=== PATIENT | male | born 1990 | race Caucasian/White ===

== ENCOUNTER 2024-04-06 18:17 | Inpatient (IN) | payer OTHER, SELFPAY ==
--- NOTE | ~2024-04-06 | CT_ITS ---
EXAMINATION: CT ABDOMEN AND PELVIS WITH CONTRAST CLINICAL INFORMATION: RLQ pain, h/o pancreatitis r/o appy, pancreatitis COMPARISON: None available. TECHNIQUE: Multidetector volumetric images were obtained from the superior aspect of the liver through the pubic symphysis following administration 85 mL of Omnipaque 350 intravenous contrast. Sagittal and coronal reformatted images were obtained on the technologist's workstation. Oral contrast: No This CT examination was performed using dose optimization techniques as appropriate, variously including the following: *Automated exposure control *Adjustment of mA and/or kV according to patient size (this includes techniques or standardized protocols for targeted exams where dose is matched to indication/reason for exam; i.e. extremities or head) *Use of iterative reconstruction technique DLP: 391 mGy-cm FINDINGS: LUNG BASES: The visualized lung bases are unremarkable. The visualized esophagus is thick-walled with adjacent stranding. LIVER, GALLBLADDER, AND BILIARY TREE: Hepatomegaly measuring up to 24 cm in maximum critical dimension. Nodular contour. No focal hepatic lesion or biliary ductal dilatation is present. The gallbladder is unremarkable with no evidence of radiopaque gallstones, gallbladder wall thickening, or obvious pericholecystic inflammatory changes. PANCREAS: Unremarkable. SPLEEN: Mild splenomegaly measuring up to 12.8 cm in maximum transaxial dimension. ADRENAL GLANDS: Unremarkable. KIDNEYS AND URETERS: There are nonobstructing 0.2 cm calculi in the bilateral renal lower and upper poles, as well as additional scattered punctate nonobstructing calculi bilaterally. No hydroureteronephrosis. The kidneys are normal in size, shape, and attenuation. No perinephric stranding. BLADDER: Unremarkable. GASTROINTESTINAL TRACT: The small and large bowel are nondilated. There is diffuse wall thickening with fatty infiltration throughout the descending, transverse and ascending colon as well as involving the terminal ileum. There is engorgement of the vasa recta, known as the comb sign. Normal appendix, coronal image 48. ABDOMINAL WALL: No significant hernia is appreciated. LYMPH NODES: There are enlarged cleo hepatis lymph nodes, for example series #3 axial image 186, measuring up to 1 cm in short axis. VASCULAR: Unremarkable. PELVIC VISCERA: Normal CT appearance of the prostate and seminal vesicles. OSSEOUS STRUCTURES: Unremarkable. CT/CT abdomen pelvis w IV con IMPRESSION: 1. There is diffuse wall thickening with fatty infiltration throughout the descending, transverse and ascending colon as well as involving the terminal ileum. There is engorgement of the vasa recta. Findings are suggestive of inflammatory bowel disease such as Crohn's disease versus colitis. The visualized esophagus is thick-walled with adjacent stranding, which can be seen in the setting of esophagitis versus related to the above-mentioned findings for inflammatory bowel disease. There are enlarged cleo hepatis lymph nodes, which may be reactive. 2. Normal appendix. 3. Hepatosplenomegaly with nodular contour of the liver, suggestive of cirrhosis. Fleischner guidelines were followed.
[2024-04-06 18:22] VITALS: BP 139/91; BP 160/90; PULSE 83; PULSE 88; RESP 18; TEMP 37; O2SAT 100; O2SAT 96; BMI 26.5
[2024-04-06 18:30] VITALS: BP 139/91; PULSE 83; RESP 18; TEMP 37; O2SAT 100
[2024-04-06 18:59] LABS: MANUAL DIFF FLAG NO
[2024-04-06] MEDS: ondansetron HCL 4 MG/2 ML VIAL IVPUSH (19:03)
[2024-04-06] MEDS: 0.9 % Sodium Chloride 1,000 ML 999 ML IV ×2 (19:03→20:16)
[2024-04-06 19:05] LABS: Basophils Percent Auto 0.3 % (0-2); Eosinophils Percent Auto 0.2 % (0-4); Hemoglobin 13.6 g/dl (14.0-18.0); Imm Gran Abs Auto 0.04 X10*3/uL (0.00-0.03); Imm Gran Pct Auto 0.4 % (0.0-0.4); Lymphocytes Absolute Auto 0.5 X10*3/uL (1.2-4.9); Lymphocytes Percent Auto 4.8 % (20-40); Mean Corpuscular HGB Conc 34.9 g/dl (31.0-36.0); Mean Corpuscular Hemoglobin 28.5 pg (27.0-33.0); Mean Corpuscular Volume 81.6 fL (80.0-98.0); Mean Platelet Volume 9.9 fL (9.4-12.4); Monocytes Absolute Auto 0.8 X10*3/uL (0.1-1.2); Monocytes Percent Auto 8.1 % (2-11); Neutrophils Absolute Auto 8.9 x10*3/uL (2.0-8.3); Neutrophils Percent Auto 86.2 % (45-73); Platelet Count 165 X10*3/uL (160-400); Red Blood Count 4.78 X10*6/uL (4.60-5.80); Red Cell Distribution Width 17.9 % (11.0-16.0); White Blood Count 10.3 X10*3/uL (4.8-10.8)
--- NOTE | 2024-04-06 19:08 | ED.ANXIETY ---
HPI - Anxiety General Chief Complaint: Nausea/Vomiting/Diarrhea Stated Complaint: VOMITING BLOOD Time Seen by Provider: 04/06/24 19:06 Source: patient Limitations: no limitations History of Present Illness ED Provider: Dr. Jimy Jackson HPI narrative: 33-year-old male with a history of alcoholic cirrhosis, recurrent pancreatitis, alcohol use disorder, alcohol withdrawal seizures who presents emergency department for evaluation of abdominal pain, nausea, vomiting, hematemesis, and diarrhea. Patient states that he has been sick for approximately 2 days. He states that he has been vomiting all day and has not been able to hold down any food or fluid. He states that he occasionally vomits blood which she describes as stringy red blood with no blood clots. Patient also states that he has a constant, ?razor blade/sharp pain ?in the right lower quadrant area of his abdomen. States the pain is 7/10 at its worst. Patient also states that he has chronic diarrhea and moves his bowels 10 times a day. He states he occasionally the bowel movements are bloody and mucousy. He drinks a sleeve (10 shots) of rootbeer flavored vodka per day. On presentation to the emergency department the patient was having a severe panic attack. He states that he felt like he was going to have a seizure. The patient was hyperventilating and had carpal pedal spasm and appeared to be severely anxious. Patient improved after receiving Ativan 1 mg IV. Related Data Allergies Allergy/AdvReac Type Severity Reaction Status Date / Time Penicillins Allergy Unknown Verified 04/06/24 18:26 Review of Systems Review of Systems: Yes all other systems are reviewed and are negative [facility] Past Medical History [facility] Narrative: Surgical history: None. Social history: The patient does smoke cigarettes. He drinks 10 shots of vodka per day. He denies drug use. Social History Social History Alcohol intake: current Alcohol intake frequency: 3 or more drinks per day Alcohol type: hard liquor Use of substances other than those prescribed or required for medical reasons: No Advance Directives: No Advance Directives Information Provided: No Do you have a plan to hurt others: No Plan Physical Exam Vital Signs: Vital Signs: Last Vital Signs Temp 98.7 F 04/06/24 20:12 Pulse 105 H 04/06/24 20:12 Resp 22 H 04/06/24 20:12 BP 124/76 04/06/24 20:12 Pulse Ox 98 04/06/24 20:12 O2 Del Method Room Air 04/06/24 20:12 BMI result Body Mass Index 26.5 Vital signs revealed elevated heart rate of 105, elevated respiratory rate of 22 otherwise unremarkable Exam: General: Initially the patient was having severe hyperventilation/panic attack with carpal pedal spasm which improved after receiving 2 mg IV Ativan Head: Normocephalic, atraumatic EENT: PERRL, Lids normal, sclera normal, conjunctiva normal, nose normal , ears normal, throat without erythema or exudates Neck: Supple, no adenopathy Lung: breath sounds symmetric, no wheezing, rales or rhonchi Chest: symmetric movement, nontender Heart: regular rate and rhythm, normal S1, S2 no murmurs or rubs Abdomen: soft, moderate diffuse tenderness with moderate to severe right lower quadrant tenderness, normoactive bowel sounds, no rebound Back: no vertebral tenderness, no CVAT Extremities: no deformities, moves all extremities symmetrically Neuro: Awake, alert, oriented, normal speech, cranial nerves intact, moves all extremities symmetrically Medications Administered Discontinued Medications Generic Name Dose Route Start Last Admin Trade Name Freq PRN Reason Stop Dose Admin Sodium Chloride 1,000 mls @ 999 mls/hr 04/06/24 18:45 04/06/24 19:03 Ns IV 04/06/24 19:45 999 mls/hr .Q1H1M DOE Administration Sodium Chloride 1,000 mls @ 999 mls/hr 04/06/24 20:05 04/06/24 20:16 Ns IV 04/06/24 21:05 999 mls/hr .Q1H1M STA Administration Iohexol 100 ml 04/06/24 20:30 04/06/24 20:30 Iohexol 350 Mg/Ml 100 Ml Infus..Btl IV 04/06/24 20:31 85 ml ONCE ONE Administration Lorazepam 2 mg 04/06/24 19:07 04/06/24 19:12 Lorazepam 2 Mg/Ml Vial IVPUSH 04/06/24 19:08 2 mg ONCE ONE Administration Lorazepam 2 mg 04/06/24 20:41 04/06/24 20:48 Lorazepam 2 Mg/Ml Vial IVPUSH 04/06/24 20:42 2 mg ONCE ONE Administration Morphine Sulfate 4 mg 04/06/24 20:04 04/06/24 20:15 Morphine Sulfate 4 Mg/Ml Cartridge IVPUSH 04/06/24 20:05 4 mg ONCE STA Administration Protocol Ondansetron HCl 4 mg 04/06/24 18:38 04/06/24 19:03 Ondansetron Hcl 4 Mg/2 Ml Vial IVPUSH 04/06/24 18:39 4 mg ONCE ONE Administration Medical Decision Making Medical Decision Making [facility] Narrative: 33-year-old male with a history of alcoholic cirrhosis, recurrent pancreatitis, alcohol use disorder, alcohol withdrawal seizures who presents emergency department for evaluation of abdominal pain, nausea, vomiting, hematemesis, and diarrhea. Patient has been sick for 2 days, unable to eat but has been able to drink 10 shots of vodka per day. Complaining of constant, sharp, right lower quadrant pain. He has chronic diarrhea with 10 episodes of diarrhea per day with occasional streaks of bloody stool and streaks mucus. On initial presentation the patient was having a hyperventilation/panic attack with carpal pedal spasm which improved after receiving Ativan 10 mg IV. Differential diagnosis: ?Includes but is not limited to pancreatitis, alcoholic gastritis, appendicitis, diverticulitis, inflammatory bowel disease, viral syndrome, COVID-19, influenza, RSV, electrolyte abnormalities, anemia Following evaluation was ordered: CBC, CMP, magnesium, lactic acid, troponin, CRP, ESR, urinalysis, urine drug screen, ethanol level, GI panel, C diff, blood cultures x2 Patient was initially treated with the following: Ativan 2 mg IV x2, morphine 4 mg IV x1, normal saline x2 L, magnesium 1 g IV, potassium chloride 10 mEq IV x2 Course: 22:43 My interpretation patient's laboratory evaluation is as follows: WBC was normal 10,300, normocytic anemia with an H&H of 13.6 and 39, platelet count [id number]. Potassium low 2.7, magnesium low 1.2-secondary to alcohol use. AST, ALT and alk-phos elevated 103, 59 and 160. Troponin below detectable limits. Ethanol level detectable at 78. Lipase was normal. CT scan of the patient's abdomen pelvis with IV contrast consistent with pain colitis which the radiologist felt could be consistent with inflammatory bowel disease such as Crohn's versus nonspecific colitis. Patient also had esophagus thickening consistent with esophagitis. Patient also has hepatosplenomegaly and cirrhosis of the liver. Given the patient's CT scan findings I did order blood cultures, GI panel and C diff. patient is pen allergic therefore he was treated with Levaquin 500 mg IV and Flagyl 500 mg IV. Patient was also ordered to get the phenobarbital protocol 12 milligrams/kilogram. I did discuss the patient's presentation over tiger text with the covering hospitalist, Dr. Hinkle and the patient will be admitted for further management. Admission/Observation Consideration of admission/observation: Escalation of care including admission/observation considered Lab Data MDM Lab Attestation statement: I reviewed the patient's lab results. 04/06/24 18:46 04/06/24 18:46 Labs: Lab Results 04/06/24 Range/Units 18:46 WBC 10.3 (4.8-10.8) X10*3/uL RBC 4.78 (4.60-5.80) X10*6/uL Hgb 13.6 L (14.0-18.0) g/dl Hct 39.0 L (42.0-52.0) % MCV 81.6 (80.0-98.0) fL MCH 28.5 (27.0-33.0) pg MCHC 34.9 (31.0-36.0) g/dl RDW 17.9 H (11.0-16.0) % Plt Count 165 (160-400) X10*3/uL MPV 9.9 (9.4-12.4) fL Immature Gran % (Auto) 0.4 (0.0-0.4) % Neut % (Auto) 86.2 H (45-73) % Lymph % (Auto) 4.8 L (20-40) % [place] % (Auto) 8.1 (2-11) % Eos % (Auto) 0.2 (0-4) % Baso % (Auto) 0.3 (0-2) % Lymph # (Auto) 0.5 L (1.2-4.9) X10*3/uL [place] # (Auto) 0.8 (0.1-1.2) X10*3/uL Eos # (Auto) 0.0 (0.0-0.4) X10*3/uL Baso # (Auto) 0.0 (0.0-0.2) X10*3/uL Abs Immat Gran (auto) 0.04 H (0.00-0.03) X10*3/uL Absolute Neuts (auto) 8.9 H (2.0-8.3) x10*3/uL Absolute Nucleated RBC 0.000 (0.0-0.012) X10*3/uL Nucleated RBC % (auto) 0.0 (0.0-0.2) /100WBC Sodium 142 (135-145) mmol/L Potassium 2.7 L* (3.3-5.1) mmol/L Chloride 95 L (96-108) mmol/L Carbon Dioxide 23 (22-29) mmol/L Anion Gap 27 H (12-20) BUN 14 (9-16) mg/dL Creatinine 0.91 (0.5-1.4) mg/dL Estim Creat Clear Calc 96.6 Estimated GFR > 60 Random Glucose 112 (60-115) mg/dL Calcium 9.6 (8.4-10.2) mg/dL Magnesium 1.2 L* (1.6-2.6) mg/dL Total Bilirubin 0.8 (0.0-1.0) mg/dL AST 103 H (5-37) U/L ALT 59 H (0-40) U/L Alkaline Phosphatase 160 H (39-117) U/L Troponin I High Sens < 2.7 (<3.5-35.0) ng/L Total Protein 8.9 H (6.5-8.0) g/dL Albumin 4.9 (3.5-5.0) g/dL Ethyl Alcohol 78 mg/dL Radiology Impression Discussion of test interpretation with radiology: I have reviewed the radiologist's reading. Radiologist Impression: CT abdomen pelvis w IV con IMPRESSION: 1. There is diffuse wall thickening with fatty infiltration throughout the descending, transverse and ascending colon as well as involving the terminal ileum. There is engorgement of the vasa recta. Findings are suggestive of inflammatory bowel disease such as Crohn's disease versus colitis. The visualized esophagus is thick-walled with adjacent stranding, which can be seen in the setting of esophagitis versus related to the above-mentioned findings for inflammatory bowel disease. There are enlarged cleo hepatis lymph nodes, which may be reactive. 2. Normal appendix. 3. Hepatosplenomegaly with nodular contour of the liver, suggestive of cirrhosis. Fleischner guidelines were followed. Dictated By: Lilian Paula External Record Review External record reviewed: Outpatient record ([facility] medical record reviewed for visits on 03/31/2024 and 04/01/2024) Chronic Conditions Patient?s care impacted by: Other (Cirrhosis of liver, alcohol use disorder) Critical Care Time Critical Care Time Critical Care Time: Yes Total Critical Care Time: 80 Attestation: Critical Care: The patient was critically ill with a high probability of imminent or life threatening deterioration. I spent greater than 30 minutes of discontinuous time evaluating the patient,delivering critical care at the bedside, discussing and evaluating pertinent data with consultants. Critical care time does not include time spent performing separately billable procedures or teaching. Total time spent performing critical care was 80 minutes. Discharge Plan Discharge Patient Disposition: Admitted As Inpatient Print Language: Macanese
[2024-04-06] MEDS: LORazepam 2 MG/ML VIAL IVPUSH ×2 (19:12→20:48)
[2024-04-06 19:18] VITALS: BP 138/87; PULSE 110; RESP 33; TEMP 37.1; O2SAT 99
--- NOTE | 2024-04-06 19:20 | PC.NURSE ---
Pt diaphoretic, tachycardic, vomiting, expressing hx seizures and reports I feel like a seizure is coming on . Pt exhibiting alcohol withdrawal symptoms. MD called to bedside. Verbal order Ativan 2mg IV. Pt placed on monitor, 18G IV line placed on R FA. Seizure pads placed on the bed. Monitoring is ongoing.
[2024-04-06 19:30] LABS: Troponin-I High Sensitivity < 2.7 ng/L (<3.5-35.0)
[2024-04-06 19:33] LABS: Alanine Aminotransferase 59 U/L (0-40); Albumin Level 4.9 g/dL (3.5-5.0); Alkaline Phosphatase 160 U/L (39-117); Anion Gap 27 (12-20); Aspartate Amino Transferase 103 U/L (5-37); Bilirubin Total 0.8 mg/dL (0.0-1.0); Blood Urea Nitrogen 14 mg/dL (9-16); Calcium 9.6 mg/dL (8.4-10.2); Carbon Dioxide 23 mmol/L (22-29); Chloride 95 mmol/L (96-108); Creatinine Clr Calc Pharmacy 96.6; Estimated Glomerular Filt Rate > 60; Ethanol 78 mg/dL; Glucose Random 112 mg/dL (60-115); Magnesium 1.2 mg/dL (1.6-2.6); Potassium 2.7 mmol/L (3.3-5.1); Sodium 142 mmol/L (135-145); Total Protein 8.9 g/dL (6.5-8.0)
[2024-04-06 20:12] VITALS: BP 124/76; PULSE 105; RESP 22; TEMP 37.1; O2SAT 98
[2024-04-06] MEDS: Morphine Sulfate 4 MG/ML CARTRIDGE IVPUSH (20:15)
[2024-04-06] MEDS: iohexoL 350 MG/ML 100 ML INFUS..BTL IV (20:30)
[2024-04-06 22:50] LABS: C Reactive Protein 0.22 mg/dL (< or = 0.50); Lipase 22 U/L (8-78)
[2024-04-06 23:06] LABS: Lactic Acid 1.1 mmol/L (0.5-2.0)
--- NOTE | 2024-04-06 23:06 | P.HPHOSP_ITS ---
History of Present Illness Date of Service: 04/06/24 Chief Complaint: Abdominal pain, diarrhea and vomiting This is a 33-year-old male with pertinent history of alcohol use disorder with history of alcohol withdrawal seizures and alcohol induced pancreatitis, mood disorder who presents to the emergency department for evaluation of nausea, vomiting, diarrhea and abdominal pain. Patient states his symptoms started 2 days prior to presentation. He has been having generalized abdominal discomfort. Also has associated bloody vomitus but no blood clots. Patient reports multiple episodes of nonbloody diarrhea that has been ongoing for the last 2 days. Reports this has happened before and it was related to his alcohol use. His last drink was on the day of presentation. The abdominal discomfort is in the lower quadrant, nonradiating and without any relieving factors. No fever, chills, chest discomfort, palpitations, changes in urinary habits. In the emergency department, imaging concerning for IBD versus colitis. Potassium and magnesium found to be low and was repleted. Patient was initiated on empiric IV antibiotics. Patient with panic attack in the ER and thought was going to have a seizures was given 1 mg IV Ativan. Review of Systems 2 Constitutional: Constitutional: Reports fatigue, Reports malaise and Reports weakness Cardiovascular: Cardiovascular: Reports no additional cardiovascular complaints Respiratory: Respiratory: Reports no additional respiratory complaints Gastrointestinal: Gastrointestinal: Reports abdominal pain, Reports diarrhea, Reports loose stools, Reports nausea and Reports hematemesis Genitourinary: Genitourinary: Reports no additional male genitourinary complaints Neurologic: Reports weakness Endocrine: Endocrine: Reports fatigue PMFSH Medical History Mood disorder Alcohol use disorder Pertinent family history: No family history of early CAD Social History Alcohol intake: current Alcohol intake frequency: 3 or more drinks per day Alcohol type: hard liquor Use of substances other than those prescribed or required for medical reasons: No Advance Directives: No Advance Directives Information Provided: No Do you have a plan to hurt others: No Plan Meds Allergies Allergy/AdvReac Type Severity Reaction Status Date / Time Penicillins Allergy Unknown Verified 04/06/24 18:26 Active Medications: Current Medications Magnesium Sulfate/Dextrose (Magnesium Sulfate/D5w) 1 gm in 100 mls @ 100 mls/hr IV ONCE ONE Stop: 04/06/24 23:18 Potassium Chloride (Potassium Chloride/H20) 10 meq in 100 mls @ 100 mls/hr IV Q1H DOE Stop: 04/07/24 00:29 Levofloxacin (Levaquin) 500 mg in 100 mls @ 100 mls/hr IV ONCE ONE Stop: 04/06/24 23:22 Metronidazole (Flagyl) 500 mg in 100 mls @ 100 mls/hr IV ONCE ONE Stop: 04/06/24 23:22 Pharmacy Consult (Consult Rx Etoh Phenob Im/Po) 1 each MISCELLANE ONCE PRN; Protocol PRN Reason: Consult order Phenobarbital (Phenobarbital 15 Mg Tablet) 45 mg PO BID DOE; Protocol Stop: 04/08/24 21:01 Phenobarbital (Phenobarbital 15 Mg Tablet) 15 mg PO BID DOE; Protocol Stop: 04/10/24 21:01 Phenobarbital (Phenobarbital 15 Mg Tablet) 15 mg PO DAILY DOE; Protocol Stop: 04/12/24 09:01 Phenobarbital Sodium (Phenobarbital Sodium 130 Mg/Ml Vial Im Q3hx2) 213.2 mg IM Q3H DOE; Protocol Stop: 04/07/24 05:01 Physical Exam 2 Vital Signs and Narrative: Vital Signs: Last Vital Signs Temp 98.7 F 04/06/24 20:12 Pulse 105 H 04/06/24 20:12 Resp 22 H 04/06/24 20:12 BP 124/76 04/06/24 20:12 Pulse Ox 98 04/06/24 20:12 O2 Del Method Room Air 04/06/24 20:12 BMI result Body Mass Index 26.5 Middle-aged male lying in bed in no distress Neck supple, no JVD Regular rate and rhythm, S1-S2 heard Regular breath sounds bilaterally, no wheezing or crackles appreciated Abdomen soft nondistended, no guarding, no rigidity Patient is awake, alert and oriented to self, place, time and person ; no focal motor deficit Psych: Normal mood No pedal edema Results Labs 04/06/24 18:46 04/06/24 18:46 Labs: Laboratory Results - last 24 hr 04/06/24 04/06/24 18:46 22:50 MCV 81.6 MCH 28.5 MCHC 34.9 RDW 17.9 H Plt Count 165 MPV 9.9 Immature Gran % (Auto) 0.4 Neut % (Auto) 86.2 H Lymph % (Auto) 4.8 L [place] % (Auto) 8.1 Eos % (Auto) 0.2 Baso % (Auto) 0.3 Lymph # (Auto) 0.5 L [place] # (Auto) 0.8 Eos # (Auto) 0.0 Baso # (Auto) 0.0 Abs Immat Gran (auto) 0.04 H Absolute Neuts (auto) 8.9 H Absolute Nucleated RBC 0.000 Nucleated RBC % (auto) 0.0 Anion Gap 27 H Estim Creat Clear Calc 96.6 Estimated GFR > 60 Random Glucose 112 Lactic Acid 1.1 Calcium 9.6 Magnesium 1.2 L* Total Bilirubin 0.8 AST 103 H ALT 59 H Alkaline Phosphatase 160 H Troponin I High Sens < 2.7 C-Reactive Protein 0.22 Total Protein 8.9 H Albumin 4.9 Lipase 22 Ethyl Alcohol 78 Imaging Radiologist's Impressions: Impressions Abdomen/Pelvis CT 04/06/24 20:31 IMPRESSION: 1. There is diffuse wall thickening with fatty infiltration throughout the descending, transverse and ascending colon as well as involving the terminal ileum. There is engorgement of the vasa recta. Findings are suggestive of inflammatory bowel disease such as Crohn's disease versus colitis. The visualized esophagus is thick-walled with adjacent stranding, which can be seen in the setting of esophagitis versus related to the above-mentioned findings for inflammatory bowel disease. There are enlarged cleo hepatis lymph nodes, which may be reactive. 2. Normal appendix. 3. Hepatosplenomegaly with nodular contour of the liver, suggestive of cirrhosis. Fleischner guidelines were followed. Assessment and Plan (1) Hematemesis: Status: Acute (2) Abdominal pain: Status: Acute (3) Diarrhea: Status: Acute (4) Alcohol use disorder: Status: Acute (5) Hypomagnesemia: Status: Acute (6) Acute hypokalemia: Status: Acute Plan This is a 33-year-old male with pertinent history of alcohol use disorder with history of alcohol withdrawal seizures and alcohol induced pancreatitis, mood disorder who presents to the emergency department for evaluation of nausea, vomiting, diarrhea and abdominal pain. #. Abdominal pain with vomiting and diarrhea: Imaging concerning for IBD versus colitis. Initiating empiric IV ceftriaxone and metronidazole. GI panel and C diff pending. Consulted Gastroenterology #. Hematemesis: Initiating IV Protonix. Also initiating IV octreotide in a patient with cirrhosis. On ceftriaxone as above. Appreciate GI assistance. #. Hypokalemia and hypomagnesemia due to GI losses: Repleted. Continue to monitor #. Alcoholic cirrhosis: Not on diuretics. Hold lactulose in the setting of diarrhea #. Mood disorder: Continue home mood stabilizers #. Polysubstance use disorder: UDS positive for opiates, cocaine. Consulted Addiction Team #. Alcohol use disorder: Patient initiated on phenobarb protocol in the ER. Initiating IV thiamine. Patient on folic acid. Appreciate Addiction Team assistance. Med rec pending DVT prophylaxis: Mechanical Full code Admit as inpatient and will require two night minimum hospital stay for IV antibiotics, monitoring of bowel function (as above), which is not possible in a lesser acute setting. Specialist consult pending Quality Stroke Does the patient have a stroke diagnosis?: No VTE Prior VTE?: No VTE Risk Level:: Medical - moderate - high VTE Device Contraindication: Treatment Not Indicated VTE Drug Contraindication: N/A - Med Ordered
[2024-04-06 23:11] LABS: Appearance Urine Clear; Color Urine Yellow; Glucose Urine UA Negative (Negative); Leukocyte Esterase Urine Negative (Negative); Nitrite Urine Negative (Negative); Specific Gravity - Urine >= 1.030 (1.005-1.025); UMIC TRIGGER UACC YES; Urine Blood Negative (Negative); Urine Ketones 15 mg/dL (Negative); Urine Protein 30 (1+) mg/dL (Neg-Trace)
[2024-04-06] MEDS: Potassium Chloride/H20 10 MEQ/100 ML PIGGYBACK 100 MEQ IV (23:12)
[2024-04-06] MEDS: Magnesium Sulfate/D5W 1 GM/100 ML PIGGYBACK IV (23:12)
[2024-04-06 23:13] LABS: Bacteria Urine None Seen (None Seen); Hyaline Casts Urine 0-2 /LPF (0-2); RBC Urine 0-2 /HPF (0-2); Squamous Epithelial Cell Urine 0-2 /HPF (0-2); WBC Urine 0-5 /HPF (0-5)
[2024-04-06 23:23] LABS: Amphetamine Screen Urine Not Detected (Not Detect); Barbiturates, Urine Not Detected (Not Detect); Benzodiazepines Screen Urine Not Detected (Not Detect); Buprenorphine Scr Not Detected (Not Detect); Cannabinoid Screen Urine POSITIVE (Not Detect); Cocaine Screen Urine POSITIVE (Not Detect); Fentanyl, urine Not Detected (Not Detect); Methadone Screen, Urine Not Detected (Not Detect); Opiate Screen Urine POSITIVE (Not Detect); Oxycodone Screen Urine Not Detected (Not Detect); Phencyclidine Screen Urine Not Detected (Not Detect)
[2024-04-06] MEDS: PHENobarbitaL sodium 130 MG/ML IM ONCE 286 MG IM (23:24)
[2024-04-07 00:03] LABS: Erythrocyte Sedimentation Rate 7 MM/HR (0-15)
[2024-04-07] MEDS: metroNIDAZOLE/NS 500 MG/100 ML PIGGYBACK 100 MG IV ×4 (00:07→21:33)
[2024-04-07] MEDS: Pantoprazole Sodium 40 MG/10 ML VIAL IVPUSH ×3 (00:10→16:03)
[2024-04-07] MEDS: cefTRIAXone sodium 1 GM in 0.9 % Sodium Chloride 50 ML IV ×2 (00:16→21:33)
[2024-04-07] MEDS: Thiamine HCL 100 MG in 0.9 % Sodium Chloride 100 ML 202 MG IV ×2 (00:53→08:01)
[2024-04-07] MEDS: Octreotide Acetate 100 MCG/ML AMPUL 50 MCG IVPUSH (00:56)
[2024-04-07] MEDS: 0.9 % Sodium Chloride Flush 3 ML SYRINGE IVFLUSH ×3 (00:58→15:18)
[2024-04-07] MEDS: Melatonin 3 MG TABLET 6 MG PO (01:01)
[2024-04-07] MEDS: Potassium Chloride/H20 10 MEQ/100 ML PIGGYBACK 100 MEQ IV ×4 (01:01→05:33)
[2024-04-07] MEDS: ondansetron HCL 4 MG/2 ML VIAL IVPUSH ×2 (01:01→15:18)
[2024-04-07] MEDS: Octreotide Acetate 500 MCG in 0.9 % Sodium Chloride 500 ML 50.1 MCG IVCONT ×3 (01:29→20:00)
[2024-04-07] MEDS: PHENobarbitaL sodium 130 MG/ML VIAL IM Q3Hx2 213.2 MG IM ×2 (02:16→05:35)
[2024-04-07 03:09] VITALS: PULSE 92; RESP 20
[2024-04-07 03:55] VITALS: BP 168/98; PULSE 81; RESP 16; TEMP 36.8; O2SAT 98
[2024-04-07 04:25] VITALS: BMI 27.8
[2024-04-07 06:25] LABS: MANUAL DIFF FLAG NO
[2024-04-07 06:31] LABS: Basophils Percent Auto 0.5 % (0-2); Imm Gran Abs Auto 0.01 X10*3/uL (0.00-0.03); Imm Gran Pct Auto 0.3 % (0.0-0.4); PLT CLUMP 1; SCAN SMEAR FLAG 1
[2024-04-07 06:33] LABS: Eosinophils Percent Auto 0.3 % (0-4); Hematocrit 32.9 % (42.0-52.0); Hemoglobin 10.9 g/dl (14.0-18.0); Lymphocytes Absolute Auto 0.9 X10*3/uL (1.2-4.9); Lymphocytes Percent Auto 22.6 % (20-40); Mean Corpuscular HGB Conc 33.1 g/dl (31.0-36.0); Mean Corpuscular Hemoglobin 28.1 pg (27.0-33.0); Mean Corpuscular Volume 84.8 fL (80.0-98.0); Monocytes Absolute Auto 0.4 X10*3/uL (0.1-1.2); Monocytes Percent Auto 11.2 % (2-11); Neutrophils Absolute Auto 2.5 x10*3/uL (2.0-8.3); Neutrophils Percent Auto 65.1 % (45-73); Red Blood Count 3.88 X10*6/uL (4.60-5.80); White Blood Count 3.9 X10*3/uL (4.8-10.8)
[2024-04-07 06:57] LABS: Platelet Count 78 X10*3/uL (160-400)
[2024-04-07 07:15] LABS: Anion Gap 12 (12-20); Blood Urea Nitrogen 12 mg/dL (9-16); Carbon Dioxide 26 mmol/L (22-29); Chloride 102 mmol/L (96-108); Creatinine Clr Calc Pharmacy 113.4; Estimated Glomerular Filt Rate > 60; Glucose Random 154 mg/dL (60-115); Magnesium 1.8 mg/dL (1.6-2.6); Potassium 3.2 mmol/L (3.3-5.1); Sodium 137 mmol/L (135-145)
--- NOTE | 2024-04-07 07:48 | PC.NURSE ---
Pt on continuous Octreotide drip, upon assessment 500ml bag of saline hanging unlabeled, pump set to Octreotide. Pump stopped remaining bag wasted, pharmacy notified of unlabeled bag hanging, new bag to be brought to floor
[2024-04-07 07:53] VITALS: BP 117/75; PULSE 73; RESP 18; TEMP 36.6; O2SAT 97
[2024-04-07] MEDS: PHENobarbitaL 15 MG TABLET 45 MG PO ×2 (08:01→20:19)
--- NOTE | 2024-04-07 08:56 | P.PNIM_ITS ---
Subjective Subjective Date of Service: 04/08/24 Interval History: Being followed for nausea vomiting, abdominal pain and diarrhea diagnosed to have IBD/colitis, hematemesis likely due to alcohol-induced gastritis, peptic ulcer disease, varices with backdrop of cirrhosis. Patient complaining of persistent epigastric pain and sore throat No recurrent episodes of hematemesis, no diarrhea. Review of Systems All other system reviewed and are negative Physical Exam 2 Vital Signs: Vital Signs: Last Vital Signs Temp 97.9 F 04/07/24 07:53 Pulse 73 04/07/24 07:53 Resp 18 04/07/24 07:53 BP 117/75 04/07/24 07:53 Pulse Ox 97 04/07/24 07:53 O2 Del Method Room Air 04/07/24 07:53 BMI result Body Mass Index 27.8 Const: Other: General somnolent, easily arousable,in no acute distress. Oral mucosa moist, no throat congestion Neck supple no JVD. CVS regular rate rhythm, Respiratory lungs clear to auscultation, no respiratory distress, no wheeze, no rhonchi. Gastrointestinal mild epigastric tenderness, soft, bowel sounds audible, no guarding , no rigidity. Extremities no edema. Neuro non focal, speech clear. Skin no rash Psych appropriate affect Objective Data Active Medications Acetaminophen (Acetaminophen 325 Mg Tablet) 650 mg PO Q6H PRN PRN Reason: Pain, Mild (Pain Scale 1-3), fever or headache Calcium Carbonate (Calcium Carbonate 750 Mg Tab.Chew) 750 mg PO Q4H PRN PRN Reason: Heartburn Metronidazole (Flagyl) 500 mg in 100 mls @ 100 mls/hr IV Q8H [facility] Last Infusion: 04/07/24 07:40 Dose: Infused Documented By: ROSEMARY Thiamine HCl 100 mg/ Sodium (Chloride) 101 mls @ 202 mls/hr IV DAILY [facility] Last Infusion: 04/07/24 08:41 Dose: Infused Documented By: ROSEMARY Ceftriaxone Sodium 1 gm/ (Sodium Chloride) 50 mls @ 100 mls/hr IV 2200 [facility] Last Infusion: 04/07/24 00:46 Dose: Infused Documented By: ULYSSES Octreotide Acetate 500 mcg/ (Sodium Chloride) 501 mls @ 50.1 mls/hr IVCONT .Q10H [facility] Last Infusion: 04/07/24 07:47 Dose: Infused Documented By: ROSEMARY Magnesium Hydroxide (Milk Of Magnesia 30 Ml Oral.Susp) 30 ml PO DAILY PRN PRN Reason: Constipation Melatonin (Melatonin 3 Mg Tablet) 6 mg PO BEDTIME PRN PRN Reason: Insomnia Last Admin: 04/07/24 01:01 Dose: 6 mg Documented By: ULYSSES Ondansetron HCl (Ondansetron Hcl 4 Mg/2 Ml Vial) 4 mg IVPUSH Q8H PRN PRN Reason: Nausea and Vomiting Last Admin: 04/07/24 01:01 Dose: 4 mg Documented By: ULYSSES Pantoprazole Sodium (Pantoprazole Sodium 40 Mg/10 Ml Vial) 40 mg IVPUSH BID@0630,1630 [facility] Last Admin: 04/07/24 06:16 Dose: 40 mg Documented By: SANTO Pharmacy Consult (Consult Rx Etoh Phenob Im/Po) 1 each MISCELLANE ONCE PRN; Protocol PRN Reason: Consult order Phenobarbital (Phenobarbital 15 Mg Tablet) 45 mg PO BID [facility]; Protocol Stop: 04/08/24 21:01 Last Admin: 04/07/24 08:01 Dose: 45 mg Documented By: ROSEMARY Phenobarbital (Phenobarbital 15 Mg Tablet) 15 mg PO BID [facility]; Protocol Stop: 04/10/24 21:01 Phenobarbital (Phenobarbital 15 Mg Tablet) 15 mg PO DAILY [facility]; Protocol Stop: 04/12/24 09:01 Sodium Chloride (0.9 % Sodium Chloride Flush 3 Ml Syringe) 3 ml IVFLUSH [facility] Last Admin: 04/07/24 08:02 Dose: 3 ml Documented By: ROSEMARY Labs 04/08/24 06:20 04/08/24 06:20 Labs: Laboratory Results - last 24 hr 04/06/24 04/06/24 04/06/24 18:46 22:50 23:05 MCV 81.6 MCH 28.5 MCHC 34.9 RDW 17.9 H Plt Count 165 MPV 9.9 Immature Gran % (Auto) 0.4 Neut % (Auto) 86.2 H Lymph % (Auto) 4.8 L [place] % (Auto) 8.1 Eos % (Auto) 0.2 Baso % (Auto) 0.3 Lymph # (Auto) 0.5 L [place] # (Auto) 0.8 Eos # (Auto) 0.0 Baso # (Auto) 0.0 Abs Immat Gran (auto) 0.04 H Absolute Neuts (auto) 8.9 H Absolute Nucleated RBC 0.000 Nucleated RBC % (auto) 0.0 ESR 7 Anion Gap 27 H Estim Creat Clear Calc 96.6 Estimated GFR > 60 Random Glucose 112 Lactic Acid 1.1 Calcium 9.6 Magnesium 1.2 L* Total Bilirubin 0.8 AST 103 H ALT 59 H Alkaline Phosphatase 160 H Troponin I High Sens < 2.7 C-Reactive Protein 0.22 Total Protein 8.9 H Albumin 4.9 Lipase 22 Urine Color Yellow Urine Appearance Clear Urine pH 8.0 Ur Specific [place] >= 1.030 H Urine Protein 30 (1+) H Urine Glucose (UA) Negative Urine Ketones 15 Urine Blood Negative Urine Nitrite Negative Ur Leukocyte Esterase Negative Urine RBC 0-2 Urine WBC 0-5 Ur Squamous Epith Cells 0-2 Urine Bacteria None Seen Hyaline Casts 0-2 Urine Opiates Screen POSITIVE H Ur Buprenorphine Scrn Not Detected Ur Oxycodone Screen Not Detected Urine Methadone Screen Not Detected Urine Fentanyl Screen Not Detected Ur Barbiturates Screen Not Detected Ur Phencyclidine Scrn Not Detected Ur Amphetamines Screen Not Detected U Benzodiazepines Scrn Not Detected Urine Cocaine Screen POSITIVE H U Marijuana (THC) Screen POSITIVE H Ethyl Alcohol 78 04/07/24 06:22 MCV 84.8 MCH 28.1 MCHC 33.1 RDW 18.0 H Plt Count 78 L D MPV 11.0 Immature Gran % (Auto) 0.3 Neut % (Auto) 65.1 Lymph % (Auto) 22.6 [place] % (Auto) 11.2 H Eos % (Auto) 0.3 Baso % (Auto) 0.5 Lymph # (Auto) 0.9 L [place] # (Auto) 0.4 Eos # (Auto) 0.0 Baso # (Auto) 0.0 Abs Immat Gran (auto) 0.01 Absolute Neuts (auto) 2.5 Absolute Nucleated RBC 0.000 Nucleated RBC % (auto) 0.0 ESR Anion Gap 12 Estim Creat Clear Calc 113.4 Estimated GFR > 60 Random Glucose 154 H Lactic Acid Calcium 8.0 L D Magnesium 1.8 Total Bilirubin AST ALT Alkaline Phosphatase Troponin I High Sens C-Reactive Protein Total Protein Albumin Lipase Urine Color Urine Appearance Urine pH Ur Specific [place] Urine Protein Urine Glucose (UA) Urine Ketones Urine Blood Urine Nitrite Ur Leukocyte Esterase Urine RBC Urine WBC Ur Squamous Epith Cells Urine Bacteria Hyaline Casts Urine Opiates Screen Ur Buprenorphine Scrn Ur Oxycodone Screen Urine Methadone Screen Urine Fentanyl Screen Ur Barbiturates Screen Ur Phencyclidine Scrn Ur Amphetamines Screen U Benzodiazepines Scrn Urine Cocaine Screen U Marijuana (THC) Screen Ethyl Alcohol Assessment and Plan (1) Hematemesis: Status: Acute (2) Diarrhea: Status: Acute (3) Abdominal pain: Status: Acute (4) Hypomagnesemia: Status: Acute (5) Acute hypokalemia: Status: Acute (6) Alcohol withdrawal: Status: Acute (7) Alcohol use disorder: Status: Acute (8) Pancolitis: Status: Acute Plan 33-year-old male with pertinent history of alcohol use disorder with history of alcohol withdrawal seizures and alcohol induced pancreatitis, mood disorder who presents to the emergency department for evaluation of nausea, vomiting, diarrhea and abdominal pain. #. Acute Abdominal pain with vomiting and diarrhea and dysphagia likely dysphagia due to esophagitis, CT abdomen and pelvis concerning for esophagitis, IBD versus colitis. on empiric IV ceftriaxone and metronidazole started on 04/06. GI panel and C diff un collected Follow CBC continue IV Protonix, supportive care Gastroenterology consult pending #. Acute upper GI bleed with Hematemesis likely due to gastritis/peptic ulcer disease/ variceal bleed: H&H dropped but stable, Continue IV Protonix, IV octreotide follow GI consult #. Hypokalemia and hypomagnesemia due to GI losses: potassium 3.2 will replete ,follow bmp ,mag normalized. #. Alcoholic cirrhosis: Elevated LFTs, normal albumin, thrombocytopenia all due to cirrhosis and not due to severe sepsis. check INR, ammonia level, Not on diuretics., no confusion strongly recommend to abstain from alcohol #. Mood disorder: On multiple medications including buspirone 20 mg t.i.d., gabapentin 600 mg q.i.d., Seroquel 100 mg bedtime, Zoloft 100 mg daily, trazodone 50 mg at bedtime and Topamax 25 mg daily Since patient noted to be sedated and being on phenobarb will hold trazodone and buspirone. #. Polysubstance use disorder: UDS positive for opiates, cocaine, Consulted Addiction Team #. Alcohol use disorder: Tachypnea, tachycardia likely due to alcohol withdrawal and not due to sepsis, now improving, continue phenobarb protocol, IV thiamine, folic acid. Follow Addiction Team consult. DVT prophylaxis: Compression boots Full code Patient will require continued inpatient hospitalization for IV antibiotics, phenobarb protocol for alcohol withdrawal, monitoring of CBC and electrolytes, awaiting expert consultation Quality Stroke Does the patient have a stroke diagnosis?: No VTE Prior VTE?: No VTE Risk Level:: Medical - moderate - high VTE Device Contraindication: Treatment Not Indicated VTE Drug Contraindication: N/A - Med Ordered
[2024-04-07] MEDS: KCl 20 mEq in 5 % Dex/Lact Rin 20 MEQ/1,000 ML IV.SOLN 100 MEQ IVCONT ×2 (09:34→21:34)
--- NOTE | 2024-04-07 12:41 | PHA.MEDREC ---
Pharmacy Consult ? Medication Reconciliation Pharmacy has completed the medication reconciliation. Tried going up to patients room with no luck with being able to speak with patient. Patient was sleepy and tried getting attention but patient was non-compliant. I tried contacting Dad Lex and had no answer so I left a voicemail and have not heard back. Went through claims and was able to confirm medications thru there.
--- NOTE | 2024-04-07 14:27 | MHC.CM.PN ---
EMR REVIEWED, PT W/DIARRHEA/ETOH WITHDRAWAL/ELECTROLYTE IMBALANCE, CM MET W/PT WHO REPORTS HE LIVES W/GF, IS INDEP W/ALL CARE, DENIES USE OF DME/SERVICES, GOAL FOR DC IS HOME W/[facility] SHUTTLE IF NEEDED. PT VERIFIES PCP ON FILE IS CORRECT, PT REPORTS HCP AT [facility] AND GIVES VERBAL CONSENT FOR CM TO CONTACT [facility] FOR COPY.
[2024-04-07 15:25] VITALS: BP 122/82; PULSE 75; RESP 18; TEMP 36.3; O2SAT 98
[2024-04-07] MEDS: Morphine Sulfate 4 MG/ML CARTRIDGE 3 MG IVPUSH ×2 (17:23→21:32)
[2024-04-07 17:43] LABS: PLT CLUMP 1
[2024-04-07 17:44] LABS: Mean Corpuscular HGB Conc 33.3 g/dl (31.0-36.0); Mean Corpuscular Hemoglobin 28.4 pg (27.0-33.0); Mean Corpuscular Volume 85.3 fL (80.0-98.0); Mean Platelet Volume 10.7 fL (9.4-12.4); Red Blood Count 3.87 X10*6/uL (4.60-5.80); Red Cell Distribution Width 17.5 % (11.0-16.0)
[2024-04-07 17:45] LABS: Platelet Count 78 X10*3/uL (160-400); White Blood Count 3.2 X10*3/uL (4.8-10.8)
--- NOTE | 2024-04-07 18:20 | P.EN_ITS ---
Event Note Date of Service: 04/07/24 Event Note: GI Consult-Full note dictated-History from patient, EMR, and his RN. Imp: 33 yo male with a history of active polysubstance and EtOH abuse, cirrhosis, and his report of an EGD with Banding and Colonoscopy at [facility] about three years ago, presenting with N/V, reported hematemesis,. diarrhea, and hematochezia. His CT scan is suggestive of colitis and esophagitis. He has been on an IV Sandostatin infusion. He denies any further vomiting, diarrhea, or bleeding. He reports that both parents have had colon cancer. Diff dx: UGI bleed from varices, esophagitis, PUD, gastritis, Cass-Yuan tear Lower GI sx from colitis, infectious vs. IBD Rec: EGD and Colonoscopy tomorrow with me or Dr. Tracy. Full consent has been obtained for this, including risks of bleeding and perforation. Continue IV Sandostain and PPI. F/U labs in AM, including a PT/INR. Check stool specimens if possible. I advised patient of the severity of his liver disease and the need to stop drinking and using drugs. He understood and was comfortable with the plan. Thanks. Time Spent With Patient Time: Total time managing care of this patient today ____ minutes.
--- NOTE | 2024-04-07 19:16 | MHC.SHP ---
Pre-Procedural Eval Section A - 24 Hr Update-Section A only Date of Service: 04/08/24 The patient is an INPATIENT: Yes The patient has been examined within 24 hours of the surgical procedure. The History & Physical has been completed within 30 days and I have reviewed it.: Yes Section B - Complete if H&P > 30 days Chief Complaint: diarrhea Allergies: Allergies Allergy/AdvReac Type Severity Reaction Status Date / Time Penicillins Allergy Unknown Verified 04/06/24 18:26 Plan I have reviewed the history and physical and performed a pertinent physical examination on my patient. No changes have occurred unless specified. Time Spent With Patient Time: Total time managing care of this patient today ____ minutes.
[2024-04-07 19:40] VITALS: BP 140/89; PULSE 70; RESP 18; TEMP 36.4; O2SAT 98
[2024-04-07] MEDS: PEG 3350/Na Sulf,Bicarb,Cl/KCL 4,000 ML SOLN.RECON 4000 ML PO (20:01)
[2024-04-07] MEDS: QUEtiapine Fumarate 100 MG TABLET PO (20:19)
[2024-04-07] MEDS: bisacodyL 5 MG TABLET.DR 10 MG PO (20:19)
[2024-04-07] MEDS: Metoclopramide HCl 10 MG/2 ML VIAL IVPUSH (21:29)
[2024-04-07 22:20] LABS: CDiff Gene PCR NEGATIVE (Negative)
[2024-04-07 23:41] LABS: Influenza A PCR NEGATIVE (Negative); Influenza B PCR NEGATIVE (Negative); Resp Syncy Virus RNA Qual PCR NEGATIVE (Negative); SARS COV2 PCR INHOUSE NEGATIVE (Negative)
[2024-04-08] VITALS (7 sets, daily range): BP systolic 113–149; BP diastolic 72–98; PULSE 55–68; RESP 16–18; TEMP 36.1–36.9; O2SAT 93–100
--- NOTE | 2024-04-08 02:07 | CONS_ITS ---
DATE OF SERVICE: 04/07/2024 REASON FOR CONSULTATION: Cirrhosis, vomiting with hematemesis, diarrhea with hematochezia, and abnormal CT scan of GI tract. HISTORY OF PRESENT ILLNESS: The patient is a 33-year-old male with a longstanding history of polysubstance and alcohol abuse with underlying cirrhosis based on his imaging studies on CT scan. He describes a hospitalization about 3 years ago at [facility] for GI bleeding, for which he underwent both upper endoscopy and colonoscopy. He describes he had banding of varices at that time in regard to the upper endoscopy. He thinks he may have had some polyps taken out from the colon. He has a family history of both parents reportedly having had colon cancer. The patient drinks at least a pint of liquor every day. He also abuses drugs and his toxicology screen when he came to the ER included positive testing for marijuana, cocaine, and opiates, in addition to the alcohol. The patient describes that he was at his baseline health up until about 2 days ago when he began having some vomiting followed by hematemesis. He also had diarrhea with some bright red blood per rectum as well as some black stool. He was also having some diffuse upper abdominal pain. He did not notice any jaundice. He denies any fevers. Prior to the past couple of days, he denies any signs of GI bleeding since the episode back 3 years ago that landed him at [facility]. He denies use of any chronic NSAIDs. In addition to drugs and alcohol, he does smoke cigarettes. The patient still has some mild nausea, but has had no further vomiting since admission to the medical floor. He has had no bowel movements either. He has been started on IV Sandostatin and IV Protonix in the ER. He has been hemodynamically stable. MEDICATIONS: At home included buspirone, folic acid, gabapentin, pantoprazole, Seroquel, sertraline, thiamine, topiramate, and trazodone. Medications here in the hospital include IV Sandostatin, IV Protonix, acetaminophen, Tums, IV ceftriaxone, folic acid, lorazepam, magnesium, melatonin, IV Flagyl, milk of magnesia, morphine, Zofran, IV pantoprazole and phenobarbital, Seroquel, sertraline, thiamine, and Topamax. PAST MEDICAL HISTORY: Cirrhosis as above. Upper GI bleeding 3 years ago with banding by his report at [facility]. Colonoscopy with possible polyps removed 3 years ago at [facility] as well. Seizure disorder. He describes a history of previous pancreatitis. He has a mood disorder. He denies history of IN, stroke, or diabetes. REVIEW OF SYSTEMS: CONSTITUTIONAL: He has been feeling poorly at home due to all of his GI complaints and substance abuse. CARDIAC: He denies any chest pain. PULMONARY: No coughing nor hemoptysis. GI: As above. PHYSICAL EXAMINATION: GENERAL: The patient is a pleasant, alert, cooperative male. SKIN: Warm and dry. HEENT: Anicteric sclerae. Moist mucous membranes. NECK: Supple. CHEST: Clear. CARDIAC: Normal S1, S2. ABDOMEN: Soft, nondistended, nontender without palpable mass. FAMILY HISTORY: He reports both parents had colon cancer. LABORATORY DATA: Hemoglobin 13.6 last evening, 10.9 this morning and 11.0 this afternoon. Initial white blood cell count was 10.3, which dropped to 3.2. Platelets 165,000 and had dropped to 78,000. Sedimentation rate was 7. Normal electrolytes other than a potassium 3.2. BUN 12, creatinine 0.9. BUN on admission was 14. Total bilirubin 0.8, AST 103, ALT 59, alkaline phosphatase 160, albumin 4.9, lipase 22. The CT scan of his abdomen and pelvis described hepatomegaly with a nodular contour consistent with cirrhosis. There was no evidence of any biliary obstruction, gallbladder disease, nor liver mass. The pancreas appeared unremarkable. There was some mild splenomegaly. There is no report of any ascites. The colon has some diffuse wall thickening with fatty infiltration involving the entire colon and terminal ileum. The esophagus is also thick walled with some adjacent inflammation. IMPRESSION: Given the patient's presentation, his upper gastrointestinal bleeding could very well be from recurrent variceal bleeding, although other possibilities would include esophagitis, gastritis, peptic ulcer disease, and a Cass-Yuan tear. I would continue the Sandostatin and IV Protonix. He will undergo upper endoscopy tomorrow with either myself or Dr. Tracy. I would also recommend a colonoscopy tomorrow to assess for any component of colitis such as infectious colitis or inflammatory bowel disease. He may very well not have colitis as many times, the colon in patients with cirrhosis can become edematous just from the hypoalbuminemia. However, it would be important to obviously exclude any type of colitis that needs more specific treatment. Also, given his reported history of both parents having had colon cancer, it would be important to exclude that possibility as well. At this point, I would recommend both upper endoscopy and colonoscopy tomorrow with either me or Dr. Tracy. Full consent has been obtained from him for this, including risks of bleeding and perforation. I would continue his IV Sandostatin and IV Protonix in the meantime. Follow up laboratories have been ordered for the morning. Stool specimens have also been ordered, but have not yet been sent as he has not been able to have a bowel movement. I did have a detailed discussion with the patient regarding the severity of his liver disease and the need to stop drinking and using drugs completely immediately and exterminator termite. He understood this and was comfortable with the plan in regard to the GI procedures. MD ESTEPHANIA Velasco/BERENICE / [phone]
[2024-04-08] MEDS: Morphine Sulfate 4 MG/ML CARTRIDGE 3 MG IVPUSH ×3 (05:28→19:55)
[2024-04-08] MEDS: Octreotide Acetate 500 MCG in 0.9 % Sodium Chloride 500 ML 50.1 MCG IVCONT ×2 (05:28→13:26)
[2024-04-08] MEDS: Pantoprazole Sodium 40 MG/10 ML VIAL IVPUSH (05:28)
[2024-04-08] MEDS: metroNIDAZOLE/NS 500 MG/100 ML PIGGYBACK 100 MG IV ×3 (05:29→21:26)
--- NOTE | 2024-04-08 06:05 | PC.NURSE ---
Patient was able to tolerate half of Gavilyte, having frequent light to clear yellow watery stools.
[2024-04-08 06:32] LABS: Hematocrit 32.4 % (42.0-52.0); Hemoglobin 10.7 g/dl (14.0-18.0); Mean Corpuscular Hemoglobin 28.5 pg (27.0-33.0); Mean Corpuscular Volume 86.2 fL (80.0-98.0); Mean Platelet Volume 11.2 fL (9.4-12.4); PLT CLUMP 1; Red Blood Count 3.76 X10*6/uL (4.60-5.80); Red Cell Distribution Width 17.2 % (11.0-16.0)
[2024-04-08 06:34] LABS: Platelet Count 81 X10*3/uL (160-400); White Blood Count 3.1 X10*3/uL (4.8-10.8)
[2024-04-08 06:42] LABS: Ammonia 63 umol/L (13-55)
[2024-04-08 07:00] LABS: Alanine Aminotransferase 35 U/L (0-40); Albumin Level 3.2 g/dL (3.5-5.0); Alkaline Phosphatase 100 U/L (39-117); Anion Gap 9 (12-20); Aspartate Amino Transferase 66 U/L (5-37); Bilirubin Direct 0.2 mg/dL (0.0-0.5); Bilirubin Total 0.5 mg/dL (0.0-1.0); Blood Urea Nitrogen 8 mg/dL (9-16); Carbon Dioxide 24 mmol/L (22-29); Chloride 108 mmol/L (96-108); Creatinine Clr Calc Pharmacy 123.6; Estimated Glomerular Filt Rate > 60; Glucose Random 111 mg/dL (60-115); INTERNATIONAL NORM RATIO 1.2 (0.9-1.1); Potassium 3.2 mmol/L (3.3-5.1); Prothrombin Time 14.1 SEC (11.1-13.3); Sodium 138 mmol/L (135-145); Total Protein 5.8 g/dL (6.5-8.0)
[2024-04-08] MEDS: Potassium Chloride/H20 10 MEQ/100 ML PIGGYBACK 100 MEQ IV ×2 (07:49→09:15)
[2024-04-08] MEDS: PHENobarbitaL 15 MG TABLET 45 MG PO ×2 (07:50→21:27)
[2024-04-08] MEDS: Sertraline HCL 100 MG TABLET PO (07:50)
[2024-04-08] MEDS: Folic Acid 1 MG TABLET PO (07:50)
[2024-04-08] MEDS: Topiramate 25 MG TABLET PO (10:13)
[2024-04-08] MEDS: Thiamine HCL 100 MG in 0.9 % Sodium Chloride 100 ML 202 MG IV (10:14)
[2024-04-08 10:27] LABS: Adenovirus F 40/41 Not Detected (Not Detect.); Astrovirus Not Detected (Not Detect.); Campylobacter Not Detected (Not Detect.); Cryptosporidium Not Detected (Not Detect.); Cyclospora cayetanensis Not Detected (Not Detect.); E. coli EAEC Not Detected (Not Detect.); E. coli EPEC Not Detected (Not Detect.); E. coli ETEC Not Detected (Not Detect.); E. coli STEC Not Detected (Not Detect.); Entamoeba histolytica Not Detected (Not Detect.); Giardia lamblia Not Detected (Not Detect.); Norovirus GI/GII Not Detected (Not Detect.); Plesiomonas shigelloides Not Detected (Not Detect.); Rotavirus A Not Detected (Not Detect.); Salmonella Not Detected (Not Detect.); Sapovirus Not Detected (Not Detect.); Shigella sp./EIEC Not Detected (Not Detect.); Vibrio Not Detected (Not Detect.); Vibrio Cholerae Not Detected (Not Detect.); Yersinia enterocolitica Not Detected (Not Detect.)
--- NOTE | 2024-04-08 11:38 | P.PNIM_ITS ---
Subjective Subjective Date of Service: 04/09/24 Interval History: Being followed for hematemesis, alcohol withdrawal/colitis Feeling better this morning demise hematemesis, no lower abdominal pain, no diarrhea is NPO for upper endoscopy and colonoscopy, tachycardia/tachypnea resolved blood pressure stable .no fevers. Review of Systems All other system reviewed and are negative. Physical Exam 2 Vital Signs: Vital Signs: Last Vital Signs Temp 98.1 F 04/08/24 08:00 Pulse 63 04/08/24 08:00 Resp 16 04/08/24 08:00 BP 131/94 H 04/08/24 08:00 Pulse Ox 96 04/08/24 08:00 O2 Del Method Room Air 04/08/24 08:00 BMI result Body Mass Index 27.8 Const: Other: General somnolent, easily arousable, in no acute distre ss. Oral mucosa moist, no throat c ongestion Neck sup ple no JVD. CVS r egular rate rhythm , Respiratory lung s clear to auscult ation, no respirat ory distress, no w heeze, no rhonchi. Gastrointestinal mild epigastric te nderness, soft, harry wel sounds audible , no guarding , no rigidity. Extremi ties no edema. Anamaria ro non focal, spee ch clear. Skin no rash Psych appropr iate affect Objective Data Active Medications Acetaminophen (Acetaminophen 325 Mg Tablet) 650 mg PO Q6H PRN PRN Reason: Pain, Mild (Pain Scale 1-3), fever or headache Calcium Carbonate (Calcium Carbonate 750 Mg Tab.Chew) 750 mg PO Q4H PRN PRN Reason: Heartburn Folic Acid (Folic Acid 1 Mg Tablet) 1 mg PO DAILY [facility] Last Admin: 04/08/24 07:50 Dose: 1 mg Documented By: SOCORRO Metronidazole (Flagyl) 500 mg in 100 mls @ 100 mls/hr IV Q8H [facility] Last Infusion: 04/08/24 06:29 Dose: Infused Documented By: REDD Thiamine HCl 100 mg/ Sodium (Chloride) 101 mls @ 202 mls/hr IV DAILY [facility] Last Infusion: 04/08/24 11:27 Dose: Infused Documented By: SOCORRO Ceftriaxone Sodium 1 gm/ (Sodium Chloride) 50 mls @ 100 mls/hr IV 2200 [facility] Last Infusion: 04/07/24 22:05 Dose: Infused Documented By: REDD Octreotide Acetate 500 mcg/ (Sodium Chloride) 501 mls @ 50.1 mls/hr IVCONT .Q10H [facility] Last Admin: 04/08/24 05:28 Dose: 50 mcg/hr, 50.1 mls/hr Documented By: REDD Potassium Cl/Dextrose/Lact Ringer's (Kcl 20 Meq In 5 % Dex/Lact Rin) 20 meq in 1,000 mls @ 100 mls/hr IVCONT .Q10H [facility] Last Infusion: 04/08/24 09:29 Dose: 0 mls/hr Documented By: SOCORRO Magnesium Hydroxide (Milk Of Magnesia 30 Ml Oral.Susp) 30 ml PO DAILY PRN PRN Reason: Constipation Melatonin (Melatonin 3 Mg Tablet) 6 mg PO BEDTIME PRN PRN Reason: Insomnia Last Admin: 04/07/24 01:01 Dose: 6 mg Documented By: ULYSSES Morphine Sulfate (Morphine Sulfate 4 Mg/Ml Cartridge) 3 mg IVPUSH Q4H PRN; Protocol PRN Reason: Pain, Severe (Pain Scale 7-10) Last Admin: 04/08/24 05:28 Dose: 3 mg Documented By: REDD Ondansetron HCl (Ondansetron Hcl 4 Mg/2 Ml Vial) 4 mg IVPUSH Q8H PRN PRN Reason: Nausea and Vomiting Last Admin: 04/07/24 15:18 Dose: 4 mg Documented By: TABBY Pantoprazole Sodium (Pantoprazole Sodium 40 Mg/10 Ml Vial) 40 mg IVPUSH BID@0630,1630 [facility] Last Admin: 04/08/24 05:28 Dose: 40 mg Documented By: REDD Pharmacy Consult (Consult Rx Etoh Phenob Im/Po) 1 each MISCELLANE ONCE PRN; Protocol PRN Reason: Consult order Phenobarbital (Phenobarbital 15 Mg Tablet) 45 mg PO BID [facility]; Protocol Stop: 04/08/24 21:01 Last Admin: 04/08/24 07:50 Dose: 45 mg Documented By: SOCORRO Phenobarbital (Phenobarbital 15 Mg Tablet) 15 mg PO BID [facility]; Protocol Stop: 04/10/24 21:01 Phenobarbital (Phenobarbital 15 Mg Tablet) 15 mg PO DAILY [facility]; Protocol Stop: 04/12/24 09:01 Quetiapine Fumarate (Quetiapine Fumarate 100 Mg Tablet) 100 mg PO BEDTIME [facility] Last Admin: 04/07/24 20:19 Dose: 100 mg Documented By: REDD Sertraline HCl (Sertraline Hcl 100 Mg Tablet) 100 mg PO DAILY [facility] Last Admin: 04/08/24 07:50 Dose: 100 mg Documented By: SOCORRO Sodium Biphosphate/Sodium Phosphate (Sodium Phosphate,[place]-Dibasic 133 Ml Enema) 133 ml IN ONCE PRN PRN Reason: Poor Colonoscopy Prep Results Sodium Chloride (0.9 % Sodium Chloride Flush 3 Ml Syringe) 3 ml IVFLUSH QSHIFT [facility] Last Admin: 04/08/24 07:50 Dose: Not Given Documented By: SOCORRO Non-Admin Reason: IV Running Topiramate (Topiramate 25 Mg Tablet) 25 mg PO DAILY [facility] Last Admin: 04/08/24 10:13 Dose: 25 mg Documented By: SOCORRO Labs 04/09/24 05:21 04/09/24 08:10 Labs: Laboratory Results - last 24 hr 04/07/24 04/07/24 04/07/24 01:40 17:35 20:49 MCV 85.3 MCH 28.4 MCHC 33.3 RDW 17.5 H Plt Count 78 L MPV 10.7 Absolute Nucleated RBC 0.000 Nucleated RBC % (auto) 0.0 PT INR Anion Gap Estim Creat Clear Calc Estimated GFR Random Glucose Calcium Total Bilirubin Direct Bilirubin AST ALT Alkaline Phosphatase Ammonia Total Protein Albumin Hold Yellow Top See Note Stl C. cayetanensis PCR Not Detected Stool Rotavirus A PCR Not Detected Stl Adenov F 40/41 PCR Not Detected Stool Astrovirus (PCR) Not Detected Stool Campylobacter PCR Not Detected Stool Cryptosporidium PCR Not Detected Stl Sh Tox Pr E STEC PCR Not Detected Stool E coli O157 PCR Not applicable Stl Enterotoxigenic E PCR Not Detected Stool EPEC (PCR) Not Detected Stool EAEC (PCR) Not Detected Stl E. histolytica PCR Not Detected Stool Giardia Lamblia PCR Not Detected Stl P. shigelloides PCR Not Detected Stool Salmonella PCR Not Detected Stool Sapovirus (PCR) Not Detected Stl Shigella/EIEC PCR Not Detected St Y.enterocolitica PCR Not Detected Stool Vibrio (PCR) Not Detected Stl Vibrio cholerae PCR Not Detected Stl Norovirus GI/GII PCR Not Detected C. difficile Tox B Gene NEGATIVE Influenza Type A (PCR) Cancelled Influenza Type B (PCR) Cancelled RSV RNA Qual (PCR) Cancelled SARS-CoV-2 RNA (RT-PCR) Cancelled 04/07/24 04/08/24 22:49 06:20 MCV 86.2 MCH 28.5 MCHC 33.0 RDW 17.2 H Plt Count 81 L MPV 11.2 Absolute Nucleated RBC 0.000 Nucleated RBC % (auto) 0.0 PT 14.1 H INR 1.2 H Anion Gap 9 L Estim Creat Clear Calc 123.6 Estimated GFR > 60 Random Glucose 111 Calcium 8.0 L Total Bilirubin 0.5 Direct Bilirubin 0.2 AST 66 H ALT 35 Alkaline Phosphatase 100 Ammonia 63 H Total Protein 5.8 L Albumin 3.2 L Hold Yellow Top Stl C. cayetanensis PCR Stool Rotavirus A PCR Stl Adenov F 40/41 PCR Stool Astrovirus (PCR) Stool Campylobacter PCR Stool Cryptosporidium PCR Stl Sh Tox Pr E STEC PCR Stool E coli O157 PCR Stl Enterotoxigenic E PCR Stool EPEC (PCR) Stool EAEC (PCR) Stl E. histolytica PCR Stool Giardia Lamblia PCR Stl P. shigelloides PCR Stool Salmonella PCR Stool Sapovirus (PCR) Stl Shigella/EIEC PCR St Y.enterocolitica PCR Stool Vibrio (PCR) Stl Vibrio cholerae PCR Stl Norovirus GI/GII PCR C. difficile Tox B Gene Influenza Type A (PCR) NEGATIVE Influenza Type B (PCR) NEGATIVE RSV RNA Qual (PCR) NEGATIVE SARS-CoV-2 RNA (RT-PCR) NEGATIVE Microbiology Microbiology Results: Microbiology 04/07/24 00:05 Blood Culture - Preliminary Blood - Venous No growth after 24 hours. 04/06/24 22:50 Blood Culture - Preliminary Blood - Venous No growth after 24 hours. Assessment and Plan (1) Hematemesis: Status: Acute (2) Diarrhea: Status: Acute (3) Abdominal pain: Status: Acute (4) Hypomagnesemia: Status: Acute (5) Acute hypokalemia: Status: Acute (6) Alcohol withdrawal: Status: Acute (7) Alcohol use disorder: Status: Acute (8) Pancolitis: Status: Acute Plan 33-year-old male with pertinent history of alcohol use disorder with history of alcohol withdrawal seizures and alcohol induced pancreatitis, mood disorder who presents to the emergency department for evaluation of nausea, vomiting, diarrhea and abdominal pain. #. Acute Abdominal pain with hematemesis likely due to gastritis/PUD/variceal bleed , diarrhea and dysphagia Dysphagia and abdominal pain improved, likely dysphagia due to esophagitis, CT abdomen and pelvis concerning for esophagitis, IBD versus colitis. Continue IV ceftriaxone and metronidazole started on 04/06. Continue IV Protonix and IV octreotide GI panel and C diff negative H&H dropped but stable above transfusion threshold Seen by Dr. Yuan and will undergo upper endoscopy and colonoscopy. #. Hypokalemia and hypomagnesemia due to GI losses: potassium 3.2 will replete ,follow bmp ,mag normalized. #. Alcoholic cirrhosis: Elevated LFTs, normal albumin, thrombocytopenia , leukopenia (pancytopenia) all due to cirrhosis and not due to severe sepsis. INR 1.2, ammonia 63, liver enzymes trending down, Not on diuretics Or lactulose, no confusion strongly recommend to abstain from alcohol. #. Mood disorder: On multiple medications including buspirone 20 mg t.i.d., gabapentin 600 mg q.i.d., Seroquel 100 mg bedtime, Zoloft 100 mg daily, trazodone 50 mg at bedtime and Topamax 25 mg daily hold trazodone, Neurontin and buspirone due to somnolence. #. Polysubstance use disorder: UDS positive for opiates, cocaine, Addiction Team consult pending. #. Alcohol use disorder: Tachypnea, tachycardia likely due to alcohol withdrawal and not due to sepsis, now resolved, continue phenobarb protocol, IV thiamine, folic acid. Follow Addiction Team consult. DVT prophylaxis: Compression boots Full code Patient will require continued inpatient hospitalization for IV antibiotics, phenobarb protocol for alcohol withdrawal, monitoring of CBC and electrolytes, and upper and lower endoscopy scheduled for today. Quality Stroke Does the patient have a stroke diagnosis?: No VTE Prior VTE?: No VTE Risk Level:: Medical - moderate - high VTE Device Contraindication: Treatment Not Indicated VTE Drug Contraindication: N/A - Med Ordered
[2024-04-08] MEDS: KCl 20 mEq in 5 % Dex/Lact Rin 20 MEQ/1,000 ML IV.SOLN 100 MEQ IVCONT (13:34)
--- NOTE | 2024-04-08 13:38 | MHC.RECOVRN ---
Met with pt in 370 after consult placed to Addiction Medicine for alcohol use disorder. Pt had presented to the ED c/o n/v, abdominal pain, and alcohol use. Upon evaluation, pt admitted for hematemesis, abdominal pain, diarrhea, AUD, hypomagnesemia, and acute hypokalemia. Pt sitting in bed, awake, alert, easily engages in conversation. Pt reports alcohol use, 10 nips vodka daily x a few months. Pts UDS positive for opiates, pt denies opiate use, reports this is due to pain medications received at [facility]. Pt reports extensive hx of tx for AUD, multiple hospitalizations, ATS/CSS/TSS admissions, as well as [facility]. Reports one Sect [facility]. Pt reports longest period in recovery was 160+ days last year. Pt reports he was able to maintain recovery by being in programs. Pt states I want to do outpatient this time. Pt reports he lives with his girlfriend who is supportive and very concerned regarding pts alcohol use. Pt also reports his father is supportive. Discussed outpatient resources and supports, pt interested in naltrexone through [facility]. Pt reports he is starting a driving class for an OUI at and would like to keep his treatment in the same facility. Pt provided with written resources/support information as well as t/w contact information if needed. Pt denies questions or concerns for t/w.
--- NOTE | 2024-04-08 14:57 | PC.NURSE ---
Patient arrived to preop with two PRN angio's. #18 right FA, #22 left FA. Both sites asymptomatic, flushed well.
--- NOTE | 2024-04-08 16:20 | P.CONAN_ITS ---
[facility] Active Problems Active Problems: All Active Problems Hematemesis (Acute) Diarrhea (Acute) Abdominal pain (Acute) Hypomagnesemia (Acute) Acute hypokalemia (Acute) Alcohol withdrawal (Acute) Pancolitis (Acute) Mood disorder (Acute) Alcohol use disorder (Acute) Past Medical History Medical History Meningitis spinal Alcoholic cirrhosis Seizure Mood disorder Alcohol use disorder Surgical History Surgical History [place] teeth extracted H/O colonoscopy No pertinent past surgical history History of Problems with Anesthesia: No Social History Social History Household Members: Other Household Members Other:: girlfriend Housing: Apartment Do you presently have visiting nurse or other home services: No Alcohol intake: current Alcohol intake frequency: 3 or more drinks per day Alcohol type: hard liquor Patient Tobacco Use Status: Current everyday Tobacco user Tobacco use type: Cigarette Cigarette Packs Per Day: 1 Cigarettes Per Day: 20.0 Years Smoked: 15 Second Hand Smoke Exposure: No Substance Use Type: Marijuana, Opiates and Other service: No Meds Allergies Allergy/AdvReac Type Severity Reaction Status Date / Time Penicillins Allergy Unknown CHILDHOOD Verified 04/08/24 14:45 ALLERGY Active Medications: Current Medications Acetaminophen (Acetaminophen 325 Mg Tablet) 650 mg PO Q6H PRN PRN Reason: Pain, Mild (Pain Scale 1-3), fever or headache Calcium Carbonate (Calcium Carbonate 750 Mg Tab.Chew) 750 mg PO Q4H PRN PRN Reason: Heartburn Folic Acid (Folic Acid 1 Mg Tablet) 1 mg PO DAILY [facility] Last Admin: 04/08/24 07:50 Dose: 1 mg Metronidazole (Flagyl) 500 mg in 100 mls @ 100 mls/hr IV Q8H [facility] Last Infusion: 04/08/24 14:43 Dose: Infused Thiamine HCl 100 mg/ Sodium (Chloride) 101 mls @ 202 mls/hr IV DAILY [facility] Last Infusion: 04/08/24 11:27 Dose: Infused Ceftriaxone Sodium 1 gm/ (Sodium Chloride) 50 mls @ 100 mls/hr IV 2200 [facility] Last Infusion: 04/07/24 22:05 Dose: Infused Octreotide Acetate 500 mcg/ (Sodium Chloride) 501 mls @ 50.1 mls/hr IVCONT .Q10H [facility] Last Admin: 04/08/24 13:26 Dose: 50 mcg/hr, 50.1 mls/hr Potassium Cl/Dextrose/Lact Ringer's (Kcl 20 Meq In 5 % Dex/Lact Rin) 20 meq in 1,000 mls @ 100 mls/hr IVCONT .Q10H [facility] Last Admin: 04/08/24 13:34 Dose: 100 mls/hr Magnesium Hydroxide (Milk Of Magnesia 30 Ml Oral.Susp) 30 ml PO DAILY PRN PRN Reason: Constipation Melatonin (Melatonin 3 Mg Tablet) 6 mg PO BEDTIME PRN PRN Reason: Insomnia Last Admin: 04/07/24 01:01 Dose: 6 mg Morphine Sulfate (Morphine Sulfate 4 Mg/Ml Cartridge) 3 mg IVPUSH Q4H PRN; Protocol PRN Reason: Pain, Severe (Pain Scale 7-10) Last Admin: 04/08/24 13:34 Dose: 3 mg Ondansetron HCl (Ondansetron Hcl 4 Mg/2 Ml Vial) 4 mg IVPUSH Q8H PRN PRN Reason: Nausea and Vomiting Last Admin: 04/07/24 15:18 Dose: 4 mg Pantoprazole Sodium (Pantoprazole Sodium 40 Mg/10 Ml Vial) 40 mg IVPUSH BID@0630,1630 [facility] Last Admin: 04/08/24 05:28 Dose: 40 mg Pharmacy Consult (Consult Rx Etoh Phenob Im/Po) 1 each MISCELLANE ONCE [facility]N; Protocol PRN Reason: Consult order Phenobarbital (Phenobarbital 15 Mg Tablet) 45 mg PO BID [facility]; Protocol Stop: 04/08/24 21:01 Last Admin: 04/08/24 07:50 Dose: 45 mg Phenobarbital (Phenobarbital 15 Mg Tablet) 15 mg PO BID [facility]; Protocol Stop: 04/10/24 21:01 Phenobarbital (Phenobarbital 15 Mg Tablet) 15 mg PO DAILY [facility]; Protocol Stop: 04/12/24 09:01 Quetiapine Fumarate (Quetiapine Fumarate 100 Mg Tablet) 100 mg PO BEDTIME [facility] Last Admin: 04/07/24 20:19 Dose: 100 mg Sertraline HCl (Sertraline Hcl 100 Mg Tablet) 100 mg PO DAILY [facility] Last Admin: 04/08/24 07:50 Dose: 100 mg Sodium Biphosphate/Sodium Phosphate (Sodium Phosphate,[place]-Dibasic 133 Ml Enema) 133 ml [place] ONCE PRN PRN Reason: Poor Colonoscopy Prep Results Sodium Chloride (0.9 % Sodium Chloride Flush 3 Ml Syringe) 3 ml IVFLUSH QSHIFT [facility] Last Admin: 04/08/24 15:49 Dose: Not Given Topiramate (Topiramate 25 Mg Tablet) 25 mg PO DAILY [facility] Last Admin: 04/08/24 10:13 Dose: 25 mg Home Medications ?Medication ?Instructions ?Recorded ?Confirmed ?Last Taken ?Type buspirone 10 mg tablet 20 mg PO TID 04/07/24 04/07/24 Unknown History cetirizine 10 mg tablet 10 mg PO DAILY 04/07/24 04/07/24 Unknown History folic acid 1 mg tablet 1 mg PO DAILY 04/07/24 04/07/24 Unknown History gabapentin 600 mg tablet 600 mg PO QID 04/07/24 04/07/24 Unknown History melatonin 10 mg tablet 10 mg PO DAILY 04/07/24 04/07/24 Unknown History pantoprazole 40 mg tablet,delayed 40 mg PO DAILY 04/07/24 04/07/24 Unknown History release quetiapine 100 mg tablet 100 mg PO BEDTIME 04/07/24 04/07/24 Unknown History sertraline 100 mg tablet 100 mg PO DAILY 04/07/24 04/07/24 Unknown History thiamine HCl (vitamin B1) 100 mg 100 mg PO DAILY 04/07/24 04/07/24 Unknown History tablet topiramate 25 mg sprinkle capsule 25 mg PO DAILY 04/07/24 04/07/24 Unknown History trazodone 50 mg tablet 50 mg PO BEDTIME 04/07/24 04/07/24 Unknown History Exam Height,Weight and Vital Signs: Height 5 ft 4 in Weight 73.4 kg Last Vital Signs Temp 98.5 F 04/08/24 14:46 Pulse 68 04/08/24 14:46 Resp 16 04/08/24 14:46 BP 148/98 H 04/08/24 14:46 Pulse Ox 98 04/08/24 14:46 O2 Del Method Room Air 04/08/24 14:46 Pertinent Lab Results Pertinent Lab Results: Laboratory Tests 04/06/24 04/06/24 04/06/24 18:46 22:50 23:05 WBC 10.3 RBC 4.78 Hgb 13.6 L Hct 39.0 L MCV 81.6 MCH 28.5 MCHC 34.9 RDW 17.9 H Plt Count 165 MPV 9.9 Immature Gran % (Auto) 0.4 Neut % (Auto) 86.2 H Lymph % (Auto) 4.8 L [place] % (Auto) 8.1 Eos % (Auto) 0.2 Baso % (Auto) 0.3 Lymph # (Auto) 0.5 L [place] # (Auto) 0.8 Eos # (Auto) 0.0 Baso # (Auto) 0.0 Abs Immat Gran (auto) 0.04 H Absolute Neuts (auto) 8.9 H Absolute Nucleated RBC 0.000 Nucleated RBC % (auto) 0.0 ESR 7 PT INR Sodium 142 Potassium 2.7 L* Chloride 95 L Carbon Dioxide 23 Anion Gap 27 H BUN 14 Creatinine 0.91 Estim Creat Clear Calc 96.6 Estimated GFR > 60 Random Glucose 112 Lactic Acid 1.1 Calcium 9.6 Magnesium 1.2 L* Total Bilirubin 0.8 Direct Bilirubin AST 103 H ALT 59 H Alkaline Phosphatase 160 H Ammonia Troponin I High Sens < 2.7 C-Reactive Protein 0.22 Total Protein 8.9 H Albumin 4.9 Lipase 22 Hold Yellow Top Urine Color Yellow Urine Appearance Clear Urine pH 8.0 Ur Specific [place] >= 1.030 H Urine Protein 30 (1+) H Urine Glucose (UA) Negative Urine Ketones 15 Urine Blood Negative Urine Nitrite Negative Ur Leukocyte Esterase Negative Urine RBC 0-2 Urine WBC 0-5 Ur Squamous Epith Cells 0-2 Urine Bacteria None Seen Hyaline Casts 0-2 Stl C. cayetanensis PCR Stool Rotavirus A PCR Stl Adenov F 40/41 PCR Stool Astrovirus (PCR) Stool Campylobacter PCR Stool Cryptosporidium PCR Stl Sh Tox Pr E STEC PCR Stool E coli O157 PCR Stl Enterotoxigenic E PCR Stool EPEC (PCR) Stool EAEC (PCR) Stl E. histolytica PCR Stool Giardia Lamblia PCR Stl P. shigelloides PCR Stool Salmonella PCR Stool Sapovirus (PCR) Stl Shigella/EIEC PCR St Y.enterocolitica PCR Stool Vibrio (PCR) Stl Vibrio cholerae PCR Stl Norovirus GI/GII PCR Urine Opiates Screen POSITIVE H Ur Buprenorphine Scrn Not Detected Ur Oxycodone Screen Not Detected Urine Methadone Screen Not Detected Urine Fentanyl Screen Not Detected Ur Barbiturates Screen Not Detected Ur Phencyclidine Scrn Not Detected Ur Amphetamines Screen Not Detected U Benzodiazepines Scrn Not Detected Urine Cocaine Screen POSITIVE H U Marijuana (THC) Screen POSITIVE H Ethyl Alcohol 78 C. difficile Tox B Gene Influenza Type A (PCR) Influenza Type B (PCR) RSV RNA Qual (PCR) SARS-CoV-2 RNA (RT-PCR) 04/07/24 04/07/24 04/07/24 01:40 06:22 17:35 WBC 3.9 L 3.2 L RBC 3.88 L 3.87 L Hgb 10.9 L 11.0 L Hct 32.9 L 33.0 L MCV 84.8 85.3 MCH 28.1 28.4 MCHC 33.1 33.3 RDW 18.0 H 17.5 H Plt Count 78 L D 78 L MPV 11.0 10.7 Immature Gran % (Auto) 0.3 Neut % (Auto) 65.1 Lymph % (Auto) 22.6 [place] % (Auto) 11.2 H Eos % (Auto) 0.3 Baso % (Auto) 0.5 Lymph # (Auto) 0.9 L [place] # (Auto) 0.4 Eos # (Auto) 0.0 Baso # (Auto) 0.0 Abs Immat Gran (auto) 0.01 Absolute Neuts (auto) 2.5 Absolute Nucleated RBC 0.000 0.000 Nucleated RBC % (auto) 0.0 0.0 ESR PT INR Sodium 137 Potassium 3.2 L Chloride 102 Carbon Dioxide 26 Anion Gap 12 BUN 12 Creatinine 0.85 Estim Creat Clear Calc 113.4 Estimated GFR > 60 Random Glucose 154 H Lactic Acid Calcium 8.0 L D Magnesium 1.8 Total Bilirubin Direct Bilirubin AST ALT Alkaline Phosphatase Ammonia Troponin I High Sens C-Reactive Protein Total Protein Albumin Lipase Hold Yellow Top See Note Urine Color Urine Appearance Urine pH Ur Specific [place] Urine Protein Urine Glucose (UA) Urine Ketones Urine Blood Urine Nitrite Ur Leukocyte Esterase Urine RBC Urine WBC Ur Squamous Epith Cells Urine Bacteria Hyaline Casts Stl C. cayetanensis PCR Stool Rotavirus A PCR Stl Adenov F 40 PCR Stool Astrovirus (PCR) Stool Campylobacter PCR Stool Cryptosporidium PCR Stl Sh Tox Pr E STEC PCR Stool E coli O157 PCR Stl Enterotoxigenic E PCR Stool EPEC (PCR) Stool EAEC (PCR) Stl E. histolytica PCR Stool Giardia Lamblia PCR Stl P. shigelloides PCR Stool Salmonella PCR Stool Sapovirus (PCR) Stl Shigella/EIEC PCR St Y.enterocolitica PCR Stool Vibrio (PCR) Stl Vibrio cholerae PCR Stl Norovirus GI/GII PCR Urine Opiates Screen Ur Buprenorphine Scrn Ur Oxycodone Screen Urine Methadone Screen Urine Fentanyl Screen Ur Barbiturates Screen Ur Phencyclidine Scrn Ur Amphetamines Screen U Benzodiazepines Scrn Urine Cocaine Screen U Marijuana (THC) Screen Ethyl Alcohol C. difficile Tox B Gene Influenza Type A (PCR) Cancelled Influenza Type B (PCR) Cancelled RSV RNA Qual (PCR) Cancelled SARS-CoV-2 RNA (RT-PCR) Cancelled 04/07/24 04/07/24 04/08/24 20:49 22:49 06:20 WBC 3.1 L RBC 3.76 L Hgb 10.7 L Hct 32.4 L MCV 86.2 MCH 28.5 MCHC 33.0 RDW 17.2 H Plt Count 81 L MPV 11.2 Immature Gran % (Auto) Neut % (Auto) Lymph % (Auto) [place] % (Auto) Eos % (Auto) Baso % (Auto) Lymph # (Auto) [place] # (Auto) Eos # (Auto) Baso # (Auto) Abs Immat Gran (auto) Absolute Neuts (auto) Absolute Nucleated RBC 0.000 Nucleated RBC % (auto) 0.0 ESR PT 14.1 H INR 1.2 H Sodium 138 Potassium 3.2 L Chloride 108 Carbon Dioxide 24 Anion Gap 9 L BUN 8 L Creatinine 0.78 Estim Creat Clear Calc 123.6 Estimated GFR > 60 Random Glucose 111 Lactic Acid Calcium 8.0 L Magnesium Total Bilirubin 0.5 Direct Bilirubin 0.2 AST 66 H ALT 35 Alkaline Phosphatase 100 Ammonia 63 H Troponin I High Sens C-Reactive Protein Total Protein 5.8 L Albumin 3.2 L Lipase Hold Yellow Top Urine Color Urine Appearance Urine pH Ur Specific [place] Urine Protein Urine Glucose (UA) Urine Ketones Urine Blood Urine Nitrite Ur Leukocyte Esterase Urine RBC Urine WBC Ur Squamous Epith Cells Urine Bacteria Hyaline Casts Stl C. cayetanensis PCR Not Detected Stool Rotavirus A PCR Not Detected Stl Adenov F 40/41 PCR Not Detected Stool Astrovirus (PCR) Not Detected Stool Campylobacter PCR Not Detected Stool Cryptosporidium PCR Not Detected Stl Sh Tox Pr E STEC PCR Not Detected Stool E coli O157 PCR Not applicable Stl Enterotoxigenic E PCR Not Detected Stool EPEC (PCR) Not Detected Stool EAEC (PCR) Not Detected Stl E. histolytica PCR Not Detected Stool Giardia Lamblia PCR Not Detected Stl P. shigelloides PCR Not Detected Stool Salmonella PCR Not Detected Stool Sapovirus (PCR) Not Detected Stl Shigella/EIEC PCR Not Detected St Y.enterocolitica PCR Not Detected Stool Vibrio (PCR) Not Detected Stl Vibrio cholerae PCR Not Detected Stl Norovirus GI/GII PCR Not Detected Urine Opiates Screen Ur Buprenorphine Scrn Ur Oxycodone Screen Urine Methadone Screen Urine Fentanyl Screen Ur Barbiturates Screen Ur Phencyclidine Scrn Ur Amphetamines Screen U Benzodiazepines Scrn Urine Cocaine Screen U Marijuana (THC) Screen Ethyl Alcohol C. difficile Tox B Gene NEGATIVE Influenza Type A (PCR) NEGATIVE Influenza Type B (PCR) NEGATIVE RSV RNA Qual (PCR) NEGATIVE SARS-CoV-2 RNA (RT-PCR) NEGATIVE Airway Mallampati Class: III TM Dist: >3cm Neck ROM: Full Loose/Missing/Broken Teeth: No Heart: RRR Lungs: CTA Assessment and Plan Assessment Anesthesia Assessment: Anesthesia Plan Discussed and Chart Reviewed Final Anesthetic Review History of Problems with Anesthesia: No NPO: Yes ASA Class: III Final Preanesthetic Review: Meds/Allgs Chart Reviewed, Consent Obtained/Reviewed and Anes Risks/Benef Reviewed Patient Risk: Intermediate Procedure Risk: Intermediate Anesthetic Plan Anesthetic Plan: MAC: Disposition: Standard PACU
--- NOTE | 2024-04-08 17:14 | PM.EVENT ---
Event Note Date of Service: 04/08/24 Event Note: EGD dictated EGD shows erosive esophagitis, no varices mild portal hypertensive gastropathy and gastritis no bleeding Colonoscopy shows mild edema throughout colon, could be due to liver disease or resolving colitis. No acute colitis. Bx's taken rec: advance diet bid oral ppi x month then daily octreotide dc'd f/u @ [facility], (established with SIMONA Darby) d/c when stable Time Spent With Patient Time: Total time managing care of this patient today ____ minutes.
--- NOTE | 2024-04-08 17:20 | PM.OP ---
Brief Operative Note Date of Service: 04/08/24 Pre-op diagnosis: UGI Bleed Colitis Post-op diagnosis: same Procedure: EGD Colon Surgeon: Micah Tracy MD Anesthesia: MAC Was an Mine Inspector used for this Procedure?: No Estimated blood loss (mL): 2 Pathology: other Condition: stable Disposition: PACU
[2024-04-08] MEDS: ondansetron HCL 4 MG/2 ML VIAL IVPUSH (19:55)
[2024-04-08] MEDS: Melatonin 3 MG TABLET 6 MG PO (21:26)
[2024-04-08] MEDS: cefTRIAXone sodium 1 GM in 0.9 % Sodium Chloride 50 ML IV (21:26)
[2024-04-08] MEDS: QUEtiapine Fumarate 100 MG TABLET PO (21:27)
--- NOTE | 2024-04-09 00:05 | OP_ITS ---
DATE OF SERVICE: 04/08/2024 SURGEON: Micah Tracy MD INDICATIONS: Upper GI bleeding and abnormal CT scan of the colon with diarrhea. PREOPERATIVE DIAGNOSIS: POSTOPERATIVE DIAGNOSIS: PROCEDURE PERFORMED: 1. Upper endoscopy with biopsy. 2. Colonoscopy to the terminal ileum with biopsy. ESTIMATED BLOOD LOSS: COMPLICATIONS: ANESTHESIA: Monitored anesthesia care. ASSISTANTS: SPECIMENS: DESCRIPTION OF PROCEDURE: A history and physical was performed. The risks and benefits of the procedure were explained to the patient, and informed consent was obtained. The patient was placed in the left lateral decubitus position. The Olympus video gastroscope was introduced into the esophagus, stomach, and duodenum. Examination was performed. The scope was removed. He was repositioned for colonoscopy. A digital rectal exam was performed and was found to be normal. The Olympus pediatric video colonoscope was introduced into the rectum and advanced to the cecum. The cecum was identified by transillumination, palpation, and identification of ileocecal valve. Examination was performed. The scope was removed. He tolerated both procedures well and was returned to the recovery area in stable condition. FINDINGS: Upper endoscopy: 1. Esophagus: The esophagus showed erosive esophagitis over the last 10 cm of the esophagus. There was no active bleeding. No varices were definitely identified. 2. Stomach: The stomach showed very mild changes of portal hypertensive gastropathy without any bleeding. There was antral gastritis. Biopsies were obtained from the antrum. 3. Duodenum: The bulb and 2nd portion were basically normal. Colonoscopy: The terminal ileum was examined and appeared normal. The visualized colonic mucosa was normal without evidence of acute colitis. There was some mild nonspecific edema throughout the colon, which could be related to his underlying liver disease or possibly a remotely resolving colitis. There was no bleeding, no polyps were identified. Biopsies were obtained from the sigmoid. Retroflexed examination showed internal hemorrhoids. IMPRESSION: 1. Erosive esophagitis. 2. Gastritis. 3. Mild portal hypertensive gastropathy. 4. Nonspecific colonic edema, no acute colitis. RECOMMENDATION: 1. Follow up the biopsy results. 2. Advance diet. 3. High-dose PPI b.i.d. for 1 month, then daily. 4. Avoid alcohol. 5. He should follow up at the [facility] where he is established. MD ZBIGNIEW Bass/BERENICE / [phone]
[2024-04-09] MEDS: Morphine Sulfate 4 MG/ML CARTRIDGE 3 MG IVPUSH ×2 (01:21→05:44)
[2024-04-09] MEDS: KCl 20 mEq in 5 % Dex/Lact Rin 20 MEQ/1,000 ML IV.SOLN 100 MEQ IVCONT (02:52)
[2024-04-09 04:00] VITALS: BP 133/75; PULSE 52; RESP 18; TEMP 36.6; O2SAT 96
[2024-04-09] MEDS: metroNIDAZOLE/NS 500 MG/100 ML PIGGYBACK 100 MG IV (05:44)
[2024-04-09] MEDS: Omeprazole 40 MG CAPSULE.DR PO (05:44)
[2024-04-09 06:35] LABS: PLT CLUMP 1; Red Cell Distribution Width 16.7 % (11.0-16.0)
[2024-04-09 06:37] LABS: Hematocrit 33.7 % (42.0-52.0); Hemoglobin 11.2 g/dl (14.0-18.0); Mean Corpuscular HGB Conc 33.2 g/dl (31.0-36.0); Mean Corpuscular Hemoglobin 28.4 pg (27.0-33.0); Mean Corpuscular Volume 85.5 fL (80.0-98.0); Mean Platelet Volume 11.6 fL (9.4-12.4); Red Blood Count 3.94 X10*6/uL (4.60-5.80)
[2024-04-09 06:41] LABS: Platelet Count 90 X10*3/uL (160-400); White Blood Count 3.6 X10*3/uL (4.8-10.8)
[2024-04-09] MEDS: PHENobarbitaL 15 MG TABLET PO (07:52)
[2024-04-09] MEDS: Topiramate 25 MG TABLET PO (07:52)
[2024-04-09] MEDS: Sertraline HCL 100 MG TABLET PO (07:53)
[2024-04-09] MEDS: Thiamine HCL 100 MG TABLET PO (07:53)
[2024-04-09] MEDS: Folic Acid 1 MG TABLET PO (07:53)
[2024-04-09 08:00] VITALS: BP 115/74; PULSE 55; RESP 16; TEMP 36.5; O2SAT 92
[2024-04-09 08:44] LABS: Potassium 3.5 mmol/L (3.3-5.1)
--- NOTE | 2024-04-09 08:50 | HO.POSTANES ---
Post Anesthesia Evaluation Post Anesthesia Evaluation Date of Service: 04/09/24 Vital Signs: Vital Signs Temp Pulse Resp BP Pulse Ox O2 Del Method 04/09/24 04:00 97.9 F 52 18 133/75 96 Room Air 04/08/24 23:26 97.3 F 55 18 113/72 93 Room Air Anesthesia: Monitored Mental Status: Awake Pain Control: Satisfactory Nausea/Vomiting: None Hydration: Adequate Anesthesia-Related Issues: No Anes. Related Issues
--- NOTE | 2024-04-09 10:56 | MHC.CM.PN ---
Patient is discharged to home self care. The [facility] has been booked for 12pm transport home.
--- NOTE | 2024-04-09 11:54 | PM.DS ---
DS: Providers Provider Date of Service: 04/09/24 Date of admission: 04/06/24 23:04 Primary care physician: Noe Graham MD Consults: 04/06/24 23:07 Addiction Medicine Routine Consulting Provider: Addiction Covering Reason for consultation: alcohol use disorder 04/06/24 23:20 Consult to Gastroenterology Routine Consulting Provider: David Yuan Reason for consultation: hematemessis DS: Diagnosis Discharge Diagnosis (1) Hematemesis: Status: Acute (2) Diarrhea: Status: Acute (3) Abdominal pain: Status: Acute (4) Hypomagnesemia: Status: Acute (5) Acute hypokalemia: Status: Acute (6) Alcohol withdrawal: Status: Acute (7) Alcohol use disorder: Status: Acute (8) Pancolitis: Status: Acute DS: Summary Hospital Course Hospital Course: History of presenting illness: Date of Service: 04/06/24 Chief Complaint: Abdominal pain, diarrhea and vomiting This is a 33-year-old male with pertinent history of alcohol use disorder with history of alcohol withdrawal seizures and alcohol induced pancreatitis, mood disorder who presents to the emergency department for evaluation of nausea, vomiting, diarrhea and abdominal pain. Patient states his symptoms started 2 days prior to presentation. He has been having generalized abdominal discomfort. Also has associated bloody vomitus but no blood clots. Patient reports multiple episodes of nonbloody diarrhea that has been ongoing for the last 2 days. Reports this has happened before and it was related to his alcohol use. His last drink was on the day of presentation. The abdominal discomfort is in the lower quadrant, nonradiating and without any relieving factors. No fever, chills, chest discomfort, palpitations, changes in urinary habits. In the emergency department, imaging concerning for IBD versus colitis. Potassium and magnesium found to be low and was repleted. Patient was initiated on empiric IV antibiotics. Patient with panic attack in the ER and thought was going to have a seizures was given 1 mg IV Ativan. Hospital course: 33-year-old male with pertinent history of alcohol use disorder with history of alcohol withdrawal seizures and alcohol induced pancreatitis, mood disorder presented to [place] ED with symptoms of nausea , hematemesis, abdominal pain and diarrhea and admitted to [facility] with a diagnosis of Acute Abdominal pain with hematemesis likely due to gastritis/PUD/variceal bleed ,diarrhea and dysphagia, CT abdomen and pelvis was concerning for esophagitis, IBD versus colitis, patient treated with IV ceftriaxone,iv metronidazole, IV Protonix and IV octreotide, GI panel and C diff toxin were negative, patient H&H drop foot remained above transfusion threshold patient was subsequently seen by Gastroenterology and underwent upper endoscopy that showed erosive esophagitis, portal hypertensive gastropathy, gastritis no bleeding was noted colonoscopy showed mild edema throughout colon, likely resolving colitis versus due to liver disease, patient responded well to above treatment , had no further episodes of hematemesis abdominal pain no diarrhea therefore he is being discharged home on Protonix 1 tablet twice daily for 1 month recommended to continue 1 tablet daily he has been strongly advised to abstain from alcohol and is being discharged on 3 more days of by mouth Levaquin, patient was also noted to have mild hypokalemia and hypo magnesemia that has been repleted and normalized. In regard to alcohol use disorder patient was noted to be tachypneic, tachycardic was treated with phenobarb protocol, thiamine and folic acid, for subsequently seen by Addiction Team and has been given outpatient referral. He was noted to have elevated LFTs, pancytopenia all due to cirrhosis of liver and not due to severe sepsis he has been strongly advised to completely abstain from alcohol and also recommended outpatient follow-up with Gastroenterology. In regard to mood disorder he has been continued on all of his home medication except dose of Neurontin has been reduced to 600 mg t.i.d. and melatonin discontinued due to somnolence. Time Attestation Discharge Coordination Time (in mins): 40 Quality: Safe Use of Opioids Does Pt have an Active Cancer Diagnosis on the Problem List?: No Quality: Stroke Does the patient have a stroke diagnosis?: No Physical Exam Vital Signs: Vital Signs: Last Vital Signs Temp 97.7 F 04/09/24 08:00 Pulse 55 04/09/24 08:00 Resp 16 04/09/24 08:00 BP 115/74 04/09/24 08:00 Pulse Ox 92 04/09/24 08:00 O2 Del Method Room Air 04/09/24 08:00 BMI result Body Mass Index 27.8 Const: Other: General awake alert x3,in no acute distress. Oral mucosa moist, no throat congestion Neck supple no JVD. CVS regular rate rhythm, Respiratory lungs clear to auscultation, no respiratory distress, no wheeze, no rhonchi. Gastrointestinal soft, nontender, bowel sounds audible, no guarding , no rigidity. Extremities no edema. Neuro non focal, speech clear. Skin no rash Psych appropriate affect DS: Data Data Completed and Pending Pending studies at discharge: Pending at discharge 04/08/24 16:44 Surgical [PTH] Routine Labs on day of discharge: Laboratory Results - last 24 hr 04/09/24 04/09/24 05:21 08:10 WBC 3.6 L RBC 3.94 L Hgb 11.2 L Hct 33.7 L MCV 85.5 MCH 28.4 MCHC 33.2 RDW 16.7 H Plt Count 90 L MPV 11.6 Absolute Nucleated RBC 0.000 Nucleated RBC % (auto) 0.0 Potassium 3.5 Preliminary micro results at discharge 04/07/24 00:05 Blood Culture - Preliminary Blood - Venous No growth after 48 hours. 04/06/24 22:50 Blood Culture - Preliminary Blood - Venous No growth after 48 hours. Discharge Plan Discharge Anticipated Discharge Date/Time: 04/09/24 09:56 Patient Disposition: Home, Self-Care Discharge Diagnosis: Acute upper GI bleed Acute colitis Alcohol use disorder/withdrawal Hypokalemia Hypo magnesemia Referrals: Noe Graham MD [Primary Care Provider] - 1 Week Discharge Medications: New levofloxacin 500 mg tablet 500 mg PO DAILY 3 Days Qty: 3 0RF Continued trazodone 50 mg tablet 50 mg PO BEDTIME cetirizine 10 mg tablet 10 mg PO DAILY sertraline 100 mg tablet 100 mg PO DAILY thiamine HCl (vitamin B1) 100 mg tablet 100 mg PO DAILY quetiapine 100 mg tablet 100 mg PO BEDTIME topiramate 25 mg capsule, sprinkle 25 mg PO DAILY buspirone 10 mg tablet 20 mg PO TID folic acid 1 mg tablet 1 mg PO DAILY Changed pantoprazole 40 mg tablet,delayed release (DR/EC) 40 mg PO BID Qty: 60 0RF gabapentin 600 mg tablet 600 mg PO TID Qty: 90 0RF Discontinued melatonin 10 mg tablet 10 mg PO DAILY Discharge Orders: Discharge Order (Routine); Ordered 04/09/24 Ordered By: Huang Gomez Diet: bland diet Activity on Discharge: As tolerated Stand Alone Forms: Patient Portal Discharge page Print Language: Kazakh Care Plan Goals: Gastritis/erosive esophagitis strongly recommend to abstain from alcohol/take Protonix 1 tablet twice daily x 1 month than once monthly Dose of Neurontin reduced to 3 times a day due to excessive sleep. Health Concerns: cirrhosis Plan of Treatment: Outpatient follow-up with primary care physician in 1 week. Assessment: As above Discharge Date/Time: 04/09/24 11:39
== END 2024-04-09 11:39 | disposition home or self-care (01) | DRG 280 ==
LOC: HO.ED 22:53 → HO.EDOVER 23:09 → HO.S3 04-07 01:31
PROVIDERS: Internal Medicine; Internal Medicine Gastroenterology; Physician Assistant Medical; Admitting Provider Student in an Organized Health Care Education/Training Program; Emergency Provider Emergency Medicine Emergency Medical Services; PCP Internal Medicine; Visit Provider Hospitalist
PROC: 0DB78ZX Excision of Stomach, Pylorus, Via Natural or Artificial Opening Endoscopic, Diagnostic (ICD-10-PCS; principal; 2024-04-08 15:20)
DX: K70.30 Alcoholic cirrhosis of liver without ascites (principal); K22.11 Ulcer of esophagus with bleeding; D61.818 Other pancytopenia; K29.21 Alcoholic gastritis with bleeding; K76.6 Portal hypertension; F19.90 Other psychoactive substance use, unspecified, uncomplicated; F39 Unspecified mood [affective] disorder; K31.89 Other diseases of stomach and duodenum; F10.930 Alcohol use, unspecified with withdrawal, uncomplicated; K64.8 Other hemorrhoids; E83.42 Hypomagnesemia; F17.210 Nicotine dependence, cigarettes, uncomplicated; Y90.3 Blood alcohol level of 60-79 mg/100 ml; E87.6 Hypokalemia; Z20.822 Contact with and (suspected) exposure to COVID-19; Z71.6 Tobacco abuse counseling; Z88.0 Allergy status to penicillin; Z79.899 Other long term (current) drug therapy
CPT/HCPCS: 0241U; 36415; 74177; 80048; 80053; 80076; 80307; 81001; 82140; 83605; 83690; 83735; 84132; 84484; 85025; 85027; 85610; 85652; 86140; 87040; 87493; 87507; 88305; 88313; 88342; 99285; J0696; J1836; J2060; J2250; J2270; J2354; J2405; J2470; J2560; J2704; J2765; J3411; J3475; J3480; Q9967

== ENCOUNTER → 2024-04-06 23:04 | Outpatient (BNV) | payer OTHER, SELFPAY | PROVIDERS: Admitting Provider Student in an Organized Health Care Education/Training Program; Emergency Provider Emergency Medicine Emergency Medical Services; PCP Internal Medicine; Visit Provider Student in an Organized Health Care Education/Training Program | DX: K92.0 Hematemesis (principal); R19.7 Diarrhea, unspecified; R10.9 Unspecified abdominal pain; E83.42 Hypomagnesemia; E87.6 Hypokalemia; F10.939 Alcohol use, unspecified with withdrawal, unspecified; F10.90 Alcohol use, unspecified, uncomplicated; K51.00 Ulcerative (chronic) pancolitis without complications | CPT/HCPCS: 99223; 99232; 99233; 99239 ==

== ENCOUNTER 2024-04-19 02:41 | Emergency (ER) | payer OTHER, SELFPAY ==
[2024-04-19 02:43] VITALS: BP 122/79; PULSE 94; RESP 17; TEMP 36.6; O2SAT 98
[2024-04-19 02:56] VITALS: BP 130/90; PULSE 115; O2SAT 99; BMI 26.6
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
[2024-04-19] MEDS: Ibuprofen 600 MG TABLET PO (04:19)
[2024-04-19 04:20] VITALS: BP 122/79; PULSE 94; RESP 17; TEMP 36.6; O2SAT 98
== END 2024-04-19 04:20 | disposition home or self-care (01) ==
PROVIDERS: Emergency Provider Internal Medicine; PCP Internal Medicine
DX: K08.89 Other specified disorders of teeth and supporting structures (principal); S00.83XA Contusion of other part of head, initial encounter; Y04.2XXA Assault by strike against or bumped into by another person, initial encounter; F17.210 Nicotine dependence, cigarettes, uncomplicated; Y93.9 Activity, unspecified; Y92.9 Unspecified place or not applicable; Y99.9 Unspecified external cause status
CPT/HCPCS: 99283

== ENCOUNTER 2024-04-24 05:17 | Emergency (ER) | payer OTHER, SELFPAY ==
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
[2024-04-24 05:24] VITALS: BP 138/90; PULSE 120; BMI 25.6
[2024-04-24 05:31] VITALS: BP 131/87; PULSE 108; RESP 18; TEMP 37.2; O2SAT 97
--- NOTE | 2024-04-24 05:43 | MHC.EDTECH ---
Patient BIBA,vitals taken,patient has a lac to his left bottom foot,this tech cleaned wound with peroxide and saline bleeding controlled at this time,wrapped with a cling,call gaspar in reach
[2024-04-24] MEDS: Lidocaine HCl 1 % MPF 5 ML VIAL INFILTRATI (06:27)
--- NOTE | 2024-04-24 06:28 | ED_ITS ---
HPI - Wound/Laceration General Chief Complaint: Wound/Laceration Stated Complaint: FOOT LACERATION Time Seen by Provider: 04/24/24 06:05 Source: patient Mode of arrival: ambulatory Limitations: no limitations History of Present Illness ED Provider: juan WAGGONER narrative: Patient accidentally stepped on a wine bottle which broke and patient came with a laceration to left sole of the foot no other injuries, unknown tetanus shot Related Data Home Medications ?Medication ?Instructions ?Recorded ?Confirmed buspirone 10 mg tablet 20 mg PO TID 04/07/24 04/07/24 cetirizine 10 mg tablet 10 mg PO DAILY 04/07/24 04/07/24 folic acid 1 mg tablet 1 mg PO DAILY 04/07/24 04/07/24 quetiapine 100 mg tablet 100 mg PO BEDTIME 04/07/24 04/07/24 sertraline 100 mg tablet 100 mg PO DAILY 04/07/24 04/07/24 thiamine HCl (vitamin B1) 100 mg 100 mg PO DAILY 04/07/24 04/07/24 tablet topiramate 25 mg sprinkle capsule 25 mg PO DAILY 04/07/24 04/07/24 trazodone 50 mg tablet 50 mg PO BEDTIME 04/07/24 04/07/24 Previous Rx's ?Medication ?Instructions ?Recorded gabapentin 600 mg tablet 600 mg PO TID #90 tabs 04/09/24 levofloxacin 500 mg tablet 500 mg PO DAILY 3 days #3 tabs 04/09/24 pantoprazole 40 mg tablet,delayed 40 mg PO BID #60 tabs 04/09/24 release ibuprofen 600 mg tablet 600 mg PO Q6H PRN fever or pain 04/19/24 #20 tabs Allergies Allergy/AdvReac Type Severity Reaction Status Date / Time Penicillins Allergy Unknown CHILDHOOD Verified 04/24/24 05:27 ALLERGY Review of Systems 2 Review of Systems: Yes all other systems are reviewed and are negative PMFSH Past Medical History Medical History Meningitis spinal Alcoholic cirrhosis Seizure Mood disorder Alcohol use disorder Surgical History [place] teeth extracted H/O colonoscopy No pertinent past surgical history Social History Social History Household Members: Other Household Members Other:: girlfriend Housing: Apartment Do you presently have visiting nurse or other home services: No Alcohol intake: current Alcohol intake frequency: 3 or more drinks per day Alcohol type: hard liquor Patient Tobacco Use Status: Current everyday Tobacco user Tobacco use type: Cigarette Cigarette Packs Per Day: 1 Cigarettes Per Day: 20.0 Years Smoked: 15 Smoked in Last 30 Days: No Second Hand Smoke Exposure: No Substance Use Type: Marijuana, Opiates and Other Advance Directives: No Advance Directives Information Provided: No Do you have a plan to hurt others: No Plan service: No Physical Exam 2 Vital Signs: Vital Signs: Last Vital Signs Temp 98.9 F 04/24/24 05:31 Pulse 108 H 04/24/24 05:31 Resp 18 04/24/24 05:31 BP 131/87 04/24/24 05:31 Pulse Ox 97 04/24/24 05:31 O2 Del Method Room Air 04/24/24 05:31 BMI result Body Mass Index 25.6 Extrem: Ankle/foot/toe images: 1. 3 cm long laceration deep structure intact, no foreign body palpable Medications Administered Discontinued Medications Generic Name Dose Route Start Last Admin Trade Name Freq PRN Reason Stop Dose Admin Lidocaine HCl 5 ml 04/24/24 06:05 04/24/24 06:27 Lidocaine Hcl 1 % Mpf 5 Ml Vial INFILTRATI 04/24/24 06:06 5 ml ONCE ONE Administration Procedures Laceration Laceration 1: Site: lower extremity (Foot sole) Side (If applicable): left Description: linear Depth: simple, single layer Local Anesthetic: lidocaine 1% Amount of anesthesia used (mL): 5 Pre-repair: deep structures intact Skin layer closed with: nylon Size (cm): 3-0 Number of sutures: 6 Technique: simple, interrupted Discharge Plan Discharge Clinical Impression: Laceration Patient Disposition: Home, Self-Care Instructions: Laceration (ED) Additional Instructions: Local care as advised Suture removal in 10-14 days Prescriptions: No Action trazodone 50 mg tablet 50 mg PO BEDTIME cetirizine 10 mg tablet 10 mg PO DAILY sertraline 100 mg tablet 100 mg PO DAILY thiamine HCl (vitamin B1) 100 mg tablet 100 mg PO DAILY quetiapine 100 mg tablet 100 mg PO BEDTIME topiramate 25 mg capsule, sprinkle 25 mg PO DAILY buspirone 10 mg tablet 20 mg PO TID folic acid 1 mg tablet 1 mg PO DAILY pantoprazole 40 mg tablet,delayed release (DR/EC) 40 mg PO BID Qty: 60 0RF gabapentin 600 mg tablet 600 mg PO TID Qty: 90 0RF levofloxacin 500 mg tablet 500 mg PO DAILY 3 Days Qty: 3 0RF ibuprofen 600 mg tablet 600 mg PO Q6H PRN (Reason: fever or pain) Qty: 20 0RF Print Language: [place] Citizen
[2024-04-24] MEDS: Diphth,Pertus(ACell),Tet Adult 0.5 ML SYRINGE IM (06:38)
[2024-04-24] MEDS: Bacitracin Oint 0.9 GM PACKET 1 APPL TOPICAL (06:38)
[2024-04-24 06:42] VITALS: BP 131/87; PULSE 108; RESP 18; TEMP 37.2; O2SAT 97
== END 2024-04-24 06:43 | disposition home or self-care (01) ==
PROVIDERS: Emergency Provider Internal Medicine
DX: S91.312A Laceration without foreign body, left foot, initial encounter (principal); X58.XXXA Exposure to other specified factors, initial encounter; W25.XXXA Contact with sharp glass, initial encounter; Y93.01 Activity, walking, marching and hiking; Y92.89 Other specified places as the place of occurrence of the external cause; Y99.8 Other external cause status; Z23 Encounter for immunization
CPT/HCPCS: 12042; 73630; 90471; 90715; 99284

== ENCOUNTER 2024-05-03 18:27 | Emergency (ER) | payer OTHER, SELFPAY ==
[2024-05-03 18:38] VITALS: BP 150/92; PULSE 124; O2SAT 98
--- NOTE | 2024-05-03 18:40 | ED.GENADULT ---
HPI - General Adult General Chief complaint: ETOH/Substance Use Stated complaint: etoh drug use Time Seen by Provider: 05/03/24 18:39 Source: patient and EMS Mode of arrival: EMS Limitations: no limitations History of Present Illness ED Provider: Arlette Solano PA-C HPI narrative: Patient is a 33 year old assigned male at with a history of alcohol abuse presenting to the emergency department today with alcohol intoxication and requesting detox. Patient states that he has been drinking alcohol and is concerned he is going into detox. Patient states that he would like to be placed to help with his withdrawal. Patient denies any dizziness, lightheadedness, abdominal pain, nausea, vomiting, fever, chills, blurry vision, double vision, loss of vision, chest pain, difficulty breathing, shortness of breath, back pain, night sweats, pain with urination, increased urinary frequency, increased urinary urgency, blood in his urine or stool, syncope or a near syncopal episode, recent trauma or falls, bowel incontinence, bladder incontinence, or any other complaints at this time. Relieving factors: none Exacerbating factors: none Associated symptoms: denies other symptoms Treatments prior to arrival: none Related Data Home Medications ?Medication ?Instructions ?Recorded ?Confirmed buspirone 10 mg tablet 20 mg PO TID 04/07/24 05/03/24 cetirizine 10 mg tablet 10 mg PO DAILY 04/07/24 05/03/24 folic acid 1 mg tablet 1 mg PO DAILY 04/07/24 05/03/24 quetiapine 100 mg tablet 100 mg PO BEDTIME 04/07/24 05/03/24 sertraline 100 mg tablet 100 mg PO DAILY 04/07/24 05/03/24 thiamine HCl (vitamin B1) 100 mg 100 mg PO DAILY 04/07/24 05/03/24 tablet topiramate 25 mg sprinkle capsule 25 mg PO DAILY 04/07/24 05/03/24 trazodone 50 mg tablet 50 mg PO BEDTIME 04/07/24 05/03/24 gabapentin 600 mg tablet 600 mg PO QID 05/03/24 05/03/24 pantoprazole 40 mg tablet,delayed 40 mg PO BID 05/03/24 05/03/24 release Allergies Allergy/AdvReac Type Severity Reaction Status Date / Time Penicillins Allergy Unknown CHILDHOOD Verified 05/03/24 18:57 ALLERGY Review of Systems Constitutional: Constitutional: Reports no additional constitutional complaints, Denies chills, Denies fever(s) and Denies night sweats Eyes: Eyes: Reports no additional eye complaints, Denies blurry vision, Denies change in vision, Denies diplopia, Denies eye discharge, Denies loss of vision and Denies eye pain ENT: Denies dizziness Cardiovascular: Cardiovascular: Reports no additional cardiovascular complaints, Denies chest pain, Denies lightheadedness, Denies Loss of Consciousness and Denies dyspnea Respiratory: Respiratory: Reports no additional respiratory complaints and Denies dyspnea Gastrointestinal: Gastrointestinal: Reports no additional gastrointestinal complaints, Denies abdominal pain, Denies melena, Denies hematochezia, Denies change in bowel habits and Denies change in stool character Genitourinary: Genitourinary: Reports no additional male genitourinary complaints, Denies hematuria, Denies oliguria, Denies difficulty urinating, Denies dysuria, Denies urinary frequency, Denies urinary hesitancy, Denies urinary incontinence and Denies urinary urgency Musculoskeletal: Musculoskeletal: Reports no additional musculoskeletal complaints, Denies numbness and Denies tingling Neurologic: Denies dizziness, Denies loss of vision, Denies numbness and Denies tingling Psychiatric: Psychiatric: Reports no additional psychiatric complaints Endocrine: Endocrine: Reports no additional endocrine complaints Hematologic/Lymphatic: Hematologic/Lymphatic: Reports no additional hematologic/lymphatic complaints Allergic/Immunologic: Allergic/Immunologic: Reports no additional allergic/immunologic complaints [facility] Past Medical History Attestation statement: The following information was validated with the patient. Source: old records reviewed and nursing notes reviewed Medical History Meningitis spinal Alcoholic cirrhosis Seizure Mood disorder Alcohol use disorder Surgical History Gould teeth extracted H/O colonoscopy No pertinent past surgical history Social History Social History Household Members: Other Household Members Other:: girlfriend Housing: Apartment Do you presently have visiting nurse or other home services: No Alcohol intake: current Alcohol intake frequency: 3 or more drinks per day Alcohol type: hard liquor Patient Tobacco Use Status: Current everyday Tobacco user Tobacco use type: Cigarette Cigarette Packs Per Day: 1 Cigarettes Per Day: 20.0 Years Smoked: 15 Second Hand Smoke Exposure: No Substance Use Type: Marijuana, Opiates and Other Advance Directives: No Advance Directives Information Provided: No service: No Physical Exam ED Vital Signs: Vital Signs - 24 hr 05/03/24 18:55 05/03/24 20:16 05/03/24 23:31 Temperature 98.4 F 97.1 F 97.6 F Pulse Rate 88 93 96 Respiratory Rate 16 16 Blood Pressure 126/80 124/79 132/96 H Pulse Oximetry 98 93 99 Oxygen Delivery Method Room Air Room Air Room Air BMI result Body Mass Index 23.4 Const General: cooperative, no acute distress, alert and awake Nutritional Appearance: well nourished Orientation/consciousness: patient oriented x3 Limitations: no limitations HENMT Head: Yes normal to inspection and Yes atraumatic Ears: hearing grossly normal bilaterally and external ears normal General nose exam: Normal external nose present, no nasal discharge noted and no epistaxis Face and sinus: Yes normal facial exam, No abrasion and No laceration Mouth: Normal oral and palatal mucosa present, no drooling and no muffled voice Eyes General: appearance normal, both eyes and all related structures Periorbital: periorbital findings normal Eyelids: Yes eyelids normal Conjunctivae: conjunctivae normal Pupils: Equal, round and reactive pupils present EOM: EOMs intact bilaterally Neck Neck: Yes normal visual inspection, Yes full ROM and Yes no lymphadenopathy Chest Chest palpation & inspection: normal inspection of the chest Resp Effort & Inspection: normal respiratory effort and able to speak in complete sentences GI Inspection: Yes normal to inspection Neuro General: patient oriented x3 and moves all extremities Cranial nerves: Yes Equal, round and reactive pupils present Cognition (Neuro): normal cognition Extrem General: Yes normal to inspection, Yes full ROM and Yes capillary refill normal Psych Appearance: grossly normal Mental Status: mental status grossly normal Affect: normal affect Attitude: cooperative Thought process: Normal thought process present Thought content: Normal thought content present Insight: Good insight present (Psych) Medications Administered Generic Name Dose Route Start Last Admin Trade Name Freq PRN Reason Stop Dose Admin Buspirone HCl 20 mg 05/04/24 01:00 05/04/24 01:04 Buspirone Hcl 10 Mg Tablet PO 20 mg TID DOE Administration Gabapentin 600 mg 05/04/24 01:00 05/04/24 01:04 Gabapentin 600 Mg Tablet PO 600 mg QID DOE Administration Omeprazole 20 mg 05/04/24 01:00 05/04/24 01:00 Omeprazole 20 Mg Capsule.Dr GERBER Not Given BID@[phone] DOE Quetiapine Fumarate 100 mg 05/04/24 01:00 05/04/24 01:04 Quetiapine Fumarate 100 Mg Tablet PO 100 mg BEDTIME DOE Administration Discontinued Medications Generic Name Dose Route Start Last Admin Trade Name Eva PRN Reason Stop Dose Admin Lorazepam 2 mg 05/03/24 19:52 05/03/24 19:20 Lorazepam 1 Mg Tablet PO 05/03/24 19:53 2 mg ONCE ONE Administration Lorazepam 2 mg 05/04/24 00:57 05/04/24 01:04 Lorazepam 1 Mg Tablet PO 05/04/24 00:58 2 mg ONCE ONE Administration Potassium Chloride 20 meq 05/03/24 20:53 05/03/24 21:11 Potassium Chloride Er 20 Meq Tab.Er.Prt PO 05/03/24 20:54 20 meq ONCE ONE Administration Potassium Chloride 40 meq 05/03/24 20:53 05/03/24 21:11 Potassium Chloride Packet 20 Meq Packet PO 05/03/24 20:54 40 meq ONCE ONE Administration Medical Decision Making Medical Decision Making [facility] Narrative: Patient is a 33 year old assigned male at with a history of alcohol abuse presenting to the emergency department today with alcohol intoxication and requesting detox. Patient's physical exam was unremarkable. Patient's blood work showed hypokalemia of 2.9 and an elevated alcohol level but was otherwise unremarkable. Patient's urine showed no acute process. Patient's EKG was unremarkable. I explained my physical exam findings as well as all test results to the patient. I answered all questions asked by the patient. Patient was given PO potassium. Patient's disposition will be determined after addiction team meets with the patient and he is sober. Differential Diagnosis Differential Diagnoses: The differential diagnosis associated with the presentation includes Alcohol intoxication Hypokalemia Admission/Observation Consideration of admission/observation: Escalation of care including admission/observation considered Patient's disposition will be determined after addiction team meets with the patient and he is sober. Lab Data [facility] Lab Attestation statement: I reviewed the patient's lab results. My interpretation of these results are in the MDM Rationale portion of this note. 05/03/24 20:23 05/03/24 20:23 Labs: Lab Results 05/03/24 05/03/24 Range/Units 20:23 23:46 WBC 4.9 (4.8-10.8) X10*3/uL RBC 4.51 L (4.60-5.80) X10*6/uL Hgb 12.5 L (14.0-18.0) g/dl Hct 37.8 L (42.0-52.0) % MCV 83.8 (80.0-98.0) fL MCH 27.7 (27.0-33.0) pg MCHC 33.1 (31.0-36.0) g/dl RDW 17.4 H (11.0-16.0) % Plt Count 164 D (160-400) X10*3/uL MPV 10.0 (9.4-12.4) fL Immature Gran % (Auto) 0.2 (0.0-0.4) % Neut % (Auto) 58.9 (45-73) % Lymph % (Auto) 28.2 (20-40) % Karnes % (Auto) 10.5 (2-11) % Eos % (Auto) 1.6 (0-4) % Baso % (Auto) 0.6 (0-2) % Lymph # (Auto) 1.4 (1.2-4.9) X10*3/uL Karnes # (Auto) 0.5 (0.1-1.2) X10*3/uL Eos # (Auto) 0.1 (0.0-0.4) X10*3/uL Baso # (Auto) 0.0 (0.0-0.2) X10*3/uL Abs Immat Gran (auto) 0.01 (0.00-0.03) X10*3/uL Absolute Neuts (auto) 2.9 (2.0-8.3) x10*3/uL Absolute Nucleated RBC 0.000 (0.0-0.012) X10*3/uL Nucleated RBC % (auto) 0.0 (0.0-0.2) /100WBC Sodium 149 H (135-145) mmol/L Potassium 2.9 L* (3.3-5.1) mmol/L Chloride 113 H (96-108) mmol/L Carbon Dioxide 21 L (22-29) mmol/L Anion Gap 18 (12-20) BUN 8 L (9-16) mg/dL Creatinine 1.04 (0.5-1.4) mg/dL Estim Creat Clear Calc 91.1 Estimated GFR > 60 Random Glucose 106 (60-115) mg/dL Calcium 8.9 D (8.4-10.2) mg/dL Total Bilirubin 0.4 (0.0-1.0) mg/dL AST 145 H (5-37) U/L ALT 73 H (0-40) U/L Alkaline Phosphatase 158 H (39-117) U/L Ammonia 48 (13-55) umol/L Total Protein 8.1 H (6.5-8.0) g/dL Albumin 4.5 (3.5-5.0) g/dL Urine Color Dark Yellow Urine Appearance Cloudy Urine pH 5.5 (5.0-9.0) Ur Specific [place] 1.025 (1.005-1.025) Urine Protein 30 (1+) H (Neg-Trace) mg/dL Urine Glucose (UA) Negative (Negative) mg/dL Urine Ketones Trace (Negative) mg/dL Urine Blood Large (3+) H (Negative) Urine Nitrite Negative (Negative) Ur Leukocyte Esterase Negative (Negative) Urine RBC 6-10 H (0-2) /HPF Urine WBC 0-5 (0-5) /HPF Ur Squamous Epith Cells 0-2 (0-2) /HPF Calcium Oxalate Crystal Present Urine Bacteria Trace (None Seen) Hyaline Casts 6-10 (0-2) /LPF Salicylates < 5.0 L (15-30) mg/dL Urine Opiates Screen Not Detected (Not Detect) Ur Buprenorphine Scrn Not Detected (Not Detect) ng/mL Ur Oxycodone Screen Not Detected (Not Detect) ng/mL Urine Methadone Screen Not Detected (Not Detect) ng/mL Urine Fentanyl Screen Not Detected (Not Detect) Acetaminophen < 3 (<30) mcg/mL Ur Barbiturates Screen POSITIVE H (Not Detect) Ur Phencyclidine Scrn Not Detected (Not Detect) Ur Amphetamines Screen Not Detected (Not Detect) U Benzodiazepines Scrn POSITIVE H (Not Detect) Urine Cocaine Screen POSITIVE H (Not Detect) U Marijuana (THC) Screen POSITIVE H (Not Detect) Ethyl Alcohol 318 H* mg/dL COVID-19 (ROBIN) Negative (Negative) COVID-19 Clin Com See Note Independent Interpretation I performed an independent interpretation of an: EKG Interpretation: EKG normal sinus rhythm at a ventricular rate of 82 beats per minute, LA interval 142, QT QTC 396/462, no ST elevation or depression. Independent Historian Clinical information obtained from an independent historian. History obtained from or confirmed by: EMS (EMS provided additional history and confirmed the history provided by the patient.) Critical Care Time Critical Care Time Critical Care Time: Yes Total Critical Care Time: 34 Attestation: I spent 34 minutes of Critical Care Time with this patient. This does not include time spent on separately reported billable procedures. Discharge Plan Discharge Clinical Impression: Alcohol use disorder, Acute hypokalemia Patient Disposition: Still a Patient Prescriptions: No Action gabapentin 600 mg tablet 600 mg PO QID pantoprazole 40 mg tablet,delayed release (DR/EC) 40 mg PO BID trazodone 50 mg tablet 50 mg PO BEDTIME cetirizine 10 mg tablet 10 mg PO DAILY sertraline 100 mg tablet 100 mg PO DAILY thiamine HCl (vitamin B1) 100 mg tablet 100 mg PO DAILY quetiapine 100 mg tablet 100 mg PO BEDTIME topiramate 25 mg capsule, sprinkle 25 mg PO DAILY buspirone 10 mg tablet 20 mg PO TID folic acid 1 mg tablet 1 mg PO DAILY Print Language: [place]
[2024-05-03 18:55] VITALS: BP 126/80; PULSE 88; RESP 16; TEMP 36.9; O2SAT 98; BMI 23.4
--- NOTE | 2024-05-03 19:08 | PC.NURSE ---
patient seems under the influence of alcohol swearing periodically slammed phone recently redirected per this behavior.
[2024-05-03] MEDS: LORazepam 1 MG TABLET 2 MG PO (19:20)
[2024-05-03 20:16] VITALS: BP 124/79; PULSE 93; RESP 16; TEMP 36.2; O2SAT 93
[2024-05-03 20:29] LABS: MANUAL DIFF FLAG NO
[2024-05-03 20:35] LABS: Basophils Percent Auto 0.6 % (0-2); Eosinophils Absolute Auto 0.1 X10*3/uL (0.0-0.4); Eosinophils Percent Auto 1.6 % (0-4); Hematocrit 37.8 % (42.0-52.0); Hemoglobin 12.5 g/dl (14.0-18.0); Imm Gran Abs Auto 0.01 X10*3/uL (0.00-0.03); Imm Gran Pct Auto 0.2 % (0.0-0.4); Lymphocytes Absolute Auto 1.4 X10*3/uL (1.2-4.9); Lymphocytes Percent Auto 28.2 % (20-40); Mean Corpuscular HGB Conc 33.1 g/dl (31.0-36.0); Mean Corpuscular Hemoglobin 27.7 pg (27.0-33.0); Mean Corpuscular Volume 83.8 fL (80.0-98.0); Monocytes Absolute Auto 0.5 X10*3/uL (0.1-1.2); Monocytes Percent Auto 10.5 % (2-11); Neutrophils Absolute Auto 2.9 x10*3/uL (2.0-8.3); Neutrophils Percent Auto 58.9 % (45-73); Platelet Count 164 X10*3/uL (160-400); Red Blood Count 4.51 X10*6/uL (4.60-5.80); Red Cell Distribution Width 17.4 % (11.0-16.0); White Blood Count 4.9 X10*3/uL (4.8-10.8)
[2024-05-03 20:41] LABS: Ammonia 48 umol/L (13-55)
[2024-05-03 20:47] LABS: COVID-19 Test Negative (Negative); IDNOW Serial# 08D9AD1C
[2024-05-03 20:51] LABS: Acetaminophen LAB < 3 mcg/mL (<30); Salicylate < 5.0 mg/dL (15-30)
[2024-05-03 20:52] LABS: Alanine Aminotransferase 73 U/L (0-40); Albumin Level 4.5 g/dL (3.5-5.0); Alkaline Phosphatase 158 U/L (39-117); Anion Gap 18 (12-20); Aspartate Amino Transferase 145 U/L (5-37); Bilirubin Total 0.4 mg/dL (0.0-1.0); Blood Urea Nitrogen 8 mg/dL (9-16); Calcium 8.9 mg/dL (8.4-10.2); Carbon Dioxide 21 mmol/L (22-29); Chloride 113 mmol/L (96-108); Creatinine Clr Calc Pharmacy 91.1; Estimated Glomerular Filt Rate > 60; Ethanol 318 mg/dL; Glucose Random 106 mg/dL (60-115); Potassium 2.9 mmol/L (3.3-5.1); Sodium 149 mmol/L (135-145); Total Protein 8.1 g/dL (6.5-8.0)
--- NOTE | 2024-05-03 20:53 | ECG_ITS ---
Test Reason : ABNORMAL LABS Blood Pressure : / mmHG Vent. Rate : 082 BPM Atrial Rate : 082 BPM P-R Int : 142 ms QRS Dur : 098 ms QT Int : 396 ms P-R-T Axes : -06 003 -04 degrees QTc Int : 462 ms Normal sinus rhythm Normal ECG No previous ECGs available Referred By: Arlette Solano Electronically Signed By:Lam Mcguire
[2024-05-03] MEDS: Potassium Chloride Packet 20 MEQ PACKET 40 MEQ PO (21:11)
[2024-05-03] MEDS: Potassium Chloride ER 20 MEQ TAB.ER.PRT PO (21:11)
[2024-05-03 23:31] VITALS: BP 132/96; PULSE 96; TEMP 36.4; O2SAT 99
[2024-05-03 23:56] LABS: Appearance Urine Cloudy; Color Urine Dark Yellow; Glucose Urine UA Negative (Negative); Leukocyte Esterase Urine Negative (Negative); Nitrite Urine Negative (Negative); PH 5.5 (5.0-9.0); Specific Gravity - Urine 1.025 (1.005-1.025); UMIC TRIGGER UA YES; Urine Blood Large (3+) (Negative); Urine Ketones Trace mg/dL (Negative); Urine Protein 30 (1+) mg/dL (Neg-Trace)
[2024-05-04 00:06] LABS: Amphetamine Screen Urine Not Detected (Not Detect); Barbiturates, Urine POSITIVE (Not Detect); Benzodiazepines Screen Urine POSITIVE (Not Detect); Buprenorphine Scr Not Detected (Not Detect); Cannabinoid Screen Urine POSITIVE (Not Detect); Cocaine Screen Urine POSITIVE (Not Detect); Fentanyl, urine Not Detected (Not Detect); Methadone Screen, Urine Not Detected (Not Detect); Opiate Screen Urine Not Detected (Not Detect); Oxycodone Screen Urine Not Detected (Not Detect); Phencyclidine Screen Urine Not Detected (Not Detect)
[2024-05-04 00:28] LABS: Bacteria Urine Trace (None Seen); Calcium Oxalate Crystals Urine Present; Squamous Epithelial Cell Urine 0-2 /HPF (0-2); WBC Urine 0-5 /HPF (0-5)
[2024-05-04] MEDS: LORazepam 1 MG TABLET 2 MG PO (01:04)
[2024-05-04] MEDS: busPIRone HCl 10 MG TABLET 20 MG PO ×2 (01:04→08:06)
[2024-05-04] MEDS: QUEtiapine Fumarate 100 MG TABLET PO (01:04)
[2024-05-04] MEDS: Gabapentin 600 MG TABLET PO ×3 (01:04→13:22)
--- NOTE | 2024-05-04 01:38 | PC.NURSE ---
client after 2329 had been somewhat restless, vs obtained and pulse increaed mildly. t/w assessed patient at bedside and at that time and another patient seemed to exaggerate symptoms mildly, specifically requesting phenobarb at one point (which he'd recd inpt last month) however client was gently reassured that t/w would pursue medication to help.
[2024-05-04 06:34] VITALS: RESP 18
--- NOTE | 2024-05-04 06:55 | PC.NURSE ---
Assumed care of patient at 0645. Patient is observed resting quietly in their bed. No signs of distress. Breathing is even and unlabored.
[2024-05-04] MEDS: Omeprazole 20 MG CAPSULE.DR PO (08:05)
[2024-05-04] MEDS: Topiramate 25 MG TABLET PO (08:05)
[2024-05-04] MEDS: Folic Acid 1 MG TABLET PO (08:05)
[2024-05-04] MEDS: Thiamine HCL 100 MG TABLET PO (08:05)
[2024-05-04] MEDS: Loratadine 10 MG TABLET PO (08:05)
[2024-05-04] MEDS: Sertraline HCL 100 MG TABLET PO (08:05)
--- NOTE | 2024-05-04 08:23 | MHC.EDTECH ---
Patient given breakfast
[2024-05-04 08:24] VITALS: BP 100/64; PULSE 86; RESP 18; TEMP 36.3; O2SAT 98
[2024-05-04] MEDS: LORazepam 1 MG TABLET PO (08:30)
--- NOTE | 2024-05-04 10:56 | MHC.CARE ---
CARE Team meets with pt and provides him with a Patient resource booklet and Recovery literature.?
[2024-05-04 14:32] VITALS: BP 122/86; PULSE 72; RESP 12; TEMP 36.8; O2SAT 100
[2024-05-04 16:09] LABS: INTERNATIONAL NORM RATIO 1.1 (0.9-1.1); Prothrombin Time 12.9 SEC (11.1-13.3)
[2024-05-04 16:11] LABS: Partial Thromboplastin Time 32.2 SEC (26.0-36.8)
[2024-05-04 16:17] LABS: Potassium 4.2 mmol/L (3.3-5.1)
[2024-05-04 16:29] VITALS: BP 122/86; PULSE 72; RESP 12; TEMP 36.8; O2SAT 100
== END 2024-05-04 16:33 | disposition home or self-care (01) ==
PROVIDERS: Emergency Medicine; Physician Assistant Medical; Emergency Provider Emergency Medicine
DX: F10.10 Alcohol abuse, uncomplicated (principal); Y90.8 Blood alcohol level of 240 mg/100 ml or more; E87.6 Hypokalemia; Z11.52 Encounter for screening for COVID-19; F39 Unspecified mood [affective] disorder; F17.210 Nicotine dependence, cigarettes, uncomplicated
CPT/HCPCS: 36415; 80053; 80143; 80179; 80307; 81001; 82140; 84132; 85025; 85610; 85730; 87635; 93005; 99284; 99285

== ENCOUNTER → 2024-05-03 20:53 | Outpatient (BNV) | payer OTHER, SELFPAY | PROVIDERS: Emergency Provider Emergency Medicine; Visit Provider Internal Medicine Cardiovascular Disease | DX: R79.9 Abnormal finding of blood chemistry, unspecified (principal) | CPT/HCPCS: 93010 ==

== ENCOUNTER 2024-05-10 11:15 | Inpatient (IN) | payer OTHER, SELFPAY ==
--- NOTE | ~2024-05-10 | US_ITS ---
EXAMINATION: US ABDOMEN LIMITED CLINICAL INFORMATION: Abdominal pain; question hepatic lesion. COMPARISON: CT abdomen and pelvis dated 05/14/2024. TECHNIQUE: Real-time imaging of the right upper quadrant abdominal viscera. FINDINGS: PANCREAS: There is stable prominence. There is increased echotexture, consistent with fatty infiltration. No focal lesion is seen. There is no biliary ductal dilatation. LIVER: There is hepatomegaly, with a longitudinal span of 20.1 cm. The liver contour is normal. Parenchymal echogenicity is generally increased. No focal hepatic lesion. There is no intrahepatic biliary duct dilatation seen. GALLBLADDER: Normal. The gallbladder is physiologically distended without evidence of stones, sludge, polyps, wall thickening or pericholecystic fluid. COMMON BILE DUCT: Normal in caliber measuring 0.5 cm in diameter. RIGHT KIDNEY: Normal. No hydronephrosis. No renal calculi or focal parenchymal lesions. The kidney measures 10.7 cm in maximum dimension. FREE FLUID: None. US/US abdomen limited IMPRESSION: 1. There is hepatomegaly. 2. There is generalized increase in hepatic echotexture, consistent with fatty infiltration or hepatocellular disease. Please correlate clinically. No focal hepatic mass or intrahepatic biliary dilatation is seen.
--- NOTE | ~2024-05-10 | CT_ITS ---
EXAMINATION: CT ABDOMEN AND PELVIS WITH CONTRAST CLINICAL INFORMATION: Right lower quadrant pain. COMPARISON: 04/06/2024 TECHNIQUE: Multidetector volumetric images were obtained from the superior aspect of the liver through the pubic symphysis following administration 85 mL of Omnipaque 350 intravenous contrast. Sagittal and coronal reformatted images were obtained on the technologist's workstation. Oral contrast: No This CT examination was performed using dose optimization techniques as appropriate, variously including the following: *Automated exposure control *Adjustment of mA and/or kV according to patient size (this includes techniques or standardized protocols for targeted exams where dose is matched to indication/reason for exam; i.e. extremities or head) *Use of iterative reconstruction technique DLP: 565 mGy-cm FINDINGS: LUNG BASES: The visualized lung bases are unremarkable. LIVER, GALLBLADDER, AND BILIARY TREE: Once again liver shows irregular margins. This may be consistent with cirrhosis. Prominent liver size also once again seen. There is some differential attenuation now present within the liver which could represent artifact or spotty fatty change. Given the other findings an underlying right lobe lesion cannot be excluded. Recommend ultrasound or MRI to fully evaluate.. The gallbladder is unremarkable with no evidence of radiopaque gallstones, gallbladder wall thickening, or obvious pericholecystic inflammatory changes. PANCREAS: Once again prominent thickness involving the body of the pancreas of uncertain etiology. This is similar to previous. No defined lesion but this is not a pancreatic protocol. Again consider ultrasound or MRI SPLEEN: Mild bordering moderate splenomegaly is once again present. ADRENAL GLANDS: Unremarkable. KIDNEYS AND URETERS: Probable small nonobstructing calculi once again noted. Numerous bilateral. BLADDER: Bladder is decompressed. GASTROINTESTINAL TRACT: The bowel pattern is felt to be nonobstructing. Partially visualized pancreas within normal limits. ABDOMINAL WALL: No significant hernia is appreciated. LYMPH NODES: Some prominent nodes in the portal region could be reactive. Similar to previous. VASCULAR: Unremarkable. PELVIC VISCERA: Unremarkable. OSSEOUS STRUCTURES: Unremarkable. CT/CT abdomen pelvis w IV con IMPRESSION: Exam is felt to be similar to previous. Hepatosplenomegaly and findings suggesting cirrhosis within the liver. There is some differential attenuation on this exam within the liver which could represent artifact. Because of the cirrhosis an underlying lesion cannot be excluded and I would recommend full evaluation with ultrasound or MRI. It should be noted MRI would be the test of choice for detection of hepatoma. Fullness in the region of the mid to distal body of the pancreas without defined lesion. This is not however a pancreatic protocol and therefore again I would recommend ultrasound or MRI to fully evaluate. Other findings are as described above. Fleischner guidelines were followed.
[2024-05-10 11:19] VITALS: BP 134/94; BP 150/100; PULSE 89; PULSE 92; RESP 18; TEMP 36.7; O2SAT 97; O2SAT 98; BMI 28.0
--- NOTE | 2024-05-10 11:24 | ECG_ITS ---
Test Reason : Chest Pain Blood Pressure : / mmHG Vent. Rate : 087 BPM Atrial Rate : 087 BPM P-R Int : 142 ms QRS Dur : 090 ms QT Int : 380 ms P-R-T Axes : 021 -01 -01 degrees QTc Int : 457 ms Normal sinus rhythm Minimal voltage criteria for LVH, may be normal variant ( R in aVL ) Borderline ECG When compared with ECG of 03-MAY-2024 20:56, No significant change was found Referred By: Lizette Nunez Electronically Signed By:NELIDA GARCIA MD
--- NOTE | 2024-05-10 11:43 | ED.ALCOHOL ---
HPI - Alcohol General Chief Complaint: General Medical Stated Complaint: ETOH, POSSIBLE SEIZURE PER EMS Source: patient, EMS and old records reviewed Mode of arrival: EMS Limitations: other (poor historian) History of Present Illness ED Provider: BRITTA HPI narrative: 33 yo male with PMH of ETOH abuse and withdrawal seizures last drink a few hours ago, mood disorder, ETOH cirrhosis, colitis here with c/o n/v for the past few days then feeling like he is going to have a seizure. EMS was called because friends were worried he was going to have a seizure. He denies trauma or headstrike. He states he feels terrible and wants to stop drinking. Denies GIB symptoms. His last withdrawal seizure was 3 weeks ago. MD complaint: alcohol withdrawal and desires rehab Last drink: Hours (ago) (few) Chronic alcohol use: Yes Previous visits for alcohol intoxication: Yes Recent trauma: No Associated symptoms: nausea, vomiting and tremors Treatments prior to arrival: none Related Data Home Medications ?Medication ?Instructions ?Recorded ?Confirmed buspirone 10 mg tablet 20 mg PO TID 04/07/24 05/03/24 cetirizine 10 mg tablet 10 mg PO DAILY 04/07/24 05/03/24 folic acid 1 mg tablet 1 mg PO DAILY 04/07/24 05/03/24 quetiapine 100 mg tablet 100 mg PO BEDTIME 04/07/24 05/03/24 sertraline 100 mg tablet 100 mg PO DAILY 04/07/24 05/03/24 thiamine HCl (vitamin B1) 100 mg 100 mg PO DAILY 04/07/24 05/03/24 tablet topiramate 25 mg sprinkle capsule 25 mg PO DAILY 04/07/24 05/03/24 trazodone 50 mg tablet 50 mg PO BEDTIME 04/07/24 05/03/24 gabapentin 600 mg tablet 600 mg PO QID 05/03/24 05/03/24 pantoprazole 40 mg tablet,delayed 40 mg PO BID 05/03/24 05/03/24 release Allergies Allergy/AdvReac Type Severity Reaction Status Date / Time Penicillins Allergy Unknown CHILDHOOD Verified 05/10/24 11:21 ALLERGY Review of Systems Review of Systems: Constitutional : No Fever, No Chills ENT/Mouth : No Ear Pain, No Nasal Congestion, No sore throat Eyes: No Eye Pain, No Swelling, No Redness Cardiovascular : No Chest Pain, No SOB Respiratory : No Cough, No Sputum, No Dyspnea Gastrointestinal : pos Nausea, pos Vomiting, No Diarrhea, No Hematochezia, No Melena Genitourinary : No Dysuria, No Urinary Frequency, No Hematuria Musculoskeletal : No Myalgias Skin : No Skin Lesions, No rash Neuro : pos Weakness, No Numbness, No Paresthesias, No Dizziness, No Headache Psych : positive Anxiety, positive Depression, no SI/HI Heme/Lymph: No Lymphadenopathy Endocrine : No Polyuria, No Polydipsia All other systems reviewed and are negative [facility] Past Medical History Attestation statement: The following information was validated with the patient. Source: old records reviewed Medical History Meningitis spinal Alcoholic cirrhosis Seizure Mood disorder Alcohol use disorder Surgical History [place] teeth extracted H/O colonoscopy No pertinent past surgical history Social History Social History Household Members: Other Household Members Other:: girlfriend Housing: Apartment Do you presently have visiting nurse or other home services: No Alcohol intake: current Alcohol intake frequency: 3 or more drinks per day Alcohol type: hard liquor Patient Tobacco Use Status: Current everyday Tobacco user Tobacco use type: Cigarette Cigarette Packs Per Day: 1 Cigarettes Per Day: 20.0 Years Smoked: 15 Smoked in Last 30 Days: Yes Second Hand Smoke Exposure: No Use of substances other than those prescribed or required for medical reasons: Yes Substance Use Type: Marijuana Advance Directives: No Advance Directives Information Provided: Yes service: No Physical Exam ED Vital Signs: Vital Signs - 24 hr 05/10/24 11:19 05/10/24 12:17 Temperature 98.1 F Pulse Rate 89 78 Respiratory Rate 18 22 H Blood Pressure 134/94 H 122/80 Pulse Oximetry 97 95 Oxygen Delivery Method Room Air Room Air BMI result Body Mass Index 28.0 Appearance: Alert. Oriented X3. anxious, mild tremors mild acute distress. Eyes: Pupils equal, round and reactive to light. ENT: Pharynx dry MM. Neck: Normal inspection. Neck supple. CVS: Normal heart rate and rhythm. Pulses normal. Respiratory: No respiratory distress. Breath sounds normal. Abdomen: Soft and nontender. Skin: Skin warm and dry. Normal skin color. Normal skin turgor. Extremities: No lower extremity edema. No calf ttp Neuro: Oriented X 3. No motor deficit. No sensory deficit. fine tremors in both hands noted Medical Decision Making Medical Decision Making [facility] Narrative: 33 yo male with PMH of ETOH abuse and withdrawal seizures last drink a few hours ago, mood disorder, colitis, ETOH cirrhosis here with c/o ETOH abuse, wanting to stop drinking, feeling like he is going to have a seizure - he also has n/v for a couple of days. At this time will start on fluids, magnesium, thiamine and phenobarb protocol. Will likely admit vs recheck and refer to addiction medicine though he just had recent seizure 3 weeks ago from withdrawal Differential Diagnosis Differential Diagnoses: The differential diagnosis associated with the presentation includes ETOH abuse, withdrawal, lyte abnormality Admission/Observation Consideration of admission/observation: Escalation of care including admission/observation considered still vomiting, will admit for further workup Consult Healthcare Provider Management of the patient was discussed with: Hospitalist (will admit) Lab Data [facility] Lab Attestation statement: I reviewed the patient's lab results. 05/10/24 11:43 05/10/24 11:43 Labs: Lab Results 05/10/24 Range/Units 11:43 WBC 4.4 L (4.8-10.8) X10*3/uL RBC 4.56 L (4.60-5.80) X10*6/uL Hgb 12.5 L (14.0-18.0) g/dl Hct 38.1 L (42.0-52.0) % MCV 83.6 (80.0-98.0) fL MCH 27.4 (27.0-33.0) pg MCHC 32.8 (31.0-36.0) g/dl RDW 17.4 H (11.0-16.0) % Plt Count 132 L (160-400) X10*3/uL MPV 10.3 (9.4-12.4) fL Immature Gran % (Auto) 0.2 (0.0-0.4) % Neut % (Auto) 77.6 H (45-73) % Lymph % (Auto) 11.8 L (20-40) % [place] % (Auto) 9.1 (2-11) % Eos % (Auto) 0.2 (0-4) % Baso % (Auto) 1.1 (0-2) % Lymph # (Auto) 0.5 L (1.2-4.9) X10*3/uL [place] # (Auto) 0.4 (0.1-1.2) X10*3/uL Eos # (Auto) 0.0 (0.0-0.4) X10*3/uL Baso # (Auto) 0.1 (0.0-0.2) X10*3/uL Abs Immat Gran (auto) 0.01 (0.00-0.03) X10*3/uL Absolute Neuts (auto) 3.4 (2.0-8.3) x10*3/uL Absolute Nucleated RBC 0.000 (0.0-0.012) X10*3/uL Nucleated RBC % (auto) 0.0 (0.0-0.2) /100WBC PT 13.0 (11.1-13.3) SEC INR 1.1 (0.9-1.1) Sodium 145 (135-145) mmol/L Potassium 3.1 L D (3.3-5.1) mmol/L Chloride 104 (96-108) mmol/L Carbon Dioxide 24 (22-29) mmol/L Anion Gap 20 (12-20) BUN 9 (9-16) mg/dL Creatinine 0.72 (0.5-1.4) mg/dL Estim Creat Clear Calc 129.5 Estimated GFR > 60 Random Glucose 127 H (60-115) mg/dL Calcium 8.8 (8.4-10.2) mg/dL Magnesium 1.5 L (1.6-2.6) mg/dL Total Bilirubin 0.4 (0.0-1.0) mg/dL Direct Bilirubin 0.2 (0.0-0.5) mg/dL AST 138 H (5-37) U/L ALT 61 H (0-40) U/L Alkaline Phosphatase 163 H (39-117) U/L Total Protein 8.0 (6.5-8.0) g/dL Albumin 4.4 (3.5-5.0) g/dL Lipase 44 (8-78) U/L Ethyl Alcohol 264 mg/dL Independent Interpretation I performed an independent interpretation of an: EKG Interpretation: Rate: 87 Rhythm: NSR [place]: left Normal P waves. Normal MAXIMO. Normal QRS complex. ST T wave : no AR, inverted t waves III qTC: 457 prior studies: no acute ischemia The study has been interpreted contemporaneously by me. . Independent Historian Clinical information obtained from an independent historian. History obtained from or confirmed by: EMS External Record Review External record reviewed: Inpatient record Medications Administered Discontinued Medications Generic Name Dose Route Start Last Admin Trade Name Freq PRN Reason Stop Dose Admin Sodium Chloride 1,000 mls @ 999 mls/hr 05/10/24 11:24 05/10/24 12:45 Ns IV 05/10/24 12:24 Infused .Q1H1M ONE Infusion Magnesium Sulfate 2 gm in 50 mls @ 25 mls/hr 05/10/24 11:24 05/10/24 11:46 Magnesium Sulfate/H2o IV 05/10/24 13:23 25 mls/hr ONCE ONE Administration Thiamine HCl 200 mg/ Sodium 102 mls @ 204 mls/hr 05/10/24 11:25 05/10/24 12:20 Chloride IV 05/10/24 11:54 Infused ONCE ONE Infusion Ondansetron HCl 4 mg 05/10/24 11:24 05/10/24 11:46 Ondansetron Hcl 4 Mg/2 Ml Vial IVPUSH 05/10/24 11:25 4 mg ONCE ONE Administration Phenobarbital Sodium 275 mg 05/10/24 12:00 05/10/24 11:47 Phenobarbital Sodium 130 Mg/Ml Im Once IM 05/10/24 12:01 275 mg ONCE ONE Administration Protocol Potassium Chloride 40 meq 05/10/24 12:21 05/10/24 12:53 Potassium Chloride Packet 20 Meq Packet PO 05/10/24 12:22 40 meq ONCE ONE Administration Prochlorperazine Edisylate 10 mg 05/10/24 13:31 05/10/24 13:39 Prochlorperazine Edisylate 10 Mg/2 Ml Vial IVPUSH 05/10/24 13:32 10 mg ONCE ONE Administration Critical Care Time Critical Care Time Critical Care Time: Yes Total Critical Care Time: 60 Attestation: IV magnesium, IV potassium, repeat assessment, IVF, admission, review of records I attest to this time spent taking care of the patient Discharge Plan Discharge Clinical Impression: Alcohol use disorder, Acute hypokalemia, Hypomagnesemia, Alcohol withdrawal, Nausea & vomiting Patient Disposition: Admitted As Inpatient Prescriptions: No Action gabapentin 600 mg tablet 600 mg PO QID pantoprazole 40 mg tablet,delayed release (DR/EC) 40 mg PO BID trazodone 50 mg tablet 50 mg PO BEDTIME cetirizine 10 mg tablet 10 mg PO DAILY sertraline 100 mg tablet 100 mg PO DAILY thiamine HCl (vitamin B1) 100 mg tablet 100 mg PO DAILY quetiapine 100 mg tablet 100 mg PO BEDTIME topiramate 25 mg capsule, sprinkle 25 mg PO DAILY buspirone 10 mg tablet 20 mg PO TID folic acid 1 mg tablet 1 mg PO DAILY Print Language: Frisian
[2024-05-10] MEDS: 0.9 % Sodium Chloride 1,000 ML 999 ML IV (11:44)
[2024-05-10 11:46] LABS: MANUAL DIFF FLAG NO
[2024-05-10] MEDS: Magnesium Sulfate/H2O 2 GM/50 ML PIGGYBACK IV (11:46)
[2024-05-10] MEDS: Thiamine HCL 200 MG in 0.9 % Sodium Chloride 100 ML 204 MG IV (11:46)
[2024-05-10] MEDS: ondansetron HCL 4 MG/2 ML VIAL IVPUSH ×3 (11:46→21:38)
[2024-05-10] MEDS: PHENobarbitaL sodium 130 MG/ML IM ONCE 275 MG IM (11:47)
[2024-05-10 11:48] LABS: Basophils Absolute Auto 0.1 X10*3/uL (0.0-0.2); Basophils Percent Auto 1.1 % (0-2); Eosinophils Percent Auto 0.2 % (0-4); Hematocrit 38.1 % (42.0-52.0); Hemoglobin 12.5 g/dl (14.0-18.0); Imm Gran Abs Auto 0.01 X10*3/uL (0.00-0.03); Imm Gran Pct Auto 0.2 % (0.0-0.4); Lymphocytes Absolute Auto 0.5 X10*3/uL (1.2-4.9); Lymphocytes Percent Auto 11.8 % (20-40); Mean Corpuscular HGB Conc 32.8 g/dl (31.0-36.0); Mean Corpuscular Hemoglobin 27.4 pg (27.0-33.0); Mean Corpuscular Volume 83.6 fL (80.0-98.0); Mean Platelet Volume 10.3 fL (9.4-12.4); Monocytes Absolute Auto 0.4 X10*3/uL (0.1-1.2); Monocytes Percent Auto 9.1 % (2-11); Neutrophils Absolute Auto 3.4 x10*3/uL (2.0-8.3); Neutrophils Percent Auto 77.6 % (45-73); Platelet Count 132 X10*3/uL (160-400); Red Blood Count 4.56 X10*6/uL (4.60-5.80); Red Cell Distribution Width 17.4 % (11.0-16.0); White Blood Count 4.4 X10*3/uL (4.8-10.8)
[2024-05-10 11:56] LABS: INTERNATIONAL NORM RATIO 1.1 (0.9-1.1)
[2024-05-10 12:04] LABS: Alanine Aminotransferase 61 U/L (0-40); Albumin Level 4.4 g/dL (3.5-5.0); Alkaline Phosphatase 163 U/L (39-117); Anion Gap 20 (12-20); Aspartate Amino Transferase 138 U/L (5-37); Bilirubin Direct 0.2 mg/dL (0.0-0.5); Bilirubin Total 0.4 mg/dL (0.0-1.0); Blood Urea Nitrogen 9 mg/dL (9-16); Calcium 8.8 mg/dL (8.4-10.2); Carbon Dioxide 24 mmol/L (22-29); Chloride 104 mmol/L (96-108); Creatinine Clr Calc Pharmacy 129.5; Estimated Glomerular Filt Rate > 60; Ethanol 264 mg/dL; Glucose Random 127 mg/dL (60-115); Lipase 44 U/L (8-78); Magnesium 1.5 mg/dL (1.6-2.6); Potassium 3.1 mmol/L (3.3-5.1); Sodium 145 mmol/L (135-145)
[2024-05-10 12:17] VITALS: BP 122/80; PULSE 78; RESP 22; O2SAT 95
[2024-05-10] MEDS: Potassium Chloride Packet 20 MEQ PACKET 40 MEQ PO (12:53)
[2024-05-10] MEDS: Potassium Chloride/H20 10 MEQ/100 ML PIGGYBACK 100 MEQ IV ×2 (13:39→15:25)
[2024-05-10] MEDS: Prochlorperazine Edisylate 10 MG/2 ML VIAL IVPUSH (13:39)
[2024-05-10 13:52] VITALS: BP 124/91; PULSE 69; RESP 15; TEMP 36.7
[2024-05-10] MEDS: 0.9 % Sodium Chloride 1,000 ML 100 ML IVCONT (13:57)
--- NOTE | 2024-05-10 14:37 | P.HPHOSP_ITS ---
History of Present Illness Date of Service: 05/10/24 Attending physician on admission: Christiano Felton Chief Complaint: Alcohol withdrawal 33-year-old male with pertinent history of alcohol use disorder with history of alcohol withdrawal seizures and alcohol induced pancreatitis, mood disorder who presents to the emergency department for evaluation of n/v for the past few days ,also sensation of he is going to have a seizure. EMS was called because friends were worried he was going to have a seizure.He states he feels terrible and wants to stop drinking.he drink sleeve of vodka everyday. has tremers , has some epigastric discomfort after nausea/vomiting , recently had hematemesis-has egd -esophagitis/gastritis . He denies trauma or headstrike. Denies GIB symptoms. His last withdrawal seizure was 3 weeks ago. Patient received: Phenobarb, IV fluid, electrolytes, thiamine and folic acid, Compazine. Afterwards patient was feeling somewhat better, admission was requested for alcohol withdrawal. Lab imaging was reviewed: Has hypokalemia and hypomagnesemia, EKG seems nsr. Denies any new complaint of chest pain or shortness of breath or fever or chills . no diarrhae Denies any weakness or numbness. Review of Systems 2 Review of Systems: As above. [facility] Medical History Meningitis spinal Alcoholic cirrhosis Seizure Mood disorder Alcohol use disorder Surgical History [place] teeth extracted H/O colonoscopy No pertinent past surgical history Social History Household Members: Other Household Members Other:: girlfriend Housing: Apartment Do you presently have visiting nurse or other home services: No Alcohol intake: current Alcohol intake frequency: 3 or more drinks per day Alcohol type: hard liquor Patient Tobacco Use Status: Current everyday Tobacco user Tobacco use type: Cigarette Cigarette Packs Per Day: 1 Cigarettes Per Day: 20.0 Years Smoked: 15 Smoked in Last 30 Days: Yes Second Hand Smoke Exposure: No Use of substances other than those prescribed or required for medical reasons: Yes Substance Use Type: Marijuana Advance Directives: No Advance Directives Information Provided: Yes service: No Meds Allergies Allergy/AdvReac Type Severity Reaction Status Date / Time Penicillins Allergy Unknown CHILDHOOD Verified 05/10/24 11:21 ALLERGY Active Medications: Current Medications Folic Acid (Folic Acid 1 Mg Tablet) 1 mg PO DAILY [facility] Potassium Chloride (Potassium Chloride/H20) 10 meq in 100 mls @ 100 mls/hr IV Q1H DOE Stop: 05/10/24 15:44 Last Admin: 05/10/24 13:39 Dose: 100 mls/hr Sodium Chloride (Ns) 1,000 mls @ 100 mls/hr IVCONT .Q10H DOE Last Admin: 05/10/24 13:57 Dose: 100 mls/hr Pantoprazole Sodium (Pantoprazole Sodium 40 Mg/10 Ml Vial) 40 mg IVPUSH DAILY [facility] Pharmacy Consult (Consult Rx Etoh Phenob Im/Po) 1 each MISCELLANE ONCE PRN; Protocol PRN Reason: Consult order Phenobarbital (Phenobarbital 15 Mg Tablet) 45 mg PO BID DOE; Protocol Stop: 05/12/24 21:01 Phenobarbital (Phenobarbital 30 Mg Tablet) 30 mg PO BID DOE; Protocol Stop: 05/14/24 21:01 Phenobarbital (Phenobarbital 30 Mg Tablet) 30 mg PO DAILY DOE; Protocol Stop: 05/16/24 09:01 Phenobarbital Sodium (Phenobarbital Sodium 130 Mg/Ml Vial Im Q3hx2) 205 mg IM Q3H DOE; Protocol Stop: 05/10/24 18:01 Sodium Chloride (0.9 % Sodium Chloride Flush 3 Ml Syringe) 3 ml IVFLUSH QSHIFT [facility] Thiamine HCl (Thiamine Hcl 100 Mg Tablet) 100 mg PO DAILY [facility] Home Medications ?Medication ?Instructions ?Recorded ?Confirmed ?Last Taken ?Type buspirone 10 mg tablet 20 mg PO TID 04/07/24 05/03/24 05/03/24 08:00 History cetirizine 10 mg tablet 10 mg PO DAILY 04/07/24 05/03/24 05/03/24 08:00 History folic acid 1 mg tablet 1 mg PO DAILY 04/07/24 05/03/24 05/03/24 08:00 History quetiapine 100 mg tablet 100 mg PO BEDTIME 04/07/24 05/03/24 05/02/24 20:00 History sertraline 100 mg tablet 100 mg PO DAILY 04/07/24 05/03/24 05/02/24 08:00 History thiamine HCl (vitamin B1) 100 mg 100 mg PO DAILY 04/07/24 05/03/24 05/02/24 08:00 History tablet topiramate 25 mg sprinkle capsule 25 mg PO DAILY 04/07/24 05/03/24 05/02/24 08:00 History trazodone 50 mg tablet 50 mg PO BEDTIME 04/07/24 05/03/24 05/02/24 21:00 History gabapentin 600 mg tablet 600 mg PO QID 05/03/24 05/03/24 05/03/24 08:00 History pantoprazole 40 mg tablet,delayed 40 mg PO DAILY@0630 05/03/24 05/03/24 05/03/24 06:30 History release pramipexole 0.25 mg tablet 0.5 mg PO TID 05/10/24 Unknown History Physical Exam 2 Vital Signs and Narrative: Vital Signs: Last Vital Signs Temp 98.0 F 05/10/24 13:52 Pulse 69 05/10/24 13:52 Resp 15 05/10/24 13:52 BP 124/91 H 05/10/24 13:52 Pulse Ox 95 05/10/24 12:17 O2 Del Method Nasal Cannula 05/10/24 13:52 O2 Flow Rate 2 05/10/24 13:52 BMI result Body Mass Index 28.0 Appearance: Alert.? Oriented X3.tremers ,anxious cvs: rrr, [id number] , no murmur res: clear to auscultation ,no rhonchii or wheezing abd: no rebound or guarding ,mild epigastric discomfort, bs present. ext pulses present , no cyanosis . neuro: axo3 , nonfocal. Results Labs 05/10/24 11:43 05/10/24 11:43 Labs: Laboratory Results - last 24 hr 05/10/24 11:43 MCV 83.6 MCH 27.4 MCHC 32.8 RDW 17.4 H Plt Count 132 L MPV 10.3 Immature Gran % (Auto) 0.2 Neut % (Auto) 77.6 H Lymph % (Auto) 11.8 L [place] % (Auto) 9.1 Eos % (Auto) 0.2 Baso % (Auto) 1.1 Lymph # (Auto) 0.5 L [place] # (Auto) 0.4 Eos # (Auto) 0.0 Baso # (Auto) 0.1 Abs Immat Gran (auto) 0.01 Absolute Neuts (auto) 3.4 Absolute Nucleated RBC 0.000 Nucleated RBC % (auto) 0.0 PT 13.0 INR 1.1 Anion Gap 20 Estim Creat Clear Calc 129.5 Estimated GFR > 60 Random Glucose 127 H Calcium 8.8 Magnesium 1.5 L Total Bilirubin 0.4 Direct Bilirubin 0.2 AST 138 H ALT 61 H Alkaline Phosphatase 163 H Total Protein 8.0 Albumin 4.4 Lipase 44 Ethyl Alcohol 264 Assessment and Plan (1) Nausea & vomiting: Qualifiers: Vomiting type: unspecified Qualified Code(s): R11.2 - Nausea with vomiting, unspecified Status: Acute (2) Alcohol withdrawal: Qualifiers: Complication of substance-induced condition: uncomplicated Qualified Code(s): F10.930 - Alcohol use, unspecified with withdrawal, uncomplicated Status: Acute (3) Hypomagnesemia: Status: Acute (4) Acute hypokalemia: Status: Acute Plan 33-year-old male with pertinent history of alcohol use disorder with history of alcohol withdrawal seizures and alcohol induced pancreatitis, mood disorder who presents to the emergency department for evaluation of nausea, vomiting, tremer ,anxious Alcohol withdrawals: CIWA protocol Continue phenobarb, thiamine, folic acid Drug drug screen Addiction consult Nausea vomiting some epigastric discomfort: Possible alcohol-related gastritis IV ppi, antiemetics. Acute Hypokalemia and hypomagnesemia due to GI losses: Repleted, monitor electrolytes closely. History Alcoholic cirrhosis: Elevated LFTs, normal albumin, thrombocytopenia , leukopenia (pancytopenia) : LFT chronically elevated, Stable Mood disorder: On multiple medications Medical reconciliation pending DVT prophylaxis: Compression boots Full code Patient will benefit from 2 midnight stay- inpatient hospitalization for IV antibiotics, phenobarb protocol for alcohol withdrawal, monitoring electrolytes, CIWA, and monitor for nausea vomiting. Above management discussed with the patient in detail length he understand in agreement with the above plan, time spent 70 minute, patient full code. Quality Stroke Does the patient have a stroke diagnosis?: No VTE Prior VTE?: No VTE Risk Level:: Medical - moderate - high VTE Device Contraindication: N/A - Device Ordered VTE Drug Contraindication: N/A - Med Ordered
[2024-05-10] MEDS: PHENobarbitaL sodium 130 MG/ML VIAL IM Q3Hx2 205 MG IM ×2 (15:15→17:29)
[2024-05-10] MEDS: Pantoprazole Sodium 40 MG/10 ML VIAL IVPUSH (15:26)
[2024-05-10 15:30] VITALS: BP 149/98
[2024-05-10 15:39] LABS: Amphetamine Screen Urine Not Detected (Not Detect); Barbiturates, Urine POSITIVE (Not Detect); Benzodiazepines Screen Urine POSITIVE (Not Detect); Buprenorphine Scr Not Detected (Not Detect); Cannabinoid Screen Urine POSITIVE (Not Detect); Cocaine Screen Urine Not Detected (Not Detect); Fentanyl, urine Not Detected (Not Detect); Methadone Screen, Urine Not Detected (Not Detect); Opiate Screen Urine Not Detected (Not Detect); Oxycodone Screen Urine Not Detected (Not Detect); Phencyclidine Screen Urine Not Detected (Not Detect)
[2024-05-10] MEDS: Lactated Ringers 1,000 ML 100 ML IVCONT (16:50)
--- NOTE | 2024-05-10 16:59 | PHA.MEDREC ---
Pharmacy Consult ? Medication Reconciliation Pharmacy has completed the medication reconciliation.
[2024-05-10] MEDS: 0.9 % Sodium Chloride Flush 3 ML SYRINGE IVFLUSH (17:25)
[2024-05-10 17:34] VITALS: BP 144/96; PULSE 106
--- NOTE | 2024-05-10 17:40 | PC.NURSE ---
Mulitple episodes of bile colored vomiting. CIWA score of 12. MD notified. 130mg IM Phenobarbital ordered
[2024-05-10] MEDS: PHENobarbitaL sodium 130 MG/ML VIAL IM (18:14)
[2024-05-10 20:00] VITALS: BP 135/90; PULSE 76; RESP 20; TEMP 36.9; O2SAT 97
--- NOTE | 2024-05-10 20:12 | MHC.EDTECH ---
This tech took over care of patient at 1900,hourly rounds and vitals completed,emptied 300MLS of yellow urine from urinal,call [facility] in reach
[2024-05-10] MEDS: Pramipexole Di-HCL 0.25 MG TABLET 0.5 MG PO (21:39)
[2024-05-10] MEDS: QUEtiapine Fumarate 100 MG TABLET PO (21:39)
[2024-05-10] MEDS: traZODone HCL 50 MG TABLET PO (21:39)
[2024-05-10] MEDS: busPIRone HCl 10 MG TABLET 20 MG PO (21:39)
[2024-05-11] VITALS (8 sets, daily range): BP systolic 123–140; BP diastolic 75–87; PULSE 62–83; RESP 16–18; TEMP 36.2–37.2; O2SAT 97–99
[2024-05-11] MEDS: Lactated Ringers 1,000 ML 100 ML IVCONT (02:39)
[2024-05-11] MEDS: ondansetron HCL 4 MG/2 ML VIAL IVPUSH ×2 (03:41→13:36)
[2024-05-11 07:27] LABS: Anion Gap 13 (12-20); Blood Urea Nitrogen 6 mg/dL (9-16); Calcium 8.8 mg/dL (8.4-10.2); Carbon Dioxide 24 mmol/L (22-29); Chloride 100 mmol/L (96-108); Creatinine Clr Calc Pharmacy 119.6; Estimated Glomerular Filt Rate > 60; Glucose Random 87 mg/dL (60-115); Potassium 3.3 mmol/L (3.3-5.1); Sodium 134 mmol/L (135-145)
[2024-05-11] MEDS: Pantoprazole Sodium 40 MG/10 ML VIAL IVPUSH (09:08)
[2024-05-11] MEDS: PHENobarbitaL 15 MG TABLET 45 MG PO ×2 (09:08→21:30)
[2024-05-11 09:09] LABS: Anion Gap 11 (12-20); Blood Urea Nitrogen 6 mg/dL (9-16); Calcium 8.4 mg/dL (8.4-10.2); Carbon Dioxide 26 mmol/L (22-29); Chloride 101 mmol/L (96-108); Creatinine Clr Calc Pharmacy 122.7; Estimated Glomerular Filt Rate > 60; Glucose Random 89 mg/dL (60-115); Magnesium 1.6 mg/dL (1.6-2.6); Potassium 3.2 mmol/L (3.3-5.1); Sodium 135 mmol/L (135-145)
[2024-05-11] MEDS: Loratadine 10 MG TABLET PO (09:09)
[2024-05-11] MEDS: Pramipexole Di-HCL 0.25 MG TABLET 0.5 MG PO ×3 (09:09→21:30)
[2024-05-11] MEDS: busPIRone HCl 10 MG TABLET 20 MG PO ×3 (09:09→21:30)
[2024-05-11] MEDS: cloNIDine HCL 0.1 MG TABLET PO ×2 (09:09→21:30)
[2024-05-11] MEDS: Thiamine HCL 100 MG TABLET PO (09:09)
[2024-05-11] MEDS: Folic Acid 1 MG TABLET PO (09:09)
[2024-05-11] MEDS: Topiramate 25 MG TABLET PO (09:09)
[2024-05-11] MEDS: 0.9 % Sodium Chloride Flush 3 ML SYRINGE IVFLUSH ×3 (09:09→21:31)
[2024-05-11] MEDS: Sertraline HCL 100 MG TABLET PO (09:09)
--- NOTE | 2024-05-11 12:15 | P.PNIM_ITS ---
Subjective Subjective Date of Service: 05/11/24 Interval History: alcohol withdrawals Review of Systems patient has anxious ,tramulous no fevers or chills abd pain improving , has some nausea Physical Exam 2 Vital Signs: Vital Signs: Last Vital Signs Temp 97.1 F 05/11/24 11:52 Pulse 62 05/11/24 11:52 Resp 18 05/11/24 11:52 BP 127/86 05/11/24 11:52 Pulse Ox 99 05/11/24 11:52 O2 Del Method Room Air 05/11/24 11:52 O2 Flow Rate 2 05/10/24 13:52 BMI result Body Mass Index 28.0 Appearance: Alert.? Oriented X3.tremers ,anxious cvs: rrr, [id number] , no murmur res: clear to auscultation ,no rhonchii or wheezing abd: no rebound or guarding ,mild epigastric discomfort, bs present. ext pulses present , no cyanosis . neuro: axo3 , nonfocal. Objective Data Active Medications Buspirone HCl (Buspirone Hcl 10 Mg Tablet) 20 mg PO TID [facility] Last Admin: 05/11/24 09:09 Dose: 20 mg Documented By: IGOR Clonidine HCl (Clonidine Hcl 0.1 Mg Tablet) 0.1 mg PO BID [facility]; Protocol Last Admin: 05/11/24 09:09 Dose: 0.1 mg Documented By: IGOR Folic Acid (Folic Acid 1 Mg Tablet) 1 mg PO DAILY [facility] Last Admin: 05/11/24 09:09 Dose: 1 mg Documented By: IGOR Loratadine (Loratadine 10 Mg Tablet) 10 mg PO DAILY [facility] Last Admin: 05/11/24 09:09 Dose: 10 mg Documented By: IGOR Ondansetron HCl (Ondansetron Hcl 4 Mg/2 Ml Vial) 4 mg IVPUSH Q6H PRN PRN Reason: Nausea and Vomiting Last Admin: 05/11/24 03:41 Dose: 4 mg Documented By: RUFINO Pantoprazole Sodium (Pantoprazole Sodium 40 Mg/10 Ml Vial) 40 mg IVPUSH DAILY [facility] Last Admin: 05/11/24 09:08 Dose: 40 mg Documented By: IGOR Pharmacy Consult (Consult Rx Etoh Phenob Im/Po) 1 each MISCELLANE ONCE PRN; Protocol PRN Reason: Consult order Phenobarbital (Phenobarbital 15 Mg Tablet) 45 mg PO BID [facility]; Protocol Stop: 05/12/24 21:01 Last Admin: 05/11/24 09:08 Dose: 45 mg Documented By: IGOR Phenobarbital (Phenobarbital 30 Mg Tablet) 30 mg PO BID [facility]; Protocol Stop: 05/14/24 21:01 Phenobarbital (Phenobarbital 30 Mg Tablet) 30 mg PO DAILY [facility]; Protocol Stop: 05/16/24 09:01 Pramipexole Dihydrochloride (Pramipexole Di-Hcl 0.25 Mg Tablet) 0.5 mg PO TID [facility] Last Admin: 05/11/24 09:09 Dose: 0.5 mg Documented By: IGOR Quetiapine Fumarate (Quetiapine Fumarate 100 Mg Tablet) 100 mg PO BEDTIME [facility] Last Admin: 05/10/24 21:39 Dose: 100 mg Documented By: RUFINO Sertraline HCl (Sertraline Hcl 100 Mg Tablet) 100 mg PO DAILY [facility] Last Admin: 05/11/24 09:09 Dose: 100 mg Documented By: IGOR Sodium Chloride (0.9 % Sodium Chloride Flush 3 Ml Syringe) 3 ml IVFLUSH [facility] Last Admin: 05/11/24 09:09 Dose: 3 ml Documented By: IGOR Thiamine HCl (Thiamine Hcl 100 Mg Tablet) 100 mg PO DAILY [facility] Last Admin: 05/11/24 09:09 Dose: 100 mg Documented By: IGOR Topiramate (Topiramate 25 Mg Tablet) 25 mg PO DAILY [facility] Last Admin: 05/11/24 09:09 Dose: 25 mg Documented By: IGOR Trazodone HCl (Trazodone Hcl 50 Mg Tablet) 50 mg PO BEDTIME [facility] Last Admin: 05/10/24 21:39 Dose: 50 mg Documented By: RUFINO Labs 05/10/24 11:43 05/11/24 08:41 Labs: Laboratory Results - last 24 hr 05/10/24 05/11/24 05/11/24 15:20 06:45 08:41 Anion Gap 13 11 L Estim Creat Clear Calc 119.6 122.7 Estimated GFR > 60 > 60 Random Glucose 87 89 Calcium 8.8 8.4 Magnesium 1.6 Urine Opiates Screen Not Detected Ur Buprenorphine Scrn Not Detected Ur Oxycodone Screen Not Detected Urine Methadone Screen Not Detected Urine Fentanyl Screen Not Detected Ur Barbiturates Screen POSITIVE H Ur Phencyclidine Scrn Not Detected Ur Amphetamines Screen Not Detected U Benzodiazepines Scrn POSITIVE H Urine Cocaine Screen Not Detected U Marijuana (THC) Screen POSITIVE H Assessment and Plan (1) Hypomagnesemia: Status: Resolved (2) Acute hypokalemia: Status: Resolved (3) Alcohol withdrawal: Status: Resolved (4) Alcohol use disorder: Status: Acute Assessment and Plan: 33-year-old male with pertinent history of alcohol use disorder with history of alcohol withdrawal seizures and alcohol induced pancreatitis, mood disorder who presents to the emergency department for evaluation of nausea, vomiting, tremer ,anxious Alcohol withdrawals: CIWA protocol-seems 11 range Continue phenobarb, thiamine, folic acid,added extra dose of phenobarbital im. Drug drug screen noted -has marijuana positive Addiction consult Nausea vomiting some epigastric discomfort:? marijuana vs gastritis Possible alcohol-related gastritis IV ppi, antiemetics. Acute Hypokalemia and hypomagnesemia due to GI losses: Repleted, monitor electrolytes closely. History Alcoholic cirrhosis: Elevated LFTs, normal albumin, thrombocytopenia , leukopenia (pancytopenia) : LFT chronically elevated, Stable Mood disorder: On multiple medications Medical reconciliation pending DVT prophylaxis: Compression boots Full code inpatient hospitalization need for phenobarb protocol for alcohol withdrawal, monitoring electrolytes, CIWA, and monitor for nausea vomiting. Above management discussed with the patient in detail length he understand in agreement with the above plan, time spent 70 minute, patient full code. Quality Stroke Does the patient have a stroke diagnosis?: No VTE Prior VTE?: No VTE Risk Level:: Medical - moderate - high VTE Device Contraindication: N/A - Device Ordered VTE Drug Contraindication: N/A - Med Ordered
[2024-05-11] MEDS: PHENobarbitaL sodium 130 MG/ML VIAL 65 MG IM (13:35)
--- NOTE | 2024-05-11 14:20 | MHC.CM.PN ---
Pt lives with a friend, he is independent, no home health services or DME. He will need assistance with transportation home at DC. Pt. said that his father is his HCP, we do not have this on file, CM to discuss this with pt. when he is more awake. PCP confirmed: Lacie Graham. DCP: home, self care. CM to follow for DC needs.
[2024-05-11] MEDS: traZODone HCL 25 MG HALFTAB PO (16:25)
[2024-05-11] MEDS: QUEtiapine Fumarate 100 MG TABLET PO (21:30)
[2024-05-11] MEDS: traZODone HCL 50 MG TABLET PO (21:30)
[2024-05-12] VITALS (8 sets, daily range): BP systolic 102–137; BP diastolic 72–95; PULSE 67–92; RESP 16–20; TEMP 36.1–36.8; O2SAT 96–100
[2024-05-12] MEDS: traMADoL HCL 50 MG TABLET 25 MG PO ×4 (00:44→19:22)
--- NOTE | 2024-05-12 07:22 | PC.NURSE ---
Patient alert and oriented overnight , ciwa done at appropriate intervals. Patient was scoring 11-12 Provider [facility] notifie and made aware patient has RLQ pain and provider order tramadol for pain management results are pending. Patient uses call gaspar appropriately . Report given to day RN.
[2024-05-12] MEDS: 0.9 % Sodium Chloride Flush 3 ML SYRINGE IVFLUSH ×2 (07:41→15:06)
[2024-05-12] MEDS: Potassium Chloride ER 20 MEQ TAB.ER.PRT PO (08:13)
[2024-05-12] MEDS: Magnesium Oxide 400 MG TABLET PO ×2 (08:13→17:31)
[2024-05-12] MEDS: Topiramate 25 MG TABLET PO (08:14)
[2024-05-12] MEDS: Pantoprazole Sodium 40 MG/10 ML VIAL IVPUSH (08:14)
[2024-05-12] MEDS: cloNIDine HCL 0.1 MG TABLET PO ×2 (08:14→21:14)
[2024-05-12] MEDS: Sertraline HCL 100 MG TABLET PO (08:14)
[2024-05-12] MEDS: PHENobarbitaL 15 MG TABLET 45 MG PO ×2 (08:14→21:13)
[2024-05-12] MEDS: Pramipexole Di-HCL 0.25 MG TABLET 0.5 MG PO ×3 (08:14→21:13)
[2024-05-12] MEDS: Folic Acid 1 MG TABLET PO (08:14)
[2024-05-12] MEDS: busPIRone HCl 10 MG TABLET 20 MG PO ×3 (08:14→21:17)
[2024-05-12] MEDS: Loratadine 10 MG TABLET PO (08:14)
[2024-05-12] MEDS: Thiamine HCL 100 MG TABLET PO (08:14)
[2024-05-12 10:45] LABS: Potassium 2.9 mmol/L (3.3-5.1)
--- NOTE | 2024-05-12 11:00 | MHC.CM.PN ---
EMR REVIEWED, PER HOSPITALIST PT CONT'S TO WITHDRAWAL FROM ETOH, NOT READY FOR DC AT THIS TIME, CM WILL CONT TO FFOLLOW DC NEEDS.
[2024-05-12] MEDS: Potassium Chloride ER 20 MEQ TAB.ER.PRT 40 MEQ PO (11:12)
[2024-05-12] MEDS: Magnesium Oxide 400 MG TABLET 800 MG PO (11:12)
[2024-05-12] MEDS: hydrOXYzine HCL 10 MG TABLET PO (12:46)
--- NOTE | 2024-05-12 13:51 | P.PNIM_ITS ---
Subjective Subjective Date of Service: 05/12/24 Interval History: hypokalemia alcohol withdrawals Review of Systems feels anxious ,tramulous no fever chills eating ok, wants to sleep Physical Exam 2 Vital Signs: Vital Signs: Last Vital Signs Temp 98.2 F 05/12/24 11:25 Pulse 71 05/12/24 11:25 Resp 20 05/12/24 11:25 BP 107/79 05/12/24 11:25 Pulse Ox 96 05/12/24 11:25 O2 Del Method Room Air 05/12/24 11:25 O2 Flow Rate 2 05/10/24 13:52 BMI result Body Mass Index 28.0 Appearance: Alert.? Oriented X3.tremers ,anxious cvs: rrr, [id number] , no murmur res: clear to auscultation ,no rhonchii or wheezing abd: no rebound or guarding ,mild epigastric discomfort improving, bs present. ext pulses present , no cyanosis . neuro: axo3 , nonfocal. Objective Data Active Medications Acetaminophen (Acetaminophen 325 Mg Tablet) 650 mg PO Q8H PRN PRN Reason: Pain, Moderate(Pain Scale 4-6) Buspirone HCl (Buspirone Hcl 10 Mg Tablet) 20 mg PO TID [facility] Last Admin: 05/12/24 08:14 Dose: 20 mg Documented By: PADMINI Clonidine HCl (Clonidine Hcl 0.1 Mg Tablet) 0.1 mg PO BID [facility]; Protocol Last Admin: 05/12/24 08:14 Dose: 0.1 mg Documented By: PADMINI Folic Acid (Folic Acid 1 Mg Tablet) 1 mg PO DAILY [facility] Last Admin: 05/12/24 08:14 Dose: 1 mg Documented By: PADMINI Hydroxyzine HCl (Hydroxyzine Hcl 10 Mg Tablet) 10 mg PO Q6H PRN PRN Reason: anxiety/restlessness Last Admin: 05/12/24 12:46 Dose: 10 mg Documented By: PADMINI Loratadine (Loratadine 10 Mg Tablet) 10 mg PO DAILY [facility] Last Admin: 05/12/24 08:14 Dose: 10 mg Documented By: PADMINI [facility] ([facility] 400 Mg [facility] Last Admin: 05/12/24 08:13 Dose: 400 mg Documented By: PADMINI Ondansetron HCl (Ondansetron Hcl 4 Mg/2 Ml Vial) 4 mg IVPUSH Q6H PRN PRN Reason: Nausea and Vomiting Last Admin: 05/11/24 13:36 Dose: 4 mg Documented By: IGOR Pantoprazole Sodium (Pantoprazole Sodium 40 Mg/10 Ml Vial) 40 mg IVPUSH DAILY [facility] Last Admin: 05/12/24 08:14 Dose: 40 mg Documented By: PADMINI Pharmacy Consult (Consult Rx Etoh Phenob Im/Po) 1 each MISCELLANE ONCE PRN; Protocol PRN Reason: Consult order Phenobarbital (Phenobarbital 15 Mg Tablet) 45 mg PO BID [facility]; Protocol Stop: 05/12/24 21:01 Last Admin: 05/12/24 08:14 Dose: 45 mg Documented By: PADMINI Phenobarbital (Phenobarbital 30 Mg Tablet) 30 mg PO BID [facility]; Protocol Stop: 05/14/24 21:01 Phenobarbital (Phenobarbital 30 Mg Tablet) 30 mg PO DAILY [facility]; Protocol Stop: 05/16/24 09:01 Pramipexole Dihydrochloride (Pramipexole Di-Hcl 0.25 Mg Tablet) 0.5 mg PO TID [facility] Last Admin: 05/12/24 08:14 Dose: 0.5 mg Documented By: PADMINI Quetiapine Fumarate (Quetiapine Fumarate 100 Mg Tablet) 100 mg PO BEDTIME [facility] Last Admin: 05/11/24 21:30 Dose: 100 mg Documented By: RADHA Sertraline HCl (Sertraline Hcl 100 Mg Tablet) 100 mg PO DAILY [facility] Last Admin: 05/12/24 08:14 Dose: 100 mg Documented By: PADMINI Sodium Chloride (0.9 % Sodium Chloride Flush 3 Ml Syringe) 3 ml IVFLUSH QSHIFT [facility] Last Admin: 05/12/24 07:41 Dose: 3 ml Documented By: PADMINI Thiamine HCl (Thiamine Hcl 100 Mg Tablet) 100 mg PO DAILY [facility] Last Admin: 05/12/24 08:14 Dose: 100 mg Documented By: PADMINI Topiramate (Topiramate 25 Mg Tablet) 25 mg PO DAILY [facility] Last Admin: 05/12/24 08:14 Dose: 25 mg Documented By: PADMINI Tramadol HCl (Tramadol Hcl 50 Mg Tablet) 25 mg PO Q6H PRN PRN Reason: Pain, Severe (Pain Scale 7-10) Last Admin: 05/12/24 12:11 Dose: 25 mg Documented By: PADMINI Trazodone HCl (Trazodone Hcl 50 Mg Tablet) 50 mg PO BEDTIME [facility] Last Admin: 05/11/24 21:30 Dose: 50 mg Documented By: RADHA Labs 05/10/24 11:43 05/12/24 09:46 Assessment and Plan (1) Hypomagnesemia: Status: Resolved (2) Acute hypokalemia: Status: Resolved (3) Alcohol withdrawal: Status: Resolved (4) Alcohol use disorder: Status: Acute Assessment and Plan: 33-year-old male with pertinent history of alcohol use disorder with history of alcohol withdrawal seizures and alcohol induced pancreatitis, mood disorder who presents to the emergency department for evaluation of nausea, vomiting, tremer ,anxious Alcohol withdrawals: CIWA protocol-seems 5 Continue phenobarb, thiamine, folic acid. Drug drug screen noted -has marijuana positive Addiction consult Nausea vomiting some epigastric discomfort:? marijuana vs gastritis Possible alcohol-related gastritis IV ppi, antiemetics. Acute Hypokalemia and boderline magnesemium due to GI losses/alcohol use : added potassium po potassium ,also added magnesium monitor electrolytes closely. History Alcoholic cirrhosis: Elevated LFTs, normal albumin, thrombocytopenia , leukopenia (pancytopenia) : LFT chronically elevated, Stable Mood disorder: On multiple medications Medical reconciliation pending DVT prophylaxis: Compression boots Full code inpatient hospitalization need for phenobarb protocol for alcohol withdrawal, monitoring electrolytes, CIWA, and monitor for nausea vomiting. Quality Stroke Does the patient have a stroke diagnosis?: No VTE Prior VTE?: No VTE Risk Level:: Medical - moderate - high VTE Device Contraindication: N/A - Device Ordered VTE Drug Contraindication: N/A - Med Ordered
--- NOTE | 2024-05-12 16:10 | MHC.RECOVRN ---
AUDIT-C Brief Intervention Pt had positive screen for unhealthy alcohol use on admission, subsequently met with t/w to discuss alcohol use and recovery supports/options. Pt voices concern regarding alcohol use and is aware that drinking at unhealthy levels is known to increase risk of alcohol related health problems. Pt reports 10 nips of 100 proof root beer liquor daily x 1 month. Pt expresses how alcohol use has impacted health, including negative impact on physical wellbeing. Discussed risk reduction strategies including drinking below the recommended limit. Provided pt with written resources including information on inpatient and outpatient treatment, MONIK, harm reduction, and recovery coaching. Pt reports he has tried naltrexone, antabuse, and campral in the past. Is open to naltrexone again. Pt reports longest period in recovery was 120 days last year. Pt reports he was at [facility] and continued on to [facility] and [facility]. Pt plans to follow up with [facility] to get back into inpatient treatment. If pt does not secure inpatient treatment at [facility], pt plans to call [facility] to initiate care and restart naltrexone. Pt provided with t/w contact information if questions or concerns arise. Denies other questions or concerns at this time.
--- NOTE | 2024-05-12 17:38 | PC.NURSE ---
pt reported being anxious , restless, stated that he cant stay in his room b/c he is restless. Alert and oriented x 4 , no n/v , steady gait , CIWA score done now =12 , Dr Felton/Jomar notified . will order additional Pheno
[2024-05-12] MEDS: PHENobarbitaL sodium 130 MG/ML VIAL IM (17:51)
[2024-05-12] MEDS: Zolpidem Tartrate 5 MG TABLET PO (21:13)
[2024-05-12] MEDS: QUEtiapine Fumarate 100 MG TABLET PO (23:57)
[2024-05-12] MEDS: traZODone HCL 50 MG TABLET PO (23:57)
[2024-05-13] VITALS (12 sets, daily range): BP systolic 92–135; BP diastolic 62–97; PULSE 68–92; RESP 12–18; TEMP 36.1–36.6; O2SAT 94–100
--- NOTE | 2024-05-13 | ECG_ITS ---
Test Reason : QTc Monitoring Blood Pressure : / mmHG Vent. Rate : 092 BPM Atrial Rate : 092 BPM P-R Int : 130 ms QRS Dur : 086 ms QT Int : 360 ms P-R-T Axes : 005 -08 -02 degrees QTc Int : 445 ms Normal sinus rhythm Minimal voltage criteria for LVH, may be normal variant ( R in aVL ) Borderline ECG When compared with ECG of 10-MAY-2024 11:28, No significant change was found Referred By: Vidya Mohr Electronically Signed By:TRAV KEBEDE
[2024-05-13] MEDS: 0.9 % Sodium Chloride Flush 3 ML SYRINGE IVFLUSH ×4 (00:01→22:55)
[2024-05-13] MEDS: hydrOXYzine HCL 10 MG TABLET PO ×2 (03:05→12:18)
[2024-05-13] MEDS: traMADoL HCL 50 MG TABLET 25 MG PO (03:08)
[2024-05-13] MEDS: PHENobarbitaL sodium 130 MG/ML VIAL IM (05:09)
[2024-05-13] MEDS: ondansetron HCL 4 MG/2 ML VIAL IVPUSH (05:18)
[2024-05-13] MEDS: Nicotine 21 MG PATCH.TD24 TRANSDERMA (05:20)
[2024-05-13] MEDS: busPIRone HCl 10 MG TABLET 20 MG PO (08:08)
[2024-05-13] MEDS: Pramipexole Di-HCL 0.25 MG TABLET 0.5 MG PO (08:08)
[2024-05-13] MEDS: cloNIDine HCL 0.1 MG TABLET PO (08:08)
[2024-05-13] MEDS: Pantoprazole Sodium 40 MG/10 ML VIAL IVPUSH (08:08)
[2024-05-13] MEDS: Loratadine 10 MG TABLET PO (08:09)
[2024-05-13] MEDS: Thiamine HCL 100 MG TABLET PO (08:09)
[2024-05-13] MEDS: Folic Acid 1 MG TABLET PO (08:09)
[2024-05-13] MEDS: PHENobarbitaL 30 MG TABLET PO (08:10)
[2024-05-13] MEDS: Magnesium Oxide 400 MG TABLET PO (08:10)
[2024-05-13] MEDS: Sertraline HCL 100 MG TABLET PO (08:10)
[2024-05-13] MEDS: Topiramate 25 MG TABLET PO (08:10)
[2024-05-13] MEDS: LORazepam 2 MG/ML VIAL 1 MG IVPUSH ×2 (08:52→12:18)
[2024-05-13 11:02] LABS: Basophils Percent Auto 0.4 % (0-2); Eosinophils Percent Auto 0.7 % (0-4); Hemoglobin 11.3 g/dl (14.0-18.0); Lymphocytes Absolute Auto 0.6 X10*3/uL (1.2-4.9); Lymphocytes Percent Auto 21.3 % (20-40); MANUAL DIFF FLAG SCAN; Mean Corpuscular HGB Conc 32.3 g/dl (31.0-36.0); Mean Corpuscular Hemoglobin 27.2 pg (27.0-33.0); Mean Corpuscular Volume 84.3 fL (80.0-98.0); Monocytes Absolute Auto 0.3 X10*3/uL (0.1-1.2); Monocytes Percent Auto 10.9 % (2-11); Neutrophils Absolute Auto 1.8 x10*3/uL (2.0-8.3); Neutrophils Percent Auto 66.7 % (45-73); PLT CLUMP 1; Red Blood Count 4.15 X10*6/uL (4.60-5.80); Red Cell Distribution Width 16.1 % (11.0-16.0); SCAN SMEAR FLAG 1
--- NOTE | 2024-05-13 11:14 | MHC.CM.PN ---
Per rounds, pt is not ready for DC, he is still requiring treatment for alcohol withdrawal. His DCP is self care, he has met with addition services and has resources that he will follow up on to treat alcoholism. CM to follow for DC needs.
[2024-05-13 11:35] LABS: Platelet Count 67 X10*3/uL (160-400); SLIDE REVIEW VERIFIED; White Blood Count 2.7 X10*3/uL (4.8-10.8)
[2024-05-13 11:36] LABS: Alanine Aminotransferase 53 U/L (0-40); Alkaline Phosphatase 154 U/L (39-117); Anion Gap 10 (12-20); Aspartate Amino Transferase 92 U/L (5-37); Bilirubin Total 0.4 mg/dL (0.0-1.0); Blood Urea Nitrogen 6 mg/dL (9-16); Calcium 8.7 mg/dL (8.4-10.2); Carbon Dioxide 25 mmol/L (22-29); Chloride 103 mmol/L (96-108); Creatinine Clr Calc Pharmacy 107.2; Estimated Glomerular Filt Rate > 60; Glucose Random 94 mg/dL (60-115); Potassium 3.7 mmol/L (3.3-5.1); Sodium 134 mmol/L (135-145); Total Protein 7.3 g/dL (6.5-8.0)
[2024-05-13] MEDS: Haloperidol Lactate 5 MG/ML VIAL 2.5 MG IM (14:11)
[2024-05-13] MEDS: PHENobarbitaL sodium 130 MG/ML VIAL 275 MG IM (14:11)
--- NOTE | 2024-05-13 14:37 | PM.CCPN ---
Subjective Subjective Date of Service: 05/13/24 Interval History: interval worsening agitation, c/f alcohol withdrawal Critical Care Time (minutes): 60 Physical Exam Vital Signs: Vital Signs: Last Vital Signs Temp 97.8 F 05/13/24 11:02 Pulse 92 05/13/24 11:02 Resp 16 05/13/24 11:02 BP 132/90 H 05/13/24 11:02 Pulse Ox 95 05/13/24 11:02 O2 Del Method Room Air 05/13/24 11:02 O2 Flow Rate 2 05/10/24 13:52 BMI result Body Mass Index 28.0 Const: Other: fatigued, though easily arousable w/ verbal stimulus General: comfortable, no acute distress, well developed and Physically active Orientation/consciousness: patient oriented x3 HEENT: Head: Yes normal to inspection, Yes normocephalic and Yes atraumatic Eyes: General: appearance normal, both eyes and all related structures Neck: Neck: Yes normal visual inspection, Yes full ROM, Yes no meningeal signs, Yes trachea midline and Yes supple Chest: Chest palpation & inspection: normal inspection of the chest Resp: Other: no appreciable rales, rhonchi, wheezing Effort & Inspection: normal respiratory effort Cardio: Rate: regular rate Rhythm: regular rhythm GI: Inspection: Yes normal to inspection, No Abdominal wall edema and No distended Palpation (GI): Soft to palpation, not firm, nontender, no guarding and not rigid Skin: General skin exam: no rashes or lesions noted Neuro: General: patient oriented x3, tone normal, moves all extremities and no meningeal signs Extrem: General: Yes normal to inspection, Yes full ROM, Yes capillary refill normal and Yes no clubbing, cyanosis or edema Psych: Other: notable visual hallucinations Objective Data Labs 05/13/24 10:50 05/13/24 10:50 Labs: Laboratory Results - last 24 hr 05/13/24 10:50 WBC 2.7 L RBC 4.15 L Hgb 11.3 L Hct 35.0 L MCV 84.3 MCH 27.2 MCHC 32.3 RDW 16.1 H Plt Count 67 L D MPV Not Reportable Immature Gran % (Auto) 0.0 Neut % (Auto) 66.7 Lymph % (Auto) 21.3 [place] % (Auto) 10.9 Eos % (Auto) 0.7 Baso % (Auto) 0.4 Lymph # (Auto) 0.6 L [place] # (Auto) 0.3 Eos # (Auto) 0.0 Baso # (Auto) 0.0 Abs Immat Gran (auto) 0.00 Absolute Neuts (auto) 1.8 L Absolute Nucleated RBC 0.000 Nucleated RBC % (auto) 0.0 Smear Tech's Comments VERIFIED Sodium 134 L Potassium 3.7 D Chloride 103 Carbon Dioxide 25 Anion Gap 10 L BUN 6 L Creatinine 0.87 Estim Creat Clear Calc 107.2 Estimated GFR > 60 Random Glucose 94 Calcium 8.7 Total Bilirubin 0.4 AST 92 H ALT 53 H Alkaline Phosphatase 154 H Total Protein 7.3 Albumin 4.0 Progress Note: A&P Assessment and plan (1) Alcohol withdrawal: Status: Acute Plan Patient is a 33 Y M w/ alcohol misuse disorder c/b prior pancreatitis, withdrawal seizures, p/w signs/symptoms consistent w/ alcohol withdrawal, N: alcohol misuse c/b withdrawal, c/f withdrawal seizure CV: no acute issues R: no acute issues GI: NPO; advance diet as tolerated : no acute issues H: no acute issues ID: no acute issues E: no acute issues; to monitor hypo-/hyper-glycemia P: alcohol misuse c/b withdrawal; addiction medicine consult Quality Stroke Does the patient have a stroke diagnosis?: No VTE Prior VTE?: No VTE Risk Level:: Medical - moderate - high VTE Device Contraindication: N/A - Device Ordered VTE Drug Contraindication: N/A - Med Ordered
[2024-05-13] MEDS: LORazepam 2 MG/ML VIAL IM (14:47)
--- NOTE | 2024-05-13 15:06 | P.PNIM_ITS ---
Subjective Subjective Date of Service: 05/13/24 Interval History: . Required additional doses of phenobarb overnight. This a.m. wanting to leave AMA however by examined active withdrawal. Review of Systems Unable to obtain Physical Exam 2 Vital Signs: Vital Signs: Last Vital Signs Temp 97.8 F 05/13/24 11:02 Pulse 89 05/13/24 14:51 Resp 18 05/13/24 14:51 BP 132/89 05/13/24 14:51 Pulse Ox 95 05/13/24 14:51 O2 Del Method Room Air 05/13/24 14:51 O2 Flow Rate 2 05/10/24 13:52 BMI result Body Mass Index 28.0 Const: Other: Awake confused Resp: Other: Clear to auscultation bilaterally no rales rhonchi or wheezes Cardio: Other: No S4; positive S1-S2; no S3 murmurs rubs or gallops GI: Other: Soft nontender nondistended normoactive bowel sounds Neuro: Other: Cranial nerves 2-12 grossly intact as tested. Motor is 5/5 all extremities. Sensation is intact. Gait steady. Cognition. .. Confused (30) Extrem: Other: No edema bilaterally Objective Data Active Medications Acetaminophen (Acetaminophen 325 Mg Tablet) 650 mg PO Q8H PRN PRN Reason: Pain, Moderate(Pain Scale 4-6) Buspirone HCl (Buspirone Hcl 10 Mg Tablet) 20 mg PO TID [facility] Last Admin: 05/13/24 08:08 Dose: 20 mg Documented By: NICOLÁS Folic Acid (Folic Acid 1 Mg Tablet) 1 mg PO DAILY [facility] Last Admin: 05/13/24 08:09 Dose: 1 mg Documented By: NICOLÁS Hydroxyzine HCl (Hydroxyzine Hcl 10 Mg Tablet) 10 mg PO Q6H PRN PRN Reason: anxiety/restlessness Last Admin: 05/13/24 12:18 Dose: 10 mg Documented By: NICOLÁS Dexmedetomidine HCl (Precedex) 400 mcg in 100 mls @ 0 mls/hr IVCONT .Q0M [facility]; Protocol Loratadine (Loratadine 10 Mg Tablet) 10 mg PO DAILY [facility] Last Admin: 05/13/24 08:09 Dose: 10 mg Documented By: NICOLÁS Lorazepam (Lorazepam 2 Mg/Ml Vial) 2 mg IVPUSH ONCE PRN PRN Reason: Seizure Magnesium Oxide (Magnesium Oxide 400 Mg Tablet) 400 mg PO BIDPC [facility] Last Admin: 05/13/24 08:10 Dose: 400 mg Documented By: NICOLÁS Ondansetron HCl (Ondansetron Hcl 4 Mg/2 Ml Vial) 4 mg IVPUSH Q6H PRN PRN Reason: Nausea and Vomiting Last Admin: 05/13/24 05:18 Dose: 4 mg Documented By: JOSE Pharmacy Consult (Consult Rx Etoh Phenob Im/Po) 1 each MISCELLANE ONCE PRN; Protocol PRN Reason: Consult order Phenobarbital (Phenobarbital 30 Mg Tablet) 30 mg PO BID [facility]; Protocol Stop: 05/14/24 21:01 Last Admin: 05/13/24 08:10 Dose: 30 mg Documented By: NICOLÁS Phenobarbital (Phenobarbital 30 Mg Tablet) 30 mg PO DAILY [facility]; Protocol Stop: 05/16/24 09:01 Pramipexole Dihydrochloride (Pramipexole Di-Hcl 0.25 Mg Tablet) 0.5 mg PO TID [facility] Last Admin: 05/13/24 08:08 Dose: 0.5 mg Documented By: NICOLÁS Quetiapine Fumarate (Quetiapine Fumarate 100 Mg Tablet) 100 mg PO BEDTIME [facility] Last Admin: 05/12/24 23:57 Dose: 100 mg Documented By: JOSE Comments: Administered late provider Noelle Hinkle approved late administration Sertraline HCl (Sertraline Hcl 100 Mg Tablet) 100 mg PO DAILY [facility] Last Admin: 05/13/24 08:10 Dose: 100 mg Documented By: NICOLÁS Sodium Chloride (0.9 % Sodium Chloride Flush 3 Ml Syringe) 3 ml [facility] Last Admin: 05/13/24 08:10 Dose: 3 ml Documented By: NICOLÁS Thiamine HCl (Thiamine Hcl 100 Mg Tablet) 100 mg PO DAILY [facility] Last Admin: 05/13/24 08:09 Dose: 100 mg Documented By: NICOLÁS Topiramate (Topiramate 25 Mg Tablet) 25 mg PO DAILY [facility] Last Admin: 05/13/24 08:10 Dose: 25 mg Documented By: NICOLÁS Trazodone HCl (Trazodone Hcl 50 Mg Tablet) 50 mg PO BEDTIME [facility] Last Admin: 05/12/24 23:57 Dose: 50 mg Documented By: JOSE Comments: Administered late provider Noelle Hinkle approved late administration Labs 05/13/24 10:50 05/13/24 10:50 Labs: Laboratory Results - last 24 hr 05/13/24 10:50 MCV 84.3 MCH 27.2 MCHC 32.3 RDW 16.1 H Plt Count 67 L D MPV Not Reportable Immature Gran % (Auto) 0.0 Neut % (Auto) 66.7 Lymph % (Auto) 21.3 [place] % (Auto) 10.9 Eos % (Auto) 0.7 Baso % (Auto) 0.4 Lymph # (Auto) 0.6 L [place] # (Auto) 0.3 Eos # (Auto) 0.0 Baso # (Auto) 0.0 Abs Immat Gran (auto) 0.00 Absolute Neuts (auto) 1.8 L Absolute Nucleated RBC 0.000 Nucleated RBC % (auto) 0.0 Smear Tech's Comments VERIFIED Anion Gap 10 L Estim Creat Clear Calc 107.2 Estimated GFR > 60 Random Glucose 94 Calcium 8.7 Total Bilirubin 0.4 AST 92 H ALT 53 H Alkaline Phosphatase 154 H Total Protein 7.3 Albumin 4.0 Assessment and Plan (1) Alcohol use disorder: Status: Acute Assessment and Plan: 33-year-old male with pertinent history of alcohol use disorder with history of alcohol withdrawal seizures and alcohol induced pancreatitis, mood disorder who presents to the emergency department for evaluation of nausea, vomiting, tremer ,anxious ... Ultimately requiring increased IM doses of phenobarb along with IV Ativan. Despite these therapies patient had seizure. 1.Alcohol withdrawal -increasing IM phenobarb required along with IV Ativan. -Haldol given for agitation and hallucination -seizure activity noted; consulted ICU higher level of care 2.Acute Hypokalemia -repleted -as per ICU Compression boots Full code inpatient hospitalization need for phenobarb protocol for alcohol withdrawal, monitoring electrolytes, CIWA, and monitor for nausea vomiting. Quality Stroke Does the patient have a stroke diagnosis?: No VTE Prior VTE?: No VTE Risk Level:: Medical - moderate - high VTE Device Contraindication: N/A - Device Ordered VTE Drug Contraindication: N/A - Med Ordered
--- NOTE | 2024-05-13 15:17 | PC.NURSE ---
Pt withdrawing from ETOH through the day progressively having more symptoms - hallucinating, agitated, pulled out IV, pushing staff out of the way trying to leave. Able to re-direct pt at times but doesnt last long. MD to room multiple times to assess pt with RN. Sitter at bedside. Pt on pheno protocol but did also require ativan IV 1mg q6, then adjusted to q4hr per MD orders due to increased agitation and restlessness. In afternoon pt increased agitation, stating needs to leave. RN to room, assessed pt and notified MD. New STAT haldol 2.5mg IM and pheno IM, sat down and talked to pt about situation and educated on reasoning for these medications. Pt agreeable, admin into deltoids at 14:11. Pt starting to calm down, teary eyed talking about situation. While laying in bed for EKG pt had seizureless than one min witnessed by aide and RN. Order for ativan 2mg IM admin at 1447. Pt then seized two more times less than one min each. Intensive MD to room to assess pt, txr order in. IV access obtained and report given. Pt postictal upon txr
[2024-05-13] MEDS: levETIRAcetam in NaCl (iso-os) 500 MG/100 ML PIGGYBACK 400 MG IV (16:22)
[2024-05-13] MEDS: dexmedeTOMIDidine HCL/NS 400 MCG/100 ML INFUS..BTL 8.95 MCG IVCONT (22:54)
[2024-05-14] VITALS (17 sets, daily range): BP systolic 87–112; BP diastolic 55–77; PULSE 58–75; RESP 15–20; TEMP 36.1–36.8; O2SAT 97–100; BMI 28.2
[2024-05-14 05:25] LABS: Eosinophils Absolute Auto 0.1 X10*3/uL (0.0-0.4); Eosinophils Percent Auto 1.6 % (0-4); Hemoglobin 11.5 g/dl (14.0-18.0); Mean Corpuscular Hemoglobin 27.6 pg (27.0-33.0); Monocytes Absolute Auto 0.3 X10*3/uL (0.1-1.2); Monocytes Percent Auto 8.8 % (2-11); PLT CLUMP 1; Red Cell Distribution Width 16.5 % (11.0-16.0); SCAN SMEAR FLAG 1
[2024-05-14 05:27] LABS: Basophils Percent Auto 0.3 % (0-2); Hematocrit 34.6 % (42.0-52.0); Imm Gran Abs Auto 0.01 X10*3/uL (0.00-0.03); Imm Gran Pct Auto 0.3 % (0.0-0.4); Lymphocytes Percent Auto 30.8 % (20-40); MANUAL DIFF FLAG SCAN; Mean Corpuscular HGB Conc 33.2 g/dl (31.0-36.0); Mean Platelet Volume 10.4 fL (9.4-12.4); Neutrophils Absolute Auto 1.9 x10*3/uL (2.0-8.3); Neutrophils Percent Auto 58.2 % (45-73); Red Blood Count 4.17 X10*6/uL (4.60-5.80)
[2024-05-14 05:32] LABS: Alanine Aminotransferase 47 U/L (0-40); Albumin Level 3.9 g/dL (3.5-5.0); Alkaline Phosphatase 135 U/L (39-117); Anion Gap 14 (12-20); Aspartate Amino Transferase 73 U/L (5-37); Bilirubin Total 0.5 mg/dL (0.0-1.0); Blood Urea Nitrogen 9 mg/dL (9-16); Calcium 9.2 mg/dL (8.4-10.2); Carbon Dioxide 22 mmol/L (22-29); Chloride 104 mmol/L (96-108); Estimated Glomerular Filt Rate > 60; Glucose Random 106 mg/dL (60-115); Phosphorus 3.4 mg/dL (2.7-4.5); Potassium 3.7 mmol/L (3.3-5.1); Sodium 136 mmol/L (135-145)
[2024-05-14 05:50] LABS: White Blood Count 3.2 X10*3/uL (4.8-10.8)
[2024-05-14 05:51] LABS: Platelet Count 79 X10*3/uL (160-400); SLIDE REVIEW VERIFIED
--- NOTE | 2024-05-14 09:51 | P.PNCC_ITS ---
Subjective Subjective Date of Service: 05/14/24 Interval History: 33-year-old gentleman with underlying history of alcohol dependence with prior alcohol withdrawal seizures and alcohol-induced pancreatitis admitted on 05/10/2024 with alcohol intoxication further complicated by alcohol withdrawal with alcohol withdrawal seizure and started on phenobarbital protocol, on 05/13/2024 requiring transfer to intensive care unit for Precedex drip. Titrated off Precedex drip overnight. Critical Care Time (minutes): 30 Physical Exam 2 Vital Signs: Vital Signs: Last Vital Signs Temp 97.0 F 05/14/24 08:00 Pulse 63 05/14/24 09:00 Resp 15 05/14/24 09:00 BP 92/57 L 05/14/24 09:00 Pulse Ox 100 05/14/24 09:00 O2 Del Method Nasal Cannula 05/14/24 09:00 O2 Flow Rate 1 05/14/24 09:00 BMI result Body Mass Index 28.2 Const: General: no acute distress, alert and awake Eyes: Sclerae: sclerae normal EOM: EOMs intact bilaterally Neck: Neck: Yes no lymphadenopathy, Yes trachea midline and Yes supple Resp: Effort & Inspection: normal respiratory effort and no respiratory distress Auscultation: clear to auscultation bilaterally Cardio: Rate: regular rate Rhythm: regular rhythm Heart sounds: no gallops, no murmurs and no rubs GI: Palpation (GI): Soft to palpation and Other GI palpation findings present ( Nontender) Auscultation: normal bowel sounds Extrem: General: Yes no pedal edema, No clubbing and No cyanosis Objective Data Labs 05/14/24 05:06 05/14/24 05:06 Labs: Laboratory Results - last 24 hr 05/13/24 05/14/24 10:50 05:06 WBC 2.7 L 3.2 L RBC 4.15 L 4.17 L Hgb 11.3 L 11.5 L Hct 35.0 L 34.6 L MCV 84.3 83.0 MCH 27.2 27.6 MCHC 32.3 33.2 RDW 16.1 H 16.5 H Plt Count 67 L D 79 L MPV Not Reportable 10.4 Immature Gran % (Auto) 0.0 0.3 Neut % (Auto) 66.7 58.2 Lymph % (Auto) 21.3 30.8 [place] % (Auto) 10.9 8.8 Eos % (Auto) 0.7 1.6 Baso % (Auto) 0.4 0.3 Lymph # (Auto) 0.6 L 1.0 L [place] # (Auto) 0.3 0.3 Eos # (Auto) 0.0 0.1 Baso # (Auto) 0.0 0.0 Abs Immat Gran (auto) 0.00 0.01 Absolute Neuts (auto) 1.8 L 1.9 L Absolute Nucleated RBC 0.000 0.000 Nucleated RBC % (auto) 0.0 0.0 Smear Tech's Comments VERIFIED VERIFIED Sodium 134 L 136 Potassium 3.7 D 3.7 Chloride 103 104 Carbon Dioxide 25 22 Anion Gap 10 L 14 BUN 6 L 9 Creatinine 0.87 0.79 Estim Creat Clear Calc 107.2 118.0 Estimated GFR > 60 > 60 Random Glucose 94 106 Calcium 8.7 9.2 Phosphorus 3.4 Magnesium 2.0 Total Bilirubin 0.4 0.5 AST 92 H 73 H ALT 53 H 47 H Alkaline Phosphatase 154 H 135 H Total Protein 7.3 7.0 Albumin 4.0 3.9 Progress Note: A&P Assessment and plan (1) Alcohol withdrawal: Status: Acute Plan Assessment: 33-year-old gentleman with underlying alcohol dependence admitted with alcohol intoxication further complicated by delirium tremens with seizures briefly requiring Precedex drip. Plan: Neuro: Delirium tremens with seizures, improving. Titrated off Precedex drip. Continue on phenobarbital protocol and topiramate. Cardiac: No acute issues. Pulmonary: No acute issues. Renal: No acute issues. Endo: No acute issues. GI: No acute issues. ID: No acute issues Heme/Onc: Thrombocytopenia, likely alcohol related. Continue to monitor. Psych: No acute issues. Miscellaneous: No acute issues. Prophylaxis: Pneumatic compression Diet: NPO Critical care time spent: 30 minutes Quality Stroke Does the patient have a stroke diagnosis?: No VTE Prior VTE?: No VTE Risk Level:: Medical - moderate - high VTE Device Contraindication: N/A - Device Ordered VTE Drug Contraindication: N/A - Med Ordered
[2024-05-14] MEDS: 0.9 % Sodium Chloride Flush 3 ML SYRINGE IVFLUSH ×3 (10:25→19:40)
[2024-05-14] MEDS: PHENobarbitaL 30 MG TABLET PO ×2 (10:26→21:32)
[2024-05-14] MEDS: Magnesium Oxide 400 MG TABLET PO ×2 (10:27→16:37)
[2024-05-14] MEDS: busPIRone HCl 10 MG TABLET 20 MG PO ×3 (10:27→21:32)
[2024-05-14] MEDS: Folic Acid 1 MG TABLET PO (10:27)
[2024-05-14] MEDS: Pramipexole Di-HCL 0.25 MG TABLET 0.5 MG PO ×3 (10:27→21:31)
[2024-05-14] MEDS: Thiamine HCL 100 MG TABLET PO (10:27)
[2024-05-14] MEDS: Topiramate 25 MG TABLET PO (10:27)
[2024-05-14] MEDS: hydrOXYzine HCL 10 MG TABLET PO (12:56)
[2024-05-14] MEDS: LORazepam 1 MG TABLET PO ×2 (14:57→19:34)
--- NOTE | 2024-05-14 16:09 | MHC.CM.PN ---
PT HAS BEEN TITRATED OFF PRECEDEX DRIP IN ICU AND RETURNED TO MEDICAL FLOOR FOR FURTHER TX OF ETOH WITHDRAWAL. CM WILL CONTINUE TO FOLLOW FOR ANY CHANGE TO DC PLAN/NEEDS.
[2024-05-14] MEDS: Morphine Sulfate 2 MG/ML CARTRIDGE IVPUSH (18:16)
[2024-05-14] MEDS: iohexoL 350 MG/ML 100 ML INFUS..BTL 85 ML IV (19:21)
[2024-05-14] MEDS: ondansetron HCL 4 MG/2 ML VIAL IVPUSH (19:39)
[2024-05-14] MEDS: QUEtiapine Fumarate 100 MG TABLET PO (21:32)
[2024-05-15] VITALS (7 sets, daily range): BP systolic 104–125; BP diastolic 56–84; PULSE 65–88; RESP 18–20; TEMP 36–36.8; O2SAT 96–100; BMI 27.7
[2024-05-15] MEDS: LORazepam 1 MG TABLET PO ×4 (00:23→20:48)
[2024-05-15] MEDS: Morphine Sulfate 2 MG/ML CARTRIDGE IVPUSH ×5 (00:25→20:49)
[2024-05-15] MEDS: hydrOXYzine HCL 10 MG TABLET PO ×2 (03:00→23:51)
[2024-05-15 06:14] LABS: MANUAL DIFF FLAG NO
[2024-05-15 06:20] LABS: Venous Blood Gas Refer to POC result
[2024-05-15 06:25] LABS: VBG Base Excess 0.9 mmol/L; VBG HCO3 24 mmol/L (22-26); VBG pCO2 36 mmHg; VBG pH 7.43 (7.32-7.43); VBG pO2 142 mmHg
[2024-05-15 06:41] LABS: Alanine Aminotransferase 44 U/L (0-40); Albumin Level 3.8 g/dL (3.5-5.0); Alkaline Phosphatase 134 U/L (39-117); Anion Gap 11 (12-20); Aspartate Amino Transferase 59 U/L (5-37); Bilirubin Total 0.6 mg/dL (0.0-1.0); Blood Urea Nitrogen 8 mg/dL (9-16); Calcium 8.4 mg/dL (8.4-10.2); Carbon Dioxide 23 mmol/L (22-29); Chloride 104 mmol/L (96-108); Estimated Glomerular Filt Rate > 60; Glucose Random 93 mg/dL (60-115); Magnesium 1.9 mg/dL (1.6-2.6); Phosphorus 2.9 mg/dL (2.7-4.5); Potassium 3.5 mmol/L (3.3-5.1); Sodium 134 mmol/L (135-145); Total Protein 7.1 g/dL (6.5-8.0)
[2024-05-15 06:51] LABS: Basophils Percent Auto 0.3 % (0-2); Eosinophils Percent Auto 1.1 % (0-4); Hematocrit 33.7 % (42.0-52.0); Lymphocytes Percent Auto 25.5 % (20-40); Mean Corpuscular HGB Conc 32.6 g/dl (31.0-36.0); Mean Corpuscular Volume 82.6 fL (80.0-98.0); Mean Platelet Volume 10.9 fL (9.4-12.4); Monocytes Absolute Auto 0.4 X10*3/uL (0.1-1.2); Monocytes Percent Auto 9.9 % (2-11); Neutrophils Absolute Auto 2.4 x10*3/uL (2.0-8.3); Neutrophils Percent Auto 63.2 % (45-73); Red Blood Count 4.08 X10*6/uL (4.60-5.80); Red Cell Distribution Width 16.4 % (11.0-16.0); White Blood Count 3.7 X10*3/uL (4.8-10.8)
[2024-05-15 06:52] LABS: Platelet Count 61 X10*3/uL (160-400)
[2024-05-15] MEDS: ondansetron HCL 4 MG/2 ML VIAL IVPUSH (10:25)
[2024-05-15] MEDS: Magnesium Oxide 400 MG TABLET PO ×2 (10:26→17:34)
[2024-05-15] MEDS: Pramipexole Di-HCL 0.25 MG TABLET 0.5 MG PO ×3 (10:26→20:48)
[2024-05-15] MEDS: Thiamine HCL 100 MG TABLET PO (10:26)
[2024-05-15] MEDS: PHENobarbitaL 30 MG TABLET PO (10:26)
[2024-05-15] MEDS: Topiramate 25 MG TABLET PO (10:26)
[2024-05-15] MEDS: Folic Acid 1 MG TABLET PO (10:27)
[2024-05-15] MEDS: busPIRone HCl 10 MG TABLET 20 MG PO ×3 (10:27→20:48)
[2024-05-15] MEDS: 0.9 % Sodium Chloride Flush 3 ML SYRINGE IVFLUSH ×3 (10:27→23:52)
[2024-05-15] MEDS: PHENobarbitaL sodium 130 MG/ML VIAL 205 MG IM (13:56)
--- NOTE | 2024-05-15 14:11 | HO.PM.IMPN ---
Subjective Subjective Date of Service: 05/15/24 Interval History: CIWA continued to elevate overnight remains elevated. Additional dose of IM phenobarb required. No noted seizure activity. Continues with right upper quadrant pain Review of Systems Unable to obtain Physical Exam Vital Signs: Vital Signs: Last Vital Signs Temp 98.0 F 05/15/24 12:00 Pulse 65 05/15/24 12:00 Resp 19 05/15/24 12:00 BP 117/69 05/15/24 12:00 Pulse Ox 98 05/15/24 12:00 O2 Del Method Room Air 05/15/24 12:00 O2 Flow Rate 1 05/14/24 14:00 BMI result Body Mass Index 27.7 Const: Other: Awake confused Resp: Other: Clear to auscultation bilaterally no rales rhonchi or wheezes Cardio: Other: No S4; positive S1-S2; no S3 murmurs rubs or gallops GI: Other: Soft nontender nondistended normoactive bowel sounds Neuro: Other: Cranial nerves 2-12 grossly intact as tested. Motor is 5/5 all extremities. Sensation is intact. Gait steady. Cognition. .. Confused (30) Extrem: Other: No edema bilaterally Objective Data Active Medications Acetaminophen (Acetaminophen 325 Mg Tablet) 650 mg PO Q8H PRN PRN Reason: Pain, Moderate(Pain Scale 4-6) Buspirone HCl (Buspirone Hcl 10 Mg Tablet) 20 mg PO TID [facility] Last Admin: 05/15/24 10:27 Dose: 20 mg Documented By: TI Folic Acid (Folic Acid 1 Mg Tablet) 1 mg PO DAILY [facility] Last Admin: 05/15/24 10:27 Dose: 1 mg Documented By: TI Hydroxyzine HCl (Hydroxyzine Hcl 10 Mg Tablet) 10 mg PO Q6H PRN PRN Reason: anxiety/restlessness Last Admin: 05/15/24 03:00 Dose: 10 mg Documented By: CHRISTINE Lorazepam (Lorazepam 2 Mg/Ml Vial) 2 mg IVPUSH ONCE PRN PRN Reason: Seizure Lorazepam (Lorazepam 1 Mg Tablet) 1 mg PO Q4H PRN PRN Reason: anxiety/restlessness Last Admin: 05/15/24 10:26 Dose: 1 mg Documented By: TI Magnesium Oxide (Magnesium Oxide 400 Mg Tablet) 400 mg PO BIDPC [facility] Last Admin: 05/15/24 10:26 Dose: 400 mg Documented By: TI Morphine Sulfate (Morphine Sulfate 2 Mg/Ml Cartridge) 2 mg IVPUSH Q4H PRN; Protocol PRN Reason: moderate pain Last Admin: 05/15/24 10:25 Dose: 2 mg Documented By: TI Ondansetron HCl (Ondansetron Hcl 4 Mg/2 Ml Vial) 4 mg IVPUSH Q6H PRN PRN Reason: Nausea and Vomiting Last Admin: 05/15/24 10:25 Dose: 4 mg Documented By: TI Pharmacy Consult (Consult Rx Etoh Phenob Im/Po) 1 each MISCELLANE ONCE PRN; Protocol PRN Reason: Consult order Phenobarbital (Phenobarbital 30 Mg Tablet) 30 mg PO DAILY [facility]; Protocol Stop: 05/16/24 09:01 Last Admin: 05/15/24 10:26 Dose: 30 mg Documented By: TI Pramipexole Dihydrochloride (Pramipexole Di-Hcl 0.25 Mg Tablet) 0.5 mg PO TID [facility] Last Admin: 05/15/24 10:26 Dose: 0.5 mg Documented By: TI Quetiapine Fumarate (Quetiapine Fumarate 100 Mg Tablet) 100 mg PO BEDTIME [facility] Last Admin: 05/14/24 21:32 Dose: 100 mg Documented By: CHRISTINE Sodium Chloride (0.9 % Sodium Chloride Flush 3 Ml Syringe) 3 ml IVFLUSH QSHIFT [facility] Last Admin: 05/15/24 10:27 Dose: 3 ml Documented By: TI Thiamine HCl (Thiamine Hcl 100 Mg Tablet) 100 mg PO DAILY [facility] Last Admin: 05/15/24 10:26 Dose: 100 mg Documented By: TI Topiramate (Topiramate 25 Mg Tablet) 25 mg PO DAILY [facility] Last Admin: 05/15/24 10:26 Dose: 25 mg Documented By: TI Labs 05/15/24 05:23 05/15/24 05:23 Labs: Laboratory Results - last 24 hr 05/15/24 05/15/24 05:23 06:16 MCV 82.6 MCH 27.0 MCHC 32.6 RDW 16.4 H Plt Count 61 L MPV 10.9 Immature Gran % (Auto) 0.0 Neut % (Auto) 63.2 Lymph % (Auto) 25.5 [place] % (Auto) 9.9 Eos % (Auto) 1.1 Baso % (Auto) 0.3 Lymph # (Auto) 1.0 L [place] # (Auto) 0.4 Eos # (Auto) 0.0 Baso # (Auto) 0.0 Abs Immat Gran (auto) 0.00 Absolute Neuts (auto) 2.4 Absolute Nucleated RBC 0.000 Nucleated RBC % (auto) 0.0 VBG pH 7.43 VBG pCO2 36 VBG pO2 142 VBG HCO3 24 VBG O2 Saturation 99.0 VBG Base Excess 0.9 Anion Gap 11 L Estim Creat Clear Calc 129.0 Estimated GFR > 60 Random Glucose 93 Calcium 8.4 D Phosphorus 2.9 Magnesium 1.9 Total Bilirubin 0.6 AST 59 H ALT 44 H Alkaline Phosphatase 134 H Total Protein 7.1 Albumin 3.8 Assessment and Plan (1) Alcohol use disorder: Status: Acute Assessment and Plan: 33-year-old male with pertinent history of alcohol use disorder with history of alcohol withdrawal seizures and alcohol induced pancreatitis, mood disorder who presents to the emergency department for evaluation of nausea, vomiting, tremer ,anxious ... Ultimately requiring increased IM doses of phenobarb along with IV Ativan. Despite these therapies patient had seizure. 1.Alcohol withdrawal -transferred out of unit 05/14 status post Precedex drip -this a.m. CIWA 9 this a.m. and this afternoon -additional dose of Im phenobarb given will utilize Ativan p.r.n. -if continues to escalate despite above may need Precedex drip again 2.Acute Hypokalemia -repleted -follow renal/divalent Compression boots Full code inpatient hospitalization need for phenobarb protocol for alcohol withdrawal, monitoring electrolytes, CIWA, and monitor for nausea vomiting. (2) Alcohol withdrawal: Status: Acute Quality Stroke Does the patient have a stroke diagnosis?: No VTE Prior VTE?: No VTE Risk Level:: Medical - moderate - high VTE Device Contraindication: N/A - Device Ordered VTE Drug Contraindication: N/A - Med Ordered
[2024-05-15] MEDS: LORazepam 2 MG/ML VIAL IVPUSH (15:16)
[2024-05-15] MEDS: Pantoprazole Sodium 40 MG/10 ML VIAL IVPUSH (17:34)
--- NOTE | 2024-05-15 17:55 | PC.NURSE ---
Per previous RN report, pt scoring 1-2 on CIWA. Upon this insurance processor, pt scoring 9 on CIWA, with pt c/o nausea, headache w photophobia, tactile disturbances, anxiety/restlessness, and visible tremors. Pt also c/o 7/10 abdominal pain. Pt administered prn pain, nausea, and anxiety medication per NOV. Dr Livingston notified of increase in CIWA score and symptoms. Upon 2nd CIWA assessment, pt still scoring 9. Dr Livingston notified again with new order for IM phenobarb. Pt reporting no change in symptoms 40 minutes after administration; Dr Livingston aware, ordered one time dose IV ativan. Pt reporting slight improvement in symptoms with CIWA score now at 7. Seizure/fall precautions maintain in place. Camera in room. Call gaspar in reach. No concerns at this time.
[2024-05-15] MEDS: QUEtiapine Fumarate 100 MG TABLET PO (20:49)
[2024-05-16] VITALS (7 sets, daily range): BP systolic 96–126; BP diastolic 56–82; PULSE 65–85; RESP 18–21; TEMP 36.3–37.1; O2SAT 97–99; BMI 28.2
[2024-05-16] MEDS: LORazepam 1 MG TABLET PO ×5 (00:52→21:51)
[2024-05-16] MEDS: Morphine Sulfate 2 MG/ML CARTRIDGE IVPUSH ×6 (00:52→22:29)
[2024-05-16] MEDS: Pantoprazole Sodium 40 MG/10 ML VIAL IVPUSH ×2 (05:34→16:35)
[2024-05-16 06:32] LABS: MANUAL DIFF FLAG NO
[2024-05-16 06:43] LABS: Basophils Percent Auto 0.6 % (0-2); Imm Gran Abs Auto 0.01 X10*3/uL (0.00-0.03); Imm Gran Pct Auto 0.3 % (0.0-0.4); Lymphocytes Absolute Auto 0.9 X10*3/uL (1.2-4.9); Lymphocytes Percent Auto 28.9 % (20-40); Mean Corpuscular HGB Conc 33.3 g/dl (31.0-36.0); Mean Corpuscular Hemoglobin 27.5 pg (27.0-33.0); Mean Corpuscular Volume 82.5 fL (80.0-98.0); Mean Platelet Volume 10.7 fL (9.4-12.4); Monocytes Absolute Auto 0.4 X10*3/uL (0.1-1.2); Monocytes Percent Auto 12.9 % (2-11); Neutrophils Absolute Auto 1.8 x10*3/uL (2.0-8.3); Neutrophils Percent Auto 56.3 % (45-73); Platelet Count 57 X10*3/uL (160-400); White Blood Count 3.1 X10*3/uL (4.8-10.8)
[2024-05-16 06:53] LABS: Alanine Aminotransferase 40 U/L (0-40); Alkaline Phosphatase 129 U/L (39-117); Anion Gap 14 (12-20); Aspartate Amino Transferase 51 U/L (5-37); Bilirubin Total 0.4 mg/dL (0.0-1.0); Blood Urea Nitrogen 6 mg/dL (9-16); Carbon Dioxide 20 mmol/L (22-29); Chloride 104 mmol/L (96-108); Creatinine Clr Calc Pharmacy 118.4; Estimated Glomerular Filt Rate > 60; Glucose Fasting 100 mg/dL (60-99); Glucose Random 100 mg/dL (60-115); Phosphorus 3.3 mg/dL (2.7-4.5); Potassium 3.5 mmol/L (3.3-5.1); Sodium 134 mmol/L (135-145); Total Protein 7.2 g/dL (6.5-8.0)
[2024-05-16] MEDS: ondansetron HCL 4 MG/2 ML VIAL IVPUSH (09:06)
[2024-05-16] MEDS: Thiamine HCL 100 MG TABLET PO (09:06)
[2024-05-16] MEDS: Folic Acid 1 MG TABLET PO (09:06)
[2024-05-16] MEDS: PHENobarbitaL 30 MG TABLET PO (09:07)
[2024-05-16] MEDS: Topiramate 25 MG TABLET PO (09:07)
[2024-05-16] MEDS: Pramipexole Di-HCL 0.25 MG TABLET 0.5 MG PO ×3 (09:07→21:51)
[2024-05-16] MEDS: busPIRone HCl 10 MG TABLET 20 MG PO ×3 (09:07→21:51)
[2024-05-16] MEDS: Magnesium Oxide 400 MG TABLET PO ×2 (09:07→16:36)
[2024-05-16] MEDS: 0.9 % Sodium Chloride Flush 3 ML SYRINGE IVFLUSH ×3 (09:08→21:51)
--- NOTE | 2024-05-16 10:34 | MHC.CM.PN ---
Per ROUNDS discussion, Patient is actively withdrawing and not yet medically cleared for dc; home is the goal and CM will continue to follow.
--- NOTE | 2024-05-16 15:03 | HO.PM.IMPN ---
Subjective Subjective Date of Service: 05/16/24 Interval History: Being followed by alcohol withdrawal. Complaining of poor appetite, tremors, anxiety, denies sweating, no hallucinations, no acute events overnight, complaining of abdominal discomfort, no seizure like activity noted. CIWA 7-8 Review of Systems All other system reviewed and are negative. Physical Exam Vital Signs: Vital Signs: Last Vital Signs Temp 98.7 F 05/16/24 11:46 Pulse 65 05/16/24 11:46 Resp 19 05/16/24 11:46 BP 96/56 L 05/16/24 11:46 Pulse Ox 99 05/16/24 11:46 O2 Del Method Room Air 05/16/24 11:46 O2 Flow Rate 1 05/14/24 14:00 BMI result Body Mass Index 28.2 Const: Other: General awake alert x3, in no acute distress. Anicteric sclera Neck no JVD. CVS regular rate rhythm, Respiratory lungs clear to auscultation, no respiratory distress, no wheeze, no rhonchi. Gastrointestinal abdomen soft, mild epigastric and right upper quadrant tenderness, bowel sounds audible, no guarding , no rigidity. Extremities no edema. Neuro non focal , speech clear, mild hand tremors. Skin no rash Psych anxious Objective Data Active Medications Acetaminophen (Acetaminophen 325 Mg Tablet) 650 mg PO Q8H PRN PRN Reason: Pain, Moderate(Pain Scale 4-6) Buspirone HCl (Buspirone Hcl 10 Mg Tablet) 20 mg PO TID [facility] Last Admin: 05/16/24 09:07 Dose: 20 mg Documented By: TI Folic Acid (Folic Acid 1 Mg Tablet) 1 mg PO DAILY [facility] Last Admin: 05/16/24 09:06 Dose: 1 mg Documented By: TI Hydroxyzine HCl (Hydroxyzine Hcl 10 Mg Tablet) 10 mg PO Q6H PRN PRN Reason: anxiety/restlessness Last Admin: 05/15/24 23:51 Dose: 10 mg Documented By: RUFINO Lorazepam (Lorazepam 2 Mg/Ml Vial) 2 mg IVPUSH ONCE PRN PRN Reason: Seizure Lorazepam (Lorazepam 1 Mg Tablet) 1 mg PO Q4H PRN PRN Reason: anxiety/restlessness Last Admin: 05/16/24 13:15 Dose: 1 mg Documented By: TI Magnesium Oxide (Magnesium Oxide 400 Mg Tablet) 400 mg PO BIDPC [facility] Last Admin: 05/16/24 09:07 Dose: 400 mg Documented By: TI Morphine Sulfate (Morphine Sulfate 2 Mg/Ml Cartridge) 2 mg IVPUSH Q4H PRN; Protocol PRN Reason: moderate pain Last Admin: 05/16/24 13:15 Dose: 2 mg Documented By: TI Ondansetron HCl (Ondansetron Hcl 4 Mg/2 Ml Vial) 4 mg IVPUSH Q6H PRN PRN Reason: Nausea and Vomiting Last Admin: 05/16/24 09:06 Dose: 4 mg Documented By: TI Pantoprazole Sodium (Pantoprazole Sodium 40 Mg/10 Ml Vial) 40 mg IVPUSH BID@0630,1630 [facility] Last Admin: 05/16/24 05:34 Dose: 40 mg Documented By: RUFINO Pharmacy Consult (Consult Rx Etoh Phenob Im/Po) 1 each MISCELLANE ONCE PRN; Protocol PRN Reason: Consult order Pramipexole Dihydrochloride (Pramipexole Di-Hcl 0.25 Mg Tablet) 0.5 mg PO TID [facility] Last Admin: 05/16/24 09:07 Dose: 0.5 mg Documented By: TI Quetiapine Fumarate (Quetiapine Fumarate 100 Mg Tablet) 100 mg PO BEDTIME [facility] Last Admin: 05/15/24 20:49 Dose: 100 mg Documented By: RUFINO Sodium Chloride (0.9 % Sodium Chloride Flush 3 Ml Syringe) 3 ml IVFLUSH QSHIFT [facility] Last Admin: 05/16/24 09:08 Dose: 3 ml Documented By: TI Thiamine HCl (Thiamine Hcl 100 Mg Tablet) 100 mg PO DAILY [facility] Last Admin: 05/16/24 09:06 Dose: 100 mg Documented By: TI Topiramate (Topiramate 25 Mg Tablet) 25 mg PO DAILY [facility] Last Admin: 05/16/24 09:07 Dose: 25 mg Documented By: TI Labs 05/16/24 06:11 05/16/24 06:11 Labs: Laboratory Results - last 24 hr 05/16/24 06:11 MCV 82.5 MCH 27.5 MCHC 33.3 RDW 16.0 Plt Count 57 L MPV 10.7 Immature Gran % (Auto) 0.3 Neut % (Auto) 56.3 Lymph % (Auto) 28.9 [place] % (Auto) 12.9 H Eos % (Auto) 1.0 Baso % (Auto) 0.6 Lymph # (Auto) 0.9 L [place] # (Auto) 0.4 Eos # (Auto) 0.0 Baso # (Auto) 0.0 Abs Immat Gran (auto) 0.01 Absolute Neuts (auto) 1.8 L Absolute Nucleated RBC 0.000 Nucleated RBC % (auto) 0.0 Anion Gap 14 Estim Creat Clear Calc 118.4 Estimated GFR > 60 Random Glucose 100 Fasting Glucose 100 H Calcium 9.0 D Phosphorus 3.3 Magnesium 2.0 Total Bilirubin 0.4 AST 51 H ALT 40 Alkaline Phosphatase 129 H Total Protein 7.2 Albumin 4.0 Assessment and Plan (1) Alcohol use disorder: Status: Acute Assessment and Plan: 33-year-old male with pertinent history of alcohol use disorder with history of alcohol withdrawal seizures and alcohol induced pancreatitis, mood disorder who presents to the emergency department for evaluation of nausea, vomiting, tremer ,anxious ... Ultimately requiring increased IM doses of phenobarb along with IV Ativan. Despite these therapies patient had seizure. 1.Alcohol withdrawal -transferred out of unit 05/14 status post Precedex drip - CIWA 04/07 this a.m. -continue phenobarb and Ativan -addiction medicine consult 2.Acute Hypokalemia -repleted, repeat potassium 3.5 3. Mood disorder continue Topamax, Seroquel and BuSpar 4. Alcoholic Cirrhosis with chronic pancytopenia, and elevated LFTs, normal lipase. 5. Alcohol-induced erosive esophagitis, gastritis continue PPI, IV fluids due to decreased by mouth intake Compression boots Full code inpatient hospitalization need for phenobarb protocol for alcohol withdrawal, monitoring electrolytes, CIWA, and monitor for nausea vomiting. (2) Alcohol withdrawal: Status: Acute Quality Stroke Does the patient have a stroke diagnosis?: No VTE Prior VTE?: No VTE Risk Level:: Medical - moderate - high VTE Device Contraindication: N/A - Device Ordered VTE Drug Contraindication: N/A - Med Ordered
[2024-05-16] MEDS: Lactated Ringers 1,000 ML 100 ML IVCONT (16:43)
[2024-05-16] MEDS: LORazepam 2 MG/ML VIAL 1 MG IVPUSH (18:20)
[2024-05-16] MEDS: Sucralfate 1 GM TABLET PO (21:51)
[2024-05-16] MEDS: Gabapentin 600 MG TABLET PO (21:51)
[2024-05-16] MEDS: QUEtiapine Fumarate 100 MG TABLET PO (21:51)
[2024-05-16] MEDS: hydrOXYzine HCL 10 MG TABLET PO (21:51)
[2024-05-16] MEDS: LORazepam 2 MG/ML VIAL IVPUSH (23:52)
[2024-05-17] VITALS: BP 121/80; PULSE 75; RESP 20; TEMP 36.1; O2SAT 98
[2024-05-17 02:58] VITALS: RESP 18
[2024-05-17] MEDS: Morphine Sulfate 2 MG/ML CARTRIDGE IVPUSH ×2 (02:58→08:12)
[2024-05-17] MEDS: LORazepam 1 MG TABLET PO ×2 (02:58→08:05)
[2024-05-17 03:30] VITALS: RESP 18
[2024-05-17 03:34] VITALS: BP 107/62; PULSE 72; RESP 20; TEMP 36.1; O2SAT 97
[2024-05-17 05:31] VITALS: BMI 28.1
[2024-05-17] MEDS: Pantoprazole Sodium 40 MG/10 ML VIAL IVPUSH (06:12)
[2024-05-17] MEDS: Sucralfate 1 GM TABLET PO (06:12)
[2024-05-17] MEDS: hydrOXYzine HCL 10 MG TABLET PO (06:12)
[2024-05-17 06:13] LABS: MANUAL DIFF FLAG NO
[2024-05-17 06:20] LABS: Basophils Percent Auto 0.6 % (0-2); Eosinophils Absolute Auto 0.1 X10*3/uL (0.0-0.4); Eosinophils Percent Auto 1.5 % (0-4); Hematocrit 32.9 % (42.0-52.0); Hemoglobin 10.7 g/dl (14.0-18.0); Imm Gran Abs Auto 0.01 X10*3/uL (0.00-0.03); Imm Gran Pct Auto 0.3 % (0.0-0.4); Lymphocytes Percent Auto 30.7 % (20-40); Mean Corpuscular HGB Conc 32.5 g/dl (31.0-36.0); Mean Corpuscular Hemoglobin 27.1 pg (27.0-33.0); Mean Corpuscular Volume 83.3 fL (80.0-98.0); Monocytes Absolute Auto 0.4 X10*3/uL (0.1-1.2); Monocytes Percent Auto 13.6 % (2-11); Neutrophils Absolute Auto 1.7 x10*3/uL (2.0-8.3); Neutrophils Percent Auto 53.3 % (45-73); Platelet Count 58 X10*3/uL (160-400); Red Blood Count 3.95 X10*6/uL (4.60-5.80); Red Cell Distribution Width 15.9 % (11.0-16.0); White Blood Count 3.2 X10*3/uL (4.8-10.8)
[2024-05-17 06:39] LABS: Alanine Aminotransferase 36 U/L (0-40); Albumin Level 3.9 g/dL (3.5-5.0); Alkaline Phosphatase 133 U/L (39-117); Anion Gap 13 (12-20); Aspartate Amino Transferase 37 U/L (5-37); Bilirubin Total 0.3 mg/dL (0.0-1.0); Blood Urea Nitrogen 6 mg/dL (9-16); Calcium 9.1 mg/dL (8.4-10.2); Carbon Dioxide 21 mmol/L (22-29); Chloride 105 mmol/L (96-108); Estimated Glomerular Filt Rate > 60; Glucose Random 102 mg/dL (60-115); Magnesium 2.1 mg/dL (1.6-2.6); Phosphorus 3.1 mg/dL (2.7-4.5); Potassium 3.4 mmol/L (3.3-5.1); Sodium 136 mmol/L (135-145); Total Protein 6.9 g/dL (6.5-8.0)
[2024-05-17 07:52] VITALS: BP 134/79; PULSE 77; RESP 19; TEMP 36.7; O2SAT 98
[2024-05-17] MEDS: Magnesium Oxide 400 MG TABLET PO (07:59)
[2024-05-17] MEDS: Pramipexole Di-HCL 0.25 MG TABLET 0.5 MG PO (08:00)
[2024-05-17] MEDS: busPIRone HCl 10 MG TABLET 20 MG PO (08:04)
[2024-05-17] MEDS: Gabapentin 600 MG TABLET PO (08:04)
[2024-05-17] MEDS: Topiramate 25 MG TABLET PO (08:05)
[2024-05-17] MEDS: Folic Acid 1 MG TABLET PO (08:06)
--- NOTE | 2024-05-17 10:13 | MHC.CM.PN ---
Per MD Patient is discharged self care today. The patient will arrange for transportation home via [employer]. [facility].
[2024-05-17] MEDS: Thiamine HCL 100 MG TABLET PO (10:14)
[2024-05-17] MEDS: 0.9 % Sodium Chloride Flush 3 ML SYRINGE IVFLUSH (10:16)
--- NOTE | 2024-05-17 10:30 | P.DS_ITS ---
DS: Providers Provider Date of Service: 05/17/24 Date of admission: 05/10/24 14:33 Date of discharge: 05/17/24 Primary care physician: Noe Graham MD Consults: 05/10/24 14:37 Addiction Medicine Routine Consulting Provider: Addiction Covering Reason for consultation: Alcohol use Has provider been notified: No DS: Diagnosis Discharge Diagnosis (1) Alcohol use disorder: Status: Acute (2) Alcohol withdrawal: Status: Acute DS: Summary Hospital Course Hospital Course: History of present illness: Date of Service: 05/10/24 Attending physician on admission: Christiano Felton Chief Complaint: Alcohol withdrawal 33-year-old male with pertinent history of alcohol use disorder with history of alcohol withdrawal seizures and alcohol induced pancreatitis, mood disorder who presents to the emergency department for evaluation of n/v for the past few days ,also sensation of he is going to have a seizure. EMS was called because friends were worried he was going to have a seizure.He states he feels terrible and wants to stop drinking.he drink sleeve of vodka everyday. has tremers , has some epigastric discomfort after nausea/vomiting , recently had hematemesis-has egd -esophagitis/gastritis . He denies trauma or headstrike. Denies GIB symptoms. His last withdrawal seizure was 3 weeks ago. Patient received: Phenobarb, IV fluid, electrolytes, thiamine and folic acid, Compazine. Afterwards patient was feeling somewhat better, admission was requested for alcohol withdrawal. Lab imaging was reviewed: Has hypokalemia and hypomagnesemia, EKG seems nsr. Denies any new complaint of chest pain or shortness of breath or fever or chills . no diarrhae Denies any weakness or numbness. Hospital course: 33-year-old male with pertinent history of alcohol use disorder with history of alcohol withdrawal seizures and alcohol induced pancreatitis, mood disorder presented to ED for evaluation of nausea, vomiting, tremer , anxiety And admitted to medical floor with a diagnosis of alcohol withdrawal and placed on phenobarb protocol patient continued to have persistent nausea vomiting anxiety and tremors and subsequently had a seizure therefore transferred to ICU for higher level of care on 05/14 , treated with Precedex drip, and was sent back to floor where he was continued on phenobarb and Ativan, seen by [facility] they provided outpatient resources, All symptoms of withdrawal resolved, patient is ambulating with steady gait therefore he is being discharged home with strong recommendation to abstain from alcohol, he was noted to have mild hypokalemia that is repleted repeat potassium normalized, he is recommended to continue all home medications for mood disorder. In regard to alcoholic cirrhosis he is noted to have chronic pancytopenia that is stable, he has been advised to completely abstain from alcohol, in regard to alcohol induced erosive esophagitis and gastritis patient was treated with IV PPI and due to persistent symptoms Carafate was added, patient is tolerating diet, abdominal pain has improved, he is being discharged home on Prilosec and Carafate. Patient had laceration to left sole of foot and had 6 stitches placed at [facility] on 04/24, stitches removed, recommend to closely area clean and dry. Time Attestation Discharge Coordination Time (in mins): 36 Quality: Safe Use of Opioids Does Pt have an Active Cancer Diagnosis on the Problem List?: No Quality: Stroke Does the patient have a stroke diagnosis?: No Physical Exam Vital Signs: Vital Signs: Last Vital Signs Temp 98.0 F 05/17/24 07:52 Pulse 77 05/17/24 07:52 Resp 19 05/17/24 07:52 BP 134/79 05/17/24 07:52 Pulse Ox 98 05/17/24 07:52 O2 Del Method Room Air 05/17/24 07:52 O2 Flow Rate 1 05/14/24 14:00 BMI result Body Mass Index 28.1 Const: Other: General awake alert x3, in no acute distress. Anicteric sclera Neck no JVD. CVS regular rate rhythm, Respiratory lungs clear to auscultation, no respiratory distress, no wheeze, no rhonchi. Gastrointestinal abdomen soft, mild epigastric and right upper quadrant tenderness, bowel sounds audible, no guarding , no rigidity. Extremities no edema. Left foot plantar surface 6 stitches removed, no redness swelling or tenderness noted, dry thick skin Neuro non focal , speech clear, mild hand tremors. Skin no rash Psych anxious DS: Data Data Completed and Pending Completed studies during hospitalization [Text1]: Procedures Detoxification Services for Substance Abuse Treatment (04/06/24) Excision of Sigmoid Colon, Via Natural or Artificial Opening Endoscopic, Diagnostic (04/06/24) Excision of Stomach, Pylorus, Via Natural or Artificial Opening Endoscopic, Diagnostic (04/06/24) Labs on day of discharge: Laboratory Results - last 24 hr 05/17/24 05:42 WBC 3.2 L RBC 3.95 L Hgb 10.7 L Hct 32.9 L MCV 83.3 MCH 27.1 MCHC 32.5 RDW 15.9 Plt Count 58 L MPV TNP Immature Gran % (Auto) 0.3 Neut % (Auto) 53.3 Lymph % (Auto) 30.7 [place] % (Auto) 13.6 H Eos % (Auto) 1.5 Baso % (Auto) 0.6 Lymph # (Auto) 1.0 L [place] # (Auto) 0.4 Eos # (Auto) 0.1 Baso # (Auto) 0.0 Abs Immat Gran (auto) 0.01 Absolute Neuts (auto) 1.7 L Absolute Nucleated RBC 0.000 Nucleated RBC % (auto) 0.0 Sodium 136 Potassium 3.4 Chloride 105 Carbon Dioxide 21 L Anion Gap 13 BUN 6 L Creatinine 0.76 Estim Creat Clear Calc 123.0 Estimated GFR > 60 Random Glucose 102 Calcium 9.1 Phosphorus 3.1 Magnesium 2.1 Total Bilirubin 0.3 AST 37 ALT 36 Alkaline Phosphatase 133 H Total Protein 6.9 Albumin 3.9 Discharge Plan Discharge Anticipated Discharge Date/Time: 05/17/24 10:24 Patient Disposition: Home, Self-Care Discharge Diagnosis: Alcohol withdrawal Referrals: Noe Graham MD [Primary Care Provider] - 1 Week Discharge Medications: New sucralfate 1 gram Tablet 1 g PO QIDACHS Qty: 120 0RF hydroxyzine HCl 10 mg Tablet 10 mg PO Q6H PRN (Reason: Anxiety/Restlessness) Qty: 30 0RF Continued gabapentin 600 mg tablet 600 mg PO QID pantoprazole 40 mg tablet,delayed release (DR/EC) 40 mg PO BID pramipexole 0.25 mg tablet 0.5 mg PO TID trazodone 50 mg tablet 50 mg PO BEDTIME Qty: 30 0RF quetiapine 100 mg tablet 100 mg PO BEDTIME Qty: 30 0RF cetirizine 10 mg tablet 10 mg PO DAILY sertraline 100 mg tablet 100 mg PO DAILY thiamine HCl (vitamin B1) 100 mg tablet 100 mg PO DAILY topiramate 25 mg capsule, sprinkle 25 mg PO DAILY buspirone 10 mg tablet 20 mg PO TID folic acid 1 mg tablet 1 mg PO DAILY Discharge Orders: Discharge Order (Routine); Ordered 05/17/24 Ordered By: Huang Gomez Diet: Advance to usual diet Activity on Discharge: As tolerated Stand Alone Forms: Patient Portal Discharge page Print Language: Sami Care Plan Goals: Recommend to completely abstain from alcohol [place] to get into [place] treatment, follow instructions as per recovery team instructions. Health Concerns: Alcohol use disorder Plan of Treatment: Outpatient follow-up with primary care physician call for appointment Assessment: As above Discharge Date/Time: 05/17/24 10:51
== END 2024-05-17 10:51 | disposition home or self-care (01) | DRG 775 ==
LOC: HO.ED 13:41 → HO.EDOVER 14:37 → HO.IMC 19:41 → HO.ICU 05-13 15:11 → HO.IMC 05-14 15:05
PROVIDERS: Hospitalist; Internal Medicine Critical Care Medicine; Internal Medicine Pulmonary Disease; Registered Nurse Community Health; Admitting Provider Internal Medicine; Emergency Provider Emergency Medicine; PCP Internal Medicine; Visit Provider Hospitalist
DX: F10.239 Alcohol dependence with withdrawal, unspecified (principal); D69.59 Other secondary thrombocytopenia; K70.30 Alcoholic cirrhosis of liver without ascites; K22.10 Ulcer of esophagus without bleeding; K29.20 Alcoholic gastritis without bleeding; E83.42 Hypomagnesemia; F17.210 Nicotine dependence, cigarettes, uncomplicated; E87.6 Hypokalemia; Y90.8 Blood alcohol level of 240 mg/100 ml or more; Z71.6 Tobacco abuse counseling; Z79.899 Other long term (current) drug therapy
CPT/HCPCS: 36415; 74177; 76705; 80048; 80053; 80076; 80307; 82803; 83690; 83735; 84100; 84132; 85025; 85610; 93005; 99285; J0737; J1630; J1953; J2060; J2270; J2405; J2470; J2560; J3411; J3475; J3480; J7120; Q9967

== ENCOUNTER → 2024-05-10 11:24 | Outpatient (BNV) | payer OTHER, SELFPAY | PROVIDERS: Admitting Provider Internal Medicine; Emergency Provider Emergency Medicine; PCP Internal Medicine; Visit Provider Internal Medicine Cardiovascular Disease | DX: R07.9 Chest pain, unspecified (principal) | CPT/HCPCS: 93010 ==

== ENCOUNTER 2024-05-10 14:33 | Outpatient (BNV) | payer OTHER, SELFPAY | END 2024-05-13 14:45 | PROVIDERS: Admitting Provider Internal Medicine; Emergency Provider Emergency Medicine; PCP Internal Medicine; Visit Provider Internal Medicine | DX: Z51.81 Encounter for therapeutic drug level monitoring (principal) | CPT/HCPCS: 93010 ==

== ENCOUNTER → 2024-05-10 14:33 | Outpatient (BNV) | payer OTHER, SELFPAY | PROVIDERS: Admitting Provider Internal Medicine; Emergency Provider Emergency Medicine; PCP Internal Medicine; Visit Provider Internal Medicine | DX: F10.930 Alcohol use, unspecified with withdrawal, uncomplicated (principal) | CPT/HCPCS: 99222; 99231; 99232; 99233; 99239 ==

== ENCOUNTER → 2024-05-10 14:33 | Outpatient (BNV) | payer OTHER, SELFPAY | PROVIDERS: Admitting Provider Internal Medicine; Emergency Provider Emergency Medicine; PCP Internal Medicine; Visit Provider Internal Medicine Critical Care Medicine | DX: F10.930 Alcohol use, unspecified with withdrawal, uncomplicated (principal) | CPT/HCPCS: 99291 ==

== ENCOUNTER → 2024-05-10 14:33 | Outpatient (BNV) | payer OTHER, SELFPAY | PROVIDERS: Admitting Provider Internal Medicine; Emergency Provider Emergency Medicine; PCP Internal Medicine; Visit Provider Internal Medicine Pulmonary Disease | DX: F10.231 Alcohol dependence with withdrawal delirium (principal) | CPT/HCPCS: 99291 ==

== ENCOUNTER 2024-06-02 20:55 | Inpatient (IN) | payer OTHER, SELFPAY ==
--- NOTE | 2024-06-02 | ECG_ITS ---
Test Reason : SEIZURE Blood Pressure : / mmHG Vent. Rate : 079 BPM Atrial Rate : 079 BPM P-R Int : 122 ms QRS Dur : 076 ms QT Int : 386 ms P-R-T Axes : -05 005 000 degrees QTc Int : 442 ms Normal sinus rhythm Normal ECG When compared with ECG of 13-MAY-2024 14:45, No significant change was found Referred By: Generic ED Physician Electronically Signed By:CHELLE YEE
--- NOTE | ~2024-06-02 | CT_ITS ---
EXAMINATION: CT HEAD WITHOUT CONTRAST CLINICAL INFORMATION: Fall. COMPARISON: None available. TECHNIQUE: Contiguous axial imaging was performed from the skull base to vertex without intravenous administration of contrast. This CT examination was performed using dose optimization techniques as appropriate, variously including the following: *Automated exposure control. *Adjustment of mA and/or kV according to patient size (this includes techniques or standardized protocols for targeted exams where dose is matched to indication/reason for exam; i.e. extremities or head). *Use of iterative reconstruction technique. DLP: 640 mGy-cm FINDINGS: There is no evidence of acute intracranial hemorrhage or edematous territorial infarction. Amin-white matter differentiation is preserved. There is no abnormal attenuation within the brain parenchyma. The ventricles are normal in morphology and size. No evidence for obstructive hydrocephalus. No abnormal mass effect or midline shift. No extra-axial fluid collections. No acute soft tissue or osseous abnormalities. Mild mucosal thickening of the paranasal sinuses. The mastoid air cells and middle ear cavities are clear. CT/CT head/brain wo IV con IMPRESSION: No evidence of acute intracranial hemorrhage or edematous territorial infarction. Electronically signed by: You Solares DO 06/02/2024 10:48 PM EDT
[2024-06-02 21:04] VITALS: BP 149/85; PULSE 86; O2SAT 99
[2024-06-02 21:08] VITALS: BP 143/88; PULSE 79; RESP 19; TEMP 37.1; O2SAT 97; BMI 29.0
--- NOTE | 2024-06-02 21:20 | ED_ITS ---
HPI - Seizure General Chief Complaint: Seizure Stated Complaint: Seizures earlier today, possibly due to withdrawal Time Seen by Provider: 06/02/24 21:18 Source: patient Mode of arrival: EMS Limitations: no limitations History of Present Illness ED Provider: juan WAGGONER Narrative: Patient is 33 years old alcoholic with history of alcohol withdrawal seizures and pancreatitis hypokalemia and hypomagnesemia was admitted last on 05/10/24 for alcohol withdrawal taking Topamax 25 mg daily comes here as today at 10:00 patient had small seizure and again just prior to arrival patient said last night he had good amount of drink as usual and today also before the seizure he had the drink but during the day he had only half the mom today feeling jittery vomited 3 times also complaining of epigastric pain patient's hit his head when fell last time no significant injuries Related Data Home Medications ?Medication ?Instructions ?Recorded ?Confirmed buspirone 10 mg tablet 20 mg PO TID 04/07/24 05/10/24 cetirizine 10 mg tablet 10 mg PO DAILY 04/07/24 05/10/24 folic acid 1 mg tablet 1 mg PO DAILY 04/07/24 05/10/24 sertraline 100 mg tablet 100 mg PO DAILY 04/07/24 05/10/24 thiamine HCl (vitamin B1) 100 mg 100 mg PO DAILY 04/07/24 05/10/24 tablet topiramate 25 mg sprinkle capsule 25 mg PO DAILY 04/07/24 05/10/24 gabapentin 600 mg tablet 600 mg PO QID 05/03/24 05/10/24 pantoprazole 40 mg tablet,delayed 40 mg PO BID 05/03/24 05/10/24 release pramipexole 0.25 mg tablet 0.5 mg PO TID 05/10/24 05/10/24 Previous Rx's ?Medication ?Instructions ?Recorded hydroxyzine HCl 10 mg tablet 10 mg PO Q6H PRN 05/17/24 Anxiety/Restlessness #30 tabs quetiapine 100 mg tablet 100 mg PO BEDTIME #30 tabs 05/17/24 sucralfate 1 gram tablet 1 g PO QIDACHS #120 tabs 05/17/24 trazodone 50 mg tablet 50 mg PO BEDTIME #30 tabs 05/17/24 Allergies Allergy/AdvReac Type Severity Reaction Status Date / Time Penicillins Allergy Unknown CHILDHOOD Verified 06/02/24 21:11 ALLERGY Review of Systems 2 Review of Systems: Yes all other systems are reviewed and are negative [facility] Past Medical History Medical History Meningitis spinal Alcoholic cirrhosis Seizure Mood disorder Alcohol use disorder Surgical History [place] teeth extracted H/O colonoscopy No pertinent past surgical history Social History Social History Household Members: Other Household Members Other:: freind Housing: House Do you presently have visiting nurse or other home services: No Alcohol intake: current Alcohol intake frequency: 3 or more drinks per day Alcohol type: hard liquor Comment: sitter in room Patient Tobacco Use Status: Current everyday Tobacco user Tobacco use type: Cigarette Cigarette Packs Per Day: 1 Cigarettes Per Day: 20.0 Years Smoked: 15 Smoked in Last 30 Days: Yes e-Cigarette/Vaping Use: Never Used Second Hand Smoke Exposure: No Use of substances other than those prescribed or required for medical reasons: Yes Substance Use Type: Marijuana Substance Use Frequency: Chronic Longstanding Advance Directives: No Advance Directives Information Provided: Yes Do you have a plan to hurt others: No Plan service: No Physical Exam 2 Vital Signs: Vital Signs: Last Vital Signs Temp 98.4 F 06/03/24 06:21 Pulse 69 06/03/24 06:21 Resp 20 06/03/24 06:21 BP 139/97 H 06/03/24 06:21 Pulse Ox 96 06/03/24 06:21 O2 Del Method Room Air 06/03/24 06:21 BMI result Body Mass Index 29.0 Appearance: Alert. Oriented X3. No acute distress. Eyes: PERRLA, no pallor or icterus ENT: Pharynx normal. Oral Mucosa moist no tongue bite Neck: Normal inspection. Neck supple. CVS: Normal heart rate and rhythm. Pulses normal. Respiratory: No respiratory distress. Equal air entry bilateral, no wheezing/rales/rhonchi Abdomen: Soft and epigastric tenderness++ Bowel sounds are present, no mass palpable, no CVA tenderness Skin: Skin warm and dry. Normal skin color. Normal skin turgor. Extremities: No lower extremity edema. No calf tenderness Neuro: Oriented X 3. No motor deficit. No sensory deficit.No cerebellar signs , cranial nerves II-XII intact tremors+ Medications Administered Generic Name Dose Route Start Last Admin Trade Name Eva PRN Reason Stop Dose Admin Lorazepam 2 mg 06/02/24 21:57 06/03/24 03:15 Lorazepam 2 Mg/Ml Vial IVPUSH 2 mg RQ4H WHILE AWAKE PRN Administration Alcohol Withdrawal Discontinued Medications Generic Name Dose Route Start Last Admin Trade Name Eva PRN Reason Stop Dose Admin Al Hydroxide/Mg Hydroxide 30 ml 06/03/24 00:04 06/03/24 00:39 Magnesium Hydrox/Alum Hydrox 30 Ml Oral.Susp PO 06/03/24 00:05 30 ml ONCE ONE Administration Famotidine 20 mg 06/03/24 00:04 06/03/24 00:39 Famotidine/Pf 20 Mg/2 Ml Vial IVPUSH 06/03/24 00:05 20 mg ONCE ONE Administration Folic Acid 1 mg 06/03/24 00:04 06/03/24 00:39 Folic Acid 1 Mg Tablet PO 06/03/24 00:05 1 mg ONCE ONE Administration Sodium Chloride 1,000 mls @ 999 mls/hr 06/02/24 21:21 06/02/24 22:56 Ns IV 06/02/24 22:21 Infused .Q1H1M ONE Infusion Lorazepam 2 mg 06/02/24 21:21 06/02/24 21:33 Lorazepam 2 Mg/Ml Vial IVPUSH 06/02/24 21:22 2 mg ONCE ONE Administration Magnesium Oxide 400 mg 06/03/24 00:04 06/03/24 00:39 Magnesium Oxide 400 Mg Tablet PO 06/03/24 00:05 400 mg ONCE ONE Administration Thiamine HCl 100 mg 06/03/24 00:04 06/03/24 00:39 Thiamine Hcl 100 Mg Tablet PO 06/03/24 00:05 100 mg ONCE ONE Administration Medical Decision Making Medical Decision Making [facility] Narrative: Patient with alcohol withdrawal seizure with alcohol dependence will manage with Ativan at this time consult care team for detox placement as patient wishes to go for detox no further seizures in the ER CIWA scale 5 Differential Diagnosis Differential Diagnoses: The differential diagnosis associated with the presentation includes Lab Data [facility] Lab Attestation statement: I reviewed the patient's lab results. 06/02/24 21:20 06/02/24 21:20 Labs: Lab Results 06/02/24 06/02/24 06/03/24 Range/Units 21:20 21:43 03:17 WBC 4.2 L (4.8-10.8) X10*3/uL RBC 4.15 L (4.60-5.80) X10*6/uL Hgb 11.2 L (14.0-18.0) g/dl Hct 33.9 L (42.0-52.0) % MCV 81.7 (80.0-98.0) fL MCH 27.0 (27.0-33.0) pg MCHC 33.0 (31.0-36.0) g/dl RDW 17.1 H (11.0-16.0) % Plt Count 119 L D (160-400) X10*3/uL MPV 10.0 (9.4-12.4) fL Immature Gran % (Auto) 0.2 (0.0-0.4) % Neut % (Auto) 67.7 (45-73) % Lymph % (Auto) 18.2 L (20-40) % [place] % (Auto) 12.7 H (2-11) % Eos % (Auto) 0.7 (0-4) % Baso % (Auto) 0.5 (0-2) % Lymph # (Auto) 0.8 L (1.2-4.9) X10*3/uL [place] # (Auto) 0.5 (0.1-1.2) X10*3/uL Eos # (Auto) 0.0 (0.0-0.4) X10*3/uL Baso # (Auto) 0.0 (0.0-0.2) X10*3/uL Abs Immat Gran (auto) 0.01 (0.00-0.03) X10*3/uL Absolute Neuts (auto) 2.8 (2.0-8.3) x10*3/uL Absolute Nucleated RBC 0.000 (0.0-0.012) X10*3/uL Nucleated RBC % (auto) 0.0 (0.0-0.2) /100WBC Sodium 140 (135-145) mmol/L Potassium 3.4 (3.3-5.1) mmol/L Chloride 106 (96-108) mmol/L Carbon Dioxide 22 (22-29) mmol/L Anion Gap 15 (12-20) BUN 8 L (9-16) mg/dL Creatinine 0.96 (0.5-1.4) mg/dL Estim Creat Clear Calc 98.8 Estimated GFR > 60 Random Glucose 92 (60-115) mg/dL Calcium 9.4 (8.4-10.2) mg/dL Magnesium 1.6 (1.6-2.6) mg/dL Total Bilirubin 0.4 (0.0-1.0) mg/dL AST 45 H (5-37) U/L ALT 28 (0-40) U/L Alkaline Phosphatase 123 H (39-117) U/L Troponin I High Sens < 2.7 (<3.5-35.0) ng/L Total Protein 7.7 (6.5-8.0) g/dL Albumin 4.3 (3.5-5.0) g/dL Lipase 99 H (8-78) U/L Urine Color Yellow Urine Appearance Clear Urine pH 7.0 (5.0-9.0) Ur Specific [place] 1.020 (1.005-1.025) Urine Protein Trace (Neg-Trace) mg/dL Urine Glucose (UA) Negative (Negative) mg/dL Urine Ketones Negative (Negative) mg/dL Urine Blood Negative (Negative) Urine Nitrite Negative (Negative) Ur Leukocyte Esterase Trace H (Negative) Urine RBC 0-2 (0-2) /HPF Urine WBC 0-5 (0-5) /HPF Ur Squamous Epith Cells 0-2 (0-2) /HPF Urine Bacteria None Seen (None Seen) Hyaline Casts 0-2 (0-2) /LPF Urine Opiates Screen Not Detected (Not Detect) Ur Buprenorphine Scrn Not Detected (Not Detect) ng/mL Ur Oxycodone Screen Not Detected (Not Detect) ng/mL Urine Methadone Screen Not Detected (Not Detect) ng/mL Urine Fentanyl Screen Not Detected (Not Detect) Ur Barbiturates Screen POSITIVE H (Not Detect) Ur Phencyclidine Scrn Not Detected (Not Detect) Ur Amphetamines Screen Not Detected (Not Detect) U Benzodiazepines Scrn POSITIVE H (Not Detect) Urine Cocaine Screen POSITIVE H (Not Detect) U Marijuana (THC) Screen POSITIVE H (Not Detect) Ethyl Alcohol 16 mg/dL COVID-19 (ROBIN) Negative (Negative) COVID-19 Clin Com See Note Independent Interpretation I performed an independent interpretation of an: EKG Interpretation: Normal sinus rhythm heart rate 79 beats per minute normal interval normal axis no acute ST T wave changes no acute ischemia Discharge Plan Discharge Clinical Impression: Alcohol use disorder, Alcohol withdrawal seizure Patient Disposition: Still a Patient Prescriptions: No Action gabapentin 600 mg tablet 600 mg PO QID pantoprazole 40 mg tablet,delayed release (DR/EC) 40 mg PO BID pramipexole 0.25 mg tablet 0.5 mg PO TID sucralfate 1 gram Tablet 1 g PO QIDACHS Qty: 120 0RF hydroxyzine HCl 10 mg Tablet 10 mg PO Q6H PRN (Reason: Anxiety/Restlessness) Qty: 30 0RF trazodone 50 mg tablet 50 mg PO BEDTIME Qty: 30 0RF quetiapine 100 mg tablet 100 mg PO BEDTIME Qty: 30 0RF cetirizine 10 mg tablet 10 mg PO DAILY sertraline 100 mg tablet 100 mg PO DAILY thiamine HCl (vitamin B1) 100 mg tablet 100 mg PO DAILY topiramate 25 mg capsule, sprinkle 25 mg PO DAILY buspirone 10 mg tablet 20 mg PO TID folic acid 1 mg tablet 1 mg PO DAILY Print Language: Australian
[2024-06-02 21:24] LABS: MANUAL DIFF FLAG NO
--- NOTE | 2024-06-02 21:27 | MHC.EDTECH ---
PT changed over into a hospital gown and pt placed on a library monitor. Seizure pads put on siderails for safety. EKG completed and handed to a provider. Bloodwork sent to the lab fpr processing
[2024-06-02 21:31] LABS: Basophils Percent Auto 0.5 % (0-2); Eosinophils Percent Auto 0.7 % (0-4); Hematocrit 33.9 % (42.0-52.0); Hemoglobin 11.2 g/dl (14.0-18.0); Imm Gran Abs Auto 0.01 X10*3/uL (0.00-0.03); Imm Gran Pct Auto 0.2 % (0.0-0.4); Lymphocytes Absolute Auto 0.8 X10*3/uL (1.2-4.9); Lymphocytes Percent Auto 18.2 % (20-40); Mean Corpuscular Volume 81.7 fL (80.0-98.0); Monocytes Absolute Auto 0.5 X10*3/uL (0.1-1.2); Monocytes Percent Auto 12.7 % (2-11); Neutrophils Absolute Auto 2.8 x10*3/uL (2.0-8.3); Neutrophils Percent Auto 67.7 % (45-73); Platelet Count 119 X10*3/uL (160-400); Red Blood Count 4.15 X10*6/uL (4.60-5.80); Red Cell Distribution Width 17.1 % (11.0-16.0); White Blood Count 4.2 X10*3/uL (4.8-10.8)
[2024-06-02] MEDS: LORazepam 2 MG/ML VIAL IVPUSH (21:33)
[2024-06-02] MEDS: 0.9 % Sodium Chloride 1,000 ML 999 ML IV (21:33)
[2024-06-02 21:41] LABS: Alanine Aminotransferase 28 U/L (0-40); Albumin Level 4.3 g/dL (3.5-5.0); Alkaline Phosphatase 123 U/L (39-117); Anion Gap 15 (12-20); Aspartate Amino Transferase 45 U/L (5-37); Bilirubin Total 0.4 mg/dL (0.0-1.0); Blood Urea Nitrogen 8 mg/dL (9-16); Calcium 9.4 mg/dL (8.4-10.2); Carbon Dioxide 22 mmol/L (22-29); Chloride 106 mmol/L (96-108); Creatinine Clr Calc Pharmacy 98.8; Estimated Glomerular Filt Rate > 60; Ethanol 16 mg/dL; Glucose Random 92 mg/dL (60-115); Lipase 99 U/L (8-78); Magnesium 1.6 mg/dL (1.6-2.6); Potassium 3.4 mmol/L (3.3-5.1); Sodium 140 mmol/L (135-145); Total Protein 7.7 g/dL (6.5-8.0)
[2024-06-02 21:49] LABS: Troponin-I High Sensitivity < 2.7 ng/L (<3.5-35.0)
[2024-06-02 22:21] LABS: COVID-19 Test Negative (Negative); IDNOW Serial# 6674DD1D
[2024-06-03] VITALS (12 sets, daily range): BP systolic 120–142; BP diastolic 80–99; PULSE 69–96; RESP 16–20; TEMP 36.8–36.9; O2SAT 96–99; BMI 29.6
[2024-06-03] MEDS: Folic Acid 1 MG TABLET PO (00:39)
[2024-06-03] MEDS: Thiamine HCL 100 MG TABLET PO (00:39)
[2024-06-03] MEDS: Magnesium Hydrox/Alum Hydrox 30 ML ORAL.SUSP PO (00:39)
[2024-06-03] MEDS: Famotidine/PF 20 MG/2 ML VIAL IVPUSH (00:39)
[2024-06-03] MEDS: Magnesium Oxide 400 MG TABLET PO (00:39)
--- NOTE | 2024-06-03 03:13 | PC.NURSE ---
Pt woke with mild tremors, no other acute sx, Ativan given per orders.
[2024-06-03] MEDS: LORazepam 2 MG/ML VIAL IVPUSH ×2 (03:15→07:19)
[2024-06-03 03:27] LABS: Appearance Urine Clear; Color Urine Yellow; Glucose Urine UA Negative (Negative); Leukocyte Esterase Urine Trace (Negative); Nitrite Urine Negative (Negative); UMIC TRIGGER UACC YES; Urine Blood Negative (Negative); Urine Ketones Negative (Negative); Urine Protein Trace mg/dL (Neg-Trace)
[2024-06-03 03:32] LABS: Bacteria Urine None Seen (None Seen); Hyaline Casts Urine 0-2 /LPF (0-2); RBC Urine 0-2 /HPF (0-2); Squamous Epithelial Cell Urine 0-2 /HPF (0-2); WBC Urine 0-5 /HPF (0-5)
[2024-06-03 03:41] LABS: Amphetamine Screen Urine Not Detected (Not Detect); Barbiturates, Urine POSITIVE (Not Detect); Benzodiazepines Screen Urine POSITIVE (Not Detect); Buprenorphine Scr Not Detected (Not Detect); Cannabinoid Screen Urine POSITIVE (Not Detect); Cocaine Screen Urine POSITIVE (Not Detect); Fentanyl, urine Not Detected (Not Detect); Methadone Screen, Urine Not Detected (Not Detect); Opiate Screen Urine Not Detected (Not Detect); Oxycodone Screen Urine Not Detected (Not Detect); Phencyclidine Screen Urine Not Detected (Not Detect)
--- NOTE | 2024-06-03 07:08 | PC.NURSE ---
Resumed care of pt at 0700. Pt a/ox4, no increased wob/sob, lung sounds cta bilaterally, s1 and s2 heard, nsr on the optometric technologist HR- 80s, abdomen soft, non-tender on palpation, pt endorsing nausea/headache. Regular diet ordered, fresh water given. Pt asking for next dose of ativan at 0715, vital signs updated. Pt aware of plan of care, call gaspar within reach, all needs met at ths time,
[2024-06-03] MEDS: 0.9 % Sodium Chloride 1,000 ML 100 ML IVCONT ×2 (07:44→18:04)
[2024-06-03] MEDS: Magnesium Sulfate/H2O 2 GM/50 ML PIGGYBACK IV (07:44)
[2024-06-03] MEDS: PHENobarbitaL sodium 130 MG/ML IM ONCE 274 MG IM (08:04)
--- NOTE | 2024-06-03 09:19 | PM.IMHP ---
History of Present Illness Date of Service: 06/03/24 Chief Complaint: Alcohol withdrawal seizure 33 year old alcoholic with history of alcohol withdrawal seizures. Had small seizure and again just prior to arrival patient said last night he had good amount of alcohol as usual and today also before the seizure he had a drink. He is feeling jittery vomited 3 times also complaining of epigastric pain. He reports that he hit his head when he fell last night but head CT was negative for acute trauma or injury. Vital signs are stable, labs within acceptable limits. Elevated CIWA score noted, started on phenobarbital. plan to admit for alcohol withdrawal seizures. Review of Systems Review of Systems: Denies any recent fever chills or decrease in appetite respiratory denies any shortness of breath or cough cardiovascular denied chest pain gastrointestinal denies any dysphagia abdominal pain nausea vomiting or diarrhea genitourinary denies any dysuria frequency or hematuria musculoskeletal denies any joint pain or swelling neuropsych denies any weakness or seizures all other systems reviewed are negative [facility] Medical History Meningitis spinal Alcoholic cirrhosis Seizure Mood disorder Alcohol use disorder Surgical History [place] teeth extracted H/O colonoscopy No pertinent past surgical history Social History Household Members: Other Household Members Other:: freind Housing: House Do you presently have visiting nurse or other home services: No Alcohol intake: current Alcohol intake frequency: 3 or more drinks per day Alcohol type: hard liquor Comment: sitter in room Patient Tobacco Use Status: Current everyday Tobacco user Tobacco use type: Cigarette Cigarette Packs Per Day: 1 Cigarettes Per Day: 20.0 Years Smoked: 15 Smoked in Last 30 Days: Yes e-Cigarette/Vaping Use: Never Used Second Hand Smoke Exposure: No Use of substances other than those prescribed or required for medical reasons: Yes Substance Use Type: Marijuana Substance Use Frequency: Chronic Longstanding Advance Directives: No Advance Directives Information Provided: Yes Do you have a plan to hurt others: No Plan Nutrition Risks: No Nutritional Risk service: No Meds Allergies Allergy/AdvReac Type Severity Reaction Status Date / Time Penicillins Allergy Unknown CHILDHOOD Verified 06/02/24 21:11 ALLERGY Active Medications: Current Medications Magnesium Sulfate (Magnesium Sulfate/H2o) 2 gm in 50 mls @ 25 mls/hr IV ONCE ONE Stop: 06/03/24 09:31 Last Admin: 06/03/24 07:44 Dose: 25 mls/hr Sodium Chloride (Ns) 1,000 mls @ 100 mls/hr IVCONT .Q10H DOE Last Admin: 06/03/24 07:44 Dose: 100 mls/hr Pharmacy Consult (Consult Rx Etoh Phenob Im/Po) 1 each MISCELLANE ONCE PRN; Protocol PRN Reason: Consult order Phenobarbital (Phenobarbital 15 Mg Tablet) 45 mg PO BID DOE; Protocol Stop: 06/05/24 09:01 Phenobarbital (Phenobarbital 30 Mg Tablet) 30 mg PO BID DOE; Protocol Stop: 06/07/24 09:01 Phenobarbital (Phenobarbital 30 Mg Tablet) 30 mg PO DAILY DOE; Protocol Stop: 06/09/24 09:01 Phenobarbital Sodium (Phenobarbital Sodium 130 Mg/Ml Vial Im Q3hx2) 205 mg IM Q3H DOE; Protocol Stop: 06/03/24 14:01 Home Medications ?Medication ?Instructions ?Recorded ?Confirmed ?Last Taken ?Type buspirone 10 mg tablet 20 mg PO TID 04/07/24 06/03/24 06/02/24 History cetirizine 10 mg tablet 10 mg PO DAILY 04/07/24 06/03/24 06/02/24 History folic acid 1 mg tablet 1 mg PO DAILY 04/07/24 06/03/24 06/02/24 History sertraline 100 mg tablet 100 mg PO DAILY 04/07/24 06/03/24 06/02/24 History thiamine HCl (vitamin B1) 100 mg 100 mg PO DAILY 04/07/24 06/03/24 06/02/24 History tablet topiramate 25 mg sprinkle capsule 25 mg PO DAILY 04/07/24 06/03/24 06/02/24 History gabapentin 600 mg tablet 600 mg PO QID 05/03/24 06/03/24 06/02/24 History pantoprazole 40 mg tablet,delayed 40 mg PO BID 05/03/24 06/03/24 06/02/24 History release pramipexole 0.25 mg tablet 0.5 mg PO TID 05/10/24 06/03/24 06/02/24 History Physical Exam Vital Signs and Narrative: Vital Signs: Last Vital Signs Temp 98.4 F 06/03/24 07:59 Pulse 69 06/03/24 07:59 Resp 18 06/03/24 08:22 BP 142/83 H 06/03/24 07:59 Pulse Ox 98 06/03/24 07:59 O2 Del Method Room Air 06/03/24 07:59 BMI result Body Mass Index 29.0 Appearing in no acute distress head is normocephalic atraumatic eyes pupils are PERRLA sclera is anicteric mouth throat mucous membranes are intact and moist neck is supple no lymphadenopathy, no JVD noted lung sounds are clear to auscultation heart regular rate rhythm, clear S1, S2 positive bowel sounds, abdomen is soft, nontender neuro patient is alert x3, no focal deficits Results Labs 06/02/24 21:20 06/02/24 21:20 Labs: Laboratory Results - last 24 hr 06/02/24 06/02/24 06/03/24 21:20 21:43 03:17 MCV 81.7 MCH 27.0 MCHC 33.0 RDW 17.1 H Plt Count 119 L D MPV 10.0 Immature Gran % (Auto) 0.2 Neut % (Auto) 67.7 Lymph % (Auto) 18.2 L [place] % (Auto) 12.7 H Eos % (Auto) 0.7 Baso % (Auto) 0.5 Lymph # (Auto) 0.8 L [place] # (Auto) 0.5 Eos # (Auto) 0.0 Baso # (Auto) 0.0 Abs Immat Gran (auto) 0.01 Absolute Neuts (auto) 2.8 Absolute Nucleated RBC 0.000 Nucleated RBC % (auto) 0.0 Anion Gap 15 Estim Creat Clear Calc 98.8 Estimated GFR > 60 Random Glucose 92 Calcium 9.4 Magnesium 1.6 Total Bilirubin 0.4 AST 45 H ALT 28 Alkaline Phosphatase 123 H Troponin I High Sens < 2.7 Total Protein 7.7 Albumin 4.3 Lipase 99 H Urine Color Yellow Urine Appearance Clear Urine pH 7.0 Ur Specific [place] 1.020 Urine Protein Trace Urine Glucose (UA) Negative Urine Ketones Negative Urine Blood Negative Urine Nitrite Negative Ur Leukocyte Esterase Trace H Urine RBC 0-2 Urine WBC 0-5 Ur Squamous Epith Cells 0-2 Urine Bacteria None Seen Hyaline Casts 0-2 Urine Opiates Screen Not Detected Ur Buprenorphine Scrn Not Detected Ur Oxycodone Screen Not Detected Urine Methadone Screen Not Detected Urine Fentanyl Screen Not Detected Ur Barbiturates Screen POSITIVE H Ur Phencyclidine Scrn Not Detected Ur Amphetamines Screen Not Detected U Benzodiazepines Scrn POSITIVE H Urine Cocaine Screen POSITIVE H U Marijuana (THC) Screen POSITIVE H Ethyl Alcohol 16 COVID-19 (ROBIN) Negative COVID-19 Clin Com See Note Imaging Radiologist's Impressions: Impressions Head CT 06/02/24 21:25 IMPRESSION: No evidence of acute intracranial hemorrhage or edematous territorial infarction. Electronically signed by: You Solares DO 06/02/2024 10:48 PM EDT RP Assessment and Plan (1) Alcohol withdrawal seizure: Qualifiers: Complication of substance-induced condition: with unspecified complication Qualified Code(s): F10.939 - Alcohol use, unspecified with withdrawal, unspecified; R56.9 - Unspecified convulsions Status: Acute Plan 33 year old man admitted for alcohol withdrawal seizures Alcohol withdrawal seizures Started on phenobarbital protocol Monitor for any seizure activity Continue multivitamin, thiamine, folic acid Monitor on telemetry no need for seizure medication at this time addiction team consultation Nausea and vomiting antiemetics and IV fluids GERD Continue PPI Mental health Continue buspirone, Seroquel, hydroxyzine, sertraline, trazodone, Topamax DVT prophylaxis with pneumatic compression boots Attending Dr. Chacon Full code Quality Stroke Does the patient have a stroke diagnosis?: No VTE Prior VTE?: No VTE Risk Level:: Medical - moderate - high VTE Device Contraindication: N/A - Device Ordered VTE Drug Contraindication: Treatment Not Indicated
--- NOTE | 2024-06-03 10:03 | PC.NURSE ---
Tech assisted pt oob to commode with steady gait. Pt back in bed resting quietly, call gaspar within reach.
--- NOTE | 2024-06-03 11:19 | PHA.MEDREC ---
Pharmacy Consult ? Medication Reconciliation Pharmacy has completed the medication reconciliation. Spoke to patient at bedside, he was able to tell me what medications he takes with some prompting. He was confident on doses and schedule and stated he last had his medications yesterday morning.
[2024-06-03] MEDS: PHENobarbitaL sodium 130 MG/ML VIAL IM Q3Hx2 205 MG IM ×2 (11:25→14:35)
[2024-06-03] MEDS: Sucralfate 1 GM TABLET PO ×3 (11:42→21:02)
[2024-06-03] MEDS: Gabapentin 600 MG TABLET PO ×3 (13:08→21:02)
[2024-06-03] MEDS: busPIRone HCl 10 MG TABLET 20 MG PO ×2 (14:34→21:01)
[2024-06-03] MEDS: Pramipexole Di-HCL 0.25 MG TABLET 0.5 MG PO ×2 (14:35→21:01)
[2024-06-03] MEDS: Omeprazole 20 MG CAPSULE.DR PO (16:45)
--- NOTE | 2024-06-03 17:32 | PC.NURSE ---
Pt meds taken to pharmacy.
[2024-06-03] MEDS: ondansetron HCL 4 MG/2 ML VIAL IVPUSH (18:04)
[2024-06-03] MEDS: traMADoL HCL 50 MG TABLET 25 MG PO (20:05)
[2024-06-03] MEDS: PHENobarbitaL 15 MG TABLET 45 MG PO (21:01)
[2024-06-03] MEDS: traZODone HCL 50 MG TABLET PO (21:01)
[2024-06-03] MEDS: QUEtiapine Fumarate 100 MG TABLET PO (21:01)
[2024-06-03] MEDS: Acetaminophen 325 MG TABLET 650 MG PO (21:42)
[2024-06-04] VITALS: BP 132/81; PULSE 84; RESP 20; TEMP 36.7; O2SAT 97
[2024-06-04] MEDS: traMADoL HCL 50 MG TABLET 25 MG PO ×3 (03:32→17:45)
[2024-06-04 03:33] VITALS: BP 134/88; PULSE 72; RESP 20; TEMP 36.4; O2SAT 99
[2024-06-04] MEDS: 0.9 % Sodium Chloride 1,000 ML 100 ML IVCONT ×2 (03:37→17:47)
[2024-06-04] MEDS: Omeprazole 20 MG CAPSULE.DR PO ×2 (05:32→17:50)
[2024-06-04 06:27] LABS: Basophils Percent Auto 0.8 % (0-2); Eosinophils Absolute Auto 0.1 X10*3/uL (0.0-0.4); Eosinophils Percent Auto 2.8 % (0-4); Hematocrit 31.4 % (42.0-52.0); Hemoglobin 10.3 g/dl (14.0-18.0); Imm Gran Abs Auto 0.01 X10*3/uL (0.00-0.03); Imm Gran Pct Auto 0.4 % (0.0-0.4); Lymphocytes Percent Auto 41.9 % (20-40); MANUAL DIFF FLAG SCAN; Mean Corpuscular HGB Conc 32.8 g/dl (31.0-36.0); Mean Corpuscular Hemoglobin 27.1 pg (27.0-33.0); Mean Corpuscular Volume 82.6 fL (80.0-98.0); Mean Platelet Volume 11.6 fL (9.4-12.4); Monocytes Absolute Auto 0.3 X10*3/uL (0.1-1.2); Monocytes Percent Auto 12.5 % (2-11); Neutrophils Percent Auto 41.6 % (45-73); Red Cell Distribution Width 16.7 % (11.0-16.0); SCAN SMEAR FLAG 1; White Blood Count 2.5 X10*3/uL (4.8-10.8)
[2024-06-04 06:28] LABS: Platelet Count 80 X10*3/uL (160-400)
[2024-06-04 07:34] LABS: Alanine Aminotransferase 21 U/L (0-40); Albumin Level 3.4 g/dL (3.5-5.0); Alkaline Phosphatase 110 U/L (39-117); Anion Gap 12 (12-20); Aspartate Amino Transferase 40 U/L (5-37); Bilirubin Total 0.3 mg/dL (0.0-1.0); Blood Urea Nitrogen 7 mg/dL (9-16); Calcium 8.5 mg/dL (8.4-10.2); Carbon Dioxide 21 mmol/L (22-29); Chloride 105 mmol/L (96-108); Creatinine Clr Calc Pharmacy 116.8; Estimated Glomerular Filt Rate > 60; Glucose Random 91 mg/dL (60-115); Potassium 2.9 mmol/L (3.3-5.1); Sodium 135 mmol/L (135-145); Total Protein 6.2 g/dL (6.5-8.0)
[2024-06-04 07:38] VITALS: BP 127/84; PULSE 64; RESP 18; TEMP 36.9; O2SAT 98
[2024-06-04 07:50] LABS: SLIDE REVIEW VERIFIED
--- NOTE | 2024-06-04 08:20 | MHC.CM.PN ---
Patient is here with ETOH Withdrawal; home self care vs Recovery Team intervention is the tentative plan. CM has initiated and will follow for dc planning. HCP is Patient's Father and PCP is Dr. Noe Graham. Patient may need assist with transport.Patient lives with a Friend and is functionally independent.
[2024-06-04 09:02] LABS: Magnesium 1.8 mg/dL (1.6-2.6)
--- NOTE | 2024-06-04 10:45 | HO.PM.IMPN ---
Subjective Subjective Date of Service: 06/04/24 Interval History: Being followed for alcohol withdrawal Complaining of right-sided abdominal discomfort, no nausea, no vomiting, tolerating diet, no acute events overnight, no tremors, no hallucination, no tachycardia. Review of Systems All other system reviewed and are negative Physical Exam Vital Signs: Vital Signs: Last Vital Signs Temp 98.4 F 06/04/24 07:38 Pulse 64 06/04/24 07:38 Resp 18 06/04/24 07:38 BP 127/84 06/04/24 07:38 Pulse Ox 98 06/04/24 07:38 O2 Del Method Room Air 06/04/24 07:38 BMI result Body Mass Index 29.6 Const: Other: General awake alert x3, in no acute distress. Anicteric sclera Neck no JVD. CVS regular rate rhythm, Respiratory lungs clear to auscultation, no respiratory distress, no wheeze, no rhonchi. Gastrointestinal abdomen soft, bowel sounds audible, no guarding , no rigidity. Extremities no edema. Neuro non focal Skin no rash Psych anxious Objective Data Active Medications Acetaminophen (Acetaminophen 325 Mg Tablet) 650 mg PO Q6H PRN PRN Reason: Pain, Mild (Pain Scale 1-3), fever or headache Last Admin: 06/03/24 21:42 Dose: 650 mg Documented By: ORIANA Buspirone HCl (Buspirone Hcl 10 Mg Tablet) 20 mg PO TID [facility] [place] Last Admin: 06/03/24 21:01 Dose: 20 mg Documented By: ORIANA Calcium Carbonate (Calcium Carbonate 750 Mg Tab.Chew) 750 mg PO Q4H PRN PRN Reason: Heartburn Folic Acid (Folic Acid 1 Mg Tablet) 1 mg PO DAILY [facility] Gabapentin (Gabapentin 600 Mg Tablet) 600 mg PO QID [facility] [place] Last Admin: 06/03/24 21:02 Dose: 600 mg Documented By: ORIANA Sodium Chloride (Ns) 1,000 mls @ 100 mls/hr IVCONT .Q10H [facility] [place] Last Admin: 06/04/24 03:37 Dose: 100 mls/hr Documented By: ORIANA Loratadine (Loratadine 10 Mg Tablet) 10 mg PO DAILY [facility] [place] Magnesium Hydroxide (Milk Of Magnesia 30 Ml Oral.Susp) 30 ml PO DAILY PRN PRN Reason: Constipation Melatonin (Melatonin 3 Mg Tablet) 6 mg PO BEDTIME PRN PRN Reason: Insomnia Omeprazole (Omeprazole 20 Mg Capsule.Dr) 20 mg PO BID@0630,1630 [facility] [place] Last Admin: 06/04/24 05:32 Dose: 20 mg Documented By: ORIANA Ondansetron HCl (Ondansetron Hcl 4 Mg/2 Ml Vial) 4 mg IVPUSH Q6H PRN PRN Reason: Nausea and Vomiting Last Admin: 06/03/24 18:04 Dose: 4 mg Documented By: SHAUN Pharmacy Consult (Consult Rx Etoh Phenob Im/Po) 1 each MISCELLANE ONCE PRN; Protocol PRN Reason: Consult order Phenobarbital (Phenobarbital 15 Mg Tablet) 45 mg PO BID [facility] [place]; Protocol Stop: 06/05/24 09:01 Last Admin: 06/03/24 21:01 Dose: 45 mg Documented By: ORIANA Phenobarbital (Phenobarbital 30 Mg Tablet) 30 mg PO BID [facility] [place]; Protocol Stop: 06/07/24 09:01 Phenobarbital (Phenobarbital 30 Mg Tablet) 30 mg PO DAILY [facility] [place]; Protocol Stop: 06/09/24 09:01 Potassium Chloride (Potassium Chloride Er 20 Meq Tab.Er.Prt) 40 meq PO BID [facility] [place] Stop: 06/04/24 21:01 Pramipexole Dihydrochloride (Pramipexole Di-Hcl 0.25 Mg Tablet) 0.5 mg PO TID [facility] [place] Last Admin: 06/03/24 21:01 Dose: 0.5 mg Documented By: ORIANA Quetiapine Fumarate (Quetiapine Fumarate 100 Mg Tablet) 100 mg PO BEDTIME [facility] [place] Last Admin: 06/03/24 21:01 Dose: 100 mg Documented By: ORIANA Sertraline HCl (Sertraline Hcl 100 Mg Tablet) 100 mg PO DAILY [facility] [place] Sodium Chloride (0.9 % Sodium Chloride Flush 3 Ml Syringe) 3 ml IVFLUSH QSHIFT [facility] [place] Last Admin: 06/04/24 00:43 Dose: Not Given Documented By: ORIANA Non-Admin Reason: IV Running Sucralfate (Sucralfate 1 Gm Tablet) 1 gm PO QIDACHS [facility] [place] Last Admin: 06/03/24 21:02 Dose: 1 gm Documented By: ORIANA Thiamine HCl (Thiamine Hcl 100 Mg Tablet) 100 mg PO DAILY [facility] [place] Topiramate (Topiramate 25 Mg Tablet) 25 mg PO DAILY [facility] [place] Tramadol HCl (Tramadol Hcl 50 Mg Tablet) 25 mg PO Q6H PRN PRN Reason: Pain, Moderate(Pain Scale 4-6) Last Admin: 06/04/24 03:32 Dose: 25 mg Documented By: ORIANA Trazodone HCl (Trazodone Hcl 50 Mg Tablet) 50 mg PO BEDTIME [facility] Last Admin: 06/03/24 21:01 Dose: 50 mg Documented By: ORIANA Labs 06/04/24 05:44 06/04/24 05:44 Labs: Laboratory Results - last 24 hr 06/04/24 05:44 MCV 82.6 MCH 27.1 MCHC 32.8 RDW 16.7 H Plt Count 80 L D MPV 11.6 Immature Gran % (Auto) 0.4 Neut % (Auto) 41.6 L Lymph % (Auto) 41.9 H Evans % (Auto) 12.5 H Eos % (Auto) 2.8 Baso % (Auto) 0.8 Lymph # (Auto) 1.0 L Evans # (Auto) 0.3 Eos # (Auto) 0.1 Baso # (Auto) 0.0 Abs Immat Gran (auto) 0.01 Absolute Neuts (auto) 1.0 L Absolute Nucleated RBC 0.000 Nucleated RBC % (auto) 0.0 Smear Tech's Comments VERIFIED Smear Path Review SEE NOTE Anion Gap 12 Estim Creat Clear Calc 116.8 Estimated GFR > 60 Random Glucose 91 Calcium 8.5 D Magnesium 1.8 Total Bilirubin 0.3 AST 40 H ALT 21 Alkaline Phosphatase 110 Total Protein 6.2 L Albumin 3.4 L Assessment and Plan (1) Alcohol withdrawal seizure: Status: Acute (2) Alcohol use disorder: Status: Acute (3) Mood disorder: Status: Acute Plan 33 year old man admitted for alcohol withdrawal seizures Alcohol withdrawal seizures No recurrent seizures on phenobarbital protocol Continue multivitamin, thiamine, folic acid Strongly recommend to abstain from alcohol Monitor on telemetry Seen by recovery team outpatient resource booklet and recovery literature provided Nausea and vomiting Resolved continue antiemetics Acute hypokalemia likely due to GI loss will replete and follow labs Chronic pancytopenia due to ETOH use, stable, follow CBC, no bleeding. GERD Continue PPI and Carafate Mental health Continue buspirone, Seroquel, hydroxyzine, sertraline, trazodone, and Topamax DVT prophylaxis with pneumatic compression boots Full code Quality Stroke Does the patient have a stroke diagnosis?: No VTE Prior VTE?: No VTE Risk Level:: Medical - moderate - high VTE Device Contraindication: N/A - Device Ordered VTE Drug Contraindication: Treatment Not Indicated
[2024-06-04] MEDS: Loratadine 10 MG TABLET PO (10:54)
[2024-06-04] MEDS: Sucralfate 1 GM TABLET PO ×4 (10:54→23:06)
[2024-06-04] MEDS: Thiamine HCL 100 MG TABLET PO (10:54)
[2024-06-04] MEDS: busPIRone HCl 10 MG TABLET 20 MG PO ×3 (10:54→20:50)
[2024-06-04] MEDS: Gabapentin 600 MG TABLET PO ×4 (10:55→20:49)
[2024-06-04] MEDS: PHENobarbitaL 15 MG TABLET 45 MG PO ×2 (10:55→20:49)
[2024-06-04] MEDS: Pramipexole Di-HCL 0.25 MG TABLET 0.5 MG PO ×3 (10:55→20:49)
[2024-06-04] MEDS: Potassium Chloride ER 20 MEQ TAB.ER.PRT 40 MEQ PO ×2 (10:56→20:49)
[2024-06-04] MEDS: 0.9 % Sodium Chloride Flush 3 ML SYRINGE IVFLUSH ×2 (10:57→14:37)
[2024-06-04] MEDS: Topiramate 25 MG TABLET PO (10:57)
[2024-06-04 11:02] VITALS: BP 156/105; PULSE 83; RESP 18; TEMP 36.8; O2SAT 100
[2024-06-04] MEDS: Sertraline HCL 100 MG TABLET PO (11:06)
[2024-06-04] MEDS: Folic Acid 1 MG TABLET PO (11:08)
[2024-06-04] MEDS: ondansetron HCL 4 MG/2 ML VIAL IVPUSH ×2 (11:08→17:47)
[2024-06-04] MEDS: LORazepam 1 MG TABLET 2 MG PO ×2 (15:36→21:55)
[2024-06-04 20:00] VITALS: BP 149/96; PULSE 82; RESP 17; TEMP 36.7; O2SAT 98
[2024-06-04] MEDS: traZODone HCL 50 MG TABLET PO (20:49)
[2024-06-04] MEDS: QUEtiapine Fumarate 100 MG TABLET PO (20:49)
[2024-06-05] VITALS (8 sets, daily range): BP systolic 119–153; BP diastolic 68–100; PULSE 72–88; RESP 18–20; TEMP 36.1–37.1; O2SAT 96–99
[2024-06-05] MEDS: Melatonin 3 MG TABLET 6 MG PO ×2 (02:14→22:13)
[2024-06-05] MEDS: traMADoL HCL 50 MG TABLET 25 MG PO ×4 (02:20→22:13)
[2024-06-05] MEDS: Omeprazole 20 MG CAPSULE.DR PO ×2 (06:00→15:47)
[2024-06-05] MEDS: 0.9 % Sodium Chloride 1,000 ML 100 ML IVCONT (06:03)
[2024-06-05] MEDS: Thiamine HCL 100 MG TABLET PO (09:09)
[2024-06-05] MEDS: Gabapentin 600 MG TABLET PO ×4 (09:09→20:19)
[2024-06-05] MEDS: busPIRone HCl 10 MG TABLET 20 MG PO ×3 (09:09→20:20)
[2024-06-05] MEDS: Sucralfate 1 GM TABLET PO ×4 (09:09→20:20)
[2024-06-05] MEDS: Sertraline HCL 100 MG TABLET PO (09:09)
[2024-06-05] MEDS: PHENobarbitaL 15 MG TABLET 45 MG PO (09:09)
[2024-06-05] MEDS: Pramipexole Di-HCL 0.25 MG TABLET 0.5 MG PO ×3 (09:09→20:20)
[2024-06-05] MEDS: Folic Acid 1 MG TABLET PO (09:09)
[2024-06-05] MEDS: Topiramate 25 MG TABLET PO (09:09)
[2024-06-05] MEDS: Loratadine 10 MG TABLET PO (09:09)
[2024-06-05] MEDS: 0.9 % Sodium Chloride Flush 3 ML SYRINGE IVFLUSH ×3 (09:10→20:22)
[2024-06-05] MEDS: ondansetron HCL 4 MG/2 ML VIAL IVPUSH ×2 (09:16→15:47)
[2024-06-05] MEDS: LORazepam 1 MG TABLET PO ×2 (11:51→20:19)
--- NOTE | 2024-06-05 12:14 | HO.PM.IMPN ---
Subjective Subjective Date of Service: 06/05/24 Interval History: Complaining of anxiety, requesting for anxiolytics, feels tremulous, denies nausea vomiting, no hallucinations, denies palpitations no shortness a breath, no headache, no sweating no other acute events overnight, slept good last night after use of Ativan. Review of Systems All other system reviewed and are negative. Physical Exam Vital Signs: Vital Signs: Last Vital Signs Temp 97.5 F 06/05/24 11:18 Pulse 79 06/05/24 11:18 Resp 20 06/05/24 11:18 BP 144/91 H 06/05/24 11:18 Pulse Ox 99 06/05/24 11:18 O2 Del Method Room Air 06/05/24 11:18 BMI result Body Mass Index 29.6 Const: Other: General awake alert x3, in no acute distress. Anicteric sclera Neck no JVD. CVS regular rate rhythm, Respiratory lungs clear to auscultation, no respiratory distress, no wheeze, no rhonchi. Gastrointestinal abdomen soft, bowel sounds audible, no guarding , no rigidity. Extremities no edema. Neuro non focal , hand tremors Skin no rash Psych anxious Objective Data Active Medications Acetaminophen (Acetaminophen 325 Mg Tablet) 650 mg PO Q6H PRN PRN Reason: Pain, Mild (Pain Scale 1-3), fever or headache Last Admin: 06/03/24 21:42 Dose: 650 mg Documented By: ORIANA Buspirone HCl (Buspirone Hcl 10 Mg Tablet) 20 mg PO TID [facility] Last Admin: 06/05/24 09:09 Dose: 20 mg Documented By: LEE Calcium Carbonate (Calcium Carbonate 750 Mg Tab.Chew) 750 mg PO Q4H PRN PRN Reason: Heartburn Folic Acid (Folic Acid 1 Mg Tablet) 1 mg PO DAILY [facility] Last Admin: 06/05/24 09:09 Dose: 1 mg Documented By: LEE Gabapentin (Gabapentin 600 Mg Tablet) 600 mg PO QID [facility] Last Admin: 06/05/24 11:48 Dose: 600 mg Documented By: LEE Loratadine (Loratadine 10 Mg Tablet) 10 mg PO DAILY [facility] Last Admin: 06/05/24 09:09 Dose: 10 mg Documented By: LEE Lorazepam (Lorazepam 1 Mg Tablet) 1 mg PO Q8H PRN PRN Reason: anxiety/restlessness Last Admin: 06/05/24 11:51 Dose: 1 mg Documented By: LEE Magnesium Hydroxide (Milk Of Magnesia 30 Ml Oral.Susp) 30 ml PO DAILY PRN PRN Reason: Constipation Melatonin (Melatonin 3 Mg Tablet) 6 mg PO BEDTIME PRN PRN Reason: Insomnia Last Admin: 06/05/24 02:14 Dose: 6 mg Documented By: ORIANA Omeprazole (Omeprazole 20 Mg Capsule.Dr) 20 mg PO BID@0630,1630 [facility] Last Admin: 06/05/24 06:00 Dose: 20 mg Documented By: ORIANA Ondansetron HCl (Ondansetron Hcl 4 Mg/2 Ml Vial) 4 mg IVPUSH Q6H PRN PRN Reason: Nausea and Vomiting Last Admin: 06/05/24 09:16 Dose: 4 mg Documented By: LEE Pharmacy Consult (Consult Rx Etoh Phenob Im/Po) 1 each MISCELLANE ONCE PRN; Protocol PRN Reason: Consult order Phenobarbital (Phenobarbital 30 Mg Tablet) 30 mg PO BID [facility]; Protocol Stop: 06/07/24 09:01 Phenobarbital (Phenobarbital 30 Mg Tablet) 30 mg PO DAILY [facility]; Protocol Stop: 06/09/24 09:01 Pramipexole Dihydrochloride (Pramipexole Di-Hcl 0.25 Mg Tablet) 0.5 mg PO TID [facility] Last Admin: 06/05/24 09:09 Dose: 0.5 mg Documented By: LEE Quetiapine Fumarate (Quetiapine Fumarate 100 Mg Tablet) 100 mg PO BEDTIME [facility] Last Admin: 06/04/24 20:49 Dose: 100 mg Documented By: ORIANA Sertraline HCl (Sertraline Hcl 100 Mg Tablet) 100 mg PO DAILY [facility] Last Admin: 06/05/24 09:09 Dose: 100 mg Documented By: LEE Sodium Chloride (0.9 % Sodium Chloride Flush 3 Ml Syringe) 3 ml IVFLUSH QSHIFT [facility] Last Admin: 06/05/24 09:10 Dose: 3 ml Documented By: LEE Sucralfate (Sucralfate 1 Gm Tablet) 1 gm PO QIDACHS [facility] Last Admin: 06/05/24 11:48 Dose: 1 gm Documented By: LEE Thiamine HCl (Thiamine Hcl 100 Mg Tablet) 100 mg PO DAILY [facility] Last Admin: 06/05/24 09:09 Dose: 100 mg Documented By: LEE Topiramate (Topiramate 25 Mg Tablet) 25 mg PO DAILY [facility] Last Admin: 06/05/24 09:09 Dose: 25 mg Documented By: LEE Tramadol HCl (Tramadol Hcl 50 Mg Tablet) 25 mg PO Q6H PRN PRN Reason: Pain, Moderate(Pain Scale 4-6) Last Admin: 06/05/24 09:09 Dose: 25 mg Documented By: LEE Trazodone HCl (Trazodone Hcl 50 Mg Tablet) 50 mg PO BEDTIME [facility] Last Admin: 06/04/24 20:49 Dose: 50 mg Documented By: ORIANA Labs 06/04/24 05:44 06/04/24 05:44 Assessment and Plan (1) Alcohol withdrawal seizure: Status: Acute (2) Alcohol use disorder: Status: Acute (3) Mood disorder: Status: Acute Plan 33 year old man admitted for alcohol withdrawal seizures Alcohol withdrawal seizures No recurrent seizures on phenobarbital protocol , treated with Ativan for CIWA 20 yesterday Continue multivitamin, thiamine, folic acid Strongly recommend to abstain from alcohol Add Ativan as needed for persistent anxiety Monitor on telemetry Seen by recovery team outpatient resource booklet and recovery literature provided Nausea and vomiting Resolved continue antiemetics Acute hypokalemia likely due to GI loss repleted follow labs. Chronic pancytopenia due to ETOH use, stable, follow CBC prn, no bleeding. GERD Continue PPI and Carafate Mental health Continue buspirone, Seroquel, hydroxyzine, sertraline, trazodone, and Topamax DVT prophylaxis with pneumatic compression boots Full code Patient will require continued inpatient hospitalization for alcohol withdrawal on phenobarb protocol Quality Stroke Does the patient have a stroke diagnosis?: No VTE Prior VTE?: No VTE Risk Level:: Medical - moderate - high VTE Device Contraindication: N/A - Device Ordered VTE Drug Contraindication: Treatment Not Indicated
--- NOTE | 2024-06-05 13:36 | P.PNADD_ITS ---
Subjective Subjective Date of Service: 06/05/24 Reason For Visit: Alcohol withdrawal seizures Interim History: Patient medically admitted with alcohol withdrawal History of alcohol withdrawal seizures Patient has been on phenobarbital protocol since admission, however has required 2 doses of lorazepam due to ongoing withdrawal sx Seen in room 446 Awake, alert, engaged in interview. Visibly tremulous--CIWA score of 8 Reporting feelings of restlessness and anxiety States he was able to sleep for the first time last evening following dose of lorazepam Verbalizing that he does not wish to leave before treatment is completed, however he is having difficulty with his sx Review of Systems Constitutional: Reports as per HPI Mental Status Exam Mental Status Exam Patient Appearance: Appropriate Level of Consciousness: Awake, Appropriate and Alert Patient Behavior: Appropriate and Restless Mood Description: Anxious Affect Description: Anxious Diagnostics Vital Signs (24Hr): Vital Signs - 24 hr 06/04/24 20:00 06/05/24 00:00 06/05/24 03:47 Temperature 98.1 F 96.9 F 97.6 F Pulse Rate 82 80 73 Respiratory Rate 17 20 20 Blood Pressure 149/96 H 119/68 123/80 Pulse Oximetry 98 97 96 Oxygen Delivery Method Room Air Room Air Room Air 06/05/24 07:35 06/05/24 11:18 Temperature 97.8 F 97.5 F Pulse Rate 72 79 Respiratory Rate 20 20 Blood Pressure 123/84 144/91 H Pulse Oximetry 96 99 Oxygen Delivery Method Room Air Room Air BMI result Body Mass Index 29.6 Labs 06/04/24 05:44 06/04/24 05:44 Labs: Laboratory Results - last 48 hr 06/04/24 05:44 WBC 2.5 L RBC 3.80 L Hgb 10.3 L Hct 31.4 L MCV 82.6 MCH 27.1 MCHC 32.8 RDW 16.7 H Plt Count 80 L D MPV 11.6 Immature Gran % (Auto) 0.4 Neut % (Auto) 41.6 L Lymph % (Auto) 41.9 H [place] % (Auto) 12.5 H Eos % (Auto) 2.8 Baso % (Auto) 0.8 Lymph # (Auto) 1.0 L [place]wey # (Auto) 0.3 Eos # (Auto) 0.1 Baso # (Auto) 0.0 Abs Immat Gran (auto) 0.01 Absolute Neuts (auto) 1.0 L Absolute Nucleated RBC 0.000 Nucleated RBC % (auto) 0.0 Smear Tech's Comments VERIFIED Smear Path Review SEE NOTE Sodium 135 Potassium 2.9 L* Chloride 105 Carbon Dioxide 21 L Anion Gap 12 BUN 7 L Creatinine 0.82 Estim Creat Clear Calc 116.8 Estimated GFR > 60 Random Glucose 91 Calcium 8.5 D Magnesium 1.8 Total Bilirubin 0.3 AST 40 H ALT 21 Alkaline Phosphatase 110 Total Protein 6.2 L Albumin 3.4 L Imaging Radiology Impressions: ITS Impressions Head CT 06/02/24 21:25 IMPRESSION: No evidence of acute intracranial hemorrhage or edematous territorial infarction. Electronically signed by: You Solares DO 06/02/2024 10:48 PM EDT RP Medications Medications Current Medications Acetaminophen (Acetaminophen 325 Mg Tablet) 650 mg PO Q6H PRN PRN Reason: Pain, Mild (Pain Scale 1-3), fever or headache Last Admin: 06/03/24 21:42 Dose: 650 mg Buspirone HCl (Buspirone Hcl 10 Mg Tablet) 20 mg PO TID [facility] Last Admin: 06/05/24 09:09 Dose: 20 mg Calcium Carbonate (Calcium Carbonate 750 Mg Tab.Chew) 750 mg PO Q4H PRN PRN Reason: Heartburn Folic Acid (Folic Acid 1 Mg Tablet) 1 mg PO DAILY [facility] Last Admin: 06/05/24 09:09 Dose: 1 mg Gabapentin (Gabapentin 600 Mg Tablet) 600 mg PO QID [facility] Last Admin: 06/05/24 11:48 Dose: 600 mg Loratadine (Loratadine 10 Mg Tablet) 10 mg PO DAILY [facility] Last Admin: 06/05/24 09:09 Dose: 10 mg Lorazepam (Lorazepam 1 Mg Tablet) 1 mg PO Q8H PRN PRN Reason: anxiety/restlessness Last Admin: 06/05/24 11:51 Dose: 1 mg Magnesium Hydroxide (Milk Of Magnesia 30 Ml Oral.Susp) 30 ml PO DAILY PRN PRN Reason: Constipation Melatonin (Melatonin 3 Mg Tablet) 6 mg PO BEDTIME PRN PRN Reason: Insomnia Last Admin: 06/05/24 02:14 Dose: 6 mg Omeprazole (Omeprazole 20 Mg Capsule.Dr) 20 mg PO BID@0630,1630 [facility] Last Admin: 06/05/24 06:00 Dose: 20 mg Ondansetron HCl (Ondansetron Hcl 4 Mg/2 Ml Vial) 4 mg IVPUSH Q6H PRN PRN Reason: Nausea and Vomiting Last Admin: 06/05/24 09:16 Dose: 4 mg Pharmacy Consult (Consult Rx Etoh Phenob Im/Po) 1 each MISCELLANE ONCE PRN; Protocol PRN Reason: Consult order Phenobarbital (Phenobarbital 30 Mg Tablet) 30 mg PO BID [facility]; Protocol Stop: 06/07/24 09:01 Phenobarbital (Phenobarbital 30 Mg Tablet) 30 mg PO DAILY [facility]; Protocol Stop: 06/09/24 09:01 Pramipexole Dihydrochloride (Pramipexole Di-Hcl 0.25 Mg Tablet) 0.5 mg PO TID [facility] Last Admin: 06/05/24 09:09 Dose: 0.5 mg Quetiapine Fumarate (Quetiapine Fumarate 100 Mg Tablet) 100 mg PO BEDTIME [facility] Last Admin: 06/04/24 20:49 Dose: 100 mg Sertraline HCl (Sertraline Hcl 100 Mg Tablet) 100 mg PO DAILY [facility] Last Admin: 06/05/24 09:09 Dose: 100 mg Sodium Chloride (0.9 % Sodium Chloride Flush 3 Ml Syringe) 3 ml IVFLUSH QSHIFT [facility] Last Admin: 06/05/24 09:10 Dose: 3 ml Sucralfate (Sucralfate 1 Gm Tablet) 1 gm PO QIDACHS [facility] Last Admin: 06/05/24 11:48 Dose: 1 gm Thiamine HCl (Thiamine Hcl 100 Mg Tablet) 100 mg PO DAILY [facility] Last Admin: 06/05/24 09:09 Dose: 100 mg Topiramate (Topiramate 25 Mg Tablet) 25 mg PO DAILY [facility] Last Admin: 06/05/24 09:09 Dose: 25 mg Tramadol HCl (Tramadol Hcl 50 Mg Tablet) 25 mg PO Q6H PRN PRN Reason: Pain, Moderate(Pain Scale 4-6) Last Admin: 06/05/24 09:09 Dose: 25 mg Trazodone HCl (Trazodone Hcl 50 Mg Tablet) 50 mg PO BEDTIME [facility] Last Admin: 06/04/24 20:49 Dose: 50 mg Allergies Allergies Allergy/AdvReac Type Severity Reaction Status Date / Time Penicillins Allergy Unknown CHILDHOOD Verified 06/02/24 21:11 ALLERGY Assessment & Plan Assessment & Plan (1) Alcohol use disorder: Status: Acute Code(s): F10.90 - Alcohol use, unspecified, uncomplicated Assessment and Plan: * acute withdrawal--continue phenobarb protocol * discussed with attending--additional lorazepam appropriate based on continuation of sx * will follow up in AM AUDIT evaluation to be completed Total time managing care of this patient today __25__ minutes.
[2024-06-05] MEDS: traZODone HCL 50 MG TABLET PO (20:19)
[2024-06-05] MEDS: PHENobarbitaL 30 MG TABLET PO (20:20)
[2024-06-05] MEDS: QUEtiapine Fumarate 100 MG TABLET PO (20:20)
[2024-06-06 03:34] VITALS: BP 114/70; PULSE 69; RESP 20; TEMP 36.2; O2SAT 97
[2024-06-06] MEDS: LORazepam 1 MG TABLET PO (05:42)
[2024-06-06] MEDS: traMADoL HCL 50 MG TABLET 25 MG PO ×2 (05:42→11:35)
[2024-06-06] MEDS: Omeprazole 20 MG CAPSULE.DR PO (05:42)
[2024-06-06 06:54] LABS: Anion Gap 12 (12-20); Blood Urea Nitrogen 6 mg/dL (9-16); Carbon Dioxide 20 mmol/L (22-29); Chloride 105 mmol/L (96-108); Creatinine Clr Calc Pharmacy 110.1; Estimated Glomerular Filt Rate > 60; Glucose Random 143 mg/dL (60-115); Potassium 3.1 mmol/L (3.3-5.1); Sodium 134 mmol/L (135-145)
[2024-06-06 07:42] VITALS: BP 106/59; PULSE 74; RESP 20; TEMP 36.8; O2SAT 97
[2024-06-06] MEDS: PHENobarbitaL 30 MG TABLET PO (08:58)
[2024-06-06] MEDS: Sertraline HCL 100 MG TABLET PO (08:58)
[2024-06-06] MEDS: Pramipexole Di-HCL 0.25 MG TABLET 0.5 MG PO (08:58)
[2024-06-06] MEDS: Sucralfate 1 GM TABLET PO ×2 (08:58→11:35)
[2024-06-06] MEDS: busPIRone HCl 10 MG TABLET 20 MG PO (08:58)
[2024-06-06] MEDS: Topiramate 25 MG TABLET PO (08:58)
[2024-06-06] MEDS: 0.9 % Sodium Chloride Flush 3 ML SYRINGE IVFLUSH (08:59)
[2024-06-06] MEDS: Gabapentin 600 MG TABLET PO (08:59)
[2024-06-06] MEDS: Folic Acid 1 MG TABLET PO (08:59)
[2024-06-06] MEDS: Thiamine HCL 100 MG TABLET PO (08:59)
[2024-06-06] MEDS: Loratadine 10 MG TABLET PO (08:59)
[2024-06-06] MEDS: ondansetron HCL 4 MG/2 ML VIAL IVPUSH (09:05)
--- NOTE | 2024-06-06 10:56 | P.DS_ITS ---
DS: Providers Provider Date of Service: 06/06/24 Date of admission: 06/03/24 09:18 Date of discharge: 06/06/24 Primary care physician: Noe Graham MD Consults: 06/03/24 00:06 Consult to Care Team Stat Comment: Reason for consultation: detox DS: Diagnosis Discharge Diagnosis (1) Alcohol use disorder: Status: Acute DS: Summary Hospital Course Hospital Course: Date of Service: 06/03/24 Chief Complaint: Alcohol withdrawal seizure 33 year old alcoholic with history of alcohol withdrawal seizures. Had small seizure and again just prior to arrival patient said last night he had good amount of alcohol as usual and today also before the seizure he had a drink. He is feeling jittery vomited 3 times also complaining of epigastric pain. He reports that he hit his head when he fell last night but head CT was negative for acute trauma or injury. Vital signs are stable, labs within acceptable limits. Elevated CIWA score noted, started on phenobarbital. plan to admit for alcohol withdrawal seizures. Hospital course: 33 year old man admitted for alcohol withdrawal seizures , treated with phenobarbital protocol , Ativan as needed for anxiety, thiamine ,folic acid and multivitamin, patient seen by recovery team they provided outpatient resource booklet and recovery literature, patient noted to have no recurrent seizures, his nausea and vomiting resolved, he was noted to have hypokalemia likely due to GI loss that was repleted, patient noted to have chronic pancytopenia due to alcohol use, he was noted to have no active bleeding, he has been strongly advised to abstain from alcohol, in regard to GERD he has been continued on PPI and Carafate. In regard to mood disorder is recommended to continue all home medications including buspirone, Seroquel, hydroxyzine, sertraline, trazodone, and Topamax Time Attestation Discharge Coordination Time (in mins): 36 Quality: Safe Use of Opioids Does Pt have an Active Cancer Diagnosis on the Problem List?: No Quality: Stroke Does the patient have a stroke diagnosis?: No Physical Exam Vital Signs: Vital Signs: Last Vital Signs Temp 98.3 F 06/06/24 07:42 Pulse 74 06/06/24 07:42 Resp 20 06/06/24 07:42 BP 106/59 L 06/06/24 07:42 Pulse Ox 97 06/06/24 07:42 O2 Del Method Room Air 06/06/24 07:42 BMI result Body Mass Index 29.6 Const: Other: General awake alert x3, in no acute distress. Anicteric sclera Neck no JVD. CVS regular rate rhythm, Respiratory lungs clear to auscultation, no respiratory distress, no wheeze, no rhonchi. Gastrointestinal abdomen soft, bowel sounds audible, no guarding , no rigidity. Extremities no edema. Neuro non focal ,no hand tremors, steady gait. Skin no rash Psych appropriate affect DS: Data Data Completed and Pending Completed studies during hospitalization [Text1]: Procedures Detoxification Services for Substance Abuse Treatment (05/10/24) Excision of Sigmoid Colon, Via Natural or Artificial Opening Endoscopic, Diagnostic (04/06/24) Excision of Stomach, Pylorus, Via Natural or Artificial Opening Endoscopic, Diagnostic (04/06/24) Labs on day of discharge: Laboratory Results - last 24 hr 06/06/24 06:10 Hold Purple Top SEE NOTE Sodium 134 L Potassium 3.1 L Chloride 105 Carbon Dioxide 20 L Anion Gap 12 BUN 6 L Creatinine 0.87 Estim Creat Clear Calc 110.1 Estimated GFR > 60 Random Glucose 143 H Calcium 9.0 Discharge Plan Discharge Anticipated Discharge Date/Time: 06/06/24 10:48 Patient Disposition: Home, Self-Care Discharge Diagnosis: Alcohol withdrawal seizure Referrals: Noe Graham MD [Primary Care Provider] - 1 Week Discharge Medications: Continued gabapentin 600 mg tablet 600 mg PO QID pantoprazole 40 mg tablet,delayed release (DR/EC) 40 mg PO BID pramipexole 0.25 mg tablet 0.5 mg PO TID sucralfate 1 gram Tablet 1 g PO QIDACHS Qty: 120 0RF hydroxyzine HCl 10 mg Tablet 10 mg PO Q6H PRN (Reason: Anxiety/Restlessness) Qty: 30 0RF trazodone 50 mg tablet 50 mg PO BEDTIME Qty: 30 0RF quetiapine 100 mg tablet 100 mg PO BEDTIME Qty: 30 0RF cetirizine 10 mg tablet 10 mg PO DAILY sertraline 100 mg tablet 100 mg PO DAILY thiamine HCl (vitamin B1) 100 mg tablet 100 mg PO DAILY topiramate 25 mg capsule, sprinkle 25 mg PO DAILY buspirone 10 mg tablet 20 mg PO TID folic acid 1 mg tablet 1 mg PO DAILY Discharge Orders: Discharge Order (Routine); Ordered 06/06/24 Ordered By: Huang Gomez Diet: Advance to usual diet Activity on Discharge: As tolerated Stand Alone Forms: Patient Portal Discharge page Print Language: [place]er Care Plan Goals: Follow-up on outpatient resources provided by care team Use hydroxyzine as needed for anxiety Strongly recommend to abstain from alcohol Health Concerns: Continue all home medications as before Plan of Treatment: Outpatient follow-up with primary care physician call for appointment. Assessment: As above Discharge Date/Time: 06/06/24 12:20
--- NOTE | 2024-06-06 11:27 | MHC.CM.PN ---
Pt is medically cleared for discharge home self-care today, pt will transport home via lyft.
--- NOTE | 2024-06-06 13:32 | MHC.RECOVRN ---
AUDIT-C Brief Intervention Pt had positive screen for unhealthy alcohol use on admission, subsequently met with t/w to discuss alcohol use and recovery supports/options. Pt voices concern regarding alcohol use and is aware that drinking at unhealthy levels is known to increase risk of alcohol related health problems. Pt reports 4-8 nips of 100 proof root beer liquor daily since last admission. Pt expresses how alcohol use has impacted health, including negative impact on physical wellbeing. Discussed risk reduction strategies including drinking below the recommended limit. Provided pt with written resources including information on inpatient and outpatient treatment, MONIK, harm reduction, and recovery coaching. Pt reports he has tried naltrexone, antabuse, and campral in the past. Is open to naltrexone again. Pt reports longest period in recovery was 120 days last year. Pt reports he was at [facility] and continued on to [facility] and [facility]. Upon discharge, pt plans to call the [facility] to schedule appt to restart naltrexone. Pt does not wish for an appt to be made prior to dc. Pt provided with t/w contact information if questions or concerns arise. Denies other questions or concerns at this time.
== END 2024-06-06 12:20 | disposition home or self-care (01) | DRG 775 ==
LOC: HO.ED 06-03 07:33 → HO.EDOVER 06-03 09:28 → HO.IMC 06-03 19:18
PROVIDERS: Admitting Provider Nurse Practitioner Acute Care; Emergency Provider Internal Medicine; PCP Internal Medicine; Visit Provider Hospitalist
DX: F10.239 Alcohol dependence with withdrawal, unspecified (principal); D61.818 Other pancytopenia; R56.9 Unspecified convulsions; E87.6 Hypokalemia; K21.9 Gastro-esophageal reflux disease without esophagitis; Y90.0 Blood alcohol level of less than 20 mg/100 ml; Z20.822 Contact with and (suspected) exposure to COVID-19; Z79.899 Other long term (current) drug therapy
CPT/HCPCS: 36415; 70450; 80048; 80053; 80307; 81001; 83690; 83735; 84484; 85025; 87635; 93005; 99285; J2060; J2405; J2560; J3475

== ENCOUNTER → 2024-06-03 09:18 | Outpatient (BNV) | payer OTHER, SELFPAY | PROVIDERS: Admitting Provider Nurse Practitioner Acute Care; Emergency Provider Internal Medicine; PCP Internal Medicine; Visit Provider Hospitalist | DX: R56.9 Unspecified convulsions (principal); F10.939 Alcohol use, unspecified with withdrawal, unspecified; F10.90 Alcohol use, unspecified, uncomplicated; F39 Unspecified mood [affective] disorder | CPT/HCPCS: 99223; 99232; 99239 ==

== ENCOUNTER → 2024-06-03 09:18 | Outpatient (BNV) | payer OTHER, SELFPAY | PROVIDERS: Admitting Provider Nurse Practitioner Acute Care; Emergency Provider Internal Medicine; PCP Internal Medicine; Visit Provider Nurse Practitioner Psychiatric/Mental Health | DX: F10.90 Alcohol use, unspecified, uncomplicated (principal) | CPT/HCPCS: 99232 ==

== ENCOUNTER 2024-06-17 19:26 | Inpatient (IN) | payer OTHER, SELFPAY ==
[2024-06-17 19:28] VITALS: BP 142/80; PULSE 102; O2SAT 98
[2024-06-17 19:37] VITALS: BP 138/95; PULSE 120; RESP 16; TEMP 37.1; O2SAT 94; BMI 27.1
[2024-06-17 19:46] VITALS: BP 138/95; PULSE 118; RESP 20; TEMP 36.9; O2SAT 97
--- NOTE | 2024-06-17 19:50 | ECG_ITS ---
Test Reason : CP Blood Pressure : / mmHG Vent. Rate : 096 BPM Atrial Rate : 096 BPM P-R Int : 126 ms QRS Dur : 080 ms QT Int : 350 ms P-R-T Axes : -13 073 -21 degrees QTc Int : 442 ms Normal sinus rhythm T wave abnormality, consider inferior ischemia Abnormal ECG When compared with ECG of 17-JUN-2024 19:45, T wave inversion more evident in Inferior leads T wave amplitude has increased in Lateral leads Referred By: Debo Gallagher Electronically Signed By:CHELLE YEE
[2024-06-17 20:05] LABS: MANUAL DIFF FLAG NO
[2024-06-17 20:08] LABS: Basophils Absolute Auto 0.1 X10*3/uL (0.0-0.2); Basophils Percent Auto 0.8 % (0-2); Eosinophils Absolute Auto 0.1 X10*3/uL (0.0-0.4); Eosinophils Percent Auto 0.9 % (0-4); Hematocrit 39.1 % (42.0-52.0); Hemoglobin 12.9 g/dl (14.0-18.0); Imm Gran Abs Auto 0.02 X10*3/uL (0.00-0.03); Imm Gran Pct Auto 0.3 % (0.0-0.4); Lymphocytes Absolute Auto 2.2 X10*3/uL (1.2-4.9); Lymphocytes Percent Auto 35.2 % (20-40); Mean Corpuscular Hemoglobin 27.2 pg (27.0-33.0); Mean Corpuscular Volume 82.5 fL (80.0-98.0); Mean Platelet Volume 9.5 fL (9.4-12.4); Monocytes Absolute Auto 0.6 X10*3/uL (0.1-1.2); Monocytes Percent Auto 9.7 % (2-11); Neutrophils Absolute Auto 3.4 x10*3/uL (2.0-8.3); Neutrophils Percent Auto 53.1 % (45-73); Platelet Count 238 X10*3/uL (160-400); Red Blood Count 4.74 X10*6/uL (4.60-5.80); Red Cell Distribution Width 18.1 % (11.0-16.0); White Blood Count 6.4 X10*3/uL (4.8-10.8)
[2024-06-17 20:18] LABS: Ethanol 437 mg/dL
[2024-06-17 20:20] LABS: Alanine Aminotransferase 63 U/L (0-40); Albumin Level 4.6 g/dL (3.5-5.0); Alkaline Phosphatase 143 U/L (39-117); Anion Gap 17 (12-20); Aspartate Amino Transferase 127 U/L (5-37); Bilirubin Direct 0.1 mg/dL (0.0-0.5); Bilirubin Total 0.3 mg/dL (0.0-1.0); Blood Urea Nitrogen 9 mg/dL (9-16); Calcium 9.3 mg/dL (8.4-10.2); Carbon Dioxide 23 mmol/L (22-29); Chloride 109 mmol/L (96-108); Creatinine Clr Calc Pharmacy 86.7; Estimated Glomerular Filt Rate > 60; Glucose Random 117 mg/dL (60-115); Lipase 97 U/L (8-78); Potassium 3.3 mmol/L (3.3-5.1); Sodium 146 mmol/L (135-145); Total Protein 8.5 g/dL (6.5-8.0)
--- NOTE | 2024-06-17 20:56 | ED_ITS ---
HPI - Alcohol General Chief Complaint: ETOH/Substance Use Stated Complaint: sz x2 days, ETOH Time Seen by Provider: 06/17/24 20:48 Source: patient and EMS Mode of arrival: EMS Limitations: other History of Present Illness ED Provider: Dr. Debo Gallagher HPI narrative: patient comes to the emergency room complaining of seizure like sensation. Patient states that he has an aura that has been present for couple of days intermittently. Patient has history of seizures. Takes Topamax and states he has constant and reliable with his medications. Patient states that the last time he had a seizure was 2-3 weeks ago. Patient also admits that he uses alcohol heavily. However, he has not stopped drinking and is not withdrawing. Drank alcohol prior to coming. Patient usually drinks to sleeves per day for several years. Related Data Home Medications ?Medication ?Instructions ?Recorded ?Confirmed buspirone 10 mg tablet 20 mg PO TID 04/07/24 06/03/24 cetirizine 10 mg tablet 10 mg PO DAILY 04/07/24 06/03/24 folic acid 1 mg tablet 1 mg PO DAILY 04/07/24 06/03/24 sertraline 100 mg tablet 100 mg PO DAILY 04/07/24 06/03/24 thiamine HCl (vitamin B1) 100 mg 100 mg PO DAILY 04/07/24 06/03/24 tablet topiramate 25 mg sprinkle capsule 25 mg PO DAILY 04/07/24 06/03/24 gabapentin 600 mg tablet 600 mg PO QID 05/03/24 06/03/24 pantoprazole 40 mg tablet,delayed 40 mg PO BID 05/03/24 06/03/24 release pramipexole 0.25 mg tablet 0.5 mg PO TID 05/10/24 06/03/24 Previous Rx's ?Medication ?Instructions ?Recorded hydroxyzine HCl 10 mg tablet 10 mg PO Q6H PRN 05/17/24 Anxiety/Restlessness #30 tabs quetiapine 100 mg tablet 100 mg PO BEDTIME #30 tabs 05/17/24 sucralfate 1 gram tablet 1 g PO QIDACHS #120 tabs 05/17/24 trazodone 50 mg tablet 50 mg PO BEDTIME #30 tabs 05/17/24 Allergies Allergy/AdvReac Type Severity Reaction Status Date / Time Penicillins Allergy Unknown CHILDHOOD Verified 06/17/24 19:40 ALLERGY Review of Systems 2 Review of Systems: Constitutional : No Weight loss, No Fever, No Chills, No Night Sweats, No Fatigue, No Malaise ENT/Mouth : No Hearing loss, No Ear Pain, No Nasal Congestion, No Sinus Pain, No Hoarseness, No sore throat, No Rhinorrhea, No Swallowing Difficulty Eyes: No Eye Pain, No Swelling, No Redness, No Foreign Body, No Discharge, No Vision Changes Cardiovascular : No Chest Pain, No SOB, No Dyspnea on Exertion, No Orthopnea, No Edema, No Palpitations Respiratory : No Cough, No Sputum, No Wheezing, No Smoke Exposure, No Dyspnea Gastrointestinal : No Nausea, No Vomiting, No Diarrhea, No Constipation, No abdominal Pain, No Hematochezia, No Melena Genitourinary : no irregular bleeding, No Dysuria, No Urinary Frequency, No Hematuria, No Urinary Incontinence, No Urgency, No Flank Pain, No Urinary Flow Changes, No Hesitancy Musculoskeletal : No joint pain, No Myalgias, No Joint Swelling Skin : No Skin Lesions, No rash Neuro : aura Sensation, thinks that he may be getting a seizure. No Weakness, No Numbness, No Paresthesias, No Loss of Consciousness, No Dizziness, No Headache Psych : No Anxiety/Panic, No Depression, No SI/HI/AH/VH, Admits to alcohol dependence and abuse Heme/Lymph: No Bruising, No Bleeding,No Lymphadenopathy Endocrine : No Polyuria, No Polydipsia, No Temperature Intolerance PMFSH Past Medical History Medical History Meningitis spinal Alcoholic cirrhosis Seizure Mood disorder Alcohol use disorder Surgical History [place] teeth extracted H/O colonoscopy No pertinent past surgical history Social History Social History Household Members: Friend(s) and Other Household Members Other:: freind Housing: House Housing Other:: Roommate Do you presently have visiting nurse or other home services: No Alcohol intake: current Alcohol intake frequency: 3 or more drinks per day Alcohol type: hard liquor Comment: OOB independently, refuses all fall risk protocols Patient Tobacco Use Status: Never used Tobacco Tobacco use type: Cigarette Cigarette Packs Per Day: 1 Cigarettes Per Day: 20.0 Years Smoked: 15 Smoked in Last 30 Days: Yes e-Cigarette/Vaping Use: Never Used Second Hand Smoke Exposure: Yes Substance Use Type: Crack/Cocaine Advance Directives: No Advance Directives Information Provided: No Do you have a plan to hurt others: No Plan service: No Physical Exam ED Vital Signs: Vital Signs - 24 hr 06/17/24 19:37 06/17/24 19:46 06/17/24 22:00 Temperature 98.7 F 98.5 F 97.8 F Pulse Rate 120 H 118 H 106 H Respiratory Rate 16 20 24 H Blood Pressure 138/95 H 138/95 H 108/63 Pulse Oximetry 94 97 94 Oxygen Delivery Method Room Air Room Air Room Air BMI result Body Mass Index 27.1 Const Other: Appearance: Alert. Oriented X3. No acute distress. intoxicated, slurring words Eyes: Pupils equal, round and reactive to light. ENT: Pharynx normal. Neck: Normal inspection. Neck supple. No lymph nodes noted. No crepitus CVS: Normal heart rate and rhythm. Pulses normal. Normal S1 and S2 Respiratory: No respiratory distress. Breath sounds normal. No Wheezing. No rales Abdomen: Soft and nontender. No rigidity. No distention. Skin: Skin warm and dry. Normal skin color. Normal skin turgor. Extremities: No lower extremity edema. No Lacerations. No Rash Neuro: Oriented X 3. No motor deficit. No sensory deficit. Moving all extremities,CN 2 through 12 grossly intact, intoxicated, slurring words Psych: calm, cooperative, normal affect Course Course Course Narrative: all of patient's labs pending Medical Decision Making Medical Decision Making MDM Narrative: my interpretation of labs, at baseline hematology, no significant abnormality in chemistry, elevated LFTs in ETOH pattern, lipase 97, no abdominal pain to suspect appendicitis, urine toxicology positive for barbiturates, benzodiazepines, cocaine and marijuana, ETOH 437 - patient never had seizure-like activities in the ED. Patient was medicated with benzodiazepines, 2 mg of Ativan and Keppra IV - patient is still intoxicated. Plan: Metabolize to freedom and then seen by the care team/ disaster recovery analyst for alcohol detox - physician observation started at 01:00 - of note, when patient arrived, patient did not express any SI or HI. At this time, patient is not on a Section 12 Differential Diagnosis Differential Diagnoses: The differential diagnosis associated with the presentation includes ( alcohol intoxication, breakthrough seizures, polysubstance abuse) Admission/Observation Consideration of admission/observation: Escalation of care including admission/observation considered ( patient under physician observation waiting to be seen by the care team, patient may need detox for alcohol) Lab Data MDM Lab Attestation statement: I reviewed the patient's lab results. 06/17/24 20:00 06/17/24 20:00 Labs: Lab Results 06/17/24 Range/Units 20:00 WBC 6.4 (4.8-10.8) X10*3/uL RBC 4.74 D (4.60-5.80) X10*6/uL Hgb 12.9 L D (14.0-18.0) g/dl Hct 39.1 L D (42.0-52.0) % MCV 82.5 (80.0-98.0) fL MCH 27.2 (27.0-33.0) pg MCHC 33.0 (31.0-36.0) g/dl RDW 18.1 H (11.0-16.0) % Plt Count 238 D (160-400) X10*3/uL MPV 9.5 (9.4-12.4) fL Immature Gran % (Auto) 0.3 (0.0-0.4) % Neut % (Auto) 53.1 (45-73) % Lymph % (Auto) 35.2 (20-40) % [place] % (Auto) 9.7 (2-11) % Eos % (Auto) 0.9 (0-4) % Baso % (Auto) 0.8 (0-2) % Lymph # (Auto) 2.2 (1.2-4.9) X10*3/uL [place] # (Auto) 0.6 (0.1-1.2) X10*3/uL Eos # (Auto) 0.1 (0.0-0.4) X10*3/uL Baso # (Auto) 0.1 (0.0-0.2) X10*3/uL Abs Immat Gran (auto) 0.02 (0.00-0.03) X10*3/uL Absolute Neuts (auto) 3.4 (2.0-8.3) x10*3/uL Absolute Nucleated RBC 0.000 (0.0-0.012) X10*3/uL Nucleated RBC % (auto) 0.0 (0.0-0.2) /100WBC Sodium 146 H (135-145) mmol/L Potassium 3.3 (3.3-5.1) mmol/L Chloride 109 H (96-108) mmol/L Carbon Dioxide 23 (22-29) mmol/L Anion Gap 17 (12-20) BUN 9 (9-16) mg/dL Creatinine 1.06 (0.5-1.4) mg/dL Estim Creat Clear Calc 86.7 Estimated GFR > 60 Random Glucose 117 H (60-115) mg/dL Calcium 9.3 (8.4-10.2) mg/dL Total Bilirubin 0.3 (0.0-1.0) mg/dL Direct Bilirubin 0.1 (0.0-0.5) mg/dL AST 127 H (5-37) U/L ALT 63 H (0-40) U/L Alkaline Phosphatase 143 H (39-117) U/L Total Creatine Kinase 81 (38-174) U/L Total Protein 8.5 H (6.5-8.0) g/dL Albumin 4.6 (3.5-5.0) g/dL Lipase 97 H (8-78) U/L Ethyl Alcohol 437 H* mg/dL Medications Administered Discontinued Medications Generic Name Dose Route Start Last Admin Trade Name Freq PRN Reason Stop Dose Admin Levetiracetam 1,000 mg in 100 mls @ 400 mls/hr 06/17/24 20:54 06/17/24 22:28 Keppra IV 06/17/24 21:08 Infused ONCE ONE Infusion Lorazepam 2 mg 06/17/24 20:54 06/17/24 21:16 Lorazepam 2 Mg/Ml Vial IVPUSH 06/17/24 20:55 2 mg ONCE ONE Administration Critical Care Time Critical Care Time Critical Care Time: Yes Total Critical Care Time: 60 Attestation: I have personally provided critical care time. Time includes review of lab data, radiology results, discussion with consultants, and monitoring for potential decompensation. Intervention performed as documented. Discharge Plan Discharge Clinical Impression: Alcohol abuse, Alcohol intoxication, Aura Patient Disposition: Still a Patient Prescriptions: No Action gabapentin 600 mg tablet 600 mg PO QID pantoprazole 40 mg tablet,delayed release (DR/EC) 40 mg PO BID pramipexole 0.25 mg tablet 0.5 mg PO TID sucralfate 1 gram Tablet 1 g PO QIDACHS Qty: 120 0RF hydroxyzine HCl 10 mg Tablet 10 mg PO Q6H PRN (Reason: Anxiety/Restlessness) Qty: 30 0RF trazodone 50 mg tablet 50 mg PO BEDTIME Qty: 30 0RF quetiapine 100 mg tablet 100 mg PO BEDTIME Qty: 30 0RF cetirizine 10 mg tablet 10 mg PO DAILY sertraline 100 mg tablet 100 mg PO DAILY thiamine HCl (vitamin B1) 100 mg tablet 100 mg PO DAILY topiramate 25 mg capsule, sprinkle 25 mg PO DAILY buspirone 10 mg tablet 20 mg PO TID folic acid 1 mg tablet 1 mg PO DAILY Print Language: Kinyarwanda
[2024-06-17] MEDS: levETIRAcetam in NaCl (iso-os) 1,000 MG/100 ML PIGGYBACK 400 MG IV (21:16)
[2024-06-17] MEDS: LORazepam 2 MG/ML VIAL IVPUSH (21:16)
[2024-06-17 22:00] VITALS: BP 108/63; PULSE 106; RESP 24; TEMP 36.6; O2SAT 94
--- NOTE | 2024-06-17 22:16 | PC.NURSE ---
Post ativan and kepppra patient is resting soundly with no complaints at this time. Patient placed on monitor.
[2024-06-18] VITALS (9 sets, daily range): BP systolic 101–178; BP diastolic 62–106; PULSE 65–97; RESP 16–23; TEMP 36.2–36.8; O2SAT 95–98
--- NOTE | 2024-06-18 | ECG_ITS ---
Test Reason : TACHYCARDIA Blood Pressure : / mmHG Vent. Rate : 116 BPM Atrial Rate : 116 BPM P-R Int : 136 ms QRS Dur : 086 ms QT Int : 314 ms P-R-T Axes : 048 038 005 degrees QTc Int : 436 ms Sinus tachycardia Otherwise normal ECG When compared with ECG of 02-JUN-2024 21:08, Heart rate has increased Referred By: Debo Gallagher Electronically Signed By:CHELLE YEE
[2024-06-18 03:52] LABS: Appearance Urine Clear; Color Urine Yellow; Glucose Urine UA Negative (Negative); Leukocyte Esterase Urine Negative (Negative); Nitrite Urine Negative (Negative); PH 5.5 (5.0-9.0); UMIC TRIGGER UACC YES; Urine Blood Negative (Negative); Urine Ketones Negative (Negative); Urine Protein 30 (1+) mg/dL (Neg-Trace)
[2024-06-18 04:04] LABS: Amphetamine Screen Urine Not Detected (Not Detect); Barbiturates, Urine POSITIVE (Not Detect); Benzodiazepines Screen Urine Not Detected (Not Detect); Buprenorphine Scr Not Detected (Not Detect); Cannabinoid Screen Urine POSITIVE (Not Detect); Cocaine Screen Urine Not Detected (Not Detect); Fentanyl, urine Not Detected (Not Detect); Methadone Screen, Urine Not Detected (Not Detect); Opiate Screen Urine Not Detected (Not Detect); Oxycodone Screen Urine Not Detected (Not Detect); Phencyclidine Screen Urine Not Detected (Not Detect)
[2024-06-18 04:08] LABS: Bacteria Urine None Seen (None Seen); RBC Urine 0-2 /HPF (0-2); Squamous Epithelial Cell Urine 0-2 /HPF (0-2); WBC Urine 0-5 /HPF (0-5)
[2024-06-18] MEDS: ondansetron HCL 4 MG/2 ML VIAL IVPUSH ×3 (04:14→19:07)
[2024-06-18] MEDS: PHENobarbitaL sodium 65 MG/ML VIAL IVPUSH (04:26)
--- NOTE | 2024-06-18 05:29 | PC.NURSE ---
Patient belongings located in C2
[2024-06-18 05:51] LABS: Troponin-I High Sensitivity < 2.7 ng/L (<3.5-35.0)
[2024-06-18] MEDS: Metoclopramide HCl 10 MG/2 ML VIAL IVPUSH (07:41)
[2024-06-18] MEDS: 0.9 % Sodium Chloride 1,000 ML 999 ML IV (07:41)
[2024-06-18] MEDS: LORazepam 1 MG TABLET 2 MG PO (08:12)
--- NOTE | 2024-06-18 08:52 | PHA.MEDREC ---
Pharmacy Consult ? Medication Reconciliation Pharmacy has completed the medication reconciliation. Patient was recently discharged on 06/06/2024. Spoke to patient and he confirmed that nothing has changed since last discharge so med rec was done using discharge packet. Patient said last dose was yesterday 06/17/2024 and he takes pantoprazole 40 mg bid.
--- NOTE | 2024-06-18 09:47 | MHC.CM.ED ---
PATIENT REPORTS THAT HE IS INDEPENDENT WITH ALL ADLS. NO DME OR VNA SERVICES HE REPORTS THAT HIS HCP IS HIS FATHER, BARB, AND WOULD LIKE TO COMPLETE DOCUMENTATION WHILE HERE. PATIENT ALSO REPORTS THAT HE WOULD LIKE TO GO TO AN INPATIENT DETOX FACILITY IN [place], [place]. CHRISTY FOLLOWING
--- NOTE | 2024-06-18 09:56 | MHC.CM.ED ---
ALEX 06/18 IN CHART.
--- NOTE | 2024-06-18 10:05 | MHC.CM.ED ---
HCP COMPLETED AND UPLOADED TO [employer] [facility] COPY IN CHART. PATIENT HAS ORIGINAL.
[2024-06-18] MEDS: Potassium Chloride ER 20 MEQ TAB.ER.PRT 40 MEQ PO (11:08)
[2024-06-18] MEDS: Nicotine 21 MG PATCH.TD24 TRANSDERMA (11:08)
[2024-06-18] MEDS: Lactated Ringers 1,000 ML 100 ML IVCONT ×2 (11:14→21:23)
--- NOTE | 2024-06-18 11:27 | MHC.CM.PN ---
PATIENT NOW ADMITTED INPATIENT STATUS. ALEX NO LONGER APPLICABLE. PATIENT AWARE.
[2024-06-18 12:07] LABS: Magnesium 1.5 mg/dL (1.6-2.6)
--- NOTE | 2024-06-18 14:49 | PM.IMHP ---
History of Present Illness Date of Service: 06/18/24 Chief Complaint: Seizure-like sensation 33-year-old gentleman with past medical history of alcohol use disorder/alcohol withdrawal seizures recently discharged from [facility] on 06/06 after receiving treatment for alcohol withdrawal seizures, as per patient after discharge she continued to drink alcohol, same amount as before 4 to 8 nips of 100 proof root beer liquid daily, since yesterday he has noticed to be shaky, developed nausea, multiple episodes of vomiting, lower abdominal pain, felt like having a seizure, noticed jitteriness of jaw, roommate noticed his speech was not clear, father on the phone felt the same, therefore came to the emergency room, in ED workup showed lipase 97, sodium 146, potassium 3.3, magnesium 1.5 , AST 127, ALT 63, alk-phos 143 tropes less than 2.7 , platelets 238, hematocrit 39,urine toxicology positive for barbiturates, and marijuana, ETOH level 437, he was treated with IV Keppra 1000 mg and lorazepam 2 mg IV, no seizure-like activity was noted in the emergency room,while waiting in the emergency room patient noted to be withdrawing from alcohol with nausea , vomiting ,tremors, phenobarb protocol was initiated patient given Ativan and Zofran and IV fluids patient is now being admitted to [facility] with a diagnosis of alcohol withdrawal with high likelihood of alcohol withdrawal seizures. Review of Systems Review of Systems: [employer] no headache, no dizziness CVS no chest pain no urgency, no frequency Musculoskeletal no joint pain or swelling Skin no rash Respiratory no shortness a breath or cough All other system reviewed and are negative [facility] Medical History Meningitis spinal Alcoholic cirrhosis Seizure Mood disorder Alcohol use disorder Surgical History [place] teeth extracted H/O colonoscopy No pertinent past surgical history Social History Household Members: Friend(s) and Other Household Members Other:: freind Housing: House Housing Other:: Roommate Do you presently have visiting nurse or other home services: No Alcohol intake: current Alcohol intake frequency: 3 or more drinks per day Alcohol type: hard liquor Comment: OOB independently, refuses all fall risk protocols Patient Tobacco Use Status: Never used Tobacco Tobacco use type: Cigarette Cigarette Packs Per Day: 1 Cigarettes Per Day: 20.0 Years Smoked: 15 Smoked in Last 30 Days: Yes e-Cigarette/Vaping Use: Never Used Second Hand Smoke Exposure: Yes Substance Use Type: Crack/Cocaine Advance Directives: No Advance Directives Information Provided: No Do you have a plan to hurt others: No Plan service: No Meds Allergies Allergy/AdvReac Type Severity Reaction Status Date / Time Penicillins Allergy Unknown CHILDHOOD Verified 06/17/24 19:40 ALLERGY Active Medications: Current Medications Acetaminophen (Acetaminophen 325 Mg Tablet) 650 mg PO Q6H PRN PRN Reason: Pain, Mild (Pain Scale 1-3), fever or headache Benzonatate (Benzonatate 100 Mg Capsule) 100 mg PO TID PRN PRN Reason: Cough Calcium Carbonate (Calcium Carbonate 750 Mg Tab.Chew) 750 mg PO Q4H PRN PRN Reason: Heartburn Lactated Ringer's (Lr) 1,000 mls @ 100 mls/hr IVCONT .Q10H [facility] Stop: 06/19/24 06:29 Last Admin: 06/18/24 11:14 Dose: 100 mls/hr Magnesium Hydroxide (Milk Of Magnesia 30 Ml Oral.Susp) 30 ml PO DAILY PRN PRN Reason: Constipation Melatonin (Melatonin 3 Mg Tablet) 6 mg PO BEDTIME PRN PRN Reason: Insomnia Nicotine (Nicotine 21 Mg Patch.Td24) 21 mg TRANSDERMA DAILY [facility] Last Admin: 06/18/24 11:08 Dose: 21 mg Ondansetron HCl (Ondansetron Hcl 4 Mg/2 Ml Vial) 4 mg IVPUSH Q8H PRN PRN Reason: Nausea and Vomiting Last Admin: 06/18/24 13:10 Dose: 4 mg Polyethylene Glycol (Polyethylene Glycol 3350 17 Gm Powd.Pack) 17 gm PO DAILY PRN PRN Reason: Constipation Sodium Chloride (0.9 % Sodium Chloride Flush 3 Ml Syringe) 3 ml IVFLUSH QSHIFT [facility] Home Medications ?Medication ?Instructions ?Recorded ?Confirmed ?Last Taken ?Type buspirone 10 mg tablet 20 mg PO TID 04/07/24 06/18/24 06/17/24 History cetirizine 10 mg tablet 10 mg PO DAILY 04/07/24 06/18/24 06/17/24 History folic acid 1 mg tablet 1 mg PO DAILY 04/07/24 06/18/24 06/17/24 History sertraline 100 mg tablet 100 mg PO DAILY 04/07/24 06/18/24 06/17/24 History thiamine HCl (vitamin B1) 100 mg 100 mg PO DAILY 04/07/24 06/18/24 06/17/24 History tablet topiramate 25 mg sprinkle capsule 25 mg PO DAILY 04/07/24 06/18/24 06/17/24 History gabapentin 600 mg tablet 600 mg PO QID 05/03/24 06/18/24 06/17/24 History pantoprazole 40 mg tablet,delayed 40 mg PO BID@0630,1630 05/03/24 06/18/24 06/17/24 History release pramipexole 0.25 mg tablet 0.5 mg PO TID 05/10/24 06/18/24 06/17/24 History Physical Exam Vital Signs and Narrative: Vital Signs: Last Vital Signs Temp 98.0 F 06/18/24 06:00 Pulse 85 06/18/24 13:15 Resp 16 06/18/24 13:15 BP 138/92 H 06/18/24 13:15 Pulse Ox 98 06/18/24 13:15 O2 Del Method Room Air 06/18/24 13:15 BMI result Body Mass Index 27.1 Const: Other: General awake alert x3, in no acute distress. Anicteric sclera Neck no JVD. CVS regular rate rhythm, Respiratory lungs clear to auscultation, no respiratory distress, no wheeze, no rhonchi. Gastrointestinal abdomen soft, bowel sounds audible, no guarding , no rigidity. Extremities no edema. Neuro non focal , hand tremors Skin no rash Psych anxious Results Labs 06/17/24 20:00 06/17/24 20:00 Labs: Laboratory Results - last 24 hr 06/17/24 06/18/24 06/18/24 20:00 03:44 05:20 MCV 82.5 MCH 27.2 MCHC 33.0 RDW 18.1 H Plt Count 238 D MPV 9.5 Immature Gran % (Auto) 0.3 Neut % (Auto) 53.1 Lymph % (Auto) 35.2 [place] % (Auto) 9.7 Eos % (Auto) 0.9 Baso % (Auto) 0.8 Lymph # (Auto) 2.2 [place] # (Auto) 0.6 Eos # (Auto) 0.1 Baso # (Auto) 0.1 Abs Immat Gran (auto) 0.02 Absolute Neuts (auto) 3.4 Absolute Nucleated RBC 0.000 Nucleated RBC % (auto) 0.0 Anion Gap 17 Estim Creat Clear Calc 86.7 Estimated GFR > 60 Random Glucose 117 H Calcium 9.3 Magnesium 1.5 L Total Bilirubin 0.3 Direct Bilirubin 0.1 AST 127 H ALT 63 H Alkaline Phosphatase 143 H Total Creatine Kinase 81 Troponin I High Sens < 2.7 Total Protein 8.5 H Albumin 4.6 Lipase 97 H Urine Color Yellow Urine Appearance Clear Urine pH 5.5 Ur Specific [place] 1.020 Urine Protein 30 (1+) H Urine Glucose (UA) Negative Urine Ketones Negative Urine Blood Negative Urine Nitrite Negative Ur Leukocyte Esterase Negative Urine RBC 0-2 Urine WBC 0-5 Ur Squamous Epith Cells 0-2 Urine Bacteria None Seen Hyaline Casts 3-5 Urine Opiates Screen Not Detected Ur Buprenorphine Scrn Not Detected Ur Oxycodone Screen Not Detected Urine Methadone Screen Not Detected Urine Fentanyl Screen Not Detected Ur Barbiturates Screen POSITIVE H Ur Phencyclidine Scrn Not Detected Ur Amphetamines Screen Not Detected U Benzodiazepines Scrn Not Detected Urine Cocaine Screen Not Detected U Marijuana (THC) Screen POSITIVE H Ethyl Alcohol 437 H* Assessment and Plan (1) Aura: Status: Acute (2) Alcohol intoxication: Status: Acute (3) Alcohol abuse: Status: Acute (4) Mood disorder: Status: Acute Plan 33 year old man admitted for alcohol withdrawal and high likely out of alcohol withdrawal seizures Alcohol withdrawal with high likelihood of alcohol withdrawal seizures No seizures noted since arrival to ED,s/p iv keppra and ativan phenobarbital protocol , monitor CIWA, thiamine, folic acid Strongly recommend to abstain from alcohol Monitor on telemetry/seizure precautions Addiction team consult Nausea and vomiting Likely due to alcohol withdrawal , add antiemetics, IV fluids. Hypo magnesemia will replete and follow labs Tobacco use disorder Place on nicotine patch 21 mg daily, counseling done. Alcoholic cirrhosis no acute decompensation noted Chronically elevated LFTs, strongly recommend to abstain from alcohol, follow LFTs Chronic pancytopenia due to ETOH use, stable, follow CBC GERD Continue PPI and Carafate Mental health Continue buspirone, Seroquel, hydroxyzine, sertraline, trazodone, and Topamax DVT prophylaxis with pneumatic compression boots Full code Patient will require 2 night inpatient hospitalization for alcohol withdrawal on phenobarb protocol and close monitoring for withdrawal seizures. Quality Stroke Does the patient have a stroke diagnosis?: No VTE Prior VTE?: No VTE Risk Level:: Medical - moderate - high VTE Device Contraindication: N/A - Device Ordered VTE Drug Contraindication: Treatment Not Indicated
[2024-06-18] MEDS: Magnesium Sulfate/H2O 2 GM/50 ML PIGGYBACK IV (15:31)
[2024-06-18] MEDS: PHENobarbitaL sodium 130 MG/ML IM ONCE 230 MG IM (15:31)
[2024-06-18] MEDS: Sucralfate 1 GM TABLET PO ×2 (17:42→22:18)
[2024-06-18] MEDS: Gabapentin 600 MG TABLET PO ×2 (17:42→22:18)
[2024-06-18] MEDS: PHENobarbitaL sodium 130 MG/ML VIAL IM Q3Hx2 170 MG IM ×2 (19:02→22:18)
[2024-06-18] MEDS: Prochlorperazine Edisylate 10 MG/2 ML VIAL IVPUSH (21:31)
[2024-06-18] MEDS: busPIRone HCl 10 MG TABLET 20 MG PO (22:18)
[2024-06-18] MEDS: QUEtiapine Fumarate 100 MG TABLET PO (22:18)
[2024-06-18] MEDS: traZODone HCL 50 MG TABLET PO (22:18)
[2024-06-18] MEDS: Pramipexole Di-HCL 0.25 MG TABLET 0.5 MG PO (22:18)
[2024-06-18] MEDS: Melatonin 3 MG TABLET 6 MG PO (22:21)
[2024-06-19] VITALS: BP 109/65; PULSE 71; RESP 18; TEMP 36.2; O2SAT 98
[2024-06-19 04:01] VITALS: BP 117/69; PULSE 59; RESP 16; TEMP 36.3; O2SAT 99
[2024-06-19 07:11] LABS: Anion Gap 12 (12-20); Blood Urea Nitrogen 8 mg/dL (9-16); Calcium 8.9 mg/dL (8.4-10.2); Carbon Dioxide 24 mmol/L (22-29); Chloride 103 mmol/L (96-108); Creatinine Clr Calc Pharmacy 114.9; Estimated Glomerular Filt Rate > 60; Glucose Random 85 mg/dL (60-115); Magnesium 1.7 mg/dL (1.6-2.6); Potassium 3.3 mmol/L (3.3-5.1); Sodium 136 mmol/L (135-145)
[2024-06-19 08:00] VITALS: BP 133/86; PULSE 82; RESP 18; TEMP 36.8; O2SAT 97
--- NOTE | 2024-06-19 08:49 | MHC.CM.PN ---
Home self care vs Recovery Team intervention r/t ETOH is the tentative plan; CM has initiated and will follow for dc planning. Patient lives with a Friend, his Father is his HCP, and he is PCP is Dr. Noe Graham.
[2024-06-19] MEDS: busPIRone HCl 10 MG TABLET 20 MG PO ×3 (09:07→20:28)
[2024-06-19] MEDS: Sucralfate 1 GM TABLET PO ×4 (09:07→20:28)
[2024-06-19] MEDS: Pramipexole Di-HCL 0.25 MG TABLET 0.5 MG PO ×3 (09:07→20:27)
[2024-06-19] MEDS: Gabapentin 600 MG TABLET PO ×4 (09:07→20:28)
[2024-06-19] MEDS: PHENobarbitaL 15 MG TABLET 45 MG PO ×2 (09:07→20:28)
[2024-06-19] MEDS: Folic Acid 1 MG TABLET PO (09:08)
[2024-06-19] MEDS: Thiamine HCL 100 MG TABLET PO (09:08)
[2024-06-19] MEDS: Sertraline HCL 100 MG TABLET PO (09:08)
[2024-06-19] MEDS: Topiramate 25 MG TABLET PO (09:08)
[2024-06-19] MEDS: 0.9 % Sodium Chloride Flush 3 ML SYRINGE IVFLUSH ×3 (09:13→20:28)
[2024-06-19] MEDS: Nicotine 21 MG PATCH.TD24 TRANSDERMA (09:14)
--- NOTE | 2024-06-19 11:29 | MHC.RECOVRN ---
AUDIT-C Brief Intervention Pt had positive screen for unhealthy alcohol use on admission, subsequently met with t/w to discuss alcohol use and recovery supports/options. Pt voices concern regarding alcohol use and is aware that drinking at unhealthy levels is known to increase risk of alcohol related health problems. Pt reports 1-2 pints of vodka daily for 10 + years. Pt expresses how alcohol use has impacted health, including negative impact on his health. Discussed risk reduction strategies including drinking below the recommended limit. Provided pt with written resources including information on inpatient and outpatient treatment, MONIK, harm reduction, and recovery coaching. Pt denies needing outpatient care after discharge when offered]. Pt provided with t/w contact information if questions or concerns arise. Denies other questions or concerns at this time.
--- NOTE | 2024-06-19 13:06 | P.PNIM_ITS ---
Subjective Subjective Date of Service: 06/19/24 Interval History: Complaining of persistent nausea, decreased by mouth intake, is interested in inpatient treatment for alcohol use disorder, denies headache, no dizziness, complaining of lower abdominal discomfort, Denies aura or seizure-like activity, No acute events overnight. Review of Systems All other system reviewed and are negative. Physical Exam 2 Vital Signs: Vital Signs: Last Vital Signs Temp 98.2 F 06/19/24 08:00 Pulse 82 06/19/24 08:00 Resp 18 06/19/24 08:00 BP 133/86 06/19/24 08:00 Pulse Ox 97 06/19/24 08:00 O2 Del Method Room Air 06/19/24 08:00 BMI result Body Mass Index 27.1 Const: Other: General awake alert x3, in no acute distress. Anicteric sclera Neck no JVD. CVS regular rate rhythm, Respiratory lungs clear to auscultation, no respiratory distress, no wheeze, no rhonchi. Gastrointestinal abdomen soft, bowel sounds audible, mild lower abdominal discomfort palpation, no guarding , no rigidity. Extremities no edema. Neuro non focal , no hand tremors Skin no rash Psych appropriate affect Objective Data Active Medications Acetaminophen (Acetaminophen 325 Mg Tablet) 650 mg PO Q6H PRN PRN Reason: Pain, Mild (Pain Scale 1-3), fever or headache Benzonatate (Benzonatate 100 Mg Capsule) 100 mg PO TID PRN PRN Reason: Cough Buspirone HCl (Buspirone Hcl 10 Mg Tablet) 20 mg PO TID [facility] Last Admin: 06/19/24 09:07 Dose: 20 mg Documented By: HUGH Calcium Carbonate (Calcium Carbonate 750 Mg Tab.Chew) 750 mg PO Q4H PRN PRN Reason: Heartburn Folic Acid (Folic Acid 1 Mg Tablet) 1 mg PO DAILY [facility] Last Admin: 06/19/24 09:08 Dose: 1 mg Documented By: HUGH Gabapentin (Gabapentin 600 Mg Tablet) 600 mg PO QID [facility] Last Admin: 06/19/24 09:07 Dose: 600 mg Documented By: HUGH Hydroxyzine HCl (Hydroxyzine Hcl 10 Mg Tablet) 10 mg PO Q6H PRN PRN Reason: Anxiety/Restlessness Magnesium Hydroxide (Milk Of Magnesia 30 Ml Oral.Susp) 30 ml PO DAILY PRN PRN Reason: Constipation Melatonin (Melatonin 3 Mg Tablet) 6 mg PO BEDTIME PRN PRN Reason: Insomnia Last Admin: 06/18/24 22:21 Dose: 6 mg Documented By: BAYRON Nicotine (Nicotine 21 Mg Patch.Td24) 21 mg TRANSDERMA DAILY [facility] Last Admin: 06/19/24 09:14 Dose: 21 mg Documented By: HUGH Ondansetron HCl (Ondansetron Hcl 4 Mg/2 Ml Vial) 4 mg IVPUSH Q8H PRN PRN Reason: Nausea and Vomiting Last Admin: 06/18/24 19:07 Dose: 4 mg Documented By: LYDIA Pharmacy Consult (Consult Rx Etoh Phenob Im/Po) 1 each MISCELLANE ONCE PRN; Protocol PRN Reason: Consult order Phenobarbital (Phenobarbital 15 Mg Tablet) 45 mg PO BID [facility]; Protocol Stop: 06/20/24 21:01 Last Admin: 06/19/24 09:07 Dose: 45 mg Documented By: HUGH Phenobarbital (Phenobarbital 30 Mg Tablet) 30 mg PO BID [facility]; Protocol Stop: 06/22/24 21:01 Phenobarbital (Phenobarbital 30 Mg Tablet) 30 mg PO DAILY [facility]; Protocol Stop: 06/24/24 09:01 Polyethylene Glycol (Polyethylene Glycol 3350 17 Gm Powd.Pack) 17 gm PO DAILY PRN PRN Reason: Constipation Pramipexole Dihydrochloride (Pramipexole Di-Hcl 0.25 Mg Tablet) 0.5 mg PO TID [facility] Last Admin: 06/19/24 09:07 Dose: 0.5 mg Documented By: HUGH Quetiapine Fumarate (Quetiapine Fumarate 100 Mg Tablet) 100 mg PO BEDTIME [facility] Last Admin: 06/18/24 22:18 Dose: 100 mg Documented By: BAYRON Sertraline HCl (Sertraline Hcl 100 Mg Tablet) 100 mg PO DAILY [facility] Last Admin: 06/19/24 09:08 Dose: 100 mg Documented By: HUGH Sodium Chloride (0.9 % Sodium Chloride Flush 3 Ml Syringe) [facility] Last Admin: 06/19/24 09:13 Dose: 3 ml Documented By: HUGH Sucralfate (Sucralfate 1 Gm Tablet) 1 gm PO QIDACHS [facility] Last Admin: 06/19/24 09:07 Dose: 1 gm Documented By: HUGH Thiamine HCl (Thiamine Hcl 100 Mg Tablet) 100 mg PO DAILY [facility] Last Admin: 06/19/24 09:08 Dose: 100 mg Documented By: HUGH Topiramate (Topiramate 25 Mg Tablet) 25 mg PO DAILY [facility] Last Admin: 06/19/24 09:08 Dose: 25 mg Documented By: HUGH Trazodone HCl (Trazodone Hcl 50 Mg Tablet) 50 mg PO BEDTIME [facility] Last Admin: 06/18/24 22:18 Dose: 50 mg Documented By: LAFLAMC Labs 06/17/24 20:00 06/19/24 06:27 Labs: Laboratory Results - last 24 hr 06/19/24 06:27 Anion Gap 12 Estim Creat Clear Calc 114.9 Estimated GFR > 60 Random Glucose 85 Calcium 8.9 Magnesium 1.7 Assessment and Plan (1) Alcohol intoxication: Status: Acute (2) Alcohol abuse: Status: Acute (3) Mood disorder: Status: Acute (4) Aura: Status: Acute Plan 33 year old man admitted for alcohol withdrawal and high likely out of alcohol withdrawal seizures Alcohol withdrawal with high likelihood of alcohol withdrawal seizures No seizures noted since admission /history of alcohol withdrawal seizures Continue phenobarbital protocol , monitor CIWA, thiamine, folic acid Strongly recommend to abstain from alcohol Continue seizure precautions Seen by care team Nausea and vomiting Likely due to alcohol withdrawal , continue antiemetics, IV fluids. Acute Hypo magnesemia repleted and normalized Tobacco use disorder nicotine patch 21 mg daily, counseling done. Alcoholic cirrhosis no acute decompensation noted Chronically elevated LFTs, strongly recommend to abstain from alcohol, follow LFTs Chronic pancytopenia due to ETOH use, stable, follow CBC GERD Continue PPI and Carafate Mental health Continue buspirone, Seroquel, hydroxyzine, sertraline, trazodone, and Topamax DVT prophylaxis with pneumatic compression boots Full code Patient will require continued inpatient hospitalization for alcohol withdrawal on phenobarb protocol and close monitoring for withdrawal seizures. Quality Stroke Does the patient have a stroke diagnosis?: No VTE Prior VTE?: No VTE Risk Level:: Medical - moderate - high VTE Device Contraindication: N/A - Device Ordered VTE Drug Contraindication: Treatment Not Indicated
[2024-06-19 15:12] VITALS: BP 126/75; PULSE 76; RESP 18; TEMP 36.6; O2SAT 96
[2024-06-19] MEDS: KCl 20 mEq in 5 % Dex/Lact Rin 20 MEQ/1,000 ML IV.SOLN 100 MEQ IVCONT (16:09)
[2024-06-19] MEDS: hydrOXYzine HCL 10 MG TABLET PO (18:04)
[2024-06-19] MEDS: ondansetron HCL 4 MG/2 ML VIAL IVPUSH (20:27)
[2024-06-19] MEDS: Melatonin 3 MG TABLET 6 MG PO (20:27)
[2024-06-19] MEDS: traZODone HCL 50 MG TABLET PO (20:28)
[2024-06-19] MEDS: QUEtiapine Fumarate 100 MG TABLET PO (20:28)
[2024-06-19] MEDS: Acetaminophen 325 MG TABLET 650 MG PO (20:34)
[2024-06-19 23:22] VITALS: BP 113/64; PULSE 72; RESP 18; TEMP 36.7; O2SAT 99
[2024-06-20] MEDS: LORazepam 2 MG/ML VIAL 1 MG IVPUSH (02:39)
[2024-06-20] MEDS: KCl 20 mEq in 5 % Dex/Lact Rin 20 MEQ/1,000 ML IV.SOLN 100 MEQ IVCONT ×2 (02:46→12:48)
[2024-06-20 08:00] VITALS: BP 137/79; PULSE 73; RESP 20; TEMP 36.9; O2SAT 98
[2024-06-20] MEDS: Nicotine 21 MG PATCH.TD24 TRANSDERMA (10:17)
[2024-06-20] MEDS: Sucralfate 1 GM TABLET PO ×4 (10:18→21:49)
[2024-06-20] MEDS: Gabapentin 600 MG TABLET PO ×4 (10:18→21:44)
[2024-06-20] MEDS: Folic Acid 1 MG TABLET PO (10:18)
[2024-06-20] MEDS: PHENobarbitaL 15 MG TABLET 45 MG PO (10:18)
[2024-06-20] MEDS: Topiramate 25 MG TABLET PO ×2 (10:18→21:44)
[2024-06-20] MEDS: Thiamine HCL 100 MG TABLET PO (10:19)
[2024-06-20] MEDS: Pramipexole Di-HCL 0.25 MG TABLET 0.5 MG PO ×3 (10:19→21:44)
[2024-06-20] MEDS: Sertraline HCL 100 MG TABLET PO (10:19)
[2024-06-20] MEDS: 0.9 % Sodium Chloride Flush 3 ML SYRINGE IVFLUSH ×3 (10:19→20:23)
[2024-06-20] MEDS: busPIRone HCl 10 MG TABLET 20 MG PO ×3 (10:19→21:44)
[2024-06-20] MEDS: hydrOXYzine HCL 10 MG TABLET PO ×2 (10:25→17:00)
[2024-06-20] MEDS: ondansetron HCL 4 MG/2 ML VIAL IVPUSH ×2 (10:25→17:19)
--- NOTE | 2024-06-20 14:53 | P.PNIM_ITS ---
Subjective Subjective Date of Service: 06/20/24 Interval History: Being followed for alcohol withdrawal, complaining of persistent nausea, loss of appetite, insomnia and anxiety. Has a court date next week for violation of probation. Review of Systems All other system reviewed and are negative. Physical Exam 2 Vital Signs: Vital Signs: Last Vital Signs Temp 98.4 F 06/20/24 08:00 Pulse 73 06/20/24 08:00 Resp 20 06/20/24 08:00 BP 137/79 06/20/24 08:00 Pulse Ox 98 06/20/24 08:00 O2 Del Method Room Air 06/20/24 08:00 BMI result Body Mass Index 27.1 Const: Other: General awake alert x3, in no acute distress. Anicteric sclera Neck no JVD. CVS regular rate rhythm, Respiratory lungs clear to auscultation, no respiratory distress, no wheeze, no rhonchi. Gastrointestinal abdomen soft, bowel sounds audible, mild lower abdominal discomfort palpation, no guarding , no rigidity. Extremities no edema. Neuro non focal , no hand tremors Skin no rash Psych appropriate affect Objective Data Active Medications Acetaminophen (Acetaminophen 325 Mg Tablet) 650 mg PO Q6H PRN PRN Reason: Pain, Mild (Pain Scale 1-3), fever or headache Last Admin: 06/19/24 20:34 Dose: 650 mg Documented By: JUNITOLAMDen Benzonatate (Benzonatate 100 Mg Capsule) 100 mg PO TID PRN PRN Reason: Cough Buspirone HCl (Buspirone Hcl 10 Mg Tablet) 20 mg PO TID [facility] Last Admin: 06/20/24 10:19 Dose: 20 mg Documented By: HUGH Calcium Carbonate (Calcium Carbonate 750 Mg Tab.Chew) 750 mg PO Q4H PRN PRN Reason: Heartburn Folic Acid (Folic Acid 1 Mg Tablet) 1 mg PO DAILY [facility] Last Admin: 06/20/24 10:18 Dose: 1 mg Documented By: HUGH Gabapentin (Gabapentin 600 Mg Tablet) 600 mg PO QID [facility] Last Admin: 06/20/24 12:48 Dose: 600 mg Documented By: HUGH Hydroxyzine HCl (Hydroxyzine Hcl 10 Mg Tablet) 10 mg PO Q6H PRN PRN Reason: Anxiety/Restlessness Last Admin: 06/20/24 10:25 Dose: 10 mg Documented By: HUGH Potassium Cl/Dextrose/Lact Ringer's (Kcl 20 Meq In 5 % Dex/Lact Rin) 20 meq in 1,000 mls @ 100 mls/hr IVCONT .Q10H [facility] Last Admin: 06/20/24 12:48 Dose: 100 mls/hr Documented By: HUGH Magnesium Hydroxide (Milk Of Magnesia 30 Ml Oral.Susp) 30 ml PO DAILY PRN PRN Reason: Constipation Melatonin (Melatonin 3 Mg Tablet) 6 mg PO BEDTIME PRN PRN Reason: Insomnia Last Admin: 06/19/24 20:27 Dose: 6 mg Documented By: BAYRON Nicotine (Nicotine 21 Mg Patch.Td24) 21 mg TRANSDERMA DAILY [facility] Last Admin: 06/20/24 10:17 Dose: 21 mg Documented By: HUGH Ondansetron HCl (Ondansetron Hcl 4 Mg/2 Ml Vial) 4 mg IVPUSH Q8H PRN PRN Reason: Nausea and Vomiting Last Admin: 06/20/24 10:25 Dose: 4 mg Documented By: HUGH Pharmacy Consult (Consult Rx Etoh Phenob Im/Po) 1 each MISCELLANE ONCE PRN; Protocol PRN Reason: Consult order Phenobarbital (Phenobarbital 15 Mg Tablet) 45 mg PO BID [facility]; Protocol Stop: 06/20/24 21:01 Last Admin: 06/20/24 10:18 Dose: 45 mg Documented By: HUGH Phenobarbital (Phenobarbital 30 Mg Tablet) 30 mg PO BID [facility]; Protocol Stop: 06/22/24 21:01 Phenobarbital (Phenobarbital 30 Mg Tablet) 30 mg PO DAILY [facility]; Protocol Stop: 06/24/24 09:01 Polyethylene Glycol (Polyethylene Glycol 3350 17 Gm Powd.Pack) 17 gm PO DAILY PRN PRN Reason: Constipation Pramipexole Dihydrochloride (Pramipexole Di-Hcl 0.25 Mg Tablet) 0.5 mg PO TID [facility] Last Admin: 06/20/24 10:19 Dose: 0.5 mg Documented By: HUGH Quetiapine Fumarate (Quetiapine Fumarate 100 Mg Tablet) 100 mg PO BEDTIME [facility] Last Admin: 06/19/24 20:28 Dose: 100 mg Documented By: BAYRON Sertraline HCl (Sertraline Hcl 100 Mg Tablet) 100 mg PO DAILY [facility] Last Admin: 06/20/24 10:19 Dose: 100 mg Documented By: HUGH Sodium Chloride (0.9 % Sodium Chloride Flush 3 Ml Syringe) 3 ml IVFLUSH QSHIFT [facility] Last Admin: 06/20/24 10:19 Dose: 3 ml Documented By: HUGH Sucralfate (Sucralfate 1 Gm Tablet) 1 gm PO QIDACHS [facility] Last Admin: 06/20/24 12:51 Dose: 1 gm Documented By: HUGH Thiamine HCl (Thiamine Hcl 100 Mg Tablet) 100 mg PO DAILY [facility] Last Admin: 06/20/24 10:19 Dose: 100 mg Documented By: HUGH Topiramate (Topiramate 25 Mg Tablet) 25 mg PO DAILY [facility] Last Admin: 06/20/24 10:18 Dose: 25 mg Documented By: HUGH Trazodone HCl (Trazodone Hcl 50 Mg Tablet) 50 mg PO BEDTIME [facility] Last Admin: 06/19/24 20:28 Dose: 50 mg Documented By: LAFLAMC Labs 06/17/24 20:00 06/19/24 06:27 Assessment and Plan (1) Alcohol intoxication: Status: Acute (2) Mood disorder: Status: Acute (3) Alcohol use disorder: Status: Acute Plan 33 year old man admitted for alcohol withdrawal and high likely out of alcohol withdrawal seizures Alcohol withdrawal with high likelihood of alcohol withdrawal seizures No seizures noted since admission /history of alcohol withdrawal seizures Continue phenobarbital protocol , monitor CIWA, thiamine, folic acid Strongly recommend to abstain from alcohol Continue seizure precautions Seen by care team patient declined outpatient resources. Nausea and vomiting Persistent nausea no vomiting , continue antiemetics, dc IV fluids. Acute Hypo magnesemia repleted and normalized Tobacco use disorder nicotine patch 21 mg daily, counseling done. Alcoholic cirrhosis no acute decompensation noted Chronically elevated LFTs, strongly recommend to abstain from alcohol, follow LFTs Chronic pancytopenia due to ETOH use, stable, follow CBC GERD Continue PPI and Carafate Mental health Continue buspirone, Seroquel, hydroxyzine, sertraline, trazodone, and Topamax Consult psychiatry for worsening anxiety insomnia decreased appetite review. DVT prophylaxis with pneumatic compression boots Full code Patient will require continued inpatient hospitalization for alcohol withdrawal on phenobarb protocol and close monitoring for withdrawal seizures. Quality Stroke Does the patient have a stroke diagnosis?: No VTE Prior VTE?: No VTE Risk Level:: Medical - moderate - high VTE Device Contraindication: N/A - Device Ordered VTE Drug Contraindication: Treatment Not Indicated
--- NOTE | 2024-06-20 15:00 | P.CNPS_ITS ---
History of Present Illness Date of Service: 06/20/2024 Chief Complaint: alcohol withdrawal Reason for Consult: worsening anxiety/insomnia Requesting physician: Huang Gomez Discussed with referring provider: Yes Sources of Information: patient interviewed and chart reviewed HPI Narrative: Patient is a 33-year-old male with history of alcohol use disorder/alcohol withdrawal seizures recently discharged from [facility] on 06/06 after receiving treatment for alcohol withdrawal seizures, as per patient after discharge he continued to drink alcohol, noticed to be shaky, developed nausea, multiple episodes of vomiting, lower abdominal pain, felt like having a seizure, noticed jitteriness of jaw. His roommate noticed his speech was not clear, father on the phone felt the same; therefore came to the emergency room. Psychiatric consult placed for: worsening anxiety/insomnia During psychiatric assessment, patient presents alert and oriented x3. Calm, cooperative and tearful at times. Patient reports feeling anxious due to upcoming court date. Patient stated, I'm really worried about court. I hope the court will section 35 me and help me get clean rather than put me in snf. My anxiety and depression is why I drink . Patient reports drinking 1-2 sleeves a day for the past 15 years. He reports 130 days of sobriety after being in programs however relapsing after he returned home. Patient reports smoking marijuana daily; denies any other substance use. Patient reports he does not currently have outpatient psychiatric providers but would be interested in referrals. He denies history of inpatient psychiatric hospitalizations. Denies history of SIB/SA. Patient denies SI/HI/VH/AH. Patient reports history of being on Vivitrol and naltrexone; he expressed interest in exploring treatment options for his alcohol use. Patient reports decreased appetite due to nausea. He also reports broken sleep at night. Past Psychiatric History: Denies inpatient psychiatric admissions. Reports detox 5-6 times. [address] 35 wants. Denies current outpatient psychiatric providers. Medical Evaluation Reviewed: Yes Review of Systems Constitutional: Reports as per HPI Eyes: Reports as per HPI Reports as per HPI Cardiovascular: Reports as per HPI Respiratory: Reports as per HPI Gastrointestinal: Reports as per HPI Genitourinary: Reports as per HPI Musculoskeletal: Reports as per HPI Skin/Breast: Reports as per HPI Reports as per HPI Psychiatric: Reports as per HPI Endocrine: Reports as per HPI Hematologic/Lymphatic: Reports as per HPI Allergic/Immunologic: Reports as per HPI [facility] Medical History Meningitis spinal Alcoholic cirrhosis Seizure Mood disorder Alcohol use disorder Surgical History [place] teeth extracted H/O colonoscopy No pertinent past surgical history Family History: unknown Social History: Lives with room mate, single, no children, unemployed. Substance History: Pt reports drinking 2 sleeves a day for the past 15 years. Smokes marijuana daily. Diagnostics Vital Signs (24Hr): Vital Signs - 24 hr 06/19/24 15:12 06/19/24 23:22 06/20/24 08:00 Temperature 97.9 F 98.1 F 98.4 F Pulse Rate 76 72 73 Respiratory Rate 18 18 20 Blood Pressure 126/75 113/64 137/79 Pulse Oximetry 96 99 98 Oxygen Delivery Method Room Air Room Air Room Air BMI result Body Mass Index 27.1 Labs 06/17/24 20:00 06/19/24 06:27 Labs: Laboratory Results - last 48 hr 06/19/24 06:27 Sodium 136 Potassium 3.3 Chloride 103 Carbon Dioxide 24 Anion Gap 12 BUN 8 L Creatinine 0.80 Estim Creat Clear Calc 114.9 Estimated GFR > 60 Random Glucose 85 Calcium 8.9 Magnesium 1.7 Mental Status Exam Mental Status Exam Narrative: Pt is alert and oriented; behavior is cooperative and calm; dressed in hospital attire; mood is described as anxious ; eye contact appropriate; Speech is normal rate, volume and not pressured; thought process is organized and goal directed; Thought content is on tx; denies SI/HI Medications Medications Current Medications Acetaminophen (Acetaminophen 325 Mg Tablet) 650 mg PO Q6H PRN PRN Reason: Pain, Mild (Pain Scale 1-3), fever or headache Last Admin: 06/19/24 20:34 Dose: 650 mg Benzonatate (Benzonatate 100 Mg Capsule) 100 mg PO TID PRN PRN Reason: Cough Buspirone HCl (Buspirone Hcl 10 Mg Tablet) 20 mg PO TID [facility] Last Admin: 06/20/24 10:19 Dose: 20 mg Calcium Carbonate (Calcium Carbonate 750 Mg Tab.Chew) 750 mg PO Q4H PRN PRN Reason: Heartburn Folic Acid (Folic Acid 1 Mg Tablet) 1 mg PO DAILY [facility] Last Admin: 06/20/24 10:18 Dose: 1 mg Gabapentin (Gabapentin 600 Mg Tablet) 600 mg PO QID [facility] Last Admin: 06/20/24 12:48 Dose: 600 mg Hydroxyzine HCl (Hydroxyzine Hcl 10 Mg Tablet) 10 mg PO Q6H PRN PRN Reason: Anxiety/Restlessness Last Admin: 06/20/24 10:25 Dose: 10 mg Potassium Cl/Dextrose/Lact Ringer's (Kcl 20 Meq In 5 % Dex/Lact Rin) 20 meq in 1,000 mls @ 100 mls/hr IVCONT .Q10H [facility] Last Admin: 06/20/24 12:48 Dose: 100 mls/hr Magnesium Hydroxide (Milk Of Magnesia 30 Ml Oral.Susp) 30 ml PO DAILY PRN PRN Reason: Constipation Melatonin (Melatonin 3 Mg Tablet) 6 mg PO BEDTIME PRN PRN Reason: Insomnia Last Admin: 06/19/24 20:27 Dose: 6 mg Nicotine (Nicotine 21 Mg Patch.Td24) 21 mg TRANSDERMA DAILY [facility] Last Admin: 06/20/24 10:17 Dose: 21 mg Ondansetron HCl (Ondansetron Hcl 4 Mg/2 Ml Vial) 4 mg IVPUSH Q8H PRN PRN Reason: Nausea and Vomiting Last Admin: 06/20/24 10:25 Dose: 4 mg Pharmacy Consult (Consult Rx Etoh Phenob Im/Po) 1 each MISCELLANE ONCE PRN; Protocol PRN Reason: Consult order Phenobarbital (Phenobarbital 15 Mg Tablet) 45 mg PO BID [facility]; Protocol Stop: 06/20/24 21:01 Last Admin: 06/20/24 10:18 Dose: 45 mg Phenobarbital (Phenobarbital 30 Mg Tablet) 30 mg PO BID [facility]; Protocol Stop: 06/22/24 21:01 Phenobarbital (Phenobarbital 30 Mg Tablet) 30 mg PO DAILY [facility]; Protocol Stop: 06/24/24 09:01 Polyethylene Glycol (Polyethylene Glycol 3350 17 Gm Powd.Pack) 17 gm PO DAILY PRN PRN Reason: Constipation Pramipexole Dihydrochloride (Pramipexole Di-Hcl 0.25 Mg Tablet) 0.5 mg PO TID [facility] Last Admin: 06/20/24 10:19 Dose: 0.5 mg Quetiapine Fumarate (Quetiapine Fumarate 100 Mg Tablet) 100 mg PO BEDTIME [facility] Last Admin: 06/19/24 20:28 Dose: 100 mg Sertraline HCl (Sertraline Hcl 100 Mg Tablet) 100 mg PO DAILY [facility] Last Admin: 06/20/24 10:19 Dose: 100 mg Sodium Chloride (0.9 % Sodium Chloride Flush 3 Ml Syringe) 3 ml IVFLUSH QSHIFT [facility] Last Admin: 06/20/24 10:19 Dose: 3 ml Sucralfate (Sucralfate 1 Gm Tablet) 1 gm PO QIDACHS [facility] Last Admin: 06/20/24 12:51 Dose: 1 gm Thiamine HCl (Thiamine Hcl 100 Mg Tablet) 100 mg PO DAILY [facility] Last Admin: 06/20/24 10:19 Dose: 100 mg Topiramate (Topiramate 25 Mg Tablet) 25 mg PO DAILY [facility] Last Admin: 06/20/24 10:18 Dose: 25 mg Trazodone HCl (Trazodone Hcl 50 Mg Tablet) 50 mg PO BEDTIME [facility] Last Admin: 06/19/24 20:28 Dose: 50 mg Allergies Allergies Allergy/AdvReac Type Severity Reaction Status Date / Time Penicillins Allergy Unknown CHILDHOOD Verified 06/17/24 19:40 ALLERGY Assessment & Plan Assessment & Plan (1) JEISON (generalized anxiety disorder): Status: Acute Code(s): F41.1 - Generalized anxiety disorder Plan During psychiatric assessment, patient presents alert and oriented x3. Calm, cooperative and tearful at times. Patient reports feeling anxious due to upcoming court date. Patient stated, I'm really worried about court. I hope the court will section 35 me and help me get clean rather than put me in snf. My anxiety and depression is why I drink . Patient reports drinking 1-2 sleeves a day for the past 15 years. He reports 130 days of sobriety after being in programs however relapsing after he returned home. Patient reports smoking marijuana daily; denies any other substance use. Patient reports he does not currently have outpatient psychiatric providers but would be interested in referrals. He denies history of inpatient psychiatric hospitalizations. Denies history of SIB/SA. Patient denies SI/HI/VH/AH. Patient reports history of being on Vivitrol and naltrexone; he expressed interest in exploring treatment options for his alcohol use. Patient reports decreased appetite due to nausea. He also reports broken sleep at night. Recommendations: -Go slow on Phenobarbital taper. -Can give Ativan BID for 2-3 days; use caution while using with phenobarbital. -Increase Topamax to 25mg PO BID -Add Seroquel 25mg PO BID PRN -Monitor QTC -Referral to outpatient psychiatric providers -Re-consult addiction medicine to explore treatment options. Total time managing care of this patient today _30___ minutes. Patient educated on: diagnosis, medication risk/benefits, substance abuse and therapeutic strategies
[2024-06-20 15:32] VITALS: BP 145/96; PULSE 90; RESP 20; TEMP 36.1; O2SAT 100
[2024-06-20] MEDS: LORazepam 0.5 MG TABLET PO (17:01)
[2024-06-20] MEDS: PHENobarbitaL sodium 130 MG/ML VIAL IM (20:19)
[2024-06-20] MEDS: Prochlorperazine Edisylate 10 MG/2 ML VIAL 5 MG IV (20:23)
[2024-06-20] MEDS: HYDROmorphone HCl 1 MG/ML SYRINGE IVPUSH (20:38)
[2024-06-20] MEDS: traZODone HCL 50 MG TABLET PO (21:44)
[2024-06-20] MEDS: QUEtiapine Fumarate 100 MG TABLET PO (21:44)
[2024-06-20] MEDS: Melatonin 3 MG TABLET 6 MG PO (21:44)
[2024-06-20 23:17] VITALS: BP 117/74; PULSE 101; RESP 18; TEMP 36.6; O2SAT 98
--- NOTE | 2024-06-21 03:04 | PC.NURSE ---
At beginning of this RN's shift, pt rang call gaspar. When this RN entered pt's room he appeared to be having tremors in BLUE. Pt stated he felt like he was having a seizure . Pt speaking clearly, able to answer questions, no respiratory distress noted at this time. This RN left pt's room to get medication upon return pt was vomiting. Gabe PATEL for IV and/or IM meds (see MAR for new orders and administration). He was also c/o 9/10 pain in his neck, right side of body, radiating down his right leg. Pt scoring 22 on CIWA at that time, MD coughlin. Administered IM pheno and IV anti emetic w/good effect. Approx 2 hrs later, pt was able to take remaining of his PO medication and a sandwich. He is AOx3, able to make needs known. Call gaspar within reach, camera in room.
[2024-06-21] MEDS: LORazepam 0.5 MG TABLET PO ×2 (05:31→17:13)
[2024-06-21 07:07] VITALS: BP 120/74; PULSE 71; RESP 18; TEMP 37.4; O2SAT 96
[2024-06-21 07:13] LABS: Alanine Aminotransferase 40 U/L (0-40); Alkaline Phosphatase 144 U/L (39-117); Aspartate Amino Transferase 56 U/L (5-37); Bilirubin Direct 0.2 mg/dL (0.0-0.5); Bilirubin Total 0.4 mg/dL (0.0-1.0); Magnesium 1.5 mg/dL (1.6-2.6); Potassium 3.5 mmol/L (3.3-5.1); Total Protein 7.3 g/dL (6.5-8.0)
[2024-06-21] MEDS: Folic Acid 1 MG TABLET PO (10:07)
[2024-06-21] MEDS: Magnesium Sulfate/H2O 2 GM/50 ML PIGGYBACK IV (10:07)
[2024-06-21] MEDS: Nicotine 21 MG PATCH.TD24 TRANSDERMA (10:07)
[2024-06-21] MEDS: busPIRone HCl 10 MG TABLET 20 MG PO ×3 (10:07→20:05)
[2024-06-21] MEDS: Thiamine HCL 100 MG TABLET PO (10:07)
[2024-06-21] MEDS: Sertraline HCL 100 MG TABLET PO (10:07)
[2024-06-21] MEDS: Gabapentin 600 MG TABLET PO ×4 (10:07→20:05)
[2024-06-21] MEDS: Pramipexole Di-HCL 0.25 MG TABLET 0.5 MG PO ×3 (10:07→20:05)
[2024-06-21] MEDS: Sucralfate 1 GM TABLET PO ×4 (10:07→20:05)
[2024-06-21] MEDS: Topiramate 25 MG TABLET PO ×2 (10:07→20:04)
[2024-06-21] MEDS: Magnesium Oxide 400 MG TABLET PO ×2 (10:08→17:13)
[2024-06-21] MEDS: 0.9 % Sodium Chloride Flush 3 ML SYRINGE IVFLUSH ×3 (10:08→20:08)
[2024-06-21] MEDS: PHENobarbitaL 30 MG TABLET PO ×2 (10:08→20:05)
--- NOTE | 2024-06-21 14:06 | P.PNIM_ITS ---
Subjective Subjective Date of Service: 06/21/24 Interval History: Feeling better this morning, nausea is improved complaining of multiple loose stools, slept good, denies fever chills no other acute issues. Review of Systems All other system reviewed and are negative. Physical Exam 2 Vital Signs: Vital Signs: Last Vital Signs Temp 99.3 F 06/21/24 07:07 Pulse 71 06/21/24 07:07 Resp 18 06/21/24 07:07 BP 120/74 06/21/24 07:07 Pulse Ox 96 06/21/24 07:07 O2 Del Method Room Air 06/21/24 07:07 BMI result Body Mass Index 27.1 Const: Other: General awake alert x3, in no acute distress. Anicteric sclera Neck no JVD. CVS regular rate rhythm, Respiratory lungs clear to auscultation, no respiratory distress, no wheeze, no rhonchi. Gastrointestinal abdomen soft, bowel sounds audible, mild lower abdominal discomfort on palpation, no guarding , no rigidity. Extremities no edema. Neuro non focal , no hand tremors Skin no rash Psych appropriate affect Objective Data Active Medications Acetaminophen (Acetaminophen 325 Mg Tablet) 650 mg PO Q6H PRN PRN Reason: Pain, Mild (Pain Scale 1-3), fever or headache Last Admin: 06/19/24 20:34 Dose: 650 mg Documented By: JUNITOLAMDen Benzonatate (Benzonatate 100 Mg Capsule) 100 mg PO TID PRN PRN Reason: Cough Buspirone HCl (Buspirone Hcl 10 Mg Tablet) 20 mg PO TID [facility] Last Admin: 06/21/24 10:07 Dose: 20 mg Documented By: ENEDINA Calcium Carbonate (Calcium Carbonate 750 Mg Tab.Chew) 750 mg PO Q4H PRN PRN Reason: Heartburn Folic Acid (Folic Acid 1 Mg Tablet) 1 mg PO DAILY [facility] Last Admin: 06/21/24 10:07 Dose: 1 mg Documented By: ENEDINA Gabapentin (Gabapentin 600 Mg Tablet) 600 mg PO QID [facility] Last Admin: 06/21/24 13:00 Dose: 600 mg Documented By: ENEDINA Hydroxyzine HCl (Hydroxyzine Hcl 10 Mg Tablet) 10 mg PO Q6H PRN PRN Reason: Anxiety/Restlessness Last Admin: 06/20/24 17:00 Dose: 10 mg Documented By: HUGH Lorazepam (Lorazepam 0.5 Mg Tablet) 0.5 mg PO Q12H PRN PRN Reason: anxiety/restlessness Last Admin: 06/21/24 05:31 Dose: 0.5 mg Documented By: CHELI Magnesium Hydroxide (Milk Of Magnesia 30 Ml Oral.Susp) 30 ml PO DAILY PRN PRN Reason: Constipation Magnesium Oxide (Magnesium Oxide 400 Mg Tablet) 400 mg PO BIDPC [facility] Last Admin: 06/21/24 10:08 Dose: 400 mg Documented By: ENEDINA Melatonin (Melatonin 3 Mg Tablet) 6 mg PO BEDTIME PRN PRN Reason: Insomnia Last Admin: 06/20/24 21:44 Dose: 6 mg Documented By: CHELI Nicotine (Nicotine 21 Mg Patch.Td24) 21 mg TRANSDERMA DAILY [facility] Last Admin: 06/21/24 10:07 Dose: 21 mg Documented By: ENEDINA Ondansetron HCl (Ondansetron Hcl 4 Mg/2 Ml Vial) 4 mg IVPUSH Q8H PRN PRN Reason: Nausea and Vomiting Last Admin: 06/20/24 17:19 Dose: 4 mg Documented By: HUGH Pharmacy Consult (Consult Rx Etoh Phenob Im/Po) 1 each MISCELLANE ONCE PRN; Protocol PRN Reason: Consult order Phenobarbital (Phenobarbital 30 Mg Tablet) 30 mg PO BID [facility]; Protocol Stop: 06/22/24 21:01 Last Admin: 06/21/24 10:08 Dose: 30 mg Documented By: ENEDINA Phenobarbital (Phenobarbital 30 Mg Tablet) 30 mg PO DAILY [facility]; Protocol Stop: 06/24/24 09:01 Polyethylene Glycol (Polyethylene Glycol 3350 17 Gm Powd.Pack) 17 gm PO DAILY PRN PRN Reason: Constipation Pramipexole Dihydrochloride (Pramipexole Di-Hcl 0.25 Mg Tablet) 0.5 mg PO TID [facility] Last Admin: 06/21/24 10:07 Dose: 0.5 mg Documented By: ENEDINA Prochlorperazine Edisylate (Prochlorperazine Edisylate 10 Mg/2 Ml Vial) 5 mg IV Q4H PRN PRN Reason: Nausea and Vomiting Last Admin: 06/20/24 20:23 Dose: 5 mg Documented By: CHELI Quetiapine Fumarate (Quetiapine Fumarate 100 Mg Tablet) 100 mg PO BEDTIME [facility] Last Admin: 06/20/24 21:44 Dose: 100 mg Documented By: CHELI Quetiapine Fumarate (Quetiapine Fumarate 25 Mg Tablet) 25 mg PO BID PRN PRN Reason: Anxiety Sertraline HCl (Sertraline Hcl 100 Mg Tablet) 100 mg PO DAILY [facility] Last Admin: 06/21/24 10:07 Dose: 100 mg Documented By: ENEDINA Sodium Chloride (0.9 % Sodium Chloride Flush 3 Ml Syringe) 3 ml IVFLUSH QSHIFT [facility] Last Admin: 06/21/24 10:08 Dose: 3 ml Documented By: ENEDINA Sucralfate (Sucralfate 1 Gm Tablet) 1 gm PO QIDACHS [facility] Last Admin: 06/21/24 13:00 Dose: 1 gm Documented By: ENEDINA Thiamine HCl (Thiamine Hcl 100 Mg Tablet) 100 mg PO DAILY [facility] Last Admin: 06/21/24 10:07 Dose: 100 mg Documented By: ENEDINA Topiramate (Topiramate 25 Mg Tablet) 25 mg PO BID [facility] Last Admin: 06/21/24 10:07 Dose: 25 mg Documented By: ENEDINA Trazodone HCl (Trazodone Hcl 50 Mg Tablet) 50 mg PO BEDTIME [facility] Last Admin: 06/20/24 21:44 Dose: 50 mg Documented By: CHELI Labs 06/17/24 20:00 06/21/24 06:03 Labs: Laboratory Results - last 24 hr 06/21/24 06:03 Hold Purple Top SEE NOTE Magnesium 1.5 L Total Bilirubin 0.4 Direct Bilirubin 0.2 AST 56 H ALT 40 Alkaline Phosphatase 144 H Total Protein 7.3 Albumin 4.0 Assessment and Plan (1) Alcohol intoxication: Status: Acute (2) Mood disorder: Status: Acute (3) Alcohol use disorder: Status: Acute Plan 33 year old man admitted for alcohol withdrawal and high likely out of alcohol withdrawal seizures Alcohol withdrawal with high likelihood of alcohol withdrawal seizures No seizures noted since admission /history of alcohol withdrawal seizures Continue phenobarbital protocol , monitor CIWA, thiamine, folic acid Strongly recommend to abstain from alcohol Continue seizure precautions Seen by care team patient declined outpatient resources. Reconsulted care team eval as per psych recommendation to consider treatment options Nausea , vomiting and diarrhea Question viral gastroenteritis versus alcohol withdrawal Improving continue symptomatic treatment Acute Hypo magnesemia recurrent hypo magnesemia will replete and follow labs Tobacco use disorder nicotine patch 21 mg daily, counseling done. Alcoholic cirrhosis no acute decompensation noted Chronically elevated LFTs, strongly recommend to abstain from alcohol, liver enzyme improved Chronic pancytopenia due to ETOH use, stable, follow CBC GERD Continue PPI and Carafate Mental health Continue buspirone, Seroquel, hydroxyzine, sertraline, trazodone, and Topamax Seen by psychiatry dose of Topamax adjusted, as needed Seroquel added, recommend outpatient psychiatric consultation DVT prophylaxis with pneumatic compression boots Full code Patient will require continued inpatient hospitalization for alcohol withdrawal on phenobarb protocol and close monitoring for withdrawal seizures. Quality Stroke Does the patient have a stroke diagnosis?: No VTE Prior VTE?: No VTE Risk Level:: Medical - moderate - high VTE Device Contraindication: N/A - Device Ordered VTE Drug Contraindication: Treatment Not Indicated
[2024-06-21] MEDS: hydrOXYzine HCL 10 MG TABLET PO ×2 (14:55→20:05)
[2024-06-21 15:46] VITALS: BP 140/93; PULSE 91; RESP 20; TEMP 36.7; O2SAT 99
[2024-06-21] MEDS: Prochlorperazine Edisylate 10 MG/2 ML VIAL 5 MG IV (17:12)
[2024-06-21 19:35] VITALS: BP 124/76; PULSE 86; RESP 20; TEMP 36.4; O2SAT 97
[2024-06-21] MEDS: Melatonin 3 MG TABLET 6 MG PO (20:04)
[2024-06-21] MEDS: traZODone HCL 50 MG TABLET PO (20:05)
[2024-06-21] MEDS: QUEtiapine Fumarate 100 MG TABLET PO (20:05)
[2024-06-22] MEDS: Prochlorperazine Edisylate 10 MG/2 ML VIAL 5 MG IV ×2 (00:44→06:10)
[2024-06-22] MEDS: hydrOXYzine HCL 10 MG TABLET PO ×2 (02:37→08:40)
[2024-06-22 03:48] VITALS: BP 116/81; PULSE 90; RESP 15; TEMP 37.1; O2SAT 96
--- NOTE | 2024-06-22 04:12 | PC.NURSE ---
Contacted MD around midnight to let him know that patient was upset that he could not have pain medication prescribed, outside of his existing orders. Gave patient compazine, atarax, and all of his scheduled medications, and also had a discussion with him about how medications work and his disease process. MD did not add any other mediacations. Pt was offered tylenol for his headache and he declined, stating that only pain medications would work for him. Pt in no acute distress, monitored frequently, vitals stable.
[2024-06-22] MEDS: LORazepam 0.5 MG TABLET PO (06:10)
[2024-06-22 06:25] LABS: Magnesium 1.9 mg/dL (1.6-2.6)
[2024-06-22 07:17] VITALS: BP 109/75; PULSE 77; RESP 18; TEMP 36.9; O2SAT 97
[2024-06-22] MEDS: Folic Acid 1 MG TABLET PO (08:40)
[2024-06-22] MEDS: Sertraline HCL 100 MG TABLET PO (08:40)
[2024-06-22] MEDS: Magnesium Oxide 400 MG TABLET PO (08:40)
[2024-06-22] MEDS: Topiramate 25 MG TABLET PO (08:41)
[2024-06-22] MEDS: Thiamine HCL 100 MG TABLET PO (08:41)
[2024-06-22] MEDS: Sucralfate 1 GM TABLET PO (08:41)
[2024-06-22] MEDS: Pramipexole Di-HCL 0.25 MG TABLET 0.5 MG PO (08:41)
[2024-06-22] MEDS: Gabapentin 600 MG TABLET PO (08:41)
[2024-06-22] MEDS: 0.9 % Sodium Chloride Flush 3 ML SYRINGE IVFLUSH (08:41)
[2024-06-22] MEDS: busPIRone HCl 10 MG TABLET 20 MG PO (08:41)
[2024-06-22] MEDS: PHENobarbitaL 30 MG TABLET PO (08:41)
--- NOTE | 2024-06-22 09:47 | PM.DS ---
DS: Providers Provider Date of Service: 06/22/24 Date of admission: 06/18/24 10:15 Date of discharge: 06/22/24 Primary care physician: Noe Graham MD Consults: 06/18/24 00:25 Consult to Care Team Routine Comment: Reason for consultation: wants detox 06/18/24 15:17 Addiction Medicine Routine Consulting Provider: Addiction Covering Reason for consultation: etoh Has provider been notified: No 06/20/24 11:56 Consult to Psychiatry Routine Consulting Provider: Psych Covering Reason for consultation: worsening anxiety/insomnia Has provider been notified: No 06/20/24 16:25 Addiction Medicine Routine Consulting Provider: Addiction Covering Reason for consultation: reconsult as per psyche for etoh rx options Has provider been notified: No DS: Diagnosis Discharge Diagnosis (1) Alcohol intoxication: Status: Acute (2) Mood disorder: Status: Acute (3) Alcohol use disorder: Status: Acute DS: Summary Hospital Course Hospital Course: Date of Service: 06/18/24 Chief Complaint: Seizure-like sensation 33-year-old gentleman with past medical history of alcohol use disorder/alcohol withdrawal seizures recently discharged from [facility] on 06/06 after receiving treatment for alcohol withdrawal seizures, as per patient after discharge she continued to drink alcohol, same amount as before 4 to 8 nips of 100 proof root beer liquid daily, since yesterday he has noticed to be shaky, developed nausea, multiple episodes of vomiting, lower abdominal pain, felt like having a seizure, noticed jitteriness of jaw, roommate noticed his speech was not clear, father on the phone felt the same, therefore came to the emergency room, in ED workup showed lipase 97, sodium 146, potassium 3.3, magnesium 1.5 , AST 127, ALT 63, alk-phos 143 tropes less than 2.7 , platelets 238, hematocrit 39,urine toxicology positive for barbiturates, and marijuana, ETOH level 437, he was treated with IV Keppra 1000 mg and lorazepam 2 mg IV, no seizure-like activity was noted in the emergency room,while waiting in the emergency room patient noted to be withdrawing from alcohol with nausea , vomiting ,tremors, phenobarb protocol was initiated patient given Ativan and Zofran and IV fluids patient is now being admitted to [facility] with a diagnosis of alcohol withdrawal with high likelihood of alcohol withdrawal seizures. 33 year old man admitted for alcohol withdrawal and high likely out of alcohol withdrawal seizures treated with phenobarb protocol, as needed Ativan, thiamine and folic acid no seizure-like activity noted during hospitalization patient evaluated by Addiction Team, patient declined outpatient resources due to persistent anxiety patient evaluated by Psychiatry they recommended to continue home medications including sertraline, trazodone, hydroxyzine and Seroquel and increase dose of Topamax to 25 mg b.i.d., patient has been tolerating diet except refusing breakfast that he does not take at home, abdominal pain resolved , no further nausea vomiting has chronic multiple stools , strongly recommend to abstain from alcohol and recommend to pursue outpatient counseling and psychiatric consultation. Acute Hypo magnesemia repleted and normalized. Tobacco use disorder counseling done being discharged on nicotine patch 21 mg daily. Alcoholic cirrhosis no acute decompensation noted strongly recommend to abstain from alcohol. Chronic pancytopenia due to ETOH use, stable. GERD recommend to continue PPI and Carafate Generalized anxiety disorder recommend to continue all home medication except dose of Topamax increased to 25 mg twice daily recommend outpatient psychiatric evaluation to be referred by primary care physician. Time Attestation Discharge Coordination Time (in mins): 36 Quality: Safe Use of Opioids Does Pt have an Active Cancer Diagnosis on the Problem List?: No Quality: Stroke Does the patient have a stroke diagnosis?: No Physical Exam Vital Signs: Vital Signs: Last Vital Signs Temp 98.5 F 06/22/24 07:17 Pulse 77 06/22/24 07:17 Resp 18 06/22/24 07:17 BP 109/75 06/22/24 07:17 Pulse Ox 97 06/22/24 07:17 O2 Del Method Room Air 06/22/24 07:17 BMI result Body Mass Index 27.1 Const: Other: General awake alert x3, in no acute distress. Anicteric sclera Neck no JVD. CVS regular rate rhythm, Respiratory lungs clear to auscultation, no respiratory distress, no wheeze, no rhonchi. Gastrointestinal abdomen soft, bowel sounds audible, non tender, no guarding , no rigidity. Extremities no edema. Neuro non focal , no hand tremors Skin no rash Psych appropriate affect DS: Data Data Completed and Pending Completed studies during hospitalization [Text1]: Procedures Detoxification Services for Substance Abuse Treatment (06/03/24) Excision of Sigmoid Colon, Via Natural or Artificial Opening Endoscopic, Diagnostic (04/06/24) Excision of Stomach, Pylorus, Via Natural or Artificial Opening Endoscopic, Diagnostic (04/06/24) Labs on day of discharge: Laboratory Results - last 24 hr 06/22/24 05:32 Hold Purple Top SEE NOTE Magnesium 1.9 Discharge Plan Discharge Anticipated Discharge Date/Time: 06/22/24 09:41 Patient Disposition: Home, Self-Care Discharge Diagnosis: Alcohol withdrawal Hypo magnesemia Tobacco use disorder Referrals: Noe Graham MD [Primary Care Provider] - 1 Week Discharge Medications: New nicotine 21 mg/24 hr Patch 24 Hour 21 mg transdermal DAILY Qty: 28 0RF Continued gabapentin 600 mg tablet 600 mg PO QID pantoprazole 40 mg tablet,delayed release (DR/EC) 40 mg PO BID@0630,1630 pramipexole 0.25 mg tablet 0.5 mg PO TID sucralfate 1 gram Tablet 1 g PO QIDACHS Qty: 120 0RF hydroxyzine HCl 10 mg Tablet 10 mg PO Q6H PRN (Reason: Anxiety/Restlessness) Qty: 30 0RF trazodone 50 mg tablet 50 mg PO BEDTIME Qty: 30 0RF quetiapine 100 mg tablet 100 mg PO BEDTIME Qty: 30 0RF cetirizine 10 mg tablet 10 mg PO DAILY sertraline 100 mg tablet 100 mg PO DAILY thiamine HCl (vitamin B1) 100 mg tablet 100 mg PO DAILY buspirone 10 mg tablet 20 mg PO TID folic acid 1 mg tablet 1 mg PO DAILY Changed topiramate 25 mg capsule, sprinkle 25 mg PO BID Qty: 60 0RF Discharge Orders: Discharge Order (Routine); Ordered 06/22/24 Ordered By: Huang Gomez Diet: Advance to usual diet Activity on Discharge: As tolerated Stand Alone Forms: Patient Portal Discharge page Print Language: Burkinan Care Plan Goals: Alcohol use disorder strongly recommend to abstain from alcohol and call outpatient resources Resume all home medications as before Increase dose of Topamax to 25 mg twice daily Health Concerns: Tobacco use disorder continue nicotine patch Plan of Treatment: Outpatient follow-up with primary care physician will need referral to outpatient psychiatry and counseling for generalized anxiety disorder Assessment: As above
--- NOTE | 2024-06-22 11:17 | MHC.CM.PN ---
PT CLEARED TO NE HOME TODAY [facility] [place] [facility] HIS REQUEST
== END 2024-06-22 11:21 | disposition home or self-care (01) | DRG 775 ==
LOC: HO.ED 06-18 04:04 → HO.EDOVER 06-18 10:22 → HO.IMC 06-18 16:37
PROVIDERS: Emergency Medicine; Physician Assistant Medical; Admitting Provider Hospitalist; Emergency Provider Emergency Medicine; PCP Internal Medicine; Visit Provider Hospitalist
DX: F10.139 Alcohol abuse with withdrawal, unspecified (principal); F10.129 Alcohol abuse with intoxication, unspecified; D61.818 Other pancytopenia; K70.30 Alcoholic cirrhosis of liver without ascites; F17.210 Nicotine dependence, cigarettes, uncomplicated; K21.9 Gastro-esophageal reflux disease without esophagitis; F41.1 Generalized anxiety disorder; E83.42 Hypomagnesemia; Y90.8 Blood alcohol level of 240 mg/100 ml or more; Z71.6 Tobacco abuse counseling; Z79.899 Other long term (current) drug therapy
CPT/HCPCS: 36415; 80048; 80053; 80076; 80307; 81001; 81003; 82248; 82550; 83690; 83735; 84132; 84484; 85025; 93005; 99285; J0737; J1170; J1953; J2060; J2405; J2560; J2765; J3475; J3480; J7120

== ENCOUNTER → 2024-06-18 10:15 | Outpatient (BNV) | payer OTHER, SELFPAY | PROVIDERS: Admitting Provider Hospitalist; Emergency Provider Emergency Medicine; PCP Internal Medicine; Visit Provider Hospitalist | DX: F10.139 Alcohol abuse with withdrawal, unspecified (principal); F39 Unspecified mood [affective] disorder | CPT/HCPCS: 99223; 99232; 99239 ==

== ENCOUNTER → 2024-06-18 10:15 | Outpatient (BNV) | payer OTHER, SELFPAY | PROVIDERS: Admitting Provider Hospitalist; Emergency Provider Emergency Medicine; PCP Internal Medicine; Visit Provider Registered Nurse | DX: F41.1 Generalized anxiety disorder (principal); F10.90 Alcohol use, unspecified, uncomplicated | CPT/HCPCS: 99232 ==

== ENCOUNTER 2024-07-13 22:19 | Inpatient (IN) | payer OTHER, SELFPAY ==
--- NOTE | ~2024-07-13 | CT_ITS ---
EXAMINATION: CT ABDOMEN AND PELVIS WITH CONTRAST CLINICAL INFORMATION: Epigastric pain. COMPARISON: May 14, 2024. TECHNIQUE: Multidetector volumetric images were obtained from the superior aspect of the liver through the pubic symphysis following administration 85 mL of Omnipaque 350 intravenous contrast. Sagittal and coronal reformatted images were obtained on the technologist's workstation. Oral contrast: No This CT examination was performed using dose optimization techniques as appropriate, variously including the following: *Automated exposure control *Adjustment of mA and/or kV according to patient size (this includes techniques or standardized protocols for targeted exams where dose is matched to indication/reason for exam; i.e. extremities or head) *Use of iterative reconstruction technique DLP: 408 mGy-cm FINDINGS: LUNG BASES: The visualized lung bases are unremarkable. LIVER, GALLBLADDER, AND BILIARY TREE: The liver is of diminished attenuation and irregular in contour. There is no focal liver lesion or intrahepatic biliary duct dilatation. The gallbladder is unremarkable with no evidence of radiopaque gallstones, gallbladder wall thickening, or obvious pericholecystic inflammatory changes. PANCREAS: There is mild peripancreatic infiltration/fluid. SPLEEN: Unremarkable. ADRENAL GLANDS: Unremarkable. KIDNEYS AND URETERS: The kidneys are normal in size, shape, and attenuation. Bilateral renal calculi are again seen. There is no hydronephrosis. BLADDER: Unremarkable. GASTROINTESTINAL TRACT: The small and large bowel are unremarkable. The appendix is unremarkable. ABDOMINAL WALL: No significant hernia is appreciated. LYMPH NODES: Normal. VASCULAR: There is recanalization of the umbilical vein. PELVIC VISCERA: Unremarkable. OSSEOUS STRUCTURES: Unremarkable. CT/CT abdomen pelvis w IV con IMPRESSION: 1. Mild peripancreatic infiltration/fluid suggestive of acute pancreatitis. 2. Cirrhosis and evidence of portal hypertension. 3. Bilateral nonobstructing renal calculi. Fleischner guidelines were followed. Electronically signed by: Carlos Schroeder MD 07/14/2024 02:56 AM EDT
--- NOTE | ~2024-07-13 | CT_ITS ---
EXAMINATION: CT ABDOMEN AND PELVIS WITHOUT CONTRAST CLINICAL INFORMATION: Follow up pancreatitis COMPARISON: CT abdomen pelvis 07/14/2024 TECHNIQUE: Multidetector volumetric imaging was performed from the superior aspect of the liver through the pubic symphysis. Sagittal and coronal reformatted images were obtained on the technologist's workstation. This CT examination was performed using dose optimization techniques as appropriate, variously including the following: *Automated exposure control *Adjustment of mA and/or kV according to patient size (this includes techniques or standardized protocols for targeted exams where dose is matched to indication/reason for exam; i.e. extremities or head) *Use of iterative reconstruction technique DLP: 716 mGy-cm FINDINGS: LUNG BASES: There is new bibasilar atelectasis seen and trace pleural effusions. LIVER, GALLBLADDER, AND BILIARY TREE: The liver is enlarged measuring 25.2 cm in cephalocaudad dimension with decreased attenuation suggesting steatosis. No focal hepatic lesion or biliary ductal dilatation is present. The gallbladder contains high density which could be related to vicarious excretion from the CT scan 3 days ago. Ultrasound is recommended if cholelithiasis is suspected PANCREAS: Inflammatory changes still seen around the pancreas however slightly improved when compared to the prior study. For example, there is less fluid in the anterior pararenal space when compared to the prior study. There is a increase however in the small amount of free intraperitoneal fluid that is present. SPLEEN: The spleen is enlarged at about 15 cm. ADRENAL GLANDS: Unremarkable. KIDNEYS AND URETERS: The kidneys are normal in size, shape, and attenuation. There is bilateral nonobstructing nephrolithiasis with multiple punctate stones throughout both kidneys. No hydronephrosis or hydroureter seen. No perinephric stranding. No renal masses. BLADDER: Unremarkable. GASTROINTESTINAL TRACT: The small and large bowel are unremarkable. The appendix is unremarkable. ABDOMINAL WALL: No significant hernia is appreciated. LYMPH NODES: Normal. VASCULAR: Unremarkable. PELVIC VISCERA: The prostate and seminal vesicles are unremarkable. OSSEOUS STRUCTURES: Unremarkable. CT/CT abdomen pelvis wo IV con IMPRESSION: 1. Inflammatory changes around the pancreas are slightly improved when compared to the prior study. There is a increase in the small amount of free intraperitoneal fluid. 2. Incidental note made of enlarged fatty liver, splenomegaly, bilateral nonobstructing nephrolithiasis and new bibasilar atelectasis with new trace pleural effusions. Fleischner guidelines were followed. Electronically signed by: Zach Corrales MD 07/17/2024 11:34 AM EDT RP
--- NOTE | ~2024-07-13 | XR_ITS ---
EXAMINATION: XR CHEST CLINICAL INFORMATION: Chest pain. COMPARISON: None available. TECHNIQUE: Frontal view of the chest was obtained. FINDINGS: Lung volumes are low. The cardiomediastinal silhouette is normal. There is no focal lung consolidation or pleural effusion. The bony structures and the soft tissues are unremarkable. XR/XR chest 1V IMPRESSION: No active cardiopulmonary disease. Electronically signed by: Carlos Schroeder MD 07/13/2024 11:38 PM EDT
--- NOTE | 2024-07-13 22:20 | ECG_ITS ---
Test Reason : CHEST PAIN Blood Pressure : / mmHG Vent. Rate : 087 BPM Atrial Rate : 087 BPM P-R Int : 132 ms QRS Dur : 086 ms QT Int : 382 ms P-R-T Axes : 023 004 025 degrees QTc Int : 459 ms Normal sinus rhythm Normal ECG When compared with ECG of 18-JUN-2024 04:14, No significant changes seen Referred By: Erasmo Lombardi Electronically Signed By:TRAV KEBEDE
[2024-07-13 22:21] VITALS: BP 127/68; PULSE 72; O2SAT 98
[2024-07-13 22:22] VITALS: BP 130/90; PULSE 84; RESP 14; TEMP 36.6; O2SAT 99; BMI 25.2
--- NOTE | 2024-07-13 22:26 | ECG_ITS ---
Test Reason : REPEAT CHEST PAIN Blood Pressure : / mmHG Vent. Rate : 083 BPM Atrial Rate : 083 BPM P-R Int : 132 ms QRS Dur : 094 ms QT Int : 420 ms P-R-T Axes : 014 005 018 degrees QTc Int : 493 ms Normal sinus rhythm Prolonged QT Abnormal ECG When compared to the previous EKG of jul 13, QT prolonged. Referred By: Erasmo Lombardi Electronically Signed By:TRAV KEBEDE
[2024-07-13 22:51] LABS: Eosinophils Percent Auto 0.2 % (0-4); Hemoglobin 12.6 g/dl (14.0-18.0); SCAN SMEAR FLAG 1
[2024-07-13 22:53] LABS: Basophils Percent Auto 0.6 % (0-2); Hematocrit 37.5 % (42.0-52.0); Imm Gran Abs Auto 0.02 X10*3/uL (0.00-0.03); Imm Gran Pct Auto 0.4 % (0.0-0.4); Lymphocytes Absolute Auto 0.7 X10*3/uL (1.2-4.9); Lymphocytes Percent Auto 12.8 % (20-40); MANUAL DIFF FLAG SCAN; Mean Corpuscular HGB Conc 33.6 g/dl (31.0-36.0); Mean Corpuscular Hemoglobin 27.4 pg (27.0-33.0); Mean Corpuscular Volume 81.5 fL (80.0-98.0); Monocytes Absolute Auto 0.5 X10*3/uL (0.1-1.2); Monocytes Percent Auto 10.3 % (2-11); Neutrophils Absolute Auto 3.9 x10*3/uL (2.0-8.3); Neutrophils Percent Auto 75.7 % (45-73); PLT ABN DIST 1; Red Cell Distribution Width 19.9 % (11.0-16.0); White Blood Count 5.2 X10*3/uL (4.8-10.8)
[2024-07-13 23:00] LABS: Alanine Aminotransferase 212 U/L (0-40); Albumin Level 4.3 g/dL (3.5-5.0); Alkaline Phosphatase 182 U/L (39-117); Anion Gap 22 (12-20); Aspartate Amino Transferase 362 U/L (5-37); Bilirubin Total 1.8 mg/dL (0.0-1.0); Blood Urea Nitrogen 10 mg/dL (9-16); Calcium 8.8 mg/dL (8.4-10.2); Carbon Dioxide 22 mmol/L (22-29); Chloride 100 mmol/L (96-108); Estimated Glomerular Filt Rate > 60; Ethanol 321 mg/dL; Glucose Random 130 mg/dL (60-115); Potassium 3.3 mmol/L (3.3-5.1); Sodium 141 mmol/L (135-145); Total Protein 7.7 g/dL (6.5-8.0)
[2024-07-13 23:06] LABS: Troponin-I High Sensitivity < 2.7 ng/L (<3.5-35.0)
[2024-07-13 23:10] LABS: Mean Platelet Volume 10.5 fL (9.4-12.4); Platelet Count 61 X10*3/uL (160-400); SLIDE REVIEW VERIFIED
[2024-07-13] MEDS: ondansetron HCL 4 MG/2 ML VIAL IVPUSH (23:26)
[2024-07-14] VITALS (13 sets, daily range): BP systolic 124–174; BP diastolic 80–110; PULSE 67–93; RESP 12–21; TEMP 36.3–36.9; O2SAT 96–100; BMI 26.9
--- NOTE | 2024-07-14 00:11 | ED_ITS ---
HPI - Chest Pain General Chief Complaint: Chest Pain Stated Complaint: CHEST PAIN Time Seen by Provider: 07/14/24 00:10 History of Present Illness ED Provider: Harjit WAGGONER narrative: 33-year-old male with past medical history of alcohol use disorder, alcohol withdrawal/withdrawal seizures, pancreatitis, electrolyte abnormalities presenting for vomiting and chest pain. Patient states that his chest pain began Sunday evening after used cocaine. He has since been experiencing sharp substernal chest pain. He denies diaphoresis and shortness of breath. Patient also endorses drinking a large amount of alcohol this past evening and he began vomiting nonbloody nonbilious emesis a few hours prior to presenting to the emergency department. Patient was given aspirin and nitro from EMS Related Data Home Medications ?Medication ?Instructions ?Recorded ?Confirmed buspirone 10 mg tablet 20 mg PO TID 04/07/24 06/18/24 cetirizine 10 mg tablet 10 mg PO DAILY 04/07/24 06/18/24 folic acid 1 mg tablet 1 mg PO DAILY 04/07/24 06/18/24 sertraline 100 mg tablet 100 mg PO DAILY 04/07/24 06/18/24 thiamine HCl (vitamin B1) 100 mg 100 mg PO DAILY 04/07/24 06/18/24 tablet gabapentin 600 mg tablet 600 mg PO QID 05/03/24 06/18/24 pantoprazole 40 mg tablet,delayed 40 mg PO BID@0630,1630 05/03/24 06/18/24 release pramipexole 0.25 mg tablet 0.5 mg PO TID 05/10/24 06/18/24 Previous Rx's ?Medication ?Instructions ?Recorded hydroxyzine HCl 10 mg tablet 10 mg PO Q6H PRN 05/17/24 Anxiety/Restlessness #30 tabs quetiapine 100 mg tablet 100 mg PO BEDTIME #30 tabs 05/17/24 sucralfate 1 gram tablet 1 g PO QIDACHS #120 tabs 05/17/24 trazodone 50 mg tablet 50 mg PO BEDTIME #30 tabs 05/17/24 nicotine 21 mg/24 hr daily 21 mg transdermal DAILY #28 ea 06/22/24 transdermal patch topiramate 25 mg sprinkle capsule 25 mg PO BID #60 caps 06/22/24 Allergies Allergy/AdvReac Type Severity Reaction Status Date / Time Penicillins Allergy Unknown CHILDHOOD Verified 07/13/24 22:23 ALLERGY Review of Systems 2 Review of Systems: Patient endorses chest pain, abdominal pain nausea and vomiting Patient denies shortness of breath, diaphoresis, urinary symptoms, diarrhea, fevers, chills Yes all other systems are reviewed and are negative [facility] Past Medical History Medical History Meningitis spinal Alcoholic cirrhosis Seizure Mood disorder Alcohol use disorder Surgical History [place] teeth extracted H/O colonoscopy No pertinent past surgical history Social History Social History Household Members: Friend(s) Household Members Other:: freind Housing: Apartment Housing Other:: Roommate Do you presently have visiting nurse or other home services: Yes Alcohol intake: current Alcohol intake frequency: 3 or more drinks per day Alcohol type: hard liquor Comment: OOB independently, refuses all fall risk protocols Patient Tobacco Use Status: Current everyday Tobacco user Tobacco use type: Cigarette Cigarette Packs Per Day: 1 Cigarettes Per Day: 20.0 Years Smoked: 15 Smoked in Last 30 Days: Yes e-Cigarette/Vaping Use: Never Used Second Hand Smoke Exposure: Yes Substance Use Type: Crack/Cocaine and Marijuana Advance Directives: Yes Advance Directives on File: Yes Advance Directives Date on File: 06/23/24 Do you have a plan to hurt others: No Plan service: No Physical Exam 2 Vital Signs: Vital Signs: Last Vital Signs Temp 98.4 F 07/14/24 00:50 Pulse 85 07/14/24 00:50 Resp 21 H 07/14/24 00:50 BP 124/84 07/14/24 00:50 Pulse Ox 99 07/14/24 00:50 O2 Del Method Room Air 07/14/24 00:50 BMI result Body Mass Index 25.2 Patient is in distress dry heaving Lungs clear to auscultation bilaterally; normal S1-S2 regular rate and rhythm Epigastric tenderness to palpation; abdomen otherwise soft and nondistended Medications Administered Discontinued Medications Generic Name Dose Route Start Last Admin Trade Name Freq PRN Reason Stop Dose Admin Iohexol 85 ml 07/14/24 01:51 07/14/24 01:51 Iohexol 350 Mg/Ml 100 Ml Infus..Btl IV 07/14/24 01:52 85 ml ONCE ONE Administration Lorazepam 0.25 mg 07/14/24 00:32 07/14/24 00:40 Lorazepam 2 Mg/Ml Vial IVPUSH 07/14/24 00:33 0.25 mg ONCE ONE Administration Ondansetron HCl 4 mg 07/13/24 23:21 07/13/24 23:26 Ondansetron Hcl 4 Mg/2 Ml Vial IVPUSH 07/13/24 23:22 4 mg ONCE ONE Administration Ondansetron HCl 4 mg 07/14/24 00:29 07/14/24 00:34 Ondansetron Hcl 4 Mg/2 Ml Vial IVPUSH 07/14/24 00:30 4 mg ONCE ONE Administration Medical Decision Making Medical Decision Making [facility] Narrative: This is a 33-year-old male presenting for chest pain and vomiting. I am concerned for cocaine associated chest pain, pancreatitis, biliary disease, intoxication - less likely ACS, PE given low risk per heart score and patient Percs out - patient was given aspirin and nitroglycerin by EMS; iron him for Zofran and a small touch up benzos in case chest pain is secondary to cocaine use - labs notable for stable H&H, low platelets, mild anion gap, elevated LFTs, alkalotic pH - no signs of widened mediastinum or pneumo on my interpretation of chest x-ray; radiology impression is negative - CT abdomen pelvis ordered to assess for obstructing gall stone - pt signed out to night provider Differential Diagnosis Differential Diagnoses: The differential diagnosis associated with the presentation includes Cocaine associated chest pain, pancreatitis, biliary disease, intoxication Lab Data 07/13/24 22:35 07/13/24 22:35 Labs: Lab Results 07/13/24 07/14/24 07/14/24 Range/Units 22:35 00:44 00:48 WBC 5.2 (4.8-10.8) X10*3/uL RBC 4.60 (4.60-5.80) X10*6/uL Hgb 12.6 L (14.0-18.0) g/dl Hct 37.5 L (42.0-52.0) % MCV 81.5 (80.0-98.0) fL MCH 27.4 (27.0-33.0) pg MCHC 33.6 (31.0-36.0) g/dl RDW 19.9 H (11.0-16.0) % Plt Count 61 L D (160-400) X10*3/uL MPV 10.5 (9.4-12.4) fL Immature Gran % (Auto) 0.4 (0.0-0.4) % Neut % (Auto) 75.7 H (45-73) % Lymph % (Auto) 12.8 L (20-40) % Allen % (Auto) 10.3 (2-11) % Eos % (Auto) 0.2 (0-4) % Baso % (Auto) 0.6 (0-2) % Lymph # (Auto) 0.7 L (1.2-4.9) X10*3/uL Allen # (Auto) 0.5 (0.1-1.2) X10*3/uL Eos # (Auto) 0.0 (0.0-0.4) X10*3/uL Baso # (Auto) 0.0 (0.0-0.2) X10*3/uL Abs Immat Gran (auto) 0.02 (0.00-0.03) X10*3/uL Absolute Neuts (auto) 3.9 (2.0-8.3) x10*3/uL Absolute Nucleated RBC 0.000 (0.0-0.012) X10*3/uL Nucleated RBC % (auto) 0.0 (0.0-0.2) /100WBC Smear Tech's Comments VERIFIED PT 12.3 (10.9-12.4) SEC INR 1.1 (0.9-1.1) VBG pH 7.54 H (7.32-7.43) VBG pCO2 25 mmHg VBG pO2 59 mmHg VBG HCO3 22 (22-26) mmol/L VBG O2 Saturation 89.0 % VBG Base Excess 1.3 mmol/L Sodium 141 (135-145) mmol/L Potassium 3.3 (3.3-5.1) mmol/L Chloride 100 (96-108) mmol/L Carbon Dioxide 22 (22-29) mmol/L Anion Gap 22 H (12-20) BUN 10 (9-16) mg/dL Creatinine 0.89 (0.5-1.4) mg/dL Estim Creat Clear Calc 95.0 Estimated GFR > 60 Random Glucose 130 H (60-115) mg/dL Calcium 8.8 (8.4-10.2) mg/dL Total Bilirubin 1.8 H (0.0-1.0) mg/dL AST 362 H (5-37) U/L ALT 212 H (0-40) U/L Alkaline Phosphatase 182 H (39-117) U/L Troponin I High Sens < 2.7 < 2.7 (<3.5-35.0) ng/L Total Protein 7.7 (6.5-8.0) g/dL Albumin 4.3 (3.5-5.0) g/dL Lipase 389 H (8-78) U/L Ethyl Alcohol 321 H* mg/dL Discharge Plan Discharge Clinical Impression: Chest pain, Abdominal pain, Alcohol intoxication Prescriptions: No Action gabapentin 600 mg tablet 600 mg PO QID pantoprazole 40 mg tablet,delayed release (DR/EC) 40 mg PO BID@0630,1630 pramipexole 0.25 mg tablet 0.5 mg PO TID sucralfate 1 gram Tablet 1 g PO QIDACHS Qty: 120 0RF hydroxyzine HCl 10 mg Tablet 10 mg PO Q6H PRN (Reason: Anxiety/Restlessness) Qty: 30 0RF trazodone 50 mg tablet 50 mg PO BEDTIME Qty: 30 0RF quetiapine 100 mg tablet 100 mg PO BEDTIME Qty: 30 0RF cetirizine 10 mg tablet 10 mg PO DAILY sertraline 100 mg tablet 100 mg PO DAILY thiamine HCl (vitamin B1) 100 mg tablet 100 mg PO DAILY buspirone 10 mg tablet 20 mg PO TID folic acid 1 mg tablet 1 mg PO DAILY nicotine 21 mg/24 hr Patch 24 Hour 21 mg transdermal DAILY Qty: 28 0RF topiramate 25 mg capsule, sprinkle 25 mg PO BID Qty: 60 0RF Print Language: Danish
[2024-07-14] MEDS: ondansetron HCL 4 MG/2 ML VIAL IVPUSH ×3 (00:34→18:02)
[2024-07-14] MEDS: LORazepam 2 MG/ML VIAL 0.25 MG IVPUSH (00:40)
[2024-07-14 00:53] LABS: Venous Blood Gas Refer to POC result
[2024-07-14 00:54] LABS: INTERNATIONAL NORM RATIO 1.1 (0.9-1.1); Prothrombin Time 12.3 SEC (10.9-12.4)
[2024-07-14 00:54] LABS: VBG Base Excess 1.3 mmol/L; VBG HCO3 22 mmol/L (22-26); VBG pCO2 25 mmHg; VBG pH 7.54 (7.32-7.43); VBG pO2 59 mmHg
[2024-07-14 01:02] LABS: Lipase 389 U/L (8-78)
[2024-07-14 01:22] LABS: Troponin-I High Sensitivity < 2.7 ng/L (<3.5-35.0)
[2024-07-14] MEDS: iohexoL 350 MG/ML 100 ML INFUS..BTL 85 ML IV (01:51)
[2024-07-14] MEDS: Morphine Sulfate 4 MG/ML CARTRIDGE IVPUSH ×2 (02:40→07:52)
[2024-07-14] MEDS: Metoclopramide HCl 10 MG/2 ML VIAL 5 MG IVPUSH (02:40)
--- NOTE | 2024-07-14 05:14 | P.HPHOSP_ITS ---
History of Present Illness Date of Service: 07/14/24 Chief Complaint: Abdominal pain This is a 33-year-old male with pertinent history of alcohol use disorder with history of alcohol withdrawal seizures and alcoholic pancreatitis, mood disorder, alcoholic liver cirrhosis, gastroesophageal reflux disease, tobacco use disorder, polysubstance use disorder who presents to the emergency department for evaluation of abdominal pain and vomiting. Patient states symptoms started 2 days prior to presentation. He had sudden onset upper abdominal pain which radiated to back. It was constant and without any relieving factors. Patient was unable to tolerate p.o. intake. Had multiple episodes of nausea and nonbloody emesis. Last alcohol use was on the day of presentation. He last used cocaine intranasally 2 days prior to presentation. Continues to smoke cigarettes. No fever, chills, cough, chest pain, shortness of breath, palpitations, changes in urinary or bowel habits. In the emergency department, lipase elevated and imaging concerning for acute pancreatitis. Review of Systems 2 Constitutional: Constitutional: Reports poor appetite Cardiovascular: Cardiovascular: Reports no additional cardiovascular complaints Respiratory: Respiratory: Reports no additional respiratory complaints Gastrointestinal: Gastrointestinal: Reports abdominal pain, Reports nausea and Reports vomiting Genitourinary: Genitourinary: Reports no additional male genitourinary complaints [facility] Medical History Meningitis spinal Alcoholic cirrhosis Seizure Mood disorder Alcohol use disorder Pertinent family history: No family history of early CAD Surgical History [place] teeth extracted H/O colonoscopy No pertinent past surgical history Social History Household Members: Friend(s) Household Members Other:: freind Housing: Apartment Housing Other:: Roommate Do you presently have visiting nurse or other home services: Yes Alcohol intake: current Alcohol intake frequency: 3 or more drinks per day Alcohol type: hard liquor Comment: OOB independently, refuses all fall risk protocols Patient Tobacco Use Status: Current everyday Tobacco user Tobacco use type: Cigarette Cigarette Packs Per Day: 1 Cigarettes Per Day: 20.0 Years Smoked: 15 Smoked in Last 30 Days: Yes e-Cigarette/Vaping Use: Never Used Second Hand Smoke Exposure: Yes Substance Use Type: Crack/Cocaine and Marijuana Advance Directives: Yes Advance Directives on File: Yes Advance Directives Date on File: 06/23/24 Do you have a plan to hurt others: No Plan service: No Meds Allergies Allergy/AdvReac Type Severity Reaction Status Date / Time Penicillins Allergy Unknown CHILDHOOD Verified 07/13/24 22:23 ALLERGY Active Medications: Current Medications Acetaminophen (Acetaminophen 325 Mg Tablet) 650 mg PO Q6H PRN PRN Reason: Pain, Mild (Pain Scale 1-3), fever or headache Calcium Carbonate (Calcium Carbonate 750 Mg Tab.Chew) 750 mg PO Q4H PRN PRN Reason: Heartburn Sodium Chloride (Ns) 1,000 mls @ 999 mls/hr IV .Q1H1M ONE Stop: 07/14/24 06:01 Melatonin (Melatonin 3 Mg Tablet) 6 mg PO BEDTIME PRN PRN Reason: Insomnia Sodium Chloride (0.9 % Sodium Chloride Flush 3 Ml Syringe) 3 ml IVFLUSH QSHIFT [facility] Home Medications ?Medication ?Instructions ?Recorded ?Confirmed ?Last Taken ?Type buspirone 10 mg tablet 20 mg PO TID 04/07/24 06/18/24 06/17/24 History cetirizine 10 mg tablet 10 mg PO DAILY 04/07/24 06/18/24 06/17/24 History folic acid 1 mg tablet 1 mg PO DAILY 04/07/24 06/18/24 06/17/24 History sertraline 100 mg tablet 100 mg PO DAILY 04/07/24 06/18/24 06/17/24 History thiamine HCl (vitamin B1) 100 mg 100 mg PO DAILY 04/07/24 06/18/24 06/17/24 History tablet gabapentin 600 mg tablet 600 mg PO QID 05/03/24 06/18/24 06/17/24 History pantoprazole 40 mg tablet,delayed 40 mg PO BID@0630,1630 05/03/24 06/18/24 06/17/24 History release pramipexole 0.25 mg tablet 0.5 mg PO TID 05/10/24 06/18/24 06/17/24 History Physical Exam 2 Vital Signs and Narrative: Vital Signs: Last Vital Signs Temp 98.3 F 07/14/24 04:08 Pulse 78 07/14/24 04:08 Resp 16 07/14/24 04:08 BP 133/94 H 07/14/24 04:08 Pulse Ox 100 07/14/24 04:08 O2 Del Method Room Air 07/14/24 04:08 BMI result Body Mass Index 25.2 Middle-aged male lying in bed in no distress Neck supple, no JVD Regular rate and rhythm, S1-S2 heard Regular breath sounds bilaterally, no wheezing or crackles appreciated Abdomen with epigastric tenderness, no rigidity Patient is awake, alert and oriented to self, place, time and person ; no focal motor deficit Psych: Normal mood No pedal edema Results Labs 07/13/24 22:35 07/13/24 22:35 Labs: Laboratory Results - last 24 hr 07/13/24 07/14/24 07/14/24 22:35 00:44 00:48 MCV 81.5 MCH 27.4 MCHC 33.6 RDW 19.9 H Plt Count 61 L D MPV 10.5 Immature Gran % (Auto) 0.4 Neut % (Auto) 75.7 H Lymph % (Auto) 12.8 L [place] % (Auto) 10.3 Eos % (Auto) 0.2 Baso % (Auto) 0.6 Lymph # (Auto) 0.7 L [place] # (Auto) 0.5 Eos # (Auto) 0.0 Baso # (Auto) 0.0 Abs Immat Gran (auto) 0.02 Absolute Neuts (auto) 3.9 Absolute Nucleated RBC 0.000 Nucleated RBC % (auto) 0.0 Smear Tech's Comments VERIFIED PT 12.3 INR 1.1 VBG pH 7.54 H VBG pCO2 25 VBG pO2 59 VBG HCO3 22 VBG O2 Saturation 89.0 VBG Base Excess 1.3 Anion Gap 22 H Estim Creat Clear Calc 95.0 Estimated GFR > 60 Random Glucose 130 H Calcium 8.8 Total Bilirubin 1.8 H AST 362 H ALT 212 H Alkaline Phosphatase 182 H Troponin I High Sens < 2.7 < 2.7 Total Protein 7.7 Albumin 4.3 Lipase 389 H Ethyl Alcohol 321 H* Imaging Radiologist's Impressions: Impressions Chest X-Ray 07/13/24 22:26 IMPRESSION: No active cardiopulmonary disease. Electronically signed by: Carlos Schroeder MD 07/13/2024 11:38 PM EDT Abdomen/Pelvis CT 07/14/24 01:40 IMPRESSION: 1. Mild peripancreatic infiltration/fluid suggestive of acute pancreatitis. 2. Cirrhosis and evidence of portal hypertension. 3. Bilateral nonobstructing renal calculi. Fleischner guidelines were followed. Electronically signed by: Carlos Schroeder MD 07/14/2024 02:56 AM EDT RP Assessment and Plan (1) Alcoholic pancreatitis: Status: Acute Plan This is a 33-year-old male with pertinent history of alcohol use disorder with history of alcohol withdrawal seizures and alcoholic pancreatitis, mood disorder, alcoholic liver cirrhosis, gastroesophageal reflux disease, tobacco use disorder, polysubstance use disorder who presents to the emergency department for evaluation of abdominal pain and vomiting. #. Acute alcoholic pancreatitis: Will admit patient and continue IV crystalloid resuscitation. IV opioids p.r.n. for analgesia. NPO for bowel rest. #. Alcohol use disorder with concern for withdrawal: Initiated phenobarb protocol. Patient is on thiamine and folic acid. Consulting Addiction Team. CIWA Q shift #. Tobacco use disorder: Counseled regarding cessation. Nicotine patch while patient is in the hospital #. Polysubstance use disorder: Monitor for withdrawal. Addiction Team as above #. Alcoholic liver cirrhosis: Outpatient GI follow-up. Has chronically elevated liver transaminases and alk-phos. If they continue to go up, consider gallbladder ultrasound to look at CBD #. Thrombocytopenia due to cirrhosis: Avoid prophylactic Lovenox #. Gastroesophageal reflux disease: On PPI #. Mood disorder: Continue home mood stabilizers Med rec pending DVT prophylaxis: Mechanical Full code Admit as inpatient and will require two night minimum hospital stay for alcohol withdrawal, management of acute pancreatitis (as above), which is not possible in a lesser acute setting. Quality Stroke Does the patient have a stroke diagnosis?: No VTE Prior VTE?: No VTE Risk Level:: Medical - moderate - high VTE Device Contraindication: Treatment Not Indicated VTE Drug Contraindication: N/A - Med Ordered
[2024-07-14] MEDS: Thiamine HCL 100 MG in 0.9 % Sodium Chloride 100 ML 202 MG IV (05:25)
[2024-07-14] MEDS: 0.9 % Sodium Chloride 1,000 ML 999 ML IV (05:25)
[2024-07-14] MEDS: HYDROmorphone HCl 1 MG/ML SYRINGE IVPUSH (05:26)
[2024-07-14] MEDS: Enoxaparin Sodium 40 MG/0.4 ML SYRINGE SUBCUT (05:26)
[2024-07-14] MEDS: PHENobarbitaL sodium 130 MG/ML IM ONCE 273 MG IM (05:53)
[2024-07-14] MEDS: Lactated Ringers 1,000 ML 125 ML IVCONT ×3 (06:02→22:57)
--- NOTE | 2024-07-14 07:00 | PC.NURSE ---
Report taken from Sofi Patterson RN
--- NOTE | 2024-07-14 07:54 | PM.EVENT ---
Event Note Date of Service: 07/14/24 Event Note: 33/m h/o alcohol use disorder w/ h/o alcohol withdrawal seizures and alcoholic pancreatitis, mood disorder, alcoholic liver cirrhosis, tobacco use disorder, polysubstance use disorder who presents to the emergency department for evaluation of abdominal pain and vomiting and found to have acute alcoholic pancreatitis Acute alcoholic pancreatitis -IVF -morphine for pain -NPO and advance diet as pain improve Alcohol use disorder with concern for withdrawal -phenobarb protocol -addiction med consult -folic and thiamine replacement -abstience discussed Tobacco use disorder -NRT -Cessation discussed Polysubstance use disorder, watch for withdrawal -addiction med consult -cessation discussed Alcoholic liver cirrhosis: Outpatient GI follow-up. Has chronically elevated liver transaminases and alk-phos. If they continue to go up, consider gallbladder ultrasound to look at CBD Thrombocytopenia due to cirrhosis -Avoid prophylactic Lovenox GERD PPI Mood disorder: Continue home mood stabilizers DVT prophylaxis: Mechanical Full code Time Spent With Patient Time: Total time managing care of this patient today ____ minutes.
--- NOTE | 2024-07-14 07:57 | PC.NURSE ---
Pt. VSS. C/o pain- medicated per MAR with PRN meds. and scheduled meds. Put on custodial worker and provided ice chips. Call gaspar within reach. Pt. offers no concerns or complaints at this time.
[2024-07-14] MEDS: Nicotine 21 MG PATCH.TD24 TRANSDERMA (08:06)
[2024-07-14] MEDS: PHENobarbitaL sodium 130 MG/ML VIAL IM Q3Hx2 205 MG IM ×2 (08:15→11:21)
--- NOTE | 2024-07-14 08:51 | PHA.MEDREC ---
Pharmacy Consult ? Medication Reconciliation Pharmacy has completed the medication reconciliation. Patient drowsy but had bag of RX bottles at bedside. Verified he does not use sucralfate, hydroxyzine, or nicotine patches.
[2024-07-14] MEDS: HYDROmorphone HCl 0.5 MG/0.5 ML SYRINGE IVPUSH ×3 (10:35→18:49)
[2024-07-14] MEDS: Loratadine 10 MG TABLET PO (10:37)
[2024-07-14] MEDS: Sertraline HCL 100 MG TABLET PO (10:37)
[2024-07-14] MEDS: busPIRone HCl 10 MG TABLET 20 MG PO ×3 (10:37→21:19)
[2024-07-14] MEDS: Thiamine HCL 100 MG TABLET PO (10:37)
[2024-07-14] MEDS: Folic Acid 1 MG TABLET PO (10:38)
[2024-07-14] MEDS: Topiramate 25 MG TABLET PO ×2 (10:38→21:19)
[2024-07-14] MEDS: Pramipexole Di-HCL 0.25 MG TABLET 0.5 MG PO ×2 (14:52→21:18)
[2024-07-14] MEDS: Omeprazole 20 MG CAPSULE.DR PO (14:53)
--- NOTE | 2024-07-14 20:28 | PC.NURSE ---
Assumed care of patient at 19:00. Pt requesting medication however, patient was dry heaving when underwriter solicitation director arrived at pt's room with medications, pt requesting nausea medications though not yet due. CIWA score 13 (see assessment for details). Covering Dr. Evens Garrett notified of CIWA score and need for additional antiemetic orders. Awaiting orders at this time. Seizure and aspiration precautions in place. High fall safety measures in place. Plan of care continues.
[2024-07-14] MEDS: Prochlorperazine Edisylate 10 MG/2 ML VIAL IVPUSH (20:41)
[2024-07-14] MEDS: 0.9 % Sodium Chloride Flush 3 ML SYRINGE IVFLUSH (20:42)
[2024-07-14] MEDS: traZODone HCL 50 MG TABLET PO (21:18)
[2024-07-14] MEDS: Acetaminophen 325 MG TABLET 650 MG PO (21:19)
[2024-07-14] MEDS: PHENobarbitaL 15 MG TABLET 45 MG PO (21:19)
[2024-07-14] MEDS: QUEtiapine Fumarate 100 MG TABLET PO (21:19)
[2024-07-14 23:49] LABS: Anion Gap 18 (12-20); Blood Urea Nitrogen 7 mg/dL (9-16); Calcium 8.2 mg/dL (8.4-10.2); Carbon Dioxide 23 mmol/L (22-29); Chloride 97 mmol/L (96-108); Creatinine Clr Calc Pharmacy 120.7; Estimated Glomerular Filt Rate > 60; Glucose Random 83 mg/dL (60-115); Potassium 3.5 mmol/L (3.3-5.1); Sodium 134 mmol/L (135-145)
[2024-07-15] VITALS (7 sets, daily range): BP systolic 114–148; BP diastolic 72–103; PULSE 78–91; RESP 14–18; TEMP 36.1–37.6; O2SAT 93–97
[2024-07-15] MEDS: HYDROmorphone HCl 0.5 MG/0.5 ML SYRINGE IVPUSH ×2 (00:24→05:20)
[2024-07-15] MEDS: Enoxaparin Sodium 40 MG/0.4 ML SYRINGE SUBCUT (05:20)
[2024-07-15] MEDS: Omeprazole 20 MG CAPSULE.DR PO ×2 (05:21→18:19)
[2024-07-15] MEDS: Lactated Ringers 1,000 ML 125 ML IVCONT ×3 (05:55→21:51)
[2024-07-15 06:58] LABS: Imm Gran Abs Auto 0.03 X10*3/uL (0.00-0.03); Imm Gran Pct Auto 0.6 % (0.0-0.4); MANUAL DIFF FLAG SCAN; SCAN SMEAR FLAG 1
[2024-07-15 07:00] LABS: Basophils Percent Auto 0.4 % (0-2); Eosinophils Percent Auto 0.2 % (0-4); Hematocrit 32.4 % (42.0-52.0); Hemoglobin 10.8 g/dl (14.0-18.0); Lymphocytes Absolute Auto 0.4 X10*3/uL (1.2-4.9); Lymphocytes Percent Auto 6.7 % (20-40); Mean Corpuscular HGB Conc 33.3 g/dl (31.0-36.0); Mean Corpuscular Hemoglobin 27.7 pg (27.0-33.0); Mean Corpuscular Volume 83.1 fL (80.0-98.0); Monocytes Absolute Auto 0.5 X10*3/uL (0.1-1.2); Monocytes Percent Auto 9.3 % (2-11); Neutrophils Absolute Auto 4.5 x10*3/uL (2.0-8.3); Neutrophils Percent Auto 82.8 % (45-73); PLT ABN DIST 1; Red Cell Distribution Width 20.2 % (11.0-16.0); White Blood Count 5.4 X10*3/uL (4.8-10.8)
[2024-07-15 07:08] LABS: Alanine Aminotransferase 135 U/L (0-40); Albumin Level 3.5 g/dL (3.5-5.0); Alkaline Phosphatase 134 U/L (39-117); Anion Gap 19 (12-20); Aspartate Amino Transferase 202 U/L (5-37); Bilirubin Total 2.3 mg/dL (0.0-1.0); Blood Urea Nitrogen 8 mg/dL (9-16); Calcium 8.6 mg/dL (8.4-10.2); Carbon Dioxide 22 mmol/L (22-29); Chloride 96 mmol/L (96-108); Creatinine Clr Calc Pharmacy 111.8; Estimated Glomerular Filt Rate > 60; Glucose Random 78 mg/dL (60-115); Potassium 3.5 mmol/L (3.3-5.1); Sodium 133 mmol/L (135-145); Total Protein 6.4 g/dL (6.5-8.0)
[2024-07-15 07:13] LABS: Alanine Aminotransferase 136 U/L (0-40); Albumin Level 3.5 g/dL (3.5-5.0); Alkaline Phosphatase 136 U/L (39-117); Aspartate Amino Transferase 203 U/L (5-37); Bilirubin Direct 1.6 mg/dL (0.0-0.5); Bilirubin Total 2.4 mg/dL (0.0-1.0); Total Protein 6.4 g/dL (6.5-8.0)
[2024-07-15 07:16] LABS: Platelet Count 26 X10*3/uL (160-400); SLIDE REVIEW VERIFIED
[2024-07-15 07:27] LABS: Lipase 382 U/L (8-78)
--- NOTE | 2024-07-15 09:14 | P.PNIM_ITS ---
Subjective Subjective Date of Service: 07/15/24 Interval History: Follow-up on acute pancreatitis. He has persistent pain 05/10, lipase level remains elevated Physical Exam 2 Vital Signs: Vital Signs: Last Vital Signs Temp 99.6 F 07/15/24 08:00 Pulse 90 07/15/24 08:00 Resp 16 07/15/24 08:00 BP 148/103 H 07/15/24 08:00 Pulse Ox 97 07/15/24 08:00 O2 Del Method Room Air 07/15/24 08:00 BMI result Body Mass Index 26.9 Const: Other: General: AO X 3, no acute distress Resp: CTA bilateral CVS: S1,S2,RRR GI: +BS, epigastric tenderness, no distention Skin: No rash Neuro: motor grossly intact Psych: appropriate affect Objective Data Active Medications Acetaminophen (Acetaminophen 325 Mg Tablet) 650 mg PO Q6H PRN PRN Reason: Pain, Mild (Pain Scale 1-3), fever or headache Last Admin: 07/14/24 21:19 Dose: 650 mg Documented By: HUNTER Buspirone HCl (Buspirone Hcl 10 Mg Tablet) 20 mg PO TID [facility] Last Admin: 07/14/24 21:19 Dose: 20 mg Documented By: HUNTER Calcium Carbonate (Calcium Carbonate 750 Mg Tab.Chew) 750 mg PO Q4H PRN PRN Reason: Heartburn Enoxaparin Sodium (Enoxaparin Sodium 40 Mg/0.4 Ml Syringe) 40 mg SUBCUT Q24H [facility] Last Admin: 07/15/24 05:20 Dose: 40 mg Documented By: HUNTER Folic Acid (Folic Acid 1 Mg Tablet) 1 mg PO DAILY [facility] Last Admin: 07/14/24 10:38 Dose: 1 mg Documented By: CLARE Hydromorphone HCl (Hydromorphone Hcl 0.5 Mg/0.5 Ml Syringe) 1 mg IVPUSH Q4H PRN; Protocol PRN Reason: Pain, Severe (Pain Scale 7-10) Lactated Ringer's (Lr) 1,000 mls @ 125 mls/hr IVCONT .Q8H [facility] Last Admin: 07/15/24 05:55 Dose: 125 mls/hr Documented By: HUNTER Loratadine (Loratadine 10 Mg Tablet) 10 mg PO DAILY [facility] Last Admin: 07/14/24 10:37 Dose: 10 mg Documented By: CLARE Magnesium Hydroxide (Milk Of Magnesia 30 Ml Oral.Susp) 30 ml PO DAILY PRN PRN Reason: Constipation Melatonin (Melatonin 3 Mg Tablet) 6 mg PO BEDTIME PRN PRN Reason: Insomnia Nicotine (Nicotine 21 Mg Patch.Td24) 21 mg TRANSDERMA DAILY [facility] Last Admin: 07/14/24 08:06 Dose: 21 mg Documented By: MADELYN Omeprazole (Omeprazole 20 Mg Capsule.Dr) 20 mg PO BID@0630,1630 [facility] Last Admin: 07/15/24 05:21 Dose: 20 mg Documented By: HUNTER Ondansetron HCl (Ondansetron Hcl 4 Mg/2 Ml Vial) 4 mg IVPUSH Q8H PRN PRN Reason: Nausea and Vomiting Last Admin: 07/14/24 18:02 Dose: 4 mg Documented By: MATHEUS Pharmacy Consult (Consult Rx Etoh Phenob Im/Po) 1 each MISCELLANE ONCE PRN; Protocol PRN Reason: Consult order Phenobarbital (Phenobarbital 15 Mg Tablet) 45 mg PO BID [facility] Stop: 07/16/24 09:01 Last Admin: 07/14/24 21:19 Dose: 45 mg Documented By: HUNTER Phenobarbital (Phenobarbital 15 Mg Tablet) 15 mg PO BID [facility] Stop: 07/18/24 09:01 Phenobarbital (Phenobarbital 15 Mg Tablet) 15 mg PO DAILY [facility] Stop: 07/19/24 09:01 Pramipexole Dihydrochloride (Pramipexole Di-Hcl 0.25 Mg Tablet) 0.5 mg PO TID [facility] Last Admin: 07/14/24 21:18 Dose: 0.5 mg Documented By: HUNTER Prochlorperazine Edisylate (Prochlorperazine Edisylate 10 Mg/2 Ml Vial) 10 mg IVPUSH Q4H PRN PRN Reason: Nausea and Vomiting Last Admin: 07/14/24 20:41 Dose: 10 mg Documented By: HUNTER Quetiapine Fumarate (Quetiapine Fumarate 100 Mg Tablet) 100 mg PO BEDTIME [facility] Last Admin: 07/14/24 21:19 Dose: 100 mg Documented By: HUNTER Sertraline HCl (Sertraline Hcl 100 Mg Tablet) 100 mg PO DAILY [facility] Last Admin: 07/14/24 10:37 Dose: 100 mg Documented By: CLARE Sodium Chloride (0.9 % Sodium Chloride Flush 3 Ml Syringe) 3 ml IVFLUSH QSHIFT [facility] Last Admin: 07/14/24 20:42 Dose: 3 ml Documented By: HUNTER Thiamine HCl (Thiamine Hcl 100 Mg Tablet) 100 mg PO DAILY [facility] Last Admin: 07/14/24 10:37 Dose: 100 mg Documented By: CLARE Topiramate (Topiramate 25 Mg Tablet) 25 mg PO BID [facility] Last Admin: 07/14/24 21:19 Dose: 25 mg Documented By: HUNTER Trazodone HCl (Trazodone Hcl 50 Mg Tablet) 50 mg PO BEDTIME [facility] Last Admin: 07/14/24 21:18 Dose: 50 mg Documented By: HUNTER Labs 07/15/24 05:43 07/15/24 05:43 Labs: Laboratory Results - last 24 hr 07/14/24 07/15/24 07/15/24 23:24 05:43 05:43 MCV 83.1 MCH 27.7 MCHC 33.3 RDW 20.2 H Plt Count 26 L D MPV Not Reportable Immature Gran % (Auto) 0.6 H Neut % (Auto) 82.8 H Lymph % (Auto) 6.7 L [place] % (Auto) 9.3 Eos % (Auto) 0.2 Baso % (Auto) 0.4 Lymph # (Auto) 0.4 L [place] # (Auto) 0.5 Eos # (Auto) 0.0 Baso # (Auto) 0.0 Abs Immat Gran (auto) 0.03 Absolute Neuts (auto) 4.5 Absolute Nucleated RBC 0.000 Nucleated RBC % (auto) 0.0 Smear Tech's Comments VERIFIED Hold Purple Top SEE NOTE Anion Gap 18 19 Estim Creat Clear Calc 120.7 111.8 Estimated GFR > 60 > 60 Random Glucose 83 78 Calcium 8.2 L D 8.6 Total Bilirubin 2.3 H 2.4 H Direct Bilirubin 1.6 H AST 202 H ALT Alkaline Phosphatase Total Protein Albumin Lipase 07/15/24 07/15/2424 05:43 05:43 05:43 MCV MCH MCHC RDW Plt Count MPV Immature Gran % (Auto) Neut % (Auto) Lymph % (Auto) [place] % (Auto) Eos % (Auto) Baso % (Auto) Lymph # (Auto) [place] # (Auto) Eos # (Auto) Baso # (Auto) Abs Immat Gran (auto) Absolute Neuts (auto) Absolute Nucleated RBC Nucleated RBC % (auto) Smear Tech's Comments Hold Purple Top Anion Gap Estim Creat Clear Calc Estimated GFR Random Glucose Calcium Total Bilirubin Direct Bilirubin AST 203 H ALT 135 H 136 H Alkaline Phosphatase 134 H 136 H Total Protein 6.4 L Albumin Lipase 07/15/24 07/15/24 05:43 05:43 MCV MCH MCHC RDW Plt Count MPV Immature Gran % (Auto) Neut % (Auto) Lymph % (Auto) [place] % (Auto) Eos % (Auto) Baso % (Auto) Lymph # (Auto) [place] # (Auto) Eos # (Auto) Baso # (Auto) Abs Immat Gran (auto) Absolute Neuts (auto) Absolute Nucleated RBC Nucleated RBC % (auto) Smear Tech's Comments Hold Purple Top Anion Gap Estim Creat Clear Calc Estimated GFR Random Glucose Calcium Total Bilirubin Direct Bilirubin AST ALT Alkaline Phosphatase Total Protein 6.4 L Albumin 3.5 3.5 Lipase 382 H Assessment and Plan (1) Alcoholic pancreatitis: Status: Acute (2) Alcohol intoxication: Status: Acute Plan 33-year-old male with a history of alcohol use disorder, including alcohol withdrawal seizures and alcoholic pancreatitis, mood disorder, alcoholic liver cirrhosis, tobacco use disorder, and polysubstance use disorder, presenting to the emergency department with abdominal pain and vomiting. He was found to have acute alcoholic pancreatitis. Acute alcoholic pancreatitis, Persistent pain - continue IV fluid - Dilaudid for pain -NPO and advance diet as pain improve Alcohol use disorder, no signs of withdrawal at this time. -phenobarb protocol -addiction med consult -folic and thiamine replacement -abstinence discussed Tobacco use disorder -NRT -Cessation discussed Polysubstance use disorder, watch for withdrawal -addiction med consult -cessation discussed Alcoholic liver cirrhosis: Outpatient GI follow-up. Has chronically elevated liver transaminases and alk-phos. If they continue to go up, consider gallbladder ultrasound to look at CBD Thrombocytopenia due to cirrhosis -Avoid prophylactic Lovenox Elevated blood pressure, mostly diastolic. No diagnosis of hypertension - Norvasc 5 mg daily GERD PPI Mood disorder: Continue home mood stabilizers DVT prophylaxis: Mechanical Full code need for inpatient: Management of acute moderate to severe pancreatitis with significant pain needing IV pain medication, NPO and IV fluid. Quality Stroke Does the patient have a stroke diagnosis?: No VTE Prior VTE?: No VTE Risk Level:: Medical - moderate - high VTE Device Contraindication: Treatment Not Indicated VTE Drug Contraindication: N/A - Med Ordered
[2024-07-15] MEDS: HYDROmorphone HCl 0.5 MG/0.5 ML SYRINGE 1 MG IVPUSH ×3 (09:44→18:19)
[2024-07-15] MEDS: amLODIPine Besylate 5 MG TABLET PO (09:46)
[2024-07-15] MEDS: Loratadine 10 MG TABLET PO (09:46)
[2024-07-15] MEDS: Pramipexole Di-HCL 0.25 MG TABLET 0.5 MG PO ×3 (09:46→21:45)
[2024-07-15] MEDS: Folic Acid 1 MG TABLET PO (09:46)
[2024-07-15] MEDS: PHENobarbitaL 15 MG TABLET 45 MG PO ×2 (09:46→21:46)
[2024-07-15] MEDS: Thiamine HCL 100 MG TABLET PO (09:46)
[2024-07-15] MEDS: Topiramate 25 MG TABLET PO ×2 (09:46→21:46)
[2024-07-15] MEDS: Sertraline HCL 100 MG TABLET PO (09:46)
[2024-07-15] MEDS: busPIRone HCl 10 MG TABLET 20 MG PO ×3 (09:52→21:45)
--- NOTE | 2024-07-15 10:40 | MHC.CM.PN ---
PT LIVES WITH ROOMMATE HAS NO PREVIOUS SUPPORTIVE SERVICES WILL BE SEEN BY CARE TEAM NEED TRANSPORT HOME
--- NOTE | 2024-07-15 14:23 | MHC.RECOVRN ---
Attempted to meet with pt to complete AUDIT C. Pt laying in bed, asleep, wakes to voice, requesting t/w return tomorrow.
--- NOTE | 2024-07-15 19:48 | PC.NURSE ---
Platelet 26. Dr. Mancia aware. Lovenox D/C'd. Compression sleeves ordered. Pt refusing at present. States, Maybe later or tomorrow . Educated patient.
[2024-07-15] MEDS: QUEtiapine Fumarate 100 MG TABLET PO (21:46)
[2024-07-15] MEDS: traZODone HCL 50 MG TABLET PO (21:46)
[2024-07-16] MEDS: HYDROmorphone HCl 0.5 MG/0.5 ML SYRINGE 1 MG IVPUSH ×6 (02:10→23:25)
[2024-07-16 03:01] VITALS: BP 119/59; PULSE 83; RESP 18; TEMP 36.2; O2SAT 98
[2024-07-16] MEDS: Lactated Ringers 1,000 ML 125 ML IVCONT ×2 (05:18→17:52)
[2024-07-16] MEDS: Omeprazole 20 MG CAPSULE.DR PO ×2 (06:37→15:52)
[2024-07-16 07:24] LABS: Anion Gap 15 (12-20); Blood Urea Nitrogen 12 mg/dL (9-16); Calcium 8.1 mg/dL (8.4-10.2); Carbon Dioxide 22 mmol/L (22-29); Chloride 97 mmol/L (96-108); Creatinine Clr Calc Pharmacy 123.9; Estimated Glomerular Filt Rate > 60; Glucose Random 64 mg/dL (60-115); Potassium 3.4 mmol/L (3.3-5.1); Sodium 131 mmol/L (135-145)
[2024-07-16 07:26] LABS: Alanine Aminotransferase 99 U/L (0-40); Albumin Level 2.9 g/dL (3.5-5.0); Alkaline Phosphatase 159 U/L (39-117); Aspartate Amino Transferase 155 U/L (5-37); Bilirubin Direct 1.8 mg/dL (0.0-0.5); Bilirubin Total 2.5 mg/dL (0.0-1.0); Lipase 59 U/L (8-78); Total Protein 5.5 g/dL (6.5-8.0)
[2024-07-16 07:53] LABS: MANUAL DIFF FLAG NO
[2024-07-16 07:57] LABS: Basophils Percent Auto 0.6 % (0-2); Eosinophils Percent Auto 0.9 % (0-4); Hematocrit 26.6 % (42.0-52.0); Hemoglobin 8.8 g/dl (14.0-18.0); Imm Gran Abs Auto 0.01 X10*3/uL (0.00-0.03); Imm Gran Pct Auto 0.3 % (0.0-0.4); Lymphocytes Absolute Auto 0.5 X10*3/uL (1.2-4.9); Lymphocytes Percent Auto 14.5 % (20-40); Mean Corpuscular HGB Conc 33.1 g/dl (31.0-36.0); Mean Corpuscular Volume 84.7 fL (80.0-98.0); Monocytes Absolute Auto 0.4 X10*3/uL (0.1-1.2); Monocytes Percent Auto 10.2 % (2-11); Neutrophils Absolute Auto 2.5 x10*3/uL (2.0-8.3); Neutrophils Percent Auto 73.5 % (45-73); Red Blood Count 3.14 X10*6/uL (4.60-5.80); Red Cell Distribution Width 19.8 % (11.0-16.0); White Blood Count 3.4 X10*3/uL (4.8-10.8)
[2024-07-16 07:58] LABS: Platelet Count 24 X10*3/uL (160-400)
[2024-07-16 08:00] VITALS: BP 113/68; PULSE 81; RESP 16; TEMP 36.6; O2SAT 94
[2024-07-16] MEDS: Topiramate 25 MG TABLET PO ×2 (08:44→21:43)
[2024-07-16] MEDS: amLODIPine Besylate 5 MG TABLET PO (08:44)
[2024-07-16] MEDS: Thiamine HCL 100 MG TABLET PO (08:44)
[2024-07-16] MEDS: busPIRone HCl 10 MG TABLET 20 MG PO ×3 (08:45→21:43)
[2024-07-16] MEDS: Sertraline HCL 100 MG TABLET PO (08:45)
[2024-07-16] MEDS: Loratadine 10 MG TABLET PO (08:45)
[2024-07-16] MEDS: PHENobarbitaL 15 MG TABLET 45 MG PO (08:46)
[2024-07-16] MEDS: Pramipexole Di-HCL 0.25 MG TABLET 0.5 MG PO ×3 (08:46→21:43)
[2024-07-16] MEDS: Folic Acid 1 MG TABLET PO (08:46)
--- NOTE | 2024-07-16 11:24 | HO.PM.IMPN ---
Subjective Subjective Date of Service: 07/16/24 Interval History: f/u on acute pancreatitis interval history: he's still c/o pain lipase is down to 59 from over 300 Physical Exam Vital Signs: Vital Signs: Last Vital Signs Temp 97.8 F 07/16/24 08:00 Pulse 81 07/16/24 08:00 Resp 16 07/16/24 08:00 BP 113/68 07/16/24 08:00 Pulse Ox 94 07/16/24 08:00 O2 Del Method Room Air 07/16/24 08:00 BMI result Body Mass Index 26.9 Const: Other: General: AO X 3, no acute distress Resp: CTA bilateral CVS: S1,S2,RRR GI: +BS, epigastric tenderness, no distention Skin: No rash Neuro: motor grossly intact Psych: appropriate affect Objective Data Active Medications Acetaminophen (Acetaminophen 325 Mg Tablet) 650 mg PO Q6H PRN PRN Reason: Pain, Mild (Pain Scale 1-3), fever or headache Last Admin: 07/14/24 21:19 Dose: 650 mg Documented By: HUNTER Amlodipine Besylate (Amlodipine Besylate 5 Mg Tablet) 5 mg PO DAILY [facility]; Protocol Last Admin: 07/16/24 08:44 Dose: 5 mg Documented By: RICHIE Buspirone HCl (Buspirone Hcl 10 Mg Tablet) 20 mg PO TID [facility] Last Admin: 07/16/24 08:45 Dose: 20 mg Documented By: RICHIE Calcium Carbonate (Calcium Carbonate 750 Mg Tab.Chew) 750 mg PO Q4H PRN PRN Reason: Heartburn Folic Acid (Folic Acid 1 Mg Tablet) 1 mg PO DAILY [facility] Last Admin: 07/16/24 08:46 Dose: 1 mg Documented By: RICHIE Hydromorphone HCl (Hydromorphone Hcl 0.5 Mg/0.5 Ml Syringe) 1 mg IVPUSH Q4H PRN; Protocol PRN Reason: Pain, Severe (Pain Scale 7-10) Last Admin: 07/16/24 10:44 Dose: 1 mg Documented By: RICHIE Loratadine (Loratadine 10 Mg Tablet) 10 mg PO DAILY [facility] Last Admin: 07/16/24 08:45 Dose: 10 mg Documented By: RICHIE Magnesium Hydroxide (Milk Of Magnesia 30 Ml Oral.Susp) 30 ml PO DAILY PRN PRN Reason: Constipation Melatonin (Melatonin 3 Mg Tablet) 6 mg PO BEDTIME PRN PRN Reason: Insomnia Nicotine (Nicotine 21 Mg Patch.Td24) 21 mg TRANSDERMA DAILY [facility] Last Admin: 07/16/24 08:46 Dose: Not Given Documented By: RICHIE Non-Admin Reason: Patient Refused Omeprazole (Omeprazole 20 Mg Capsule.Dr) 20 mg PO BID@0630,1630 [facility] Last Admin: 07/16/24 06:37 Dose: 20 mg Documented By: RONDA Ondansetron HCl (Ondansetron Hcl 4 Mg/2 Ml Vial) 4 mg IVPUSH Q8H PRN PRN Reason: Nausea and Vomiting Last Admin: 07/14/24 18:02 Dose: 4 mg Documented By: MATHEUS Pharmacy Consult (Consult Rx Etoh Phenob Im/Po) 1 each MISCELLANE ONCE PRN; Protocol PRN Reason: Consult order Phenobarbital (Phenobarbital 15 Mg Tablet) 15 mg PO BID [facility] Stop: 07/18/24 09:01 Phenobarbital (Phenobarbital 15 Mg Tablet) 15 mg PO DAILY [facility] Stop: 07/19/24 09:01 Pramipexole Dihydrochloride (Pramipexole Di-Hcl 0.25 Mg Tablet) 0.5 mg PO TID [facility] Last Admin: 07/16/24 08:46 Dose: 0.5 mg Documented By: RICHIE Prochlorperazine Edisylate (Prochlorperazine Edisylate 10 Mg/2 Ml Vial) 10 mg IVPUSH Q4H PRN PRN Reason: Nausea and Vomiting Last Admin: 07/14/24 20:41 Dose: 10 mg Documented By: HUNTER Quetiapine Fumarate (Quetiapine Fumarate 100 Mg Tablet) 100 mg PO BEDTIME [facility] Last Admin: 07/15/24 21:46 Dose: 100 mg Documented By: RONDA Sertraline HCl (Sertraline Hcl 100 Mg Tablet) 100 mg PO DAILY [facility] Last Admin: 07/16/24 08:45 Dose: 100 mg Documented By: RICHIE Sodium Chloride (0.9 % Sodium Chloride Flush 3 Ml Syringe) 3 ml IVFLUSH QSHIFT [facility] Last Admin: 07/16/24 08:43 Dose: Not Given Documented By: RICHIE Non-Admin Reason: IV Running Thiamine HCl (Thiamine Hcl 100 Mg Tablet) 100 mg PO DAILY [facility] Last Admin: 07/16/24 08:44 Dose: 100 mg Documented By: RICHIE Topiramate (Topiramate 25 Mg Tablet) 25 mg PO BID [facility] Last Admin: 07/16/24 08:44 Dose: 25 mg Documented By: RICHIE Trazodone HCl (Trazodone Hcl 50 Mg Tablet) 50 mg PO BEDTIME [facility] Last Admin: 07/15/24 21:46 Dose: 50 mg Documented By: RONDA Labs 07/16/24 05:28 07/16/24 05:28 Labs: Laboratory Results - last 24 hr 07/16/24 05:28 MCV 84.7 MCH 28.0 MCHC 33.1 RDW 19.8 H Plt Count 24 L MPV Not Reportable Immature Gran % (Auto) 0.3 Neut % (Auto) 73.5 H Lymph % (Auto) 14.5 L [place] % (Auto) 10.2 Eos % (Auto) 0.9 Baso % (Auto) 0.6 Lymph # (Auto) 0.5 L [place] # (Auto) 0.4 Eos # (Auto) 0.0 Baso # (Auto) 0.0 Abs Immat Gran (auto) 0.01 Absolute Neuts (auto) 2.5 Absolute Nucleated RBC 0.000 Nucleated RBC % (auto) 0.0 Hold Purple Top SEE NOTE Anion Gap 15 Estim Creat Clear Calc 123.9 Estimated GFR > 60 Random Glucose 64 Calcium 8.1 L Total Bilirubin 2.5 H Direct Bilirubin 1.8 H AST 155 H ALT 99 H Alkaline Phosphatase 159 H Total Protein 5.5 L Albumin 2.9 L Lipase 59 Assessment and Plan (1) Alcoholic pancreatitis: Status: Acute (2) Alcohol intoxication: Status: Acute Plan 33/m with a history of alcohol use disorder, including alcohol withdrawal seizures and alcoholic pancreatitis, mood disorder, alcoholic liver cirrhosis, tobacco use disorder, and polysubstance use disorder, presenting to the emergency department with abdominal pain and vomiting. He was found to have acute alcoholic pancreatitis. Acute alcoholic pancreatitis, Persistent pain, lipase down from 382 to 59 -start liquid diet and advance as zakiya -pain control Alcohol use disorder, no signs of withdrawal at this time. -phenobarb protocol -addiction med consult -folic and thiamine replacement -abstinence discussed Tobacco use disorder -NRT -Cessation discussed Polysubstance use disorder, watch for withdrawal -addiction med consult -cessation discussed Alcoholic liver cirrhosis: Outpatient GI follow-up. Has chronically elevated liver transaminases and alk-phos. If they continue to go up, consider gallbladder ultrasound to look at CBD Thrombocytopenia due to cirrhosis, Platlet in 20s unchanged, avoid heparin or lovenox Elevated blood pressure, mostly diastolic. No diagnosis of hypertension - Norvasc 5 mg daily GERD PPI Mood disorder: Continue home mood stabilizers DVT prophylaxis: Mechanical Full code need for inpatient: Management of acute moderate to severe pancreatitis with significant pain needing IV pain medication, NPO and IV fluid. Quality Stroke Does the patient have a stroke diagnosis?: No VTE Prior VTE?: No VTE Risk Level:: Medical - moderate - high VTE Device Contraindication: Treatment Not Indicated VTE Drug Contraindication: N/A - Med Ordered
--- NOTE | 2024-07-16 13:11 | MHC.RECOVRN ---
AUDIT-C Brief Intervention Pt had positive screen for unhealthy alcohol use on admission, subsequently met with t/w to discuss alcohol use and recovery supports/options. This internal communications writer met with patient to discuss current alcohol use and concerns related to increased risk of alcohol related problems.? Pt reports 2-3 pints 100 proof root beer liquor since last admission. Discussed how alcohol use has impacted health, including negative impact on overall phsyical wellbeing. Withdrawal History: reports hx withdrawal seizures Treatment History: has been to [facility], has tried [facility] Discussed risk reduction strategies including drinking below the recommended limit. Provided pt with written resources including information on inpatient and outpatient treatment, [facility], harm reduction, and recovery coaching. Pt plans to review resources and possibly call the [facility] to begin outpatient treatment. Pt also aware he can present as a walk in. Pt provided with t/w contact information if questions or concerns arise. Denies other questions or concerns at this time.?
--- NOTE | 2024-07-16 14:10 | MHC.CM.PN ---
EMR REVIEWED AND PER MD ROUNDS, PT IS NOT MEDICALLY CLEARED FOR DC (ABDOMINAL PAIN CONTINUES) CM WILL CONTINUE TO FOLLOW FOR ANY CHANGE TO PLAN/NEEDS.
[2024-07-16 15:20] VITALS: BP 126/77; PULSE 81; RESP 20; TEMP 36.6; O2SAT 92
[2024-07-16] MEDS: oxyCODONE HCl Immed Release 5 MG TABLET PO (17:52)
[2024-07-16 19:25] VITALS: BP 134/83; PULSE 74; RESP 20; TEMP 36.6; O2SAT 96
[2024-07-16] MEDS: traZODone HCL 50 MG TABLET PO (21:43)
[2024-07-16] MEDS: QUEtiapine Fumarate 100 MG TABLET PO (21:43)
[2024-07-16] MEDS: PHENobarbitaL 15 MG TABLET PO (21:44)
[2024-07-16] MEDS: 0.9 % Sodium Chloride Flush 3 ML SYRINGE IVFLUSH (21:45)
[2024-07-16] MEDS: Melatonin 3 MG TABLET 6 MG PO (23:44)
[2024-07-16] MEDS: hydrOXYzine HCL 25 MG TABLET PO (23:44)
[2024-07-17] MEDS: Lactated Ringers 1,000 ML 125 ML IVCONT ×3 (01:50→19:15)
[2024-07-17] MEDS: HYDROmorphone HCl 0.5 MG/0.5 ML SYRINGE 1 MG IVPUSH ×4 (03:36→19:47)
[2024-07-17 03:37] VITALS: BP 117/65; PULSE 72; RESP 18; TEMP 36.3; O2SAT 93
[2024-07-17] MEDS: oxyCODONE HCl Immed Release 5 MG TABLET PO ×2 (05:57→14:06)
[2024-07-17] MEDS: Omeprazole 20 MG CAPSULE.DR PO ×2 (05:57→15:47)
[2024-07-17 07:43] VITALS: BP 119/71; PULSE 74; RESP 20; TEMP 36.8; O2SAT 94
[2024-07-17] MEDS: Sertraline HCL 100 MG TABLET PO (08:08)
[2024-07-17] MEDS: Topiramate 25 MG TABLET PO ×2 (08:08→20:32)
[2024-07-17] MEDS: Loratadine 10 MG TABLET PO (08:08)
[2024-07-17] MEDS: busPIRone HCl 10 MG TABLET 20 MG PO ×3 (08:08→20:32)
[2024-07-17] MEDS: Folic Acid 1 MG TABLET PO (08:08)
[2024-07-17] MEDS: Pramipexole Di-HCL 0.25 MG TABLET 0.5 MG PO ×3 (08:08→20:32)
[2024-07-17] MEDS: Thiamine HCL 100 MG TABLET PO (08:08)
[2024-07-17] MEDS: PHENobarbitaL 15 MG TABLET PO ×2 (08:09→20:31)
[2024-07-17] MEDS: amLODIPine Besylate 5 MG TABLET PO (08:09)
[2024-07-17 09:35] LABS: Hematocrit 27.9 % (42.0-52.0); Hemoglobin 9.4 g/dl (14.0-18.0); Mean Corpuscular HGB Conc 33.7 g/dl (31.0-36.0); Mean Corpuscular Hemoglobin 28.6 pg (27.0-33.0); Mean Corpuscular Volume 84.8 fL (80.0-98.0); Platelet Count 33 X10*3/uL (160-400); Red Blood Count 3.29 X10*6/uL (4.60-5.80); Red Cell Distribution Width 19.3 % (11.0-16.0); White Blood Count 2.6 X10*3/uL (4.8-10.8)
[2024-07-17 09:46] LABS: Anion Gap 11 (12-20); Blood Urea Nitrogen 8 mg/dL (9-16); Calcium 8.2 mg/dL (8.4-10.2); Carbon Dioxide 23 mmol/L (22-29); Chloride 99 mmol/L (96-108); Creatinine Clr Calc Pharmacy 134.9; Estimated Glomerular Filt Rate > 60; Glucose Random 92 mg/dL (60-115); Lipase 89 U/L (8-78); Potassium 3.3 mmol/L (3.3-5.1); Sodium 130 mmol/L (135-145)
[2024-07-17 15:58] VITALS: BP 132/83; PULSE 74; RESP 16; TEMP 36.7; O2SAT 95
[2024-07-17] MEDS: hydrOXYzine HCL 25 MG TABLET PO (17:12)
[2024-07-17 19:42] VITALS: BP 128/83; PULSE 66; RESP 18; TEMP 36.5; O2SAT 97
[2024-07-17] MEDS: ondansetron HCL 4 MG/2 ML VIAL IVPUSH (19:59)
[2024-07-17] MEDS: traZODone HCL 50 MG TABLET PO (20:32)
[2024-07-17] MEDS: QUEtiapine Fumarate 100 MG TABLET PO (20:32)
[2024-07-17] MEDS: LORazepam 2 MG/ML VIAL 1 MG IVPUSH (20:40)
[2024-07-17] MEDS: Melatonin 3 MG TABLET 6 MG PO (20:41)
[2024-07-18] MEDS: HYDROmorphone HCl 0.5 MG/0.5 ML SYRINGE 1 MG IVPUSH ×3 (00:16→15:46)
[2024-07-18] MEDS: 0.9 % Sodium Chloride Flush 3 ML SYRINGE IVFLUSH (00:17)
[2024-07-18] MEDS: Lactated Ringers 1,000 ML 125 ML IVCONT ×3 (02:44→16:31)
[2024-07-18 03:08] VITALS: BP 122/76; PULSE 80; RESP 18; TEMP 36.7; O2SAT 96
[2024-07-18] MEDS: LORazepam 2 MG/ML VIAL 1 MG IVPUSH ×5 (04:22→21:15)
[2024-07-18] MEDS: Omeprazole 20 MG CAPSULE.DR PO ×2 (05:29→16:31)
[2024-07-18 07:02] LABS: Red Cell Distribution Width 19.6 % (11.0-16.0)
[2024-07-18 07:04] LABS: Hematocrit 27.6 % (42.0-52.0); Hemoglobin 8.9 g/dl (14.0-18.0); Mean Corpuscular HGB Conc 32.2 g/dl (31.0-36.0); Mean Corpuscular Hemoglobin 27.2 pg (27.0-33.0); Mean Corpuscular Volume 84.4 fL (80.0-98.0); Red Blood Count 3.27 X10*6/uL (4.60-5.80)
[2024-07-18 07:05] LABS: PLT ABN DIST 1; Platelet Count 42 X10*3/uL (160-400); White Blood Count 1.8 X10*3/uL (4.8-10.8)
[2024-07-18] MEDS: oxyCODONE HCl Immed Release 5 MG TABLET PO ×2 (07:06→13:17)
[2024-07-18 07:17] LABS: Anion Gap 11 (12-20); Blood Urea Nitrogen 4 mg/dL (9-16); Calcium 8.5 mg/dL (8.4-10.2); Carbon Dioxide 23 mmol/L (22-29); Chloride 102 mmol/L (96-108); Creatinine Clr Calc Pharmacy 134.9; Estimated Glomerular Filt Rate > 60; Glucose Random 120 mg/dL (60-115); Lipase 97 U/L (8-78); Potassium 3.1 mmol/L (3.3-5.1); Sodium 133 mmol/L (135-145)
[2024-07-18 07:52] VITALS: BP 134/91; PULSE 85; RESP 18; TEMP 37.2; O2SAT 95
[2024-07-18] MEDS: Thiamine HCL 100 MG TABLET PO (08:19)
[2024-07-18] MEDS: busPIRone HCl 10 MG TABLET 20 MG PO ×3 (08:20→19:24)
[2024-07-18] MEDS: Folic Acid 1 MG TABLET PO (08:21)
[2024-07-18] MEDS: Pramipexole Di-HCL 0.25 MG TABLET 0.5 MG PO ×3 (08:22→19:23)
[2024-07-18 08:26] VITALS: BP 134/91
[2024-07-18] MEDS: amLODIPine Besylate 5 MG TABLET PO (08:26)
[2024-07-18] MEDS: Topiramate 25 MG TABLET PO ×2 (08:29→19:24)
[2024-07-18] MEDS: Loratadine 10 MG TABLET PO (08:30)
[2024-07-18] MEDS: Sertraline HCL 100 MG TABLET PO (08:32)
[2024-07-18] MEDS: PHENobarbitaL 15 MG TABLET PO ×2 (08:33→19:25)
--- NOTE | 2024-07-18 11:16 | MHC.CM.PN ---
EMR REVIEWED AND PER MD ROUNDS, PT IS NOT MEDICALLY CLEARED FOR DC. (CIWA 17, PT CONFUSED AND IMPULSIVE) CM WILL CONTINUE TO FOLLOW FOR ANY CHANGE TO DC PLAN/NEEDS.
[2024-07-18] MEDS: PHENobarbitaL sodium 130 MG/ML VIAL 273 MG IM (11:49)
--- NOTE | 2024-07-18 14:32 | P.PNIM_ITS ---
Subjective Subjective Date of Service: 07/18/24 Interval History: Continues to score greater than 10 on CIWA scale IM phenobarb given Review of Systems Unable to obtain Physical Exam 2 Vital Signs: Vital Signs: Last Vital Signs Temp 99.0 F 07/18/24 07:52 Pulse 85 07/18/24 07:52 Resp 18 07/18/24 07:52 BP 134/91 H 07/18/24 08:26 Pulse Ox 95 07/18/24 07:52 O2 Del Method Room Air 07/18/24 07:52 BMI result Body Mass Index 26.9 Const: Other: Somnolent but arousable. Confused at times Resp: Other: Clear to auscultation bilaterally no rales rhonchi or wheezes Cardio: Other: No S4; positive S1-S2; no S3 murmurs rubs or gallops GI: Other: Soft nontender nondistended normoactive bowel sounds Neuro: Other: [place] with equal power Extrem: Other: No edema bilateral Objective Data Active Medications Acetaminophen (Acetaminophen 325 Mg Tablet) 650 mg PO Q6H PRN PRN Reason: Pain, Mild (Pain Scale 1-3), fever or headache Last Admin: 07/14/24 21:19 Dose: 650 mg Documented By: HUNTER Amlodipine Besylate (Amlodipine Besylate 5 Mg Tablet) 5 mg PO DAILY [facility]; Protocol Last Admin: 07/18/24 08:26 Dose: 5 mg Documented By: ANGELO Buspirone HCl (Buspirone Hcl 10 Mg Tablet) 20 mg PO TID [facility] Last Admin: 07/18/24 08:20 Dose: 20 mg Documented By: ANGELO Calcium Carbonate (Calcium Carbonate 750 Mg Tab.Chew) 750 mg PO Q4H PRN PRN Reason: Heartburn Folic Acid (Folic Acid 1 Mg Tablet) 1 mg PO DAILY [facility] Last Admin: 07/18/24 08:21 Dose: 1 mg Documented By: ANGELO Hydromorphone HCl (Hydromorphone Hcl 0.5 Mg/0.5 Ml Syringe) 1 mg IVPUSH Q4H PRN; Protocol PRN Reason: Pain, Severe (Pain Scale 7-10) Last Admin: 07/18/24 04:13 Dose: 1 mg Documented By: NIKKI Lactated Ringer's (Lr) 1,000 mls @ 125 mls/hr IVCONT .Q8H [facility] Last Admin: 07/18/24 09:38 Dose: 125 mls/hr Documented By: MOHAN Loratadine (Loratadine 10 Mg Tablet) 10 mg PO DAILY [facility] Last Admin: 07/18/24 08:30 Dose: 10 mg Documented By: ANGELO Lorazepam (Lorazepam 2 Mg/Ml Vial) 1 mg IVPUSH Q6H PRN PRN Reason: anxiety/restlessness Last Admin: 07/18/24 09:37 Dose: 1 mg Documented By: MOHAN Comments: MD de la paz to give early Magnesium Hydroxide (Milk Of Magnesia 30 Ml Oral.Susp) 30 ml PO DAILY PRN PRN Reason: Constipation Melatonin (Melatonin 3 Mg Tablet) 6 mg PO BEDTIME PRN PRN Reason: Insomnia Last Admin: 07/17/24 20:41 Dose: 6 mg Documented By: SHIMA Nicotine (Nicotine 21 Mg Patch.Td24) 21 mg TRANSDERMA DAILY [facility] Last Admin: 07/18/24 08:38 Dose: Not Given Documented By: ANGELO Non-Admin Reason: Patient Refused Omeprazole (Omeprazole 20 Mg Capsule.Dr) 20 mg PO BID@0630,1630 [facility] Last Admin: 07/18/24 05:29 Dose: 20 mg Documented By: SHIMA Ondansetron HCl (Ondansetron Hcl 4 Mg/2 Ml Vial) 4 mg IVPUSH Q8H PRN PRN Reason: Nausea and Vomiting Last Admin: 07/17/24 19:59 Dose: 4 mg Documented By: NIKKI Oxycodone HCl (Oxycodone Hcl Immed Release 5 Mg Tablet) 5 mg PO Q6H PRN PRN Reason: Pain, Moderate(Pain Scale 4-6) Last Admin: 07/18/24 13:17 Dose: 5 mg Documented By: JENNIFER Pharmacy Consult (Consult Rx Etoh Phenob Im/Po) 1 each MISCELLANE ONCE PRN; Protocol PRN Reason: Consult order Phenobarbital (Phenobarbital 15 Mg Tablet) 15 mg PO DAILY [facility] Stop: 07/19/24 09:01 Pramipexole Dihydrochloride (Pramipexole Di-Hcl 0.25 Mg Tablet) 0.5 mg PO TID [facility] Last Admin: 07/18/24 08:22 Dose: 0.5 mg Documented By: ANGELO Prochlorperazine Edisylate (Prochlorperazine Edisylate 10 Mg/2 Ml Vial) 10 mg IVPUSH Q4H PRN PRN Reason: Nausea and Vomiting Last Admin: 07/14/24 20:41 Dose: 10 mg Documented By: HUNTER Quetiapine Fumarate (Quetiapine Fumarate 100 Mg Tablet) 100 mg PO BEDTIME [facility] Last Admin: 07/17/24 20:32 Dose: 100 mg Documented By: SHIMA Sertraline HCl (Sertraline Hcl 100 Mg Tablet) 100 mg PO DAILY [facility] Last Admin: 07/18/24 08:32 Dose: 100 mg Documented By: ANGELO Sodium Chloride (0.9 % Sodium Chloride Flush 3 Ml Syringe) 3 ml IVFLUSH QSHIFT [facility] Last Admin: 07/18/24 07:07 Dose: Not Given Documented By: JENNIFER Non-Admin Reason: IV Running Thiamine HCl (Thiamine Hcl 100 Mg Tablet) 100 mg PO DAILY [facility] Last Admin: 07/18/24 08:19 Dose: 100 mg Documented By: ANGELO Topiramate (Topiramate 25 Mg Tablet) 25 mg PO BID [facility] Last Admin: 07/18/24 08:29 Dose: 25 mg Documented By: ANGELO Trazodone HCl (Trazodone Hcl 50 Mg Tablet) 50 mg PO BEDTIME [facility] Last Admin: 07/17/24 20:32 Dose: 50 mg Documented By: SHIMA Labs 07/18/24 05:34 07/18/24 05:34 Labs: Laboratory Results - last 24 hr 07/18/24 05:34 MCV 84.4 MCH 27.2 MCHC 32.2 RDW 19.6 H Plt Count 42 L D MPV Not Reportable Absolute Nucleated RBC 0.000 Nucleated RBC % (auto) 0.0 Anion Gap 11 L Estim Creat Clear Calc 134.9 Estimated GFR > 60 Random Glucose 120 H Calcium 8.5 Lipase 97 H Assessment and Plan (1) Alcoholic pancreatitis: Status: Acute (2) Alcohol use disorder: Status: Acute Plan 33/m with a history of alcohol use disorder, including alcohol withdrawal seizures and alcoholic pancreatitis, mood disorder, alcoholic liver cirrhosis, tobacco use disorder, and polysubstance use disorder, presenting to the emergency department with abdominal pain and vomiting. He was found to have acute alcoholic pancreatitis. 1.Acute alcoholic pancreatitis, Persistent pain, lipase down from 382 to 59 -liquid diet and advance as zakiya -adequate pain control 2.Alcohol use disorder, no signs of withdrawal at this time. -phenobarb protocol... Additional IM dose given today. Additional doses pending clinical response -addiction med consult -folic and thiamine replacement 3.Alcoholic liver cirrhosis - Outpatient GI follow-up Mechanical Full code need for inpatient: Management of acute moderate to severe pancreatitis with significant pain needing IV pain medication, NPO and IV fluid. Quality Stroke Does the patient have a stroke diagnosis?: No VTE Prior VTE?: No VTE Risk Level:: Medical - moderate - high VTE Device Contraindication: Treatment Not Indicated VTE Drug Contraindication: N/A - Med Ordered
[2024-07-18 15:36] VITALS: BP 167/101; PULSE 78; RESP 20; TEMP 37.3; O2SAT 97
[2024-07-18] MEDS: PHENobarbitaL sodium 130 MG/ML VIAL IVPUSH (18:00)
[2024-07-18 19:11] VITALS: BP 160/106; PULSE 82; RESP 20; TEMP 37.1; O2SAT 96
[2024-07-18] MEDS: traZODone HCL 50 MG TABLET PO (19:24)
[2024-07-18] MEDS: QUEtiapine Fumarate 100 MG TABLET PO (19:25)
[2024-07-18] MEDS: PHENobarbitaL sodium 130 MG/ML VIAL IM (20:04)
[2024-07-18] MEDS: diazePAM 10 MG/2 ML CARTRIDGE IVPUSH (20:51)
[2024-07-18] MEDS: OLANZapine 10 MG VIAL IM (22:26)
[2024-07-18] MEDS: Midazolam HCl/PF 2 MG/2 ML VIAL IVPUSH (22:40)
[2024-07-18 23:07] VITALS: BP 150/97; PULSE 110; RESP 18; TEMP 37.1; O2SAT 97
[2024-07-19] MEDS: HYDROmorphone HCl 0.5 MG/0.5 ML SYRINGE 1 MG IVPUSH ×2 (00:09→19:27)
[2024-07-19] MEDS: 0.9 % Sodium Chloride Flush 3 ML SYRINGE IVFLUSH (00:13)
[2024-07-19] MEDS: LORazepam 2 MG/ML VIAL 1 MG IVPUSH ×2 (00:26→21:19)
--- NOTE | 2024-07-19 01:04 | HO.BHRESTREX ---
Behavioral Restraint Exam Behavioral Health Restraint Exam Type of Restraint: Mechanical Reason for Restraint: Substantial Risk of Harm to Others Medical Concerns for Restraint: No medical concerns, pt w/o acute inj / no noted resp/VS abnormalities Behavioral Assessment / Plan: No further behavioral concerns, continue current plan.
[2024-07-19 03:16] VITALS: BP 116/71; PULSE 82; RESP 18; TEMP 36.6; O2SAT 95
--- NOTE | 2024-07-19 05:10 | PC.NURSE ---
Late entry: On first assessment pt is Alert and oriented to person, place, but confused, agitated, with visual and auditory hallucinations, with a 1:1 sitter. With a CIWA of 20, Dr. Hinkle ordered IM pheno, per NOV. With no change in patients behavior continuos hallucinations and pulling at IV, valium was given per NOV, with no effect, with constant redirection back to bed, Pt was given Ativan per NOV, still with no effect, pt still agitated and attempting to get out of bed. Per dr. Hinkle zyprex IM ordered, seemed to have some effect initially, then pt continued to be restless in bed, and kicking, hyperventilating, Dr. Hinkle ordered versed per NOV. Still with no effect soft restraints were placed on bilateral arms, with every 2 hour assessments, within 2 hours pt was able to fall asleep, and restraints came off. VSS, respirations even and non-labored, no apparent distress noted at this time.
[2024-07-19 06:26] LABS: Hematocrit 27.3 % (42.0-52.0); Hemoglobin 9.2 g/dl (14.0-18.0); Mean Corpuscular HGB Conc 33.7 g/dl (31.0-36.0); PLT CLUMP 1; Red Cell Distribution Width 20.2 % (11.0-16.0)
[2024-07-19 06:28] LABS: Mean Corpuscular Hemoglobin 28.2 pg (27.0-33.0); Mean Corpuscular Volume 83.7 fL (80.0-98.0); Mean Platelet Volume 11.4 fL (9.4-12.4); Red Blood Count 3.26 X10*6/uL (4.60-5.80)
[2024-07-19 06:29] LABS: Platelet Count 61 X10*3/uL (160-400)
[2024-07-19 06:40] LABS: Alanine Aminotransferase 83 U/L (0-40); Albumin Level 3.1 g/dL (3.5-5.0); Alkaline Phosphatase 321 U/L (39-117); Anion Gap 12 (12-20); Aspartate Amino Transferase 97 U/L (5-37); Bilirubin Total 1.7 mg/dL (0.0-1.0); Blood Urea Nitrogen < 3 mg/dL (9-16); Carbon Dioxide 21 mmol/L (22-29); Chloride 106 mmol/L (96-108); Creatinine Clr Calc Pharmacy 145.6; Estimated Glomerular Filt Rate > 60; Glucose Fasting 107 mg/dL (60-99); Sodium 136 mmol/L (135-145)
[2024-07-19 07:19] LABS: Band Neutrophils Percent 0 % (3-5); Basophils Percent Manual 2 % (0-2); Eosinophils Absolute Manual 0.1 X10*3/uL (0.0-0.4); Eosinophils Percent Manual 3 % (0-4); Hypochromasia 1+ (5-14) /OIF; Lymphocytes Absolute Manual 0.3 X10*3/uL (1.2-4.9); Lymphocytes Percent Manual 14 % (20-40); Monocytes Absolute Manual 0.3 X10*3/uL (0.1-1.2); Monocytes Percent Manual 14 % (2-11); Neutrophils Absolute Manual 1.3 X10*3/uL (2.0-8.3); Neutrophils Percent Manual 67 % (45-73); Platelet Estimate DECREASED (NORMAL); Platelet Morphology Comment NORMAL; RBC Morphology NOTED
[2024-07-19 07:48] VITALS: BP 113/76; PULSE 75; RESP 18; TEMP 36.8; O2SAT 95
--- NOTE | 2024-07-19 07:57 | PC.NURSE ---
Addendum entered by Maggy Max RN 07/19/24 18:38: Pt continues to sleep for majority of shift. Pt observed at bedside at 1830, rise and fall of chest noted, RR even and non-labored. Pt awakens to voice and light touch. Cardiac monitoring and continuous o2 in place as ordered. Pt continues to have 1:1 sitter for safety and camera in room. Addendum entered by Maggy Max RN 07/19/24 15:44: 14:20 pt alert and oriented x3-4, asking to go to bathroom. Pt able to void in urinal 700Ml yellow concentrated urine noted. Pt asking for AM medications and pain meds for all over body aches. At this time pt scoring 4 on CIWA. MD Livignston made aware, pt able to take PO medications whole with water. Tylenol given, at time of pain reassessment patient sleeping, NSR on tele and 97% on continuous o2, rise and fall of chest noted, no overt signs and symptoms of distress. Addendum entered by Maggy Max RN 07/19/24 10:32: Pt continues to be drowsy/sleepy, pt able to open eyes to verbal stimuli and responds with [address] Livingston at bedside this AM to assess pt. Addendum entered by Maggy Max RN 07/19/24 08:11: Unable to obtain accurate CIWA as pt is asleep. Original Note: Assumed care of patient at 06:45. At this time pt sleeping, RR even non-labored, vital signs stable see flow sheets for results. 1:1 sitter and camera at bedside for safety.
[2024-07-19] MEDS: Lactated Ringers 1,000 ML 125 ML IVCONT ×2 (10:16→18:10)
[2024-07-19 11:26] VITALS: BP 120/88; PULSE 78; RESP 18; TEMP 36.9; O2SAT 99
--- NOTE | 2024-07-19 13:43 | P.PNIM_ITS ---
Subjective Subjective Date of Service: 07/19/24 Interval History: Episodes overnight noted. This morning patient's initial CIWA high however remains somnolent throughout the day and cooperative. Discussed with ICU; no need for their assistance at this time Review of Systems Unable to obtain Physical Exam 2 Vital Signs: Vital Signs: Last Vital Signs Temp 98.4 F 07/19/24 11:26 Pulse 78 07/19/24 11:26 Resp 18 07/19/24 11:26 BP 120/88 07/19/24 11:26 Pulse Ox 99 07/19/24 11:26 O2 Del Method Room Air 07/19/24 11:26 BMI result Body Mass Index 26.9 Const: Other: Somnolent but arousable. Confused at times Resp: Other: Clear to auscultation bilaterally no rales rhonchi or wheezes Cardio: Other: No S4; positive S1-S2; no S3 murmurs rubs or gallops GI: Other: Soft nontender nondistended normoactive bowel sounds Neuro: Other: BLACKWELL with equal power Extrem: Other: No edema bilateral Objective Data Active Medications Acetaminophen (Acetaminophen 325 Mg Tablet) 650 mg PO Q6H PRN PRN Reason: Pain, Mild (Pain Scale 1-3), fever or headache Last Admin: 07/14/24 21:19 Dose: 650 mg Documented By: HUNTER Amlodipine Besylate (Amlodipine Besylate 5 Mg Tablet) 5 mg PO DAILY [facility]; Protocol Last Admin: 07/19/24 10:03 Dose: Not Given Documented By: BRANDON Non-Admin Reason: pt drowsy Buspirone HCl (Buspirone Hcl 10 Mg Tablet) 20 mg PO TID [facility] Last Admin: 07/19/24 10:03 Dose: Not Given Documented By: BRANDON Non-Admin Reason: pt drowsy Calcium Carbonate (Calcium Carbonate 750 Mg Tab.Chew) 750 mg PO Q4H PRN PRN Reason: Heartburn Folic Acid (Folic Acid 1 Mg Tablet) 1 mg PO DAILY [facility] Last Admin: 07/19/24 10:04 Dose: Not Given Documented By: BRANDON Non-Admin Reason: pt drowsy Hydromorphone HCl (Hydromorphone Hcl 0.5 Mg/0.5 Ml Syringe) 1 mg IVPUSH Q4H PRN; Protocol PRN Reason: Pain, Severe (Pain Scale 7-10) Last Admin: 07/19/24 00:09 Dose: 1 mg Documented By: WALLY Lactated Ringer's (Lr) 1,000 mls @ 125 mls/hr IVCONT .Q8H [facility] Last Admin: 07/19/24 10:16 Dose: 125 mls/hr Documented By: BRANDON Loratadine (Loratadine 10 Mg Tablet) 10 mg PO DAILY [facility] Last Admin: 07/19/24 10:04 Dose: Not Given Documented By: BRANDON Non-Admin Reason: pt drowsy Lorazepam (Lorazepam 2 Mg/Ml Vial) 1 mg IVPUSH Q6H PRN PRN Reason: anxiety/restlessness Last Admin: 07/19/24 00:26 Dose: 1 mg Documented By: WALLY Comments: early administration approved per Dr. Hinkle Magnesium Hydroxide (Milk Of Magnesia 30 Ml Oral.Susp) 30 ml PO DAILY PRN PRN Reason: Constipation Melatonin (Melatonin 3 Mg Tablet) 6 mg PO BEDTIME PRN PRN Reason: Insomnia Last Admin: 07/17/24 20:41 Dose: 6 mg Documented By: SHIMA Nicotine (Nicotine 21 Mg Patch.Td24) 21 mg TRANSDERMA DAILY [facility] Last Admin: 07/19/24 10:19 Dose: Not Given Documented By: BRANDON Non-Admin Reason: Patient Refused Omeprazole (Omeprazole 20 Mg Capsule.) 20 mg PO BID@0630,1630 [facility] Last Admin: 07/19/24 06:23 Dose: Not Given Documented By: WALLY Non-Admin Reason: Patient Asleep Ondansetron HCl (Ondansetron Hcl 4 Mg/2 Ml Vial) 4 mg IVPUSH Q8H PRN PRN Reason: Nausea and Vomiting Last Admin: 07/17/24 19:59 Dose: 4 mg Documented By: NIKKI Oxycodone HCl (Oxycodone Hcl Immed Release 5 Mg Tablet) 5 mg PO Q6H PRN PRN Reason: Pain, Moderate(Pain Scale 4-6) Last Admin: 07/18/24 13:17 Dose: 5 mg Documented By: JENNIFER Pharmacy Consult (Consult Rx Etoh Phenob Im/Po) 1 each MISCELLANE ONCE PRN; Protocol PRN Reason: Consult order Phenobarbital Sodium (Phenobarbital Sodium 130 Mg/Ml Vial Im Q3hx2) 205 mg IM Q3H [facility]; Protocol Stop: 07/19/24 15:31 Potassium Chloride (Potassium Chloride Er 20 Meq Tab.Er.Prt) 20 meq PO BID [facility] Stop: 07/21/24 21:01 Last Admin: 07/19/24 10:04 Dose: Not Given Documented By: BRANDON Non-Admin Reason: pt drowsy Pramipexole Dihydrochloride (Pramipexole Di-Hcl 0.25 Mg Tablet) 0.5 mg PO TID [facility] Last Admin: 07/19/24 10:05 Dose: Not Given Documented By: BRANDON Non-Admin Reason: pt drowsy Prochlorperazine Edisylate (Prochlorperazine Edisylate 10 Mg/2 Ml Vial) 10 mg IVPUSH Q4H PRN PRN Reason: Nausea and Vomiting Last Admin: 07/14/24 20:41 Dose: 10 mg Documented By: HUNTER Quetiapine Fumarate (Quetiapine Fumarate 100 Mg Tablet) 100 mg PO BEDTIME [facility] Last Admin: 07/18/24 19:25 Dose: 100 mg Documented By: WALLY Sertraline HCl (Sertraline Hcl 100 Mg Tablet) 100 mg PO DAILY [facility] Last Admin: 07/19/24 10:05 Dose: Not Given Documented By: BRANDON Non-Admin Reason: pt drowsy Sodium Chloride (0.9 % Sodium Chloride Flush 3 Ml Syringe) 3 ml IVFLUSH QSHIFT [facility] Last Admin: 07/19/24 10:07 Dose: Not Given Documented By: BRANDON Non-Admin Reason: IV Running Thiamine HCl (Thiamine Hcl 100 Mg Tablet) 100 mg PO DAILY [facility] Last Admin: 07/19/24 10:05 Dose: Not Given Documented By: BRANDON Non-Admin Reason: pt drowsy Topiramate (Topiramate 25 Mg Tablet) 25 mg PO BID [facility] Last Admin: 07/19/24 10:05 Dose: Not Given Documented By: BRANDON Non-Admin Reason: pt drowsy Trazodone HCl (Trazodone Hcl 50 Mg Tablet) 50 mg PO BEDTIME [facility] Last Admin: 07/18/24 19:24 Dose: 50 mg Documented By: WALLY Labs 07/19/24 06:09 07/19/24 06:09 Labs: Laboratory Results - last 24 hr 07/19/24 06:09 MCV 83.7 MCH 28.2 MCHC 33.7 RDW 20.2 H Plt Count 61 L D MPV 11.4 Immature Gran % (Auto) Cancelled Neut % (Auto) Cancelled Lymph % (Auto) Cancelled [place] % (Auto) Cancelled Eos % (Auto) Cancelled Baso % (Auto) Cancelled Lymph # (Auto) Cancelled [place] # (Auto) Cancelled Eos # (Auto) Cancelled Baso # (Auto) Cancelled Abs Immat Gran (auto) Cancelled Absolute Neuts (auto) Cancelled Absolute Nucleated RBC 0.000 Nucleated RBC % (auto) 0.0 Neutrophils % (Manual) 67 Band Neutrophils % 0 L Lymphocytes % (Manual) 14 L Monocytes % (Manual) 14 H Eosinophils % (Manual) 3 Basophils % (Manual) 2 Abs Neuts (Manual) 1.3 L Lymphocytes # (Manual) 0.3 L Monocytes # (Manual) 0.3 Eosinophils # (Manual) 0.1 Platelet Estimate DECREASED Plt Morphology Comment NORMAL RBC Morphology NOTED Hypochromasia 1+ (5-14) Anion Gap 12 Estim Creat Clear Calc 145.6 Estimated GFR > 60 Fasting Glucose 107 H Calcium 8.0 L Total Bilirubin 1.7 H AST 97 H ALT 83 H Alkaline Phosphatase 321 H Total Protein 6.0 L Albumin 3.1 L Assessment and Plan (1) Alcohol withdrawal delirium, acute, hyperactive: Status: Acute Plan 33/m with a history of alcohol use disorder, including alcohol withdrawal seizures and alcoholic pancreatitis, mood disorder, alcoholic liver cirrhosis, tobacco use disorder, and polysubstance use disorder, presenting to the emergency department with abdominal pain and vomiting. He was found to have acute alcoholic pancreatitis. 1.Acute alcoholic pancreatitis, Persistent pain, lipase down from 382 to 59 -liquid diet and advance as zakiya -adequate pain control 2.Alcohol use disorder, no signs of withdrawal at this time. -phenobarb protocol... If agitated we will restart protocol 40/30/30% phenobarb load -folic and thiamine replacement 3.Alcoholic liver cirrhosis - Outpatient GI follow-up Mechanical Full code need for inpatient: Management of acute moderate to severe pancreatitis with significant pain needing IV pain medication, NPO and IV fluid. Quality Stroke Does the patient have a stroke diagnosis?: No VTE Prior VTE?: No VTE Risk Level:: Medical - moderate - high VTE Device Contraindication: Treatment Not Indicated VTE Drug Contraindication: N/A - Med Ordered
[2024-07-19] MEDS: Potassium Chloride/H20 10 MEQ/100 ML PIGGYBACK 100 MEQ IV ×4 (14:10→18:08)
[2024-07-19] MEDS: Thiamine HCL 100 MG TABLET PO (14:35)
[2024-07-19] MEDS: busPIRone HCl 10 MG TABLET 20 MG PO ×2 (14:35→19:43)
[2024-07-19] MEDS: Pramipexole Di-HCL 0.25 MG TABLET 0.5 MG PO ×2 (14:36→19:40)
[2024-07-19] MEDS: Sertraline HCL 100 MG TABLET PO (14:36)
[2024-07-19] MEDS: Acetaminophen 325 MG TABLET 650 MG PO (14:36)
[2024-07-19 15:25] VITALS: BP 137/90; PULSE 80; RESP 16; TEMP 36.7; O2SAT 97
[2024-07-19 18:51] VITALS: BP 139/98; PULSE 88; RESP 14; TEMP 36.8; O2SAT 99
[2024-07-19 19:27] VITALS: RESP 15
[2024-07-19] MEDS: Topiramate 25 MG TABLET PO (19:40)
[2024-07-19] MEDS: traZODone HCL 50 MG TABLET PO (19:40)
[2024-07-19] MEDS: QUEtiapine Fumarate 100 MG TABLET PO (19:40)
[2024-07-19] MEDS: oxyCODONE HCl Immed Release 5 MG TABLET PO (21:46)
[2024-07-20 00:58] VITALS: RESP 18
[2024-07-20] MEDS: HYDROmorphone HCl 0.5 MG/0.5 ML SYRINGE 1 MG IVPUSH ×2 (00:58→05:45)
[2024-07-20] MEDS: Lactated Ringers 1,000 ML 125 ML IVCONT ×3 (02:08→17:26)
[2024-07-20 04:00] VITALS: BP 127/84; PULSE 62; RESP 14; TEMP 36.5; O2SAT 98
[2024-07-20] MEDS: oxyCODONE HCl Immed Release 5 MG TABLET PO ×5 (04:06→21:47)
[2024-07-20] MEDS: LORazepam 2 MG/ML VIAL 1 MG IVPUSH ×3 (04:09→18:32)
[2024-07-20] MEDS: Omeprazole 20 MG CAPSULE.DR PO ×2 (05:34→15:57)
[2024-07-20 05:45] VITALS: RESP 20
[2024-07-20 06:17] LABS: Basophils Percent Auto 1.2 % (0-2); Eosinophils Absolute Auto 0.1 X10*3/uL (0.0-0.4); Eosinophils Percent Auto 2.5 % (0-4); Hemoglobin 9.5 g/dl (14.0-18.0); Imm Gran Abs Auto 0.01 X10*3/uL (0.00-0.03); Imm Gran Pct Auto 0.4 % (0.0-0.4); Lymphocytes Absolute Auto 0.8 X10*3/uL (1.2-4.9); Lymphocytes Percent Auto 31.5 % (20-40); MANUAL DIFF FLAG SCAN; Mean Corpuscular HGB Conc 32.8 g/dl (31.0-36.0); Mean Corpuscular Volume 85.5 fL (80.0-98.0); Mean Platelet Volume 11.3 fL (9.4-12.4); Monocytes Absolute Auto 0.6 X10*3/uL (0.1-1.2); Monocytes Percent Auto 23.2 % (2-11); Neutrophils Percent Auto 41.2 % (45-73); PLT CLUMP 1; Red Blood Count 3.39 X10*6/uL (4.60-5.80); Red Cell Distribution Width 20.9 % (11.0-16.0); SCAN SMEAR FLAG 1
[2024-07-20 06:22] LABS: Platelet Count 75 X10*3/uL (160-400); White Blood Count 2.4 X10*3/uL (4.8-10.8)
[2024-07-20 06:30] LABS: Alanine Aminotransferase 73 U/L (0-40); Alkaline Phosphatase 307 U/L (39-117); Anion Gap 9 (12-20); Aspartate Amino Transferase 88 U/L (5-37); Bilirubin Total 1.2 mg/dL (0.0-1.0); Blood Urea Nitrogen 3 mg/dL (9-16); Calcium 7.9 mg/dL (8.4-10.2); Carbon Dioxide 21 mmol/L (22-29); Chloride 108 mmol/L (96-108); Creatinine Clr Calc Pharmacy 125.6; Estimated Glomerular Filt Rate > 60; Glucose Fasting 94 mg/dL (60-99); Potassium 3.3 mmol/L (3.3-5.1); Sodium 135 mmol/L (135-145); Total Protein 5.8 g/dL (6.5-8.0)
[2024-07-20 07:31] VITALS: BP 133/88; PULSE 88; RESP 18; TEMP 36.2; O2SAT 99
[2024-07-20 07:32] LABS: SLIDE REVIEW VERIFIED
[2024-07-20] MEDS: Topiramate 25 MG TABLET PO ×2 (08:35→20:46)
[2024-07-20] MEDS: Loratadine 10 MG TABLET PO (08:35)
[2024-07-20] MEDS: Folic Acid 1 MG TABLET PO (08:35)
[2024-07-20] MEDS: Sertraline HCL 100 MG TABLET PO (08:35)
[2024-07-20] MEDS: Pramipexole Di-HCL 0.25 MG TABLET 0.5 MG PO ×3 (08:35→20:46)
[2024-07-20] MEDS: amLODIPine Besylate 5 MG TABLET PO (08:35)
[2024-07-20] MEDS: busPIRone HCl 10 MG TABLET 20 MG PO ×3 (08:35→20:47)
[2024-07-20] MEDS: Thiamine HCL 100 MG TABLET PO (08:35)
--- NOTE | 2024-07-20 11:15 | P.PNIM_ITS ---
Subjective Subjective Date of Service: 07/20/24 Interval History: No acute issues overnight; improved. One-to-one DC Review of Systems Denies chest pain Denies shortness of breath Denies nausea vomiting diarrhea Denies fever chills Physical Exam 2 Vital Signs: Vital Signs: Last Vital Signs Temp 97.2 F 07/20/24 07:31 Pulse 88 07/20/24 07:31 Resp 18 07/20/24 07:31 BP 133/88 07/20/24 07:31 Pulse Ox 99 07/20/24 07:31 O2 Del Method Room Air 07/20/24 07:31 BMI result Body Mass Index 26.9 Const: Other: Awake alert appropriate Resp: Other: Clear to auscultation bilaterally no rales rhonchi or wheezes Cardio: Other: No S4; positive S1-S2; no S3 murmurs rubs or gallops GI: Other: Soft nontender nondistended normoactive bowel sounds Neuro: Other: BLACKWELL with equal power Extrem: Other: No edema bilateral Objective Data Active Medications Acetaminophen (Acetaminophen 325 Mg Tablet) 650 mg PO Q6H PRN PRN Reason: Pain, Mild (Pain Scale 1-3), fever or headache Last Admin: 07/19/24 14:36 Dose: 650 mg Documented By: BRANDON Amlodipine Besylate (Amlodipine Besylate 5 Mg Tablet) 5 mg PO DAILY [facility]; Protocol Last Admin: 07/20/24 08:35 Dose: 5 mg Documented By: BRANDON Buspirone HCl (Buspirone Hcl 10 Mg Tablet) 20 mg PO TID [facility] Last Admin: 07/20/24 08:35 Dose: 20 mg Documented By: BRANDON Calcium Carbonate (Calcium Carbonate 750 Mg Tab.Chew) 750 mg PO Q4H PRN PRN Reason: Heartburn Folic Acid (Folic Acid 1 Mg Tablet) 1 mg PO DAILY [facility] Last Admin: 07/20/24 08:35 Dose: 1 mg Documented By: BRANDON Lactated Ringer's (Lr) 1,000 mls @ 125 mls/hr IVCONT .Q8H [facility] Last Admin: 07/20/24 10:08 Dose: 125 mls/hr Documented By: BRANDON Loratadine (Loratadine 10 Mg Tablet) 10 mg PO DAILY [facility] Last Admin: 07/20/24 08:35 Dose: 10 mg Documented By: BRANDON Lorazepam (Lorazepam 2 Mg/Ml Vial) 1 mg IVPUSH Q6H PRN PRN Reason: anxiety/restlessness Last Admin: 07/20/24 04:09 Dose: 1 mg Documented By: WHITNEY Magnesium Hydroxide (Milk Of Magnesia 30 Ml Oral.Susp) 30 ml PO DAILY PRN PRN Reason: Constipation Melatonin (Melatonin 3 Mg Tablet) 6 mg PO BEDTIME PRN PRN Reason: Insomnia Last Admin: 07/17/24 20:41 Dose: 6 mg Documented By: SHIMA Nicotine (Nicotine 21 Mg Patch.Td24) 21 mg TRANSDERMA DAILY [facility] Last Admin: 07/20/24 08:56 Dose: Not Given Documented By: BRANDON Non-Admin Reason: Patient Refused Omeprazole (Omeprazole 20 Mg Capsule.Dr) 20 mg PO BID@0630,1630 [facility] Last Admin: 07/20/24 05:34 Dose: 20 mg Documented By: WHITNEY Ondansetron HCl (Ondansetron Hcl 4 Mg/2 Ml Vial) 4 mg IVPUSH Q8H PRN PRN Reason: Nausea and Vomiting Last Admin: 07/17/24 19:59 Dose: 4 mg Documented By: NIKKI Oxycodone HCl (Oxycodone Hcl Immed Release 5 Mg Tablet) 5 mg PO Q6H PRN PRN Reason: Pain, Moderate(Pain Scale 4-6) Last Admin: 07/20/24 10:06 Dose: 5 mg Documented By: BRANDON Pharmacy Consult (Consult Rx Etoh Phenob Im/Po) 1 each MISCELLANE ONCE PRN; Protocol PRN Reason: Consult order Pramipexole Dihydrochloride (Pramipexole Di-Hcl 0.25 Mg Tablet) 0.5 mg PO TID [facility] Last Admin: 07/20/24 08:35 Dose: 0.5 mg Documented By: BRANDON Prochlorperazine Edisylate (Prochlorperazine Edisylate 10 Mg/2 Ml Vial) 10 mg IVPUSH Q4H PRN PRN Reason: Nausea and Vomiting Last Admin: 07/14/24 20:41 Dose: 10 mg Documented By: HUNTER Quetiapine Fumarate (Quetiapine Fumarate 100 Mg Tablet) 100 mg PO BEDTIME [facility] Last Admin: 07/19/24 19:40 Dose: 100 mg Documented By: WHITNEY Sertraline HCl (Sertraline Hcl 100 Mg Tablet) 100 mg PO DAILY [facility] Last Admin: 07/20/24 08:35 Dose: 100 mg Documented By: BRANDON Sodium Chloride (0.9 % Sodium Chloride Flush 3 Ml Syringe) 3 ml IVFLUSH QSHIFT [facility] Last Admin: 07/20/24 08:56 Dose: Not Given Documented By: BRANDON Non-Admin Reason: IV Running Thiamine HCl (Thiamine Hcl 100 Mg Tablet) 100 mg PO DAILY [facility] Last Admin: 07/20/24 08:35 Dose: 100 mg Documented By: BRANDON Topiramate (Topiramate 25 Mg Tablet) 25 mg PO BID [facility] Last Admin: 07/20/24 08:35 Dose: 25 mg Documented By: BRANDON Trazodone HCl (Trazodone Hcl 50 Mg Tablet) 50 mg PO BEDTIME [facility] Last Admin: 07/19/24 19:40 Dose: 50 mg Documented By: WHITNEY Labs 07/20/24 05:38 07/20/24 05:38 Labs: Laboratory Results - last 24 hr 07/20/24 05:38 MCV 85.5 MCH 28.0 MCHC 32.8 RDW 20.9 H Plt Count 75 L MPV 11.3 Immature Gran % (Auto) 0.4 Neut % (Auto) 41.2 L Lymph % (Auto) 31.5 [place] % (Auto) 23.2 H Eos % (Auto) 2.5 Baso % (Auto) 1.2 Lymph # (Auto) 0.8 L [place] # (Auto) 0.6 Eos # (Auto) 0.1 Baso # (Auto) 0.0 Abs Immat Gran (auto) 0.01 Absolute Neuts (auto) 1.0 L Absolute Nucleated RBC 0.000 Nucleated RBC % (auto) 0.0 Smear Tech's Comments VERIFIED Anion Gap 9 L Estim Creat Clear Calc 125.6 Estimated GFR > 60 Fasting Glucose 94 Calcium 7.9 L Total Bilirubin 1.2 H AST 88 H ALT 73 H Alkaline Phosphatase 307 H Total Protein 5.8 L Albumin 3.0 L Assessment and Plan (1) Alcohol withdrawal delirium, acute, hyperactive: Status: Acute (2) Alcoholic pancreatitis: Status: Acute Plan 33/m with a history of alcohol use disorder, including alcohol withdrawal seizures and alcoholic pancreatitis, mood disorder, alcoholic liver cirrhosis, tobacco use disorder, and polysubstance use disorder, presenting to the emergency department with abdominal pain and vomiting. He was found to have acute alcoholic pancreatitis. 1.Acute alcoholic pancreatitis, Persistent pain, lipase down from 382 to 59 -diet advanced to regular given status change -adequate pain control 2.Alcohol use disorder -CIWA score 0-2... Continue to observe. Interested in outpatient therapies -folic and thiamine replacement 3.Alcoholic liver cirrhosis - Outpatient GI follow-up Mechanical Full code need for inpatient: Management of acute moderate to severe pancreatitis with significant pain needing IV pain medication, NPO and IV fluid. Quality Stroke Does the patient have a stroke diagnosis?: No VTE Prior VTE?: No VTE Risk Level:: Medical - moderate - high VTE Device Contraindication: Treatment Not Indicated VTE Drug Contraindication: N/A - Med Ordered
[2024-07-20 15:00] VITALS: BP 126/83; PULSE 99; RESP 18; TEMP 37.2; O2SAT 97
[2024-07-20] MEDS: ondansetron HCL 4 MG/2 ML VIAL IVPUSH (17:29)
[2024-07-20 19:22] VITALS: BP 129/83; PULSE 98; RESP 16; TEMP 37.6; O2SAT 98
[2024-07-20] MEDS: traZODone HCL 50 MG TABLET PO (20:46)
[2024-07-20] MEDS: QUEtiapine Fumarate 100 MG TABLET PO (20:46)
[2024-07-20] MEDS: Melatonin 3 MG TABLET 6 MG PO (20:53)
--- NOTE | 2024-07-20 22:57 | PM.EVENT ---
Event Note Date of Service: 07/20/24 Event Note: 8:42 PM - Contacted by nursin Anne is asking for one time dilaudid he said only one dose for the night so he can sleep . Dilaudid was not ordered as this is not used for insomnia. Patient has multiple medications for insominia ordered such as melatonin, trazodone, buspirone and seroquel, and also has been receiving ativan IV prn. 8:49 PM - Contacted by nursing: he did say pain also 10/10 pain . Treatment with oxycodone ordered. 10:49 PM - Contacted by nursing: pt is still ringing for his dilaudid IV he said noting is working . Dilaudid 0.25 mg IV ordered. Toradol 30 mg IV q6h prn for severe pain, concern for drug seeking behavior as he has strong hx of polysubstance abuse. Last abd CT scan showed improvement of pancreatic inflammatory changes, last lipase level is not significantly elevated (July 18). Recheck lipase in am. Time Spent With Patient Time: Total time managing care of this patient today ____ minutes.
[2024-07-20] MEDS: HYDROmorphone HCl 0.5 MG/0.5 ML SYRINGE 0.25 MG IVPUSH (23:29)
[2024-07-21] MEDS: Ketorolac Tromethamine 30 MG/ML VIAL 15 MG IVPUSH (00:17)
[2024-07-21] MEDS: LORazepam 2 MG/ML VIAL 1 MG IVPUSH ×2 (00:17→06:19)
[2024-07-21] MEDS: Lactated Ringers 1,000 ML 125 ML IVCONT ×2 (00:25→09:12)
[2024-07-21] MEDS: LORazepam 2 MG/ML VIAL IVPUSH (02:46)
--- NOTE | 2024-07-21 03:07 | PC.NURSE ---
pt very very anxious tonight not able to sleep after scheduled night time medications and prn pain medications all he wanted was dilaudid . was notified and we tried several different medications until dr ordered 2 mg iv ativan will monitor
[2024-07-21 03:16] VITALS: BP 139/97; PULSE 75; RESP 16; TEMP 36.7; O2SAT 96
[2024-07-21] MEDS: oxyCODONE HCl Immed Release 5 MG TABLET PO ×2 (04:08→12:30)
--- NOTE | 2024-07-21 05:21 | PC.NURSE ---
spoke with dr Hroner R/E pain medications vs anxiety medications . review of medications needed . also psych consult ordered .
[2024-07-21] MEDS: Omeprazole 20 MG CAPSULE.DR PO (05:41)
[2024-07-21 06:25] LABS: Alanine Aminotransferase 70 U/L (0-40); Albumin Level 3.1 g/dL (3.5-5.0); Alkaline Phosphatase 310 U/L (39-117); Anion Gap 11 (12-20); Aspartate Amino Transferase 78 U/L (5-37); Bilirubin Total 0.9 mg/dL (0.0-1.0); Blood Urea Nitrogen 3 mg/dL (9-16); Calcium 8.3 mg/dL (8.4-10.2); Carbon Dioxide 20 mmol/L (22-29); Chloride 109 mmol/L (96-108); Creatinine Clr Calc Pharmacy 122.3; Estimated Glomerular Filt Rate > 60; Glucose Fasting 100 mg/dL (60-99); Lipase 82 U/L (8-78); Potassium 3.3 mmol/L (3.3-5.1); Sodium 137 mmol/L (135-145)
[2024-07-21 07:03] VITALS: BP 139/84; PULSE 74; RESP 16; TEMP 36.4; O2SAT 95
[2024-07-21] MEDS: Loratadine 10 MG TABLET PO (09:12)
[2024-07-21] MEDS: Folic Acid 1 MG TABLET PO (09:12)
[2024-07-21] MEDS: busPIRone HCl 10 MG TABLET 20 MG PO (09:12)
[2024-07-21] MEDS: Thiamine HCL 100 MG TABLET PO (09:12)
[2024-07-21] MEDS: Pramipexole Di-HCL 0.25 MG TABLET 0.5 MG PO (09:12)
[2024-07-21] MEDS: Topiramate 25 MG TABLET PO (09:12)
[2024-07-21] MEDS: Sertraline HCL 100 MG TABLET PO (09:12)
[2024-07-21] MEDS: amLODIPine Besylate 5 MG TABLET PO (09:12)
--- NOTE | 2024-07-21 11:34 | PM.DS ---
DS: Providers Provider Date of Service: 07/21/24 Date of admission: 07/14/24 05:11 Date of discharge: 07/21/24 Primary care physician: Noe Graham MD Consults: 07/14/24 05:14 Addiction Medicine Routine Consulting Provider: Addiction Covering Reason for consultation: alcohol use disorder 07/21/24 02:44 Consult to Psychiatry Routine Consulting Provider: Psych Covering Reason for consultation: marked anxiety/insomnia despite taking multiple meds Has provider been notified: No DS: Diagnosis Discharge Diagnosis (1) Alcohol withdrawal delirium, acute, hyperactive: Status: Acute (2) Alcoholic pancreatitis: Status: Acute DS: Summary Hospital Course Hospital Course: 33-year-old male with pertinent history of alcohol use disorder with history of alcohol withdrawal seizures and alcoholic pancreatitis, mood disorder, alcoholic liver cirrhosis, gastroesophageal reflux disease, tobacco use disorder, polysubstance use disorder who presents to the emergency department for evaluation of abdominal pain and vomiting. Patient states symptoms started 2 days prior to presentation. He had sudden onset upper abdominal pain which radiated to back. It was constant and without any relieving factors. Patient was unable to tolerate p.o. intake. Had multiple episodes of nausea and nonbloody emesis. Last alcohol use was on the day of presentation. He last used cocaine intranasally 2 days prior to presentation. Continues to smoke cigarettes. No fever, chills, cough, chest pain, shortness of breath, palpitations, changes in urinary or bowel habits. In the emergency department, lipase elevated and imaging concerning for acute pancreatitis. Hospital Course Admitted to general medical floor. Maintained on alcohol withdrawal protocol CIWA scale and phenobarb. Progression similar to last admissions. Required increased dosing of phenobarb/Ativan with resolution of withdrawal over time. Once again he was seen by addiction Medicine has not addiction code and offered follow up. At this point in time he is medically acceptable for discharge can follow up with addiction Medicine Time Attestation Discharge Coordination Time (in mins): 35 Quality: Safe Use of Opioids Does Pt have an Active Cancer Diagnosis on the Problem List?: No Quality: Stroke Does the patient have a stroke diagnosis?: No Physical Exam Vital Signs: Vital Signs: Last Vital Signs Temp 97.5 F 07/21/24 07:03 Pulse 74 07/21/24 07:03 Resp 16 07/21/24 07:03 BP 139/84 07/21/24 07:03 Pulse Ox 95 07/21/24 07:03 O2 Del Method Room Air 07/21/24 07:03 BMI result Body Mass Index 26.9 Const: Other: Awake alert appropriate Resp: Other: Clear to auscultation bilaterally no rales rhonchi or wheezes Cardio: Other: No S4; positive S1-S2; no S3 murmurs rubs or gallops GI: Other: Soft nontender nondistended normoactive bowel sounds Neuro: Other: BLACKWELL with equal power Extrem: Other: No edema bilateral DS: Data Data Completed and Pending Completed studies during hospitalization [Text1]: Procedures Detoxification Services for Substance Abuse Treatment (06/18/24) Excision of Sigmoid Colon, Via Natural or Artificial Opening Endoscopic, Diagnostic (04/06/24) Excision of Stomach, Pylorus, Via Natural or Artificial Opening Endoscopic, Diagnostic (04/06/24) Labs on day of discharge: Laboratory Results - last 24 hr 07/21/24 05:39 Hold Purple Top SEE NOTE Sodium 137 Potassium 3.3 Chloride 109 H Carbon Dioxide 20 L Anion Gap 11 L BUN 3 L Creatinine 0.75 Estim Creat Clear Calc 122.3 Estimated GFR > 60 Fasting Glucose 100 H Calcium 8.3 L Total Bilirubin 0.9 AST 78 H ALT 70 H Alkaline Phosphatase 310 H Total Protein 6.0 L Albumin 3.1 L Lipase 82 H Discharge Plan Discharge Anticipated Discharge Date/Time: 07/21/24 11:31 Patient Disposition: Home, Self-Care Discharge Diagnosis: Acute alcoholic pancreatitis with alcohol withdrawal Referrals: Noe Graham MD [Primary Care Provider] - 1 Week Discharge Medications: New amlodipine 5 mg Tablet 5 mg PO DAILY Qty: 30 0RF Protocol: Hold for SBP< HOLD for SBP < : 90 Continued pantoprazole 40 mg tablet,delayed release (DR/EC) 40 mg PO BID@0630,1630 pramipexole 0.25 mg tablet 0.5 mg PO TID trazodone 50 mg tablet 50 mg PO BEDTIME Qty: 30 0RF quetiapine 100 mg tablet 100 mg PO BEDTIME Qty: 30 0RF cetirizine 10 mg tablet 10 mg PO DAILY sertraline 100 mg tablet 100 mg PO DAILY thiamine HCl (vitamin B1) 100 mg tablet 100 mg PO DAILY buspirone 10 mg tablet 20 mg PO TID folic acid 1 mg tablet 1 mg PO DAILY topiramate 25 mg capsule, sprinkle 25 mg PO BID Qty: 60 0RF Discharge Orders: Discharge Order (Routine); Ordered 07/21/24 Ordered By: Bandar Livingston Diet: Advance to usual diet Activity on Discharge: As tolerated Stand Alone Forms: Patient Portal Discharge page Print Language: Chinese Care Plan Goals: Follow up with rehab sustainability coach as per addiction Medicine Health Concerns: Resume all your medicines as taken prior to hospitalization. Amlodipine has been added to your regimen daily. Plan of Treatment: Avoid alcohol. Follow up with PCP in addiction medicine as scheduled Assessment: See discharge summary
--- NOTE | 2024-07-21 12:21 | MHC.CM.PN ---
DP: PT HAS BEEN MEDICALLY CLEARED FOR DC HOME, NO SERVICES. [facility] WILL PROVIDE TRANSPORT AT 2 PM.
== END 2024-07-21 13:41 | disposition home or self-care (01) | DRG 282 ==
LOC: HO.ED 07-14 00:10 → HO.EDOVER 07-14 05:16 → HO.S3 07-14 08:00
PROVIDERS: Internal Medicine; Admitting Provider Student in an Organized Health Care Education/Training Program; Emergency Provider Student in an Organized Health Care Education/Training Program; PCP Internal Medicine; Visit Provider Hospitalist
DX: K85.20 Alcohol induced acute pancreatitis without necrosis or infection (principal); F10.931 Alcohol use, unspecified with withdrawal delirium; D69.59 Other secondary thrombocytopenia; K70.30 Alcoholic cirrhosis of liver without ascites; F17.210 Nicotine dependence, cigarettes, uncomplicated; Z78.1 Physical restraint status; F10.929 Alcohol use, unspecified with intoxication, unspecified; F41.9 Anxiety disorder, unspecified; K21.9 Gastro-esophageal reflux disease without esophagitis; Y90.8 Blood alcohol level of 240 mg/100 ml or more; F19.90 Other psychoactive substance use, unspecified, uncomplicated; F39 Unspecified mood [affective] disorder; Z71.6 Tobacco abuse counseling; Z79.899 Other long term (current) drug therapy
CPT/HCPCS: 36415; 71045; 74176; 74177; 80048; 80053; 80076; 80307; 82803; 83690; 84484; 85007; 85025; 85027; 85610; 93005; 99285; J0737; J1171; J1650; J1885; J2060; J2250; J2270; J2359; J2405; J2560; J2765; J3360; J3411; J3480; J7120; Q9967

== ENCOUNTER → 2024-07-13 22:26 | Outpatient (BNV) | payer OTHER, SELFPAY | PROVIDERS: Admitting Provider Student in an Organized Health Care Education/Training Program; Emergency Provider Student in an Organized Health Care Education/Training Program; PCP Internal Medicine; Visit Provider Internal Medicine | DX: R07.9 Chest pain, unspecified (principal) | CPT/HCPCS: 93010 ==

== ENCOUNTER → 2024-07-14 05:11 | Outpatient (BNV) | payer OTHER, SELFPAY | PROVIDERS: Admitting Provider Student in an Organized Health Care Education/Training Program; Emergency Provider Student in an Organized Health Care Education/Training Program; PCP Internal Medicine; Visit Provider Student in an Organized Health Care Education/Training Program | DX: F10.931 Alcohol use, unspecified with withdrawal delirium (principal) | CPT/HCPCS: 99223; 99232; 99233; 99239; 99499 ==

== ENCOUNTER 2024-07-22 22:15 | Emergency (ER) | payer OTHER, SELFPAY ==
[2024-07-22 22:23] VITALS: BP 112/75; BP 142/90; PULSE 112; PULSE 117; RESP 20; TEMP 37.9; O2SAT 96; O2SAT 98; BMI 26.6
--- NOTE | 2024-07-22 22:40 | ED.ABDPAIN ---
HPI - Abdominal Pain General Chief Complaint: Nausea/Vomiting/Diarrhea Stated Complaint: ETOH Time Seen by Provider: 07/22/24 22:30 Source: patient Mode of arrival: EMS Limitations: no limitations History of Present Illness ED Provider: Dr. Jimy Jackson HPI narrative: 33-year-old male with pertinent history of alcohol use disorder with history of alcohol withdrawal seizures and alcoholic pancreatitis, mood disorder, alcoholic liver cirrhosis, gastroesophageal reflux disease, tobacco use disorder, polysubstance use disorder who presents to the emergency department for evaluation chest pain, back pain, abdominal pain, shortness of breath with symptoms beginning since he was released from the hospital yesterday. Patient was hospitalized from 07/14/2024 until 07/21/2024 (1 day prior) for acute pancreatitis. He states that the time of discharge he was feeling better. Since leaving the hospital yesterday, he drank 20 nips of root beer schnapps. Currently is complaining of chest and abdominal pain which is 10/10. He states the pain is a constant, squeezing sensation and feels like his pancreatitis. Patient states he has had nausea vomiting with no diarrhea. He states he was not able to hold any fluid down secondary to his nausea and pain. Related Data Home Medications ?Medication ?Instructions ?Recorded ?Confirmed buspirone 10 mg tablet 20 mg PO TID 04/07/24 07/23/24 cetirizine 10 mg tablet 10 mg PO DAILY 04/07/24 07/14/24 folic acid 1 mg tablet 1 mg PO DAILY 04/07/24 07/14/24 sertraline 100 mg tablet 100 mg PO DAILY 04/07/24 07/23/24 thiamine HCl (vitamin B1) 100 mg 100 mg PO DAILY 04/07/24 07/14/24 tablet pantoprazole 40 mg tablet,delayed 40 mg PO BID@0630,1630 05/03/24 07/23/24 release pramipexole 0.25 mg tablet 0.5 mg PO TID 05/10/24 07/23/24 Previous Rx's ?Medication ?Instructions ?Recorded quetiapine 100 mg tablet 100 mg PO BEDTIME #30 tabs 05/17/24 trazodone 50 mg tablet 50 mg PO BEDTIME #30 tabs 05/17/24 topiramate 25 mg sprinkle capsule 25 mg PO BID #60 caps 06/22/24 amlodipine 5 mg tablet 5 mg PO DAILY #30 tabs 07/21/24 Allergies Allergy/AdvReac Type Severity Reaction Status Date / Time Penicillins Allergy Unknown CHILDHOOD Verified 07/22/24 22:28 ALLERGY Review of Systems Review of Systems Yes all other systems are reviewed and are negative [facility] Past Medical History Medical History Meningitis spinal Alcoholic cirrhosis Seizure Mood disorder Alcohol use disorder Surgical History [place] teeth extracted H/O colonoscopy No pertinent past surgical history Social History Social History Household Members: Other Household Members Other:: freind Housing: Apartment Housing Other:: Roommate Do you presently have visiting nurse or other home services: No Alcohol intake: current Alcohol intake frequency: 3 or more drinks per day Alcohol type: hard liquor Comment: 1:1 sitter Patient Tobacco Use Status: Never used Tobacco Tobacco use type: Cigarette Cigarette Packs Per Day: 2 Cigarettes Per Day: 40.0 Years Smoked: 15 Smoked in Last 30 Days: Yes e-Cigarette/Vaping Use: Never Used Second Hand Smoke Exposure: No Substance Use Type: Crack/Cocaine and Marijuana Advance Directives: No Advance Directives Information Provided: Yes Advance Directives Date on File: 06/23/24 Do you have a plan to hurt others: No Plan service: No Physical Exam ED Vital Signs: Vital Signs - 24 hr 07/22/24 22:23 07/23/24 00:00 Temperature 100.2 F 98.5 F Pulse Rate 112 H 97 Respiratory Rate 20 17 Blood Pressure 112/75 117/76 Pulse Oximetry 96 96 Oxygen Delivery Method Room Air Room Air BMI result Body Mass Index 26.6 Vital signs revealed a fever of 100.2 degrees F, elevated heart rate of 112 Exam: General: Awake, alert in no distress Head: Normocephalic, atraumatic EENT: PERRL, Lids normal, sclera normal, conjunctiva normal, nose normal , ears normal, throat without erythema or exudates Neck: Supple, no adenopathy Lung: breath sounds symmetric, no wheezing, rales or rhonchi Chest: symmetric movement, nontender Heart: regular rate and rhythm, normal S1, S2 no murmurs or rubs Abdomen: soft, moderate diffuse tenderness, nondistended, normal bowel sounds, no rebound, no voluntary or involuntary guarding Back: no vertebral tenderness, no CVAT Extremities: no deformities, moves all extremities symmetrically Neuro: Awake, alert, oriented, normal speech, cranial nerves intact, moves all extremities symmetrically Psych: Pleasant, cooperative Medical Decision Making Medical Decision Making MDM Narrative: 33-year-old male with pertinent history of alcohol use disorder with history of alcohol withdrawal seizures and alcoholic pancreatitis, mood disorder, alcoholic liver cirrhosis, gastroesophageal reflux disease, tobacco use disorder, polysubstance use disorder who presents to the emergency department for evaluation chest pain, back pain, abdominal pain, shortness of breath with symptoms beginning since he was released from the hospital yesterday. Patient states his pain feels similar to his pancreatitis pain. Patient has been drinking alcohol since being discharged yesterday and states he drank at least 20 shots of root beer schnapps. Differential diagnosis: ?Includes but is not limited to gastritis, esophagitis, pancreatitis, acute alcohol intoxication, anemia, electrolyte abnormalities Course: 00:25 Start physician observation: The patient was treated with Dilaudid 1 mg IV, Zofran 4 mg IV and normal saline x1 L. Given his low potassium I ordered magnesium 1 g IV and potassium chloride 10 mEq/100 mL IV x2 My independent interpretation patient's laboratory evaluation is as follows: WBC was normal 5400. Normocytic anemia with an H&H of 11.0 and 33.2-chronic. PT/INR elevated 13.5 and 1.2. PTT elevated 38.2. Potassium low 2.8. Chloride elevated 111. Bicarb low 21. AST, ALT and alk-phos were elevated at 109, 90 and 365. Lipase was normal at 64. Urinalysis was positive for protein. Blood and leukocyte esterase. Microscopic revealed 11-20 RBCs, 0-5 WBCs, no bacteria. Urine tox screen was positive for barbiturates, benzodiazepines, cocaine and marijuana. Ethanol was elevated at 265. The patient's laboratory findings are consistent with his alcohol use disorder and not pancreatitis. Given his acute alcohol intoxication the patient will be placed in physician observation and the patient will be kept in the emergency department believes sober and can be discharged. Lab Data 10/22/24 22:50 10/22/24 22:50 Labs: Lab Results 07/22/24 07/22/24 07/22/24 Range/Units 22:50 23:18 23:56 WBC 5.4 (4.8-10.8) X10*3/uL RBC 3.90 L (4.60-5.80) X10*6/uL Hgb 11.0 L (14.0-18.0) g/dl Hct 33.2 L (42.0-52.0) % MCV 85.1 (80.0-98.0) fL MCH 28.2 (27.0-33.0) pg MCHC 33.1 (31.0-36.0) g/dl RDW 21.5 H (11.0-16.0) % Plt Count 324 D (160-400) X10*3/uL MPV 10.5 (9.4-12.4) fL Immature Gran % (Auto) 0.6 H (0.0-0.4) % Neut % (Auto) 54.7 (45-73) % Lymph % (Auto) 22.3 (20-40) % [place] % (Auto) 20.7 H (2-11) % Eos % (Auto) 0.4 (0-4) % Baso % (Auto) 1.3 (0-2) % Lymph # (Auto) 1.2 (1.2-4.9) X10*3/uL [place] # (Auto) 1.1 (0.1-1.2) X10*3/uL Eos # (Auto) 0.0 (0.0-0.4) X10*3/uL Baso # (Auto) 0.1 (0.0-0.2) X10*3/uL Abs Immat Gran (auto) 0.03 (0.00-0.03) X10*3/uL Absolute Neuts (auto) 2.9 (2.0-8.3) x10*3/uL Absolute Nucleated RBC 0.000 (0.0-0.012) X10*3/uL Nucleated RBC % (auto) 0.0 (0.0-0.2) /100WBC ESR 22 H (0-15) MM/HR PT 13.5 H (10.9-12.4) SEC INR 1.2 H (0.9-1.1) APTT 38.2 H (26.0-36.8) SEC Sodium 144 (135-145) mmol/L Potassium 2.8 L* (3.3-5.1) mmol/L Chloride 111 H (96-108) mmol/L Carbon Dioxide 21 L (22-29) mmol/L Anion Gap 15 (12-20) BUN 3 L (9-16) mg/dL Creatinine 0.86 (0.5-1.4) mg/dL Estim Creat Clear Calc 98.3 Estimated GFR > 60 Random Glucose 108 (60-115) mg/dL Lactic Acid 2.1 H* (0.5-2.0) mmol/L Calcium 9.0 D (8.4-10.2) mg/dL Magnesium 1.9 (1.6-2.6) mg/dL Total Bilirubin 1.0 (0.0-1.0) mg/dL AST 109 H (5-37) U/L ALT 90 H (0-40) U/L Alkaline Phosphatase 365 H (39-117) U/L C-Reactive Protein 1.66 H (< or = 0.50) mg/dL Total Protein 8.1 H (6.5-8.0) g/dL Albumin 4.3 (3.5-5.0) g/dL Lipase 64 (8-78) U/L Urine Color Dark Yellow Urine Appearance Clear Urine pH 6.5 (5.0-9.0) Ur Specific [place] 1.020 (1.005-1.025) Urine Protein 100 (2+) H (Neg-Trace) mg/dL Urine Glucose (UA) Negative (Negative) mg/dL Urine Ketones Trace (Negative) mg/dL Urine Blood Small (1+) H (Negative) Urine Nitrite Negative (Negative) Ur Leukocyte Esterase Trace H (Negative) Urine RBC 11-20 H (0-2) /HPF Urine WBC 0-5 (0-5) /HPF Ur Squamous Epith Cells 0-2 (0-2) /HPF Urine Bacteria None Seen (None Seen) Hyaline Casts 0-2 (0-2) /LPF Urine Opiates Screen Not Detected (Not Detect) Ur Buprenorphine Scrn Not Detected (Not Detect) ng/mL Ur Oxycodone Screen Not Detected (Not Detect) ng/mL Urine Methadone Screen Not Detected (Not Detect) ng/mL Urine Fentanyl Screen Not Detected (Not Detect) Ur Barbiturates Screen POSITIVE H (Not Detect) Ur Phencyclidine Scrn Not Detected (Not Detect) Ur Amphetamines Screen Not Detected (Not Detect) U Benzodiazepines Scrn POSITIVE H (Not Detect) Urine Cocaine Screen POSITIVE H (Not Detect) U Marijuana (THC) Screen POSITIVE H (Not Detect) Ethyl Alcohol 265 mg/dL Influenza Type A (PCR) NEGATIVE (Negative) Influenza Type B (PCR) NEGATIVE (Negative) RSV RNA Qual (PCR) NEGATIVE (Negative) SARS-CoV-2 RNA (RT-PCR) NEGATIVE (Negative) Medications Administered Generic Name Dose Route Start Last Admin Trade Name Freq PRN Reason Stop Dose Admin Buspirone HCl 20 mg 07/23/24 00:45 07/23/24 01:37 Buspirone Hcl 10 Mg Tablet PO 20 mg TID DOE Administration Quetiapine Fumarate 100 mg 07/23/24 00:45 07/23/24 01:37 Quetiapine Fumarate 100 Mg Tablet PO 100 mg BEDTIME DOE Administration Topiramate 25 mg 07/23/24 00:45 07/23/24 01:37 Topiramate 25 Mg Tablet PO 25 mg BID DOE Administration Trazodone HCl 50 mg 07/23/24 00:45 07/23/24 01:37 Trazodone Hcl 50 Mg Tablet PO 50 mg BEDTIME DOE Administration Discontinued Medications Generic Name Dose Route Start Last Admin Trade Name Freq PRN Reason Stop Dose Admin Hydromorphone HCl 1 mg 07/22/24 22:41 07/22/24 23:02 Hydromorphone Hcl 1 Mg/Ml Syringe IVPUSH 07/22/24 22:42 1 mg ONCE STA Administration Protocol Sodium Chloride 1,000 mls @ 999 mls/hr 07/22/24 22:41 07/22/24 23:58 Ns IV 07/22/24 23:41 Infused .Q1H1M STA Infusion Magnesium Sulfate/Dextrose 1 gm in 100 mls @ 100 mls/hr 07/23/24 00:32 07/23/24 00:38 Magnesium Sulfate/D5w IV 07/23/24 01:31 100 mls/hr ONCE ONE Administration Ondansetron HCl 4 mg 07/22/24 22:41 07/22/24 23:02 Ondansetron Hcl 4 Mg/2 Ml Vial IVPUSH 07/22/24 22:42 4 mg ONCE ONE Administration Discharge Plan Discharge Clinical Impression: Alcohol intoxication, Acute alcoholic gastritis, Acute hypokalemia Patient Disposition: Still a Patient Additional Instructions: Your blood work revealed an elevated alcohol level which is consistent with alcohol intoxication Your lipase which is a marker of inflammation of your pancreas was normal. Your symptoms are caused by your alcohol use in you most likely have gastritis/inflammation of your stomach is the cause of your pain, nausea and vomiting Prescriptions: No Action pantoprazole 40 mg tablet,delayed release (DR/EC) 40 mg PO BID@0630,1630 pramipexole 0.25 mg tablet 0.5 mg PO TID trazodone 50 mg tablet 50 mg PO BEDTIME Qty: 30 0RF quetiapine 100 mg tablet 100 mg PO BEDTIME Qty: 30 0RF cetirizine 10 mg tablet 10 mg PO DAILY sertraline 100 mg tablet 100 mg PO DAILY thiamine HCl (vitamin B1) 100 mg tablet 100 mg PO DAILY buspirone 10 mg tablet 20 mg PO TID folic acid 1 mg tablet 1 mg PO DAILY topiramate 25 mg capsule, sprinkle 25 mg PO BID Qty: 60 0RF amlodipine 5 mg Tablet 5 mg PO DAILY Qty: 30 0RF Protocol: Hold for SBP< HOLD for SBP < : 90 Print Language: Danish
--- NOTE | 2024-07-22 22:42 | ECG_ITS ---
Test Reason : CHEST PAIN Blood Pressure : / mmHG Vent. Rate : 102 BPM Atrial Rate : 102 BPM P-R Int : 144 ms QRS Dur : 086 ms QT Int : 342 ms P-R-T Axes : 007 -04 003 degrees QTc Int : 445 ms Sinus tachycardia Minimal voltage criteria for LVH, may be normal variant ( R in aVL ) Borderline ECG When compared with ECG of 14-JUL-2024 00:28, No significant change was found Referred By: Jimy Jackson Electronically Signed By:Lam Mcguire
[2024-07-22] MEDS: 0.9 % Sodium Chloride 1,000 ML 999 ML IV (23:00)
[2024-07-22] MEDS: HYDROmorphone HCl 1 MG/ML SYRINGE IVPUSH (23:02)
[2024-07-22] MEDS: ondansetron HCL 4 MG/2 ML VIAL IVPUSH (23:02)
[2024-07-22 23:04] LABS: Basophils Absolute Auto 0.1 X10*3/uL (0.0-0.2); Basophils Percent Auto 1.3 % (0-2); Eosinophils Percent Auto 0.4 % (0-4); Hematocrit 33.2 % (42.0-52.0); Imm Gran Abs Auto 0.03 X10*3/uL (0.00-0.03); Imm Gran Pct Auto 0.6 % (0.0-0.4); Lymphocytes Absolute Auto 1.2 X10*3/uL (1.2-4.9); Lymphocytes Percent Auto 22.3 % (20-40); MANUAL DIFF FLAG NO; Mean Corpuscular HGB Conc 33.1 g/dl (31.0-36.0); Mean Corpuscular Hemoglobin 28.2 pg (27.0-33.0); Mean Corpuscular Volume 85.1 fL (80.0-98.0); Mean Platelet Volume 10.5 fL (9.4-12.4); Monocytes Absolute Auto 1.1 X10*3/uL (0.1-1.2); Monocytes Percent Auto 20.7 % (2-11); Neutrophils Absolute Auto 2.9 x10*3/uL (2.0-8.3); Neutrophils Percent Auto 54.7 % (45-73); Platelet Count 324 X10*3/uL (160-400); Red Cell Distribution Width 21.5 % (11.0-16.0); SCAN SMEAR FLAG 1; White Blood Count 5.4 X10*3/uL (4.8-10.8)
[2024-07-22 23:10] LABS: INTERNATIONAL NORM RATIO 1.2 (0.9-1.1); Prothrombin Time 13.5 SEC (10.9-12.4)
[2024-07-22 23:13] LABS: Partial Thromboplastin Time 38.2 SEC (26.0-36.8)
[2024-07-22 23:14] LABS: Ethanol 265 mg/dL
[2024-07-22 23:16] LABS: Lactic Acid 2.1 mmol/L (0.5-2.0)
[2024-07-22 23:21] LABS: Alanine Aminotransferase 90 U/L (0-40); Albumin Level 4.3 g/dL (3.5-5.0); Alkaline Phosphatase 365 U/L (39-117); Anion Gap 15 (12-20); Aspartate Amino Transferase 109 U/L (5-37); Blood Urea Nitrogen 3 mg/dL (9-16); C Reactive Protein 1.66 mg/dL (< or = 0.50); Carbon Dioxide 21 mmol/L (22-29); Chloride 111 mmol/L (96-108); Creatinine Clr Calc Pharmacy 98.3; Estimated Glomerular Filt Rate > 60; Glucose Random 108 mg/dL (60-115); Lipase 64 U/L (8-78); Potassium 2.8 mmol/L (3.3-5.1); Sodium 144 mmol/L (135-145); Total Protein 8.1 g/dL (6.5-8.0)
[2024-07-22 23:26] LABS: Appearance Urine Clear; Color Urine Dark Yellow; Glucose Urine UA Negative (Negative); Leukocyte Esterase Urine Trace (Negative); Nitrite Urine Negative (Negative); PH 6.5 (5.0-9.0); UMIC TRIGGER UACC YES; Urine Blood Small (1+) (Negative); Urine Ketones Trace mg/dL (Negative); Urine Protein 100 (2+) mg/dL (Neg-Trace)
[2024-07-22 23:31] LABS: Bacteria Urine None Seen (None Seen); Hyaline Casts Urine 0-2 /LPF (0-2); Squamous Epithelial Cell Urine 0-2 /HPF (0-2); WBC Urine 0-5 /HPF (0-5)
[2024-07-22 23:36] LABS: Erythrocyte Sedimentation Rate 22 MM/HR (0-15)
[2024-07-22 23:38] LABS: Amphetamine Screen Urine Not Detected (Not Detect); Barbiturates, Urine POSITIVE (Not Detect); Benzodiazepines Screen Urine POSITIVE (Not Detect); Buprenorphine Scr Not Detected (Not Detect); Cannabinoid Screen Urine POSITIVE (Not Detect); Cocaine Screen Urine POSITIVE (Not Detect); Fentanyl, urine Not Detected (Not Detect); Methadone Screen, Urine Not Detected (Not Detect); Opiate Screen Urine Not Detected (Not Detect); Oxycodone Screen Urine Not Detected (Not Detect); Phencyclidine Screen Urine Not Detected (Not Detect)
[2024-07-23] VITALS: BP 117/76; PULSE 97; RESP 17; TEMP 36.9; O2SAT 96
--- NOTE | 2024-07-23 00:03 | MHC.EDTECH ---
This tech took over care of patient at 2300,rounded ad introduced self to patient,vitals taken,Sars/Flu/Rsv obtained and sent to lab
[2024-07-23] MEDS: Magnesium Sulfate/D5W 1 GM/100 ML PIGGYBACK IV (00:38)
[2024-07-23 00:47] LABS: Influenza A PCR NEGATIVE (Negative); Influenza B PCR NEGATIVE (Negative); Resp Syncy Virus RNA Qual PCR NEGATIVE (Negative); SARS COV2 PCR INHOUSE NEGATIVE (Negative)
[2024-07-23 00:50] LABS: Magnesium 1.9 mg/dL (1.6-2.6)
[2024-07-23 01:00] LABS: Reflex Lactate? Lactic Acid Added
[2024-07-23] MEDS: Topiramate 25 MG TABLET PO (01:37)
[2024-07-23] MEDS: QUEtiapine Fumarate 100 MG TABLET PO (01:37)
[2024-07-23] MEDS: traZODone HCL 50 MG TABLET PO (01:37)
[2024-07-23] MEDS: busPIRone HCl 10 MG TABLET 20 MG PO (01:37)
[2024-07-23 02:00] VITALS: BP 104/61; PULSE 118; RESP 15; O2SAT 98
[2024-07-23] MEDS: Potassium Chloride/H20 10 MEQ/100 ML PIGGYBACK 100 MEQ IV ×2 (02:12→03:13)
[2024-07-23 03:51] VITALS: BP 94/53; PULSE 85; RESP 14; TEMP 36.5; O2SAT 95
[2024-07-23 04:03] LABS: ~Lactic Acid-LAB USE ONLY 1.1 mmol/L (0.5-2.0)
[2024-07-23 05:20] VITALS: BP 98/68; PULSE 92; RESP 16; TEMP 36.6; O2SAT 96
[2024-07-23 05:55] VITALS: BP 98/68; PULSE 92; RESP 16; TEMP 36.6; O2SAT 96
== END 2024-07-23 06:07 | disposition home or self-care (01) ==
PROVIDERS: Emergency Medicine Emergency Medical Services; Emergency Provider Internal Medicine; PCP Internal Medicine
DX: R11.2 Nausea with vomiting, unspecified (principal); F10.129 Alcohol abuse with intoxication, unspecified; K29.20 Alcoholic gastritis without bleeding; Y90.8 Blood alcohol level of 240 mg/100 ml or more; E87.6 Hypokalemia; R07.89 Other chest pain; R00.0 Tachycardia, unspecified; M54.50 Low back pain, unspecified; Z03.818 Encounter for observation for suspected exposure to other biological agents ruled out; Z79.899 Other long term (current) drug therapy; Z87.891 Personal history of nicotine dependence; Z51.81 Encounter for therapeutic drug level monitoring
CPT/HCPCS: 0241U; 36415; 80053; 80307; 81001; 83605; 83690; 83735; 85025; 85610; 85652; 85730; 86140; 87040; 93005; 96361; 96365; 96366; 96367; 96375; 99285; J1171; J2405; J3475; J3480

== ENCOUNTER → 2024-07-22 22:42 | Outpatient (BNV) | payer OTHER, SELFPAY | PROVIDERS: Emergency Provider Internal Medicine; PCP Internal Medicine; Visit Provider Internal Medicine Cardiovascular Disease | DX: R00.0 Tachycardia, unspecified (principal) | CPT/HCPCS: 93010 ==

== ENCOUNTER 2025-05-15 10:35 | Inpatient (IN) | payer OTHER, SELFPAY ==
[2025-05-15] VITALS (7 sets, daily range): BP systolic 95–144; BP diastolic 53–80; PULSE 70–99; RESP 12–20; TEMP 36.4–36.6; O2SAT 94–99; BMI 29.2; BMI 30.9
[2025-05-15 10:52] LABS: MANUAL DIFF FLAG NO
[2025-05-15 10:54] LABS: Hematocrit 37.1 % (42.0-52.0); Hemoglobin 12.8 g/dl (14.0-18.0); Imm Gran Abs Auto 0.02 X10*3/uL (0.00-0.03); Imm Gran Pct Auto 0.4 % (0.0-0.4); Lymphocytes Absolute Auto 1.7 X10*3/uL (1.2-4.9); Mean Corpuscular HGB Conc 34.5 g/dl (31.0-36.0); Mean Corpuscular Hemoglobin 28.8 pg (27.0-33.0); Mean Corpuscular Volume 83.4 fL (80.0-98.0); NRBC Abs Auto 0.000 X10*3/uL (0.0-0.012); NRBC Pct Auto 0.0 /100WBC (0.0-0.2); Platelet Count 183 X10*3/uL (160-400); Red Blood Count 4.45 X10*6/uL (4.60-5.80); White Blood Count 4.8 X10*3/uL (4.8-10.8)
[2025-05-15 11:10] LABS: Alanine Aminotransferase 54 U/L (0-40); Albumin Level 4.9 g/dL (3.5-5.0); Alkaline Phosphatase 127 U/L (39-117); Anion Gap 13 (12-20); Aspartate Amino Transferase 99 U/L (5-37); Blood Urea Nitrogen 10 mg/dL (9-16); Calcium 9.3 mg/dL (8.4-10.2); Carbon Dioxide 20 mmol/L (22-29); Chloride 110 mmol/L (96-108); Creatinine Clr Calc Pharmacy 98.2; Estimated Glomerular Filt Rate > 60; Lipase 33 U/L (8-78); Potassium 4.5 mmol/L (3.3-5.1); Sodium 138 mmol/L (135-145); Total Protein 8.2 g/dL (6.5-8.0)
--- NOTE | 2025-05-15 12:26 | ED.GENADULT ---
HPI - General Adult General Chief complaint: General Medical Stated complaint: withdrawls Time Seen by Provider: 05/15/25 12:25 Source: patient Mode of arrival: ambulatory Limitations: no limitations History of Present Illness ED Provider: SIMONA Payton HPI narrative: 34-year-old male history of alcohol use disorder, anxiety, depression, mood disorder presents feeling unwell, shaky, anxious and sweaty. Reports he has a history of alcohol withdrawals, he was seen at [facility] yesterday and he left against medical advice. He reports he left, drank, last drink at 01:00. He tells me he feels like he is going to go into full withdrawal. Denies visual, auditory and tactile hallucinations. Not suicidal or homicidal. Denies chest pain, shortness breath, nausea, vomiting, abdominal pain, headache, vision changes, dizziness and weakness. Related Data Home Medications ?Medication ?Instructions ?Recorded ?Confirmed buspirone 10 mg tablet 20 mg PO TID 04/07/24 07/23/24 cetirizine 10 mg tablet 10 mg PO DAILY 04/07/24 07/14/24 folic acid 1 mg tablet 1 mg PO DAILY 04/07/24 07/14/24 sertraline 100 mg tablet 100 mg PO DAILY 04/07/24 07/23/24 thiamine HCl (vitamin B1) 100 mg 100 mg PO DAILY 04/07/24 07/14/24 tablet pantoprazole 40 mg tablet,delayed 40 mg PO BID@0630,1630 05/03/24 07/23/24 release pramipexole 0.25 mg tablet 0.5 mg PO TID 05/10/24 07/23/24 Previous Rx's ?Medication ?Instructions ?Recorded quetiapine 100 mg tablet 100 mg PO BEDTIME #30 tabs 05/17/24 trazodone 50 mg tablet 50 mg PO BEDTIME #30 tabs 05/17/24 topiramate 25 mg sprinkle capsule 25 mg PO BID #60 caps 06/22/24 amlodipine 5 mg tablet 5 mg PO DAILY #30 tabs 07/21/24 Allergies Allergy/AdvReac Type Severity Reaction Status Date / Time Penicillins Allergy Unknown CHILDHOOD Verified 05/15/25 10:41 ALLERGY Review of Systems Review of Systems: Yes all other systems are reviewed and are negative PMFSH Past Medical History Attestation statement: The following information was validated with the patient. Source: old records reviewed and nursing notes reviewed Medical History Meningitis spinal Alcoholic cirrhosis Seizure Mood disorder Alcohol use disorder Surgical History [place] teeth extracted H/O colonoscopy No pertinent past surgical history Social History Social History Household Members: Other Household Members Other:: freind Housing: Apartment Housing Other:: Roommate Do you presently have visiting nurse or other home services: No Alcohol intake: current Alcohol intake frequency: 0-2 drinks per day Alcohol type: hard liquor Comment: 1:1 sitter Patient Tobacco Use Status: Never used Tobacco Tobacco use type: Cigarette Cigarette Packs Per Day: 2 Cigarettes Per Day: 40.0 Years Smoked: 15 Smoked in Last 30 Days: Yes e-Cigarette/Vaping Use: Never Used Second Hand Smoke Exposure: No Use of substances other than those prescribed or required for medical reasons: No Substance Use Type: Crack/Cocaine and Marijuana Advance Directives Date on File: 06/23/24 Do you have a plan to hurt others: No Plan service: No Physical Exam ED Exam Exam: Appearance: Alert.? Oriented X3.? No acute distress.? Head: Normocephalic, atraumatic, no step-offs or deformities Eyes: Pupils equal, round and reactive to light.? ENT: Pharynx normal.?+ tongue fasciculation Neck: Normal inspection.? Neck supple.? CVS: Rapid rate normal rhythm likely sinus tachycardia? Pulses normal.? Respiratory: No respiratory distress.? Breath sounds normal.? Abdomen: Soft and nontender.? Skin: Skin warm and dry.? Normal skin color.? Normal skin turgor.? Extremities: No lower extremity edema.? No calf ttp. 5/5 strength to bilateral upper and lower extremities + tremors to upper and lower extremities Back: No midline tenderness, no C-spine tenderness, full range of motion, no CVA tenderness bilaterally Neuro: Oriented X 3.? No motor deficit.? No sensory deficit. CN 2-12 intact Vital Signs: Vital Signs - 24 hr 05/15/25 10:39 05/15/25 12:27 Temperature 98 F Pulse Rate 99 76 Respiratory Rate 18 12 Blood Pressure 144/80 H 115/78 Pulse Oximetry 99 94 Oxygen Delivery Method Room Air Room Air BMI result Body Mass Index 29.2 Vital signs stable Course Reevaluation(s) Reevaluation #1: CBC unremarkable. Chemistry no acute findings needing intervention. Ethanol level 11. Concerns for acute alcohol withdrawal will initiate seizure precautions as well as phenobarbital. Time: 12:30 Reevaluation #2: [facility] for Alcohol Withdrawal from [employer] on 05/15/2025 All calculations should be rechecked by clinician prior to use RESULT SUMMARY: 7 points Patients with scores <= typically do not require medication for withdrawal. INPUTS: Nausea/vomiting ?> 1 = Mild nausea and no vomiting Tremor ?> 2 = (More severe symptoms) Paroxysmal sweats ?> 2 = (More severe symptoms) Anxiety ?> 1 = Mildly anxious Agitation ?> 0 = Normal activity Tactile disturbances ?> 0 = None Auditory disturbances ?> 0 = Not present Visual disturbances ?> 0 = Not present Headache/fullness in head ?> 0 = Not Present Orientation/clouding of sensorium ?> 1 = Can't do serial additions or is uncertain about date Time: 12:38 Reevaluation #3: Patient will be admitted to the hospitalist team for acute alcohol withdrawal Time: 13:31 Medications Administered Discontinued Medications Generic Name Dose Route Start Last Admin Trade Name Eva PRN Reason Stop Dose Admin Diazepam 5 mg 05/15/25 12:26 05/15/25 12:48 Diazepam 10 Mg/2 Ml Cartridge IVPUSH 05/15/25 12:27 5 mg STAT STA Administration Phenobarbital Sodium 319 mg 05/15/25 13:00 05/15/25 12:48 Phenobarbital Sodium 130 Mg/Ml Im Once IM 05/15/25 13:01 319 mg ONCE ONE Administration Protocol Medical Decision Making Medical Decision Making [facility] Narrative: 1227 34-year-old male presents feeling unwell, feels like he is in alcohol withdrawal feeling anxious, shaky. Last drink 01:00. Physical exam patient evidently anxious, tremulous, diaphoretic, tachycardic. History and physical exam concerning for acute alcohol withdrawal. No signs of delirium tremens at this time. Will rule out metabolic derangements. No focal neuro deficits. Plan at this time will give him Valium and start phenobarb. Plan is likely hospital admission Differential Diagnosis Differential Diagnoses: The differential diagnosis associated with the presentation includes ( History and physical exam concerning for acute alcohol withdrawal. No signs of delirium tremens at this time. Will rule out metabolic derangements. No focal neuro deficits.) Admission/Observation Consideration of admission/observation: Escalation of care including admission/observation considered (likely ) Consult Healthcare Provider Management of the patient was discussed with: Hospitalist Lab Data MDM Lab Attestation statement: I reviewed the patient's lab results. 05/15/25 10:48 05/15/25 10:48 Labs: Lab Results 05/15/25 05/15/25 Range/Units 10:48 12:53 WBC 4.8 (4.8-10.8) X10*3/uL RBC 4.45 L (4.60-5.80) X10*6/uL Hgb 12.8 L (14.0-18.0) g/dl Hct 37.1 L (42.0-52.0) % MCV 83.4 (80.0-98.0) fL MCH 28.8 (27.0-33.0) pg MCHC 34.5 (31.0-36.0) g/dl RDW 16.4 H (11.0-16.0) % Plt Count 183 D (160-400) X10*3/uL MPV 9.6 (9.4-12.4) fL Immature Gran % (Auto) 0.4 (0.0-0.4) % Neut % (Auto) 47.4 (45-73) % Lymph % (Auto) 35.5 (20-40) % [place] % (Auto) 14.8 H (2-11) % Eos % (Auto) 1.3 (0-4) % Baso % (Auto) 0.6 (0-2) % Lymph # (Auto) 1.7 (1.2-4.9) X10*3/uL [place] # (Auto) 0.7 (0.1-1.2) X10*3/uL Eos # (Auto) 0.1 (0.0-0.4) X10*3/uL Baso # (Auto) 0.0 (0.0-0.2) X10*3/uL Abs Immat Gran (auto) 0.02 (0.00-0.03) X10*3/uL Absolute Neuts (auto) 2.3 (2.0-8.3) x10*3/uL Absolute Nucleated RBC 0.000 (0.0-0.012) X10*3/uL Nucleated RBC % (auto) 0.0 (0.0-0.2) /100WBC Sodium 138 (135-145) mmol/L Potassium 4.5 D (3.3-5.1) mmol/L Chloride 110 H (96-108) mmol/L Carbon Dioxide 20 L (22-29) mmol/L Anion Gap 13 (12-20) BUN 10 (9-16) mg/dL Creatinine 0.96 (0.5-1.4) mg/dL Estim Creat Clear Calc 98.2 Estimated GFR > 60 Random Glucose 81 (60-115) mg/dL Calcium 9.3 (8.4-10.2) mg/dL Total Bilirubin 0.3 (0.0-1.0) mg/dL Direct Bilirubin 0.1 (0.0-0.5) mg/dL AST 99 H (5-37) U/L ALT 54 H (0-40) U/L Alkaline Phosphatase 127 H (39-117) U/L Total Protein 8.2 H (6.5-8.0) g/dL Albumin 4.9 (3.5-5.0) g/dL Lipase 33 (8-78) U/L Urine Color Yellow Urine Appearance Clear Urine pH 5.5 (5.0-9.0) Ur Specific [place] 1.015 (1.005-1.025) Urine Protein Negative (Neg-Trace) mg/dL Urine Glucose (UA) Negative (Negative) mg/dL Urine Ketones Negative (Negative) mg/dL Urine Blood Negative (Negative) Urine Nitrite Negative (Negative) Ur Leukocyte Esterase Negative (Negative) Urine Opiates Screen Not Detected (Not Detect) Ur Buprenorphine Scrn Not Detected (Not Detect) ng/mL Ur Oxycodone Screen Not Detected (Not Detect) ng/mL Urine Methadone Screen Not Detected (Not Detect) ng/mL Urine Fentanyl Screen Not Detected (Not Detect) Ur Barbiturates Screen POSITIVE H (Not Detect) Ur Phencyclidine Scrn Not Detected (Not Detect) Ur Amphetamines Screen Not Detected (Not Detect) U Benzodiazepines Scrn POSITIVE H (Not Detect) Urine Cocaine Screen Not Detected (Not Detect) U Marijuana (THC) Screen POSITIVE H (Not Detect) Ethyl Alcohol 11 mg/dL External Record Review External record reviewed: Inpatient record, Office record, Outpatient record, Prior outpatient labs, Prior outpatient radiology, Primary care record and Outside ED record Critical Care Time Critical Care Time Critical Care Time: Yes Total Critical Care Time: 45 Attestation: I attest to this time spent taking care of the patient, obtaining history, physical, reviewing labs, imaging, treatment of patients condition +/- specialist/hospitalist consult +/- procedure Discharge Plan Discharge Clinical Impression: Alcohol abuse, Alcohol withdrawal, Mood disorder, JEISON (generalized anxiety disorder) Patient Disposition: Admitted As Inpatient Print Language: South African
--- NOTE | 2025-05-15 12:46 | ECG_ITS ---
Test Reason : ETOH WITHDRAWL Blood Pressure : */* mmHG Vent. Rate : 66 BPM Atrial Rate : 66 BPM P-R Int : 154 ms QRS Dur : 90 ms QT Int : 388 ms P-R-T Axes : -10 -8 -5 degrees QTcB Int : 406 ms Normal sinus rhythm Minimal voltage criteria for LVH, may be normal variant ( R in aVL ) Borderline ECG When compared with ECG of 22-Jul-2024 22:53, Vent. rate has decreased by 36 bpm T wave inversion more evident in Inferior leads Referred By: Jocelyne Payton Electronically Signed By: Lam Mcguire
[2025-05-15] MEDS: diazePAM 10 MG/2 ML CARTRIDGE 5 MG IVPUSH (12:48)
[2025-05-15] MEDS: PHENobarbitaL sodium 130 MG/ML IM ONCE 319 MG IM (12:48)
[2025-05-15 13:02] LABS: Appearance Urine Clear; Glucose Urine UA Negative (Negative); PH 5.5 (5.0-9.0); Specific Gravity - Urine 1.015 (1.005-1.025)
[2025-05-15 13:20] LABS: Cannabinoid Screen Urine POSITIVE (Not Detect)
--- OUTSIDE RECORDS SUMMARY | 2025-05-15 13:41 | XMS_ITS | Clinical Summary ---
Author Organization [facility] Address [address] [place] [id number] Phone Care Team Providers Care Utility Operator Name Role Phone Pcp, Unknown Primary Care Provider Unavailabl e Allergies Active Allergy Reactions Criticality Noted Date Comments Penicillins 05/13/2020 Medications dicyclomine (BENTYL) 10 MG capsule Take 1 capsule (10 mg total) by mouth 4 (four) times a day before meals and nightly for 4 days. 16 capsule 05/13/2020 Active busPIRone (BUSPAR) 10 MG tablet Take 1 tablet by mouth 3 (three) times a day. 04/18/2023 Active folic acid (FOLVITE) 1 MG tablet Take 1 mg by mouth daily. Active hydrOXYzine (ATARAX) 50 MG tablet Take 50 mg by mouth every 6 (six) hours as needed for anxiety. Active pantoprazole (PROTONIX) 40 MG tablet Take 40 mg by mouth daily. Active thiamine (VITAMIN B-1) 100 MG tablet Take 100 mg by mouth daily. Active traZODone (DESYREL) 50 MG tablet Take 50 mg by mouth nightly at bedtime. Active nicotine polacrilex (NICORETTE) [address] 1 each (2 mg total) inside cheek every 2 (two) hours as needed for smoking cessation. 200 each 04/22/2023 Active Active Problems Problem Noted Date Diagnosed Date Electrolyte abnormality 04/20/2023 Assessment & Plan (04/21/2023 1:17 PM EDT): Hypomg/phos normalized following replacement. At risk for some degree of refeeding Hypona,(130) maybe due to mild SIADH vs mild volume overload -Check sodium at 4 PM today -Check urine studies -rpt mg,phos,na in am Alcohol withdrawal syndrome with perceptual dist urbance 04/18/2023 Assessment & Plan (04/21/2023 1:15 PM EDT): His withdrawal symptoms are stable with pheno. Persistent but improved fine tremor and diaphoresis. - oral thiamine 200 mg daily x 8 days. -folic acid 1 mg daily -monitor LFT's, lipase and electrolytes, and replete lytes as needed. -Regular diet -Continue buspirone, hydroxyzine and trazodone from home medication list - consult Acute alcoholic hepatitis 04/18/2023 Assessment & Plan (04/21/2023 1:17 PM EDT): LFTs improving. No role for steroids -supportive care -oxycodone 5 mg po q6h as needed for pain Chronic GERD 04/18/2023 Assessment & Plan (04/18/2023 11:27 PM EDT): -Continue home pantoprazole. Immunizations Immunization Administration Dates Next Due Tdap 04/24/2024 Social History Tobacco Use Types Packs/Day Years Used Date Smoking Tobacco: Every Day Cigarettes Smokeless Tobacco: Former Tobacco Cessation:Ready to Q uit: Not Asked; Counseling Given: Not Answered Alcohol Use Standard Drinks/Week Comments Not Currently 0 (1 standard drink = 0.6 oz pure alcohol) 14 pints of fireball per week Education Answer Date Recorded Are you interested in more education? Not on sunita e 01/26/2023 Are you concerned about learning? Not on file 01/26/2023 No 01/26/2023 No 01/26/2023 Digital Access Answer Date Recorded No 02/23/2023 No 02/23/2023 Reliable internet access at home? Not on file 02/23/2023 Device with a working camera? Not on file Intimate Partner Violence Answer Date R ecorded Are you denied basic needs s uch as food, clothing, or medical care? No 04/18/2023 In the past 12 months have y ou been in a relationship with a person who hurts, threatens, or tries to control you? No 04/18/2023 Are you denied basic needs s uch as food, clothing, or medical care? No 04/18/2023 In the past 12 months have y ou been in a relationship with a person who hurts, threatens, or tries to control you? No 04/18/2023 Sex and Gender Information Value Date Recorded Sex Assigned at Male 05/13/2020 8:20 AM EDT Legal Sex Male 9:02 PM EDT Gender Identity Male 05/13/2020 8:20 AM EDT Sexual Orientation Straight 05/13/2020 8: 20 AM EDT Last Filed Vital Signs Vital Sign Reading Time Taken Comments Blood Pressure 142/87 04/22/2023 3:15 PM EDT Pulse 91 04/22/2023 3:15 PM EDT Temperature 36.9 C (98.4 F) 04/22/2023 3:15 PM EDT Respiratory Rate 16 04/22/2023 3:15 PM EDT Oxygen Saturation 98% 04/22/2023 3:15 PM EDT Inhaled Oxygen Concentration - - Weight 59.6 kg (131 lb 4.8 oz) 04/18/2023 11:55 PM EDT Height 162.6 cm (5' 4 ) 04/18/2023 6:37 PM EDT Body Mass Index 22.54 04/18/2023 6:37 PM EDT Plan of Treatment Health Maintenance Due Date Last Done Comments DEPRESSION SCREENING 2002 SMOKING Hx and SMOKELESS TOBACCO SCREENING 2003 HEPATITIS C SCREENING 2008 HIV ONE-TIME SCREENING (18-6 5 YEARS) 2008 HEPATITIS A VACCINES (1 of 2 - Risk 2-dose series) 2009 PNEUMOCOCCAL VACCINES (0-49 years) (1 of 2 - PCV) 2009 COVID-19 VACCINE (2023-2 5 season) 2024 07/14/2021, 06/16/2021 Adult Td,Tdap Booster 04/24/2034 04/24/2024 HIB VACCINES Aged Out No longer eligi ble based on patient's age to complete this topic MENINGOCOCCAL VACCINES (ACWY) Aged Out No longer eligible based on patient's age to complete this topic MENINGOCOCCAL VACCINES (B) Aged Out N o longer eligible based on patient's age to complete this topic Medical Devices Not on file Insurance [facility] [place] [address] [place] [address] PARTNERSHIP ACO [facility] [employer] [employer] [place] [address] [place] [address] HEALTHY PARTNERSHIP ACO [facility] PARTNER[employer]IP ACO [facility] [employer] [employer] Advance Directives For more information, please contact: [phone] (9AM - 5PM [facility], Sunday-Sunday) * Full Code (Latest Code Status on File) Date Activated Date Inactivated Comments 04/18/2023 11:48 PM Question Answer Comments Code Status Confirmed With: Patient Care Teams Utility Operator Relationship Specialty Start Date End Date Pcp, Unknown PCP - General 05/13/20 Additional Source Comments The information contained in this document represents components of the legal health record. It is not the complete legal health record.[facility]
--- OUTSIDE RECORDS SUMMARY | 2025-05-15 13:41 | XMS_ITS | Clinical Summary ---
Author Organization [facility] Address [address] [place] [address] Care Team Providers Care Private Equity Analyst Name Role Phone Noe Graham Primary Care Provider [phone] Allergies Active Allergy Reactions Criticality Noted Date Comments Penicillins Unknown 08/22/2024 Medications * This document contains information received from the source organization and may not represent a complete record from that organization. buPROPion SR (WELLBUTRIN SR) 150 mg tablet Take 150 mg by mouth once a day. 5 Active sertraline (ZOLOFT) 100 mg tablet Take 150 mg by mouth once a day. Total of 150 mg Active albuterol (PROAIR HFA,VENTOLIN HFA) 90 mcg inhaler Inhale 1-2 puffs by mouth every 4 hours as needed for wheezing or shortness of breath. Use with spacer. Active cloNIDine (CATAPRES) 0.2 mg tablet Take 0.2 mg by mouth 2 times a day as needed (anxiety). Active doxepin 50 mg capsule Take 50 mg by mouth nightly. Active gabapentin (NEURONTIN) 800 mg tablet Take 800 mg by mouth 4 times a day. Active hydrOXYzine (ATARAX) 50 mg tablet Take 100 mg by mouth 3 times a day as needed for anxiety. Active lidocaine (LIDODERM) 5% patch Apply 1 patch topically to the affected area once a day. Remove and discard patch within 12 hours or as directed. Active methocarbamoL (ROBAXIN) 750 mg tablet Take 750 mg by mouth 4 times a day as needed for muscle spasms. Active naltrexone (REVIA) 50 mg tablet Take 50 mg by mouth once a day. Active OXcarbazepine (TRILEPTAL) 300 mg tablet Take 300 mg by mouth 4 times a day. Active prazosin (MINIPRESS) 5 mg capsule Take 5 mg by mouth nightly. Active QUEtiapine (SEROquel) 100 mg tablet Take 200 mg by mouth nightly. Active sucralfate (CARAFATE) 1 gram tablet Take 1 g by mouth 4 times a day. Active tamsulosin (FLOMAX) 0.4 mg capsule Take 0.4 mg by mouth once a day. Active traZODone (DESYREL) 100 mg tablet Take 100 mg by mouth nightly. Active sertraline (ZOLOFT) 50 mg tablet Take by mouth once a day. Total of 150 mg Active buPROPion XL (WELLBUTRIN XL) 300 mg tablet Take 300 mg by mouth every morning. Active QUEtiapine (SEROquel) 50 mg tablet Take 100 mg by mouth 2 times a day as needed. Active folic acid (FOLVITE) 1 mg tablet Take 1 mg by mouth once a day. 5 Active loratadine (CLARITIN) 10 mg tablet Take 10 mg by mouth once a day. [address] (PROTONIX) 40 mg tablet Take 40 mg by mouth once a day. 5 07/27/20 25 Active thiamine HCl (VITAMIN B1) 100 mg tablet Take 100 mg by mouth once a day. Active meclizine (ANTIVERT) 50 mg tablet Take 50 mg by mouth 3 times a day as needed for dizziness. 5 Active naproxen (NAPROSYN) 250 mg tablet Take 250 mg by mouth 2 times a day with meals. 5 05/06/20 25 Discontinu ed(Error) ondansetron (ZOFRAN) 4 mg tablet Take 4 mg by mouth every 6 hours as needed for nausea or vomiting. 5 05/06/20 25 Discontinu ed(Error) Active Problems Problem Noted Date Diagnosed Date Alcohol withdrawal syndrome with complication Normochromic normocytic anemia 05/12/2025 Cigarette smoker 05/12/2025 Hypokalemia 05/07/2025 History of seizure due to alcohol withdrawal 03/2025 Alcohol dependence with withdrawal 05/06/2025 High anion gap metabolic acidosis 05/06/2025 Liver cirrhosis 05/06/2025 Portal hypertension 05/06/2025 Abdominal pain 05/06/2025 Nausea 05/06/2025 Encounters * This document contains information received from the source organization and may not represent a complete record from that organization. Date Type Department Care Team Description 05/06/2025 1:42 PM EDT - 05/08/2025 3:45 PM EDT Hospital Encounter [facility] Progressive [facility] Unit [address] [place] [id number] Isha Donaldson MD Saltzman, Daniel, DO Jain, Sunny, MD Noriega, Manuela, DO Alcohol withdrawal, uncomplicated (HCC) (Primary Dx) Discharge Disposition: Left Against Medical Advice () 05/03/2025 12:06 AM EDT - 05/03/2025 6:24 AM EDT Emergency [facility] Emergency Department [address] [place] [phone] Trenton Mars MD Alcoholic intoxication without complication (HCC) (Primary Dx) Discharge Disposition: Home or Self Care () 03/18/2025 5:11 PM EDT - 03/19/2025 7:[address] [facility] Emergency Department [address] [place] [id number] Timothy Sal DO Lieu, Amanda, MD Alcohol use disorder (Primary Dx) Discharge Disposition: Home or Self Care () from Last 3 Months Social History Tobacco Use Types Packs/Day Years Used Date Smoking Tobacco: Every Day Cigarettes Smokeless Tobacco: Never Tobacco Cessation:Ready to Q uit: Not Asked; Counseling Given: Not Answered Alcohol Use Standard Drinks/Week Comments Yes 0 (1 standard drink = 0.6 oz pure alcohol) three-five sleeves of nips daily C Utilities Answer Date Recorded In the past 12 months has e [employer], gas, oil, or water [employer] threatened to shut off services in your home? Patient declined 05/06/2025 Hunger Vital Sign Answer Date Recorded Within the past 12 months, y ou worried that your food would run out before you got the money to buy more. Patient declined Within the past 12 months, t he food you bought just didn't last and you didn't have money to get more. Patient declined 03/2025 Transportation Answer Date Recorded In the past 12 months, has l ack of reliable transportation kept you from medical appointments, meetings, work or from getting things needed for daily living? NOANSWER 05/06/2025 Housing Answer Date Recorded Housing Risk Low Not on file 05/06/2025 Housing Risk Medium Not on file 05/06/2025 Housing Risk High 1 05/06/2025 What is your living situation today? LSNOSTEADY 05/06/2025 Sex and Gender Information Value Date Recorded Sex Assigned at Male 12/23/2024 5:06 AM EDT Legal Sex Male 4:01 PM EST Gender Identity Not on file Sexual Orientation Not on file Last Filed Vital Signs Vital Sign Reading Time Taken Comments Blood Pressure 119/80 05/13/2025 4:47 PM EDT Pulse 85 05/13/2025 11:54 AM EDT Temperature 36.7 C (98.1 F) 05/13/2025 3:43 PM EDT Respiratory Rate 17 05/13/2025 3:43 PM EDT Oxygen Saturation 96% 05/13/2025 3:43 PM EDT Inhaled Oxygen Concentration - - Weight 81 kg (178 lb 9.2 oz) 05/13/2025 3:25 AM EDT Height 162.6 cm (5' 4 ) 05/12/2025 12:08 PM EDT Body Mass Index 30.65 05/12/2025 12:08 PM EDT Plan of Treatment Health Maintenance Due Date Last Done Comments HIV Screening 1990 Varicella Vaccines (1 of 2 - 13+ 2-dose series) 2003 Hepatitis B Vaccines (1 of 3 - 19+ 3-dose series) 2009 Pneumococcal Vaccine: Pediat adrianne (0-5 Years) and At-Risk Patients (6-50 Years) (1 of 2 - PCV) 2009 COVID-19 Vaccine ( - season) 2024, 06/16/2021 Alcohol/Substance Use Screening 10/01/2024 Depression Screening and Follow-Up 10/01/2024 Influenza Vaccine (#1) 2025 [employer] Annual Screening 05/06/2026 05/06/2025 DTaP,Tdap,and Td Vaccines (2 - Td or Tdap) 04/24/2034 04/24/2024 RSV Vaccine (60+ years old a nd patients) (1 - 1-dose 75+ series) 2065 Hepatitis C Screening Completed 05/06/2025 Abdominal Aortic Aneurysm (AAA) Screening Completed 05/07/2025, 08/23/2024 Procedures * Due to [place] state law, this organization might not be sharing negative HIV tests. Procedure Name Priority Date/Time Associated Diagnosis Comments SMEAR REVIEW Routine 05/13/2025 6:21 AM EDT BILIRUBIN, DIRECT Routine 05/13/2025 6:2 1 AM EDT MAGNESIUM Routine 05/13/2025 6:21 AM EDT CBC AUTO DIFFERENTIAL Routine 05/13/2025 6:21 AM EDT COMPREHENSIVE METABOLIC PANEL Routine 05/13/2025 6:21 AM EDT RAPID COVID-19 RNA FOR SURVEILLANCE (ED ONLY) STAT 05/11/2025 4:43 PM EDT BASIC METABOLIC PANEL STAT 05/11/2025 2:56 PM EDT MAGNESIUM STAT 05/11/2025 8:37 AM EDT COMPREHENSIVE METABOLIC PANEL STAT 05/11/2025 8:37 AM EDT CBC AUTO DIFFERENTIAL STAT 05/11/2025 8:37 AM EDT ECG 12-LEAD STAT 05/11/2025 8:18 AM EDT POCT GLUCOSE Routine 05/08/2025 8:01 AM EDT CBC AUTO DIFFERENTIAL Routine 05/08/2025 5:09 AM EDT COMPREHENSIVE METABOLIC PANEL Routine 05/08/2025 5:[address] ABDOMEN PELVIS W CONTRAST Routine 05/07/2025 9:58 PM EDT BASIC METABOLIC PANEL STAT 05/07/2025 6:14 PM EDT ECG 12-LEAD Routine 05/07/2025 5:22 PM EDT MAGNESIUM Routine 05/07/2025 3:59 AM EDT HEPATIC FUNCTION PANEL Routine 05/07/2025 3:59 AM EDT LIPASE Routine 05/07/2025 3:59 AM EDT CBC Routine 05/07/2025 3:59 AM EDT BASIC METABOLIC PANEL Routine 05/07/2025 3:59 AM EDT POCT GLUCOSE Routine 05/06/2025 7:34 PM EDT LIPASE STAT Add-on 05/06/2025 11:15 AM EDT MAGNESIUM STAT Add-on 05/06/2025 11:15 AM EDT HEPATITIS C ANTIBODY W/REFLEX TO HCV RNA, QUANTITATIVE PCR STAT 05/06/2025 11:15 AM EDT ETHANOL STAT 05/06/2025 11:15 AM EDT COMPREHENSIVE METABOLIC PANEL STAT 05/06/2025 11:15 AM EDT CBC AUTO DIFFERENTIAL STAT 05/06/2025 11:15 AM EDT ECG 12-LEAD STAT 05/06/2025 11:08 AM EDT HEART & VASCULAR - SCANNED 05/06/2025 RAPID COVID-19 RNA FOR SURVEILLANCE (ED ONLY) STAT 03/19/2025 10:59 AM EDT from Last 3 Months Results * Due to [place] state law, this organization might not be sharing negative HIV tests. * (ABNORMAL) Smear Review (05/13/2025 6:21 AM EDT) Pathologist [facility] Platelet Estimate Decreased(A) Adequate 05/13/2025 7:22 AM EDT [facility] CENTERAcsendoCOSHOCTON REG[facility] Convergent.io TechnologiesCazoomiSUMMIT [facility]ALTHC[facility] LABORATORY RBC Morphology No clinically significant RBC morphology present (ICSH guidelines, 2015). Normal, No clinically significant RBC morphology present (ICSH guidelines, 2015). 05/13/2025 7:22 AM EDT [facility] [employer] [facility]OSPITAL[facility] LABORATORY Blood Structure of peripheral vein / Unknown Venipuncture / Unknown 05/13/2025 6:21 AM EDT 05/13/2025 6:43 AM EDT us Bhargav Castillo MD LAB BLOOD ORDERABLES Final R esult [facility] CENTERLeaders2020CazoomiSUMMIT [facility]ALTHC[facility] LAB[facility]ATORY [address] [place] [address], * (ABNORMAL) CBC Auto Differential (05/13/2025 6:21 AM EDT) Only the most recent of4 resultswithin the time period is included. WBC 2.8(L) 3.8 - 10.8 10*3/uL 05/13/2025 7:22 AM EDT [facility] [employer] [facility]OSPITALInsightixCazoomiSUMMIT [facility] LAB[facility]ATORY RBC 4.05(L) 4.20 - 5.80 10*6/uL 05/13/2025 7:22 AM EDT [facility]OSPITALNereus PharmaceuticalsATRIUM HEALTH CAROLINAS MEDICAL CENTERCazoomiSUMMIT [facility] LABORATORY Hemoglobin 11.4(L) 13.2 - 17.1 g/dL 05/13/2025 7:22 AM EDT [facility]ENTEREvoApp [facility] Hematocrit 33.1(L) 38.5 - 50.0 % 05/13/2025 7:22 AM EDT [facility] MCV 81.7 80.0 - 100.0 fL 05/13/2025 7:22 AM EDT [facility] MCH 28.1 27.0 - 33.0 pg 05/13/2025 7:22 AM EDT [facility] MCHC 34.4 32.0 - 36.0 g/dL 05/13/2025 7:22 AM EDT [facility] RDW 15.2(H) 11.0 - 15.0 % 05/13/2025 7:22 AM EDT [facility] Platelets 104(L) 140 - 400 10*3/uL 05/13/2025 7:22 AM EDT [facility] MPV 10.3 7.5 - 12.5 fL 05/13/2025 7:22 AM EDT [facility] Neutrophil % 40.7 % 05/13/2025 7:22 AM EDT [facility] Immature Grans % 0.0 0.0 - 0.9 % 05/13/2025 7:22 AM EDT [facility] Lymphocyte % 44.7 % 05/13/2025 7:22 AM EDT [facility] Monocyte % 11.7 % 05/13/2025 7:22 AM EDT [facility] Eosinophil % 2.5 % 05/13/2025 7:22 AM EDT [facility] Basophil % 0.4 % 05/13/2025 7:22 AM EDT [facility] Neutrophil # 1.15(L) 1.50 - 7.80 10*3/uL 05/13/2025 7:22 AM EDT [facility] Immature Grans # <0.03 <=0.03 10*3/uL 05/13/2025 7:22 AM EDT [facility] Lymphocyte # 1.30 0.85 - 3.90 10*3/uL 05/13/2025 7:22 AM EDT [facility] LAB[facility] Monocyte # 0.30 0.20 - 0.95 10*3/uL 05/13/2025 7:22 AM EDT [facility] - [facility] Eosinophil # 0.10 0.02 - 0.50 10*3/uL 05/13/2025 7:22 AM EDT [facility] - [facility] LAB[facility]AT[facility] Basophil # <0.03 0.00 - 0.20 10*3/uL 05/13/2025 7:22 AM EDT [facility] nRBC % 0.0 /100 WBCs 05/13/2025 7:22 AM EDT [facility] - [facility] LABORATORY nRBC # <0.01 <0.01 10*3/uL 05/13/2025 7:22 AM EDT [facility] Blood Structure of peripheral vein / Unknown Venipuncture / Unknown 05/13/2025 6:21 AM EDT 05/13/2025 6:43 AM EDT us Bhargav Castillo MD LAB BLOOD ORDERABLES Final R esult [facility] [address] [place] [address], [place] * Magnesium (05/13/2025 6:21 AM EDT) Only the most recent of4 resultswithin the time period is included. MG 1.9 1.6 - 2.4 mg/dL 05/13/2025 7:14 AM EDT [facility] - [facility] Blood Structure of peripheral vein / Unknown Venipuncture / Unknown 05/13/2025 6:21 AM EDT 05/13/2025 6:43 AM EDT Mandie Garcia MD LAB BLOOD ORDERABLES Final R esult Performing Organization Address City/[facility]/ZIP Co de Phone Number [facility] [address] [place] [id number], [place] * Bilirubin, Direct (05/13/2025 6:21 AM EDT) Bilirubin, Direct 0.2 <=0.4 mg/dL 05/13/2025 7:14 AM EDT [facility] Blood Structure of peripheral vein / Unknown Venipuncture / Unknown 05/13/2025 6:21 AM EDT 05/13/2025 6:43 AM EDT Mandie Garcia MD LAB BLOOD ORDERABLES Final R esult Performing Organization Address [facility] Co de Phone Number [facility] [address] [place] [id number], [place] * (ABNORMAL) Comprehensive Metabolic Panel (05/13/2025 6:21 AM EDT) Only the most recent of4 resultswithin the time period is included. NA 135 135 - 145 mmol/L 05/13/2025 7:15 AM EDT [facility] - [facility] K 3.6 3.5 - 5.3 mmol/L 05/13/2025 7:15 AM EDT [facility] Cl 103 98 - 107 mmol/L 05/13/2025 7:15 AM EDT [facility] CO2 22 22 - 32 mmol/L 05/13/2025 7:15 AM EDT [facility] Anion Gap 10 5 - 15 05/13/2025 7:[address] [facility] Glucose 91 65 - 99 mg/dL 05/13/2025 7:15 AM EDT [facility] Creatinine 0.81 0.60 - 1.30 mg/dL 05/13/2025 7:15 AM EDT [facility] Calcium 8.9 8.6 - 10.5 mg/dL 05/13/2025 7:[address] [facility] Total Protein 6.7 6.0 - 8.0 g/dL 05/13/2025 7:15 AM EDT [facility] - [facility] Albumin 4.0 3.5 - 5.2 g/dL 05/13/2025 7:15 AM EDT [facility] - [facility] Bilirubin, Total 0.4 0.2 - 1.2 mg/dL 05/13/2025 7:[address] [facility] Alkaline Phosphatase 91 35 - 129 U/L 05/13/2025 7:15 AM EDT [facility] AST 47(H) 10 - 40 U/L 05/13/2025 7:15 AM EDT [facility] ALT 29 10 - 40 U/L 05/13/2025 7:15 AM EDT [facility] BUN 7 7 - 23 mg/dL 05/13/2025 7:15 AM EDT [facility] eGFR >90 >=60 mL/min/1. 73m2 05/13/2025 7:15 AM EDT [facility] Comment:The estimated glomer ular filtration rate (eGFR) is calculated using a new formula developed by the NKF-ASN task force to eliminate race-based correction factors. The new formula uses serum/plasma creatinine, age, and gender to determine eGFR. A value below 60mls/min might indicate kidney disease and will be flagged. For additional information, see Liz et al, Am J Kidney Dis. 2021;79(2):268- 288, A Unifying Approach for GFR estimation: Recommendations of the NKF-ASN Task Force on Reassessing the Inclusion of Race in Diagnosing Kidney Disease . Globulin, Total 2.7 2.1 - 4.2 g/dL 05/13/2025 7:15 AM EDT [facility] A/G Ratio 1.5 1.5 - 3.0 05/13/2025 7:15 AM EDT [facility] Blood Structure of peripheral vein / Unknown Venipuncture / Unknown 05/13/2025 6:21 AM EDT 05/13/2025 6:43 AM EDT us Bhargav Castillo MD LAB BLOOD ORDERABLES Final R esult [address] [address], * Rapid COVID-19 for Surveillance - Psych/Admission (05/11/2025 4:43 PM EDT) Only the most recent of2 resultswithin the time period is included. Pathologist [facility] PCR, SARS CoV-2 RNA Not Detected Not Detected [employer] 05/11/2025 5:17 PM EDT [facility] Comment:A Not Detected (Nega tive) test result is indicative of the absence of SARS-CoV-2 RNA at the level of LoD (Limit of Detection). A negative result does not rule out the possibility of COVID-19 and should not be used as the sole basis for treatment or patient management decisions. If COVID-19 is still suspected, based on exposure history together with other clinical findings, re-testing should be considered. Swab (Nares) 05/11/2025 4:43 PM EDT 05/11/2025 4:43 PM EDT Narrative [facility] - 05/11/2025 5:17 PM EDT This test was developed, validated and its performance characteristics determined by [facility] Clinical Labs. This test has not been cleared or approved by the U.S. Food and Drug Administration (FDA). FDA Policy for Diagnostic Tests for Coronavirus Disease-2019 during the Public Health Emergency issued December 15, 2019, is followed. us Trenton Shirley MD LAB BODY FLUIDS AND STOOLS OR DERABLES Final Result [facility] [address] [place] [address], [place] * (ABNORMAL) Basic Metabolic Panel (05/11/2025 2:56 PM EDT) Only the most recent of3 resultswithin the time period is included. NA 138 135 - 145 mmol/L 05/11/2025 3:09 PM EDT [facility] K 3.8 3.5 - 5.3 mmol/L 05/11/2025 3:09 PM EDT [facility] Cl 103 98 - 107 mmol/L 05/11/2025 3:09 PM EDT [facility] CO2 23 22 - 32 mmol/L 05/11/2025 3:09 PM EDT [facility] BUN 14 7 - 23 mg/dL 05/11/2025 3:09 PM EDT [facility] Creatinine 0.91 0.60 - 1.30 mg/dL 05/11/2025 3:09 PM EDT [facility] Glucose 101(H) 65 - 99 mg/dL 05/11/2025 3:09 PM EDT [facility] Calcium 9.2 8.6 - 10.5 mg/dL 05/11/2025 3:09 PM EDT [facility] Anion Gap 12 5 - 15 05/11/2025 3:09 PM EDT [facility] eGFR >90 >=60 mL/min/1 .73m2 05/11/2025 3:09 PM EDT [facility] Comment:The estimated glomer ular filtration rate (eGFR) is calculated using a new formula developed by the NKF-ASN task force to eliminate race-based correction factors. The new formula uses serum/plasma creatinine, age, and gender to determine eGFR. A value below 60mls/min might indicate kidney disease and will be flagged. For additional information, see Hill et al, Am J Kidney Dis. 2021;79(2):268- 288, A Unifying Approach for GFR estimation: Recommendations of the NKF-ASN Task Force on Reassessing the Inclusion of Race in Diagnosing Kidney Disease . Blood Structure of peripheral vein / Unknown Venipuncture / Unknown 05/11/2025 2:56 PM EDT 05/11/2025 2:56 PM EDT us Jonathon Nguyen MD LAB BLOOD ORDERABLES Final Resu lt [facility] [address] [place] [address], [place] * ECG 12 lead (05/11/2025 8:18 AM EDT) Only the most recent of3 resultswithin the time period is included. Ventricular Rate EKG 110 BPM MUSE EKG Atrial Rate 110 BPM MUSE EKG AR Interval 138 ms MUSE EKG QRS Interval 88 ms MUSE EKG QT Interval 332 ms MUSE EKG QTC Interval 449 ms MUSE EKG P [place] 48 degrees MUSE EKG R [place] 9 degrees MUSE EKG T Wave [place] 10 degrees MUSE EKG 05/11/2025 8:18 AM EDT 05/13/2025 8:00 AM EDT Impressions MUSE EKG - 05/13/2025 8:00 AM EDT Sinus tachycardia Otherwise normal ECG When compared with ECG of 07-May-2025 17:22, No significant change was found Confirmed by Hugh Hamilton ([id number]) on 05/13/2025 8:00:04 AM Narrative Procedure Note Hugh Hamilton MD - 05/13/2025 IMPRESSION: Sinus tachycardia Otherwise normal ECG When compared with ECG of 07-May-2025 17:22, No significant change was found Confirmed by Hugh Hamilton ([id number]) on 05/13/2025 8:00:04 AM us Jonathon Nguyen MD ECG ORDERABLES Final Result MUSE EKG * (ABNORMAL) POCT Glucose, interfaced (05/08/2025 8:01 AM EDT) Only the most recent of2 resultswithin the time period is included. [facility] Glucose, POCT 140(H) 70 - 99 mg/dL 05/08/2025 8:07 AM EDT [facility] Comment:Glucometer point of care testing platforms using capillary blood are not approved for use in critically ill patients. Blood 05/08/2025 8:01 AM EDT 05/08/2025 8:07 AM EDT us Mary Ellen Best DO LAB POCT ORDERABLES - DEVICE Final Result [facility]ENTERZhongSouAR AllclassesCOMMUNITY [facility] PARKEvoApp [facility] [address] [place] [address], [place] * CT Abdomen Pelvis with Contrast (05/07/2025 9:58 PM EDT) Anatomical Region Laterality Modality Body Computed Tomogra phy 05/07/2025 11:0 8 PM EDT Impressions 05/08/2025 12:06 PM EDT [address]. No CT findings to explain left lower quadrant abdominal pain. 2. Cirrhosis with borderline splenomegaly. 3. Ill-defined subcentimeter subcapsular enhancement in the left lobe of the liver as the prior CT, indeterminate. Consider follow-up with three-phase CT or MRI in 3-6 months. 4. Peribronchial groundglass and nodular opacities in the left lower lobe may be related to infectious/inflammatory etiology. IPhilip, have reviewed the examination and concur with the findings as reported or so edited. Trainee: Fannie Ibarra If this radiology report contains a blank impression section, it is an incomplete radiology report. Please contact the interpreting radiologist or applicable radiology division as soon as possible to obtain the completed interpretation. Workstation ID: [id number] Up-to-date CT equipment and radiation dose reduction techniques were employed. CTDIvol: 16.0 mGy. DLP: 919 mGy-cm. Narrative 05/08/2025 12:06 PM EDT EXAMINATION: CT ABDOMEN PELVIS W CONTRAST INDICATION: LLQ abdominal pain - With oral contrast. TECHNIQUE: Images of the abdomen and pelvis were obtained with intravenous contrast. Coronal and sagittal reformats were generated. COMPARISON: CT angiogram abdomen pelvis 08/23/2024. FINDINGS: LOWER THORAX: Peribronchial groundglass and nodular opacities in the left lower lobe is likely related to infectious/inflammatory etiology.. HEPATOBILIARY:. Cirrhotic morphology with nodular contour of the liver and widening of the facial. Hepatomegaly measuring 24 cm . Ill-defined focal area of enhancement in the anterior subcapsular aspect of the segment 3 measuring 6 mm (904; 356) appears to be new since the prior CT angiogram from 08/23/2024. Patent portal and hepatic veins. Normal gallbladder. No biliary ductal dilatation. SPLEEN: Borderline splenomegaly measuring 14 cm. PANCREAS: No focal masses or ductal dilatation. ADRENAL GLANDS: No adrenal nodules. KIDNEYS/URETERS: Multiple 2 mm nonobstructing bilateral renal stones. No hydronephrosis or solid mass lesions. GI TRACT: No distention or wall thickening. PERITONEUM/RETROPERITONEUM: No ascites or free air. LYMPH NODES: No lymphadenopathy. VESSELS: Unremarkable. PELVIC ORGANS/BLADDER: Unremarkable. BONES AND SOFT TISSUES: Grade 1 retrolisthesis at L5-S1. Multilevel degenerative changes are noted in the spine. Resulting Agency Comment [id number] Mary Ellen Best DO [facility] CT PROCEDURES Final Resul t * (ABNORMAL) CBC (05/07/2025 3:59 AM EDT) WBC 3.6(L) 3.8 - 10.8 10*3/uL 05/07/2025 4:20 AM EDT [facility] RBC 3.91(L) 4.20 - 5.80 10*6/uL 05/07/2025 4:20 AM EDT [facility] Hemoglobin 11.1(L) 13.2 - 17.1 g/dL 05/07/2025 4:20 AM EDT [facility] Hematocrit 31.3(L) 38.5 - 50.0 % 05/07/2025 4:20 AM EDT [facility] MCV 80.1 80.0 - 100.0 fL 05/07/2025 4:20 AM EDT [facility] MCH 28.4 27.0 - 33.0 pg 05/07/2025 4:20 AM EDT [facility] MCHC 35.5 32.0 - 36.0 g/dL 05/07/2025 4:20 AM EDT [facility] RDW 15.1(H) 11.0 - 15.0 % 05/07/2025 4:20 AM EDT [facility] Platelets 117(L) 140 - 400 10*3/uL 05/07/2025 4:20 AM EDT [facility] MPV 9.2 7.5 - 12.5 fL 05/07/2025 4:20 AM EDT [facility] Blood Structure of peripheral vein / Unknown Venipuncture / Unknown 05/07/2025 3:59 AM EDT 05/07/2025 4:06 AM EDT Madan Interiano MD LAB BLOOD ORDERABLES Final Resul t Performing Organization Address [facility] Co de Phone Number [facility] [address] [place] [phone], * Lipase (05/07/2025 3:59 AM EDT) Only the most recent of2 resultswithin the time period is included. Lipase 29 13 - 60 U/L 05/07/2025 4:37 AM EDT [facility] Blood Structure of peripheral vein / Unknown Venipuncture / Unknown 05/07/2025 3:59 AM EDT 05/07/2025 4:06 AM EDT Madan Interiano MD LAB BLOOD ORDERABLES Final Resul t Performing Organization Address [facility] Co de Phone Number [facility] [employer] [facility] [address] [place] [phone], * (ABNORMAL) Hepatic Function Panel (05/07/2025 3:59 AM EDT) Total Protein 6.9 6.0 - 8.0 g/dL 05/07/2025 4:37 AM EDT [facility] Albumin 3.9 3.5 - 5.2 g/dL 05/07/2025 4:37 AM EDT [facility] Globulin, Total 3.0 2.1 - 4.2 g/dL 05/07/2025 4:37 AM EDT [facility] Bilirubin, Total 0.8 0.2 - 1.2 mg/dL 05/07/2025 4:37 AM EDT [facility] Bilirubin, Direct 0.3 <=0.4 mg/dL 05/07/2025 4:37 AM EDT [facility] Alkaline Phosphatase 114 35 - 129 U/L 05/07/2025 4:37 AM EDT [facility] AST 62(H) 10 - 40 U/L 05/07/2025 4:37 AM EDT [facility] ALT 47(H) 10 - 40 U/L 05/07/2025 4:37 AM EDT [facility] Bilirubin, Indirect 0.50 <=0.70 mg/dL 05/07/2025 4:37 AM EDT [facility] A/G Ratio 1.3(L) 1.5 - 3.0 05/07/2025 4:37 AM EDT [facility] Blood Structure of peripheral vein / Unknown Venipuncture / Unknown 05/07/2025 3:59 AM EDT 05/07/2025 4:06 AM EDT us Madan Interiano MD LAB BLOOD ORDERABLES Final Resul t [facility] [address] [place] [address], * Hepatitis C Antibody w/Reflex to HCV RNA, Quantitative PCR (05/06/2025 11:15 AM EDT) Hepatitis C Antibody Interpretation Nonreactive Nonreactive 05/07/2025 8:44 AM EDT [facility] Blood Structure of peripheral vein / Unknown Venipuncture / Unknown 05/06/2025 11:15 AM EDT 05/06/2025 11:24 AM EDT us Isha Donaldson MD LAB BLOOD ORDERABLES Senia l Result Performing Organization Address City/[facility]/ZIP Co de Phone Number [facility] [address] [place] [address], [place] * (ABNORMAL) Ethanol (05/06/2025 11:15 AM EDT) Ethanol 128(H) <10 mg/dL 05/06/2025 11:58 AM EDT [facility] Blood Structure of peripheral vein / Unknown Venipuncture / Unknown 05/06/2025 11:15 AM EDT 05/06/2025 11:24 AM EDT us Isha Donaldson MD LAB BLOOD ORDERABLES Senia l Result Performing Organization Address [facility] Co de Phone Number [facility] [address] [place] [address], [place] * HEART & VASCULAR - SCANNED (05/06/2025) Anatomical Region Laterality Modality Other us Onbase Scan Shashank SCANNED PROCEDURES Final Resu lt from Last 3 Months Insurance [facility] MEDICAID Advance Directives * Full Code (Latest Code Status on File) Date Activated Date Inactivated Comments 05/12/2025 4:58 AM 05/13/2025 9:25 PM * Full Code Date Activated Date Inactivated Comments 05/06/2025 7:31 PM 05/08/2025 6:04 PM Care Teams Private Equity Analyst Relationship Specialty Start Date End Date Noe Graham [facility] [address] [place] [id number] PCP - General Internal Medicine 08/22/24
--- OUTSIDE RECORDS SUMMARY | 2025-05-15 13:41 | XMS_ITS | Clinical Summary ---
Author Organization [employer] Address [address] [place] [address] [address] [place] [address] Care Team Providers Care Tare Worker Name Role Phone Unavailable Primary Care Provider Unavailabl e Allergies Active Allergy Reactions Criticality Noted Date Comments Penicillins Hives 10/23/2024 Medications No known medications Active Problems Problem Noted Date Diagnosed Date Severe dental caries 10/23/2024 Non-restorable tooth 10/23/2024 Social History Tobacco Use Types Packs/Day Years Used Date Smoking Tobacco: Former Cigarettes Passive Smoke Exposure: Never Smokeless Tobacco: Former Tobacco Cessation:Counseling Given: No Alcohol Use Standard Drinks/Week Comments Defer 0 (1 standard drink = 0.6 oz pur e alcohol) Sex and Gender Information Value Date Recorded Sex Assigned at Male 10/23/2024 2:23 PM EST Legal Sex Male 2:19 PM EST Gender Identity Male 10/23/2024 2:23 PM EST Sexual Orientation Straight 10/23/2024 2: 23 PM EST Last Filed Vital Signs Vital Sign Reading Time Taken Comments Blood Pressure 118/72 10/23/2024 2:50 PM EST Pulse - - Temperature - - Respiratory Rate - - Oxygen Saturation - - Inhaled Oxygen Concentration - - Weight - - Height - - Body Mass Index - - Plan of Treatment Health Maintenance Due Date Last Done Comments Dental Oral Exam 1990 Dental Prophylaxis 1990 Dental X-Ray: Bitewings 1990 Depression Screening 1990 HIV Screening 1990 SDOH Screening 1990 Disability Screening 1990 Alcohol/Substance Use Screening 2002 Family Planning (PISQ) 2005 HPV Vaccines (1 - Male 3-dos e series) 2005 Hepatitis C Screening 2008 Hepatitis A Vaccines (1 of 2 - Risk 2-dose series) 2009 Hepatitis B Vaccines (1 of 3 - 19+ 3-dose series) 2009 COVID-19 Vaccine (3 - 2023-2 5 season) 2024 07/14/2021, 06/16/2021 Influenza Vaccine (#1) 2025 Tobacco Screening 10/23/2025 10/23/2024 Dental X-Ray: Full Mouth 10/24/2027 10/23/2024 DTaP/Tdap/Td Vaccines (2 - T d or Tdap) 04/24/2034 04/24/2024 Zoster Vaccines (1 of 2) 2040 RSV Patients and Patients Aged 60 years or older (1 - 1-dose 75+ series) 2065 HIB Vaccines Aged Out No longer eligi ble based on patient's age to complete this topic IPV Vaccines Aged Out No longer eligi ble based on patient's age to complete this topic Meningococcal B Vaccine Aged Out No l onger eligible based on patient's age to complete this topic Meningococcal Vaccine Aged Out No maria alejandra alondra eligible based on patient's age to complete this topic Pneumococcal Vaccine: Pediatrics (0 to 5 Years) and At-Risk Patients (6 to 49) Years Aged Out No longer eligible b ased on patient's age to complete this topic RSV under 20 months Aged Out No longe r eligible based on patient's age to complete this topic Rotavirus Vaccines Aged Out No longer eligible based on patient's age to complete this topic Procedures Procedure Name Priority Date/Time Associated Diagnosis Comments PANORAMIC RADIOGRAPHIC IMAGE Routine 10/23/2024 2:30 PM EST from Last 3 Months or Most Recently Relevant to Health Maintenance [facility] STAND ADULT
[2025-05-15] MEDS: PHENobarbitaL sodium 130 MG/ML VIAL IM Q3Hx2 239 MG IM ×2 (16:25→18:34)
--- NOTE | 2025-05-15 16:47 | PM.IMHP ---
History of Present Illness Date of Service: 05/15/25 Attending physician on admission: [facility] Chief Complaint: Alcohol withdrawal Pt is a 34-year-old male with a PMH significant for?cirrhosis, pancreatitis, alcohol use disorder with hx of withdrawal seizure, BPH, ADHD, anxiety, and depression who presents to the ED with?concerns for alcohol withdrawal and requesting detox. Pt previously presented to [facility] [place] [place] in [place] the night prior for a similar request but left AMA as he wanted to be closer to [facility] . Continued to drive vodka after leaving the hospital. Last drink 1:00 last night. Reports has a long hx of alcohol use disorder with withdrawal: has seizures even while drinking . Currently drinking around 5 sleeves daily on average. Had some auditory and perceptual hallucinations prior to presentation to [facility] [place] [place] but none since. Complains of increased anxiety, diaphoresis, tremors, and nausea but no vomiting. Some diffuse abd pain. No CP or pressure. Requests help getting into a detox program. In the ED pt's vitals stable. Labs were significant for mild transaminitis, otherwise unremarkable. Ethyl alcohol level 11. UA negative. EKG demonstrated NSR without evidence of significant ST elevations or depressions. Pt was treated in the ED with diazepam and started on phenobarb protocol. Pt is admitted to the hospital for treatement and further evaluation of acute alcohol withdrawal. Review of Systems Review of Systems: Negative except for that which is stated in the HPI. [facility] Medical History (Updated 05/17/25 @ 15:02 by Lacie Lindsay CNP) Alcohol use disorder Meningitis spinal Alcoholic cirrhosis Seizure Mood disorder Surgical History [place] teeth extracted H/O colonoscopy No pertinent past surgical history Social History Household Members: None Household Members Other:: freind Housing: Homeless Housing Other:: Roommate Do you presently have visiting nurse or other home services: No Alcohol intake: current Alcohol intake frequency: 0-2 drinks per day Alcohol type: hard liquor Comment: pt refusing camera in room - hx of seizures Patient Tobacco Use Status: Current everyday Tobacco user Tobacco use type: Cigarette Cigarette Packs Per Day: 1 Cigarettes Per Day: 20.0 Years Smoked: 15 Smoked in Last 30 Days: Yes e-Cigarette/Vaping Use: Currently Using Frequency of e-Cigarette/Vaping Use: sometimes Patient Interested in Nicotine Replacement: Yes Patient Given Instructions on How to Stop Smoking: Yes Date Education Initiated: 05/15/25 Second Hand Smoke Exposure: No Use of substances other than those prescribed or required for medical reasons: No Substance Use Type: Crack/Cocaine and Marijuana Currently Displaying Signs/Symptoms of Drug Intoxication Withdrawal: No Have you been hit, kicked, punched, or otherwise hurt by someone within the past year? If so, by whom?: No Do you feel safe in your current relationship?: No Current Relationship Is there a partner from a previous relationship who is making you feel unsafe now?: No Are you made to feel afraid or neglected: No Spiritual Healthcare Practices: I believe in a higher power Restorationism Healthcare Practices: declined Advance Directives: Yes Advance Directives on File: Yes Advance Directives Date on File: 06/23/24 Do you have a plan to hurt others: No Plan Recently lost weight without trying: Yes How much weight loss: 2-13 pounds Eating poorly because of decreased appetite: No Nutrition screen score: 3 Nutrition Risks: On aspiration precautions Poor oral hygiene: No service: No Meds Allergies Allergy/AdvReac Type Severity Reaction Status Date / Time Penicillins Allergy Unknown CHILDHOOD Verified 05/15/25 10:41 ALLERGY Active Medications: Current Medications Pharmacy Consult (Consult Rx Etoh Phenob Im/Po) 1 each MISCELLANE ONCE PRN; Protocol PRN Reason: Consult order Phenobarbital (Phenobarbital 15 Mg Tablet) 45 mg PO BID DOE; Protocol Stop: 05/17/25 21:01 Phenobarbital (Phenobarbital 15 Mg Tablet) 15 mg PO BID DOE; Protocol Stop: 05/19/25 21:01 Phenobarbital (Phenobarbital 15 Mg Tablet) 15 mg PO DAILY [facility]; Protocol Stop: 05/21/25 09:01 Phenobarbital Sodium (Phenobarbital Sodium 130 Mg/Ml Vial Im Q3hx2) 239 mg IM Q3H DOE; Protocol Stop: 05/15/25 19:01 Last Admin: 05/15/25 16:25 Dose: 239 mg Home Medications ?Medication ?Instructions ?Recorded ?Confirmed ?Last Taken ?Type folic acid 1 mg tablet 1 mg PO DAILY 04/07/24 05/15/25 05/14/25 History bupropion HCl 150 mg 24 hr tablet, 150 mg PO DAILY 05/15/25 05/15/25 05/14/25 History extended release clonidine HCl 0.2 mg tablet 0.2 mg PO BID 05/15/25 05/15/25 05/14/25 History nicotine 21 mg/24 hr daily 1 patch topical DAILY PRN Smoking 05/15/25 05/15/25 05/14/25 History transdermal patch Cessation oxcarbazepine 600 mg tablet 600 mg PO TID 05/15/25 05/15/25 05/14/25 History prazosin 5 mg capsule 5 mg PO BEDTIME 05/15/25 05/15/25 05/14/25 History quetiapine 50 mg tablet 100 mg PO BID 05/15/25 05/15/25 05/14/25 History sertraline 100 mg tablet 100 mg PO DAILY 05/15/25 05/15/25 05/14/25 History tamsulosin 0.4 mg capsule 0.4 mg PO DAILY 05/15/25 05/15/25 05/14/25 History Physical Exam Vital Signs and Narrative: Vital Signs: Last Vital Signs Temp 98 F 05/15/25 10:39 Pulse 71 05/15/25 15:26 Resp 18 05/15/25 15:26 BP 96/53 L 05/15/25 15:26 Pulse Ox 96 05/15/25 15:26 O2 Del Method Room Air 05/15/25 15:26 O2 Flow Rate 2 05/15/25 13:34 BMI result Body Mass Index 29.2 General: AOx3, somnolent, diaphoretic. Resp: CTA bilaterally CVS: S1, S2, RRR GI: +BS, NT, no distention Skin: Warm, dry Neuro: Cranial nerves II-XII grossly intact bilaterally. Motor grossly intact bilaterally. Moderate upper extremity tremors. No tongue fasciculations. Extremities: No edema Psych: Anxious Results Labs 05/16/25 07:02 05/17/25 06:46 Labs: Laboratory Results - last 24 hr 05/15/25 05/15/25 10:48 12:53 MCV 83.4 MCH 28.8 MCHC 34.5 RDW 16.4 H Plt Count 183 D MPV 9.6 Immature Gran % (Auto) 0.4 Neut % (Auto) 47.4 Lymph % (Auto) 35.5 [place] % (Auto) 14.8 H Eos % (Auto) 1.3 Baso % (Auto) 0.6 Lymph # (Auto) 1.7 [place] # (Auto) 0.7 Eos # (Auto) 0.1 Baso # (Auto) 0.0 Abs Immat Gran (auto) 0.02 Absolute Neuts (auto) 2.3 Absolute Nucleated RBC 0.000 Nucleated RBC % (auto) 0.0 Anion Gap 13 Estim Creat Clear Calc 98.2 Estimated GFR > 60 Random Glucose 81 Calcium 9.3 Total Bilirubin 0.3 Direct Bilirubin 0.1 AST 99 H ALT 54 H Alkaline Phosphatase 127 H Total Protein 8.2 H Albumin 4.9 Lipase 33 Urine Color Yellow Urine Appearance Clear Urine pH 5.5 Ur Specific [place] 1.015 Urine Protein Negative Urine Glucose (UA) Negative Urine Ketones Negative Urine Blood Negative Urine Nitrite Negative Ur Leukocyte Esterase Negative Urine Opiates Screen Not Detected Ur Buprenorphine Scrn Not Detected Ur Oxycodone Screen Not Detected Urine Methadone Screen Not Detected Urine Fentanyl Screen Not Detected Ur Barbiturates Screen POSITIVE H Ur Phencyclidine Scrn Not Detected Ur Amphetamines Screen Not Detected U Benzodiazepines Scrn POSITIVE H Urine Cocaine Screen Not Detected U Marijuana (THC) Screen POSITIVE H Ethyl Alcohol 11 Assessment and Plan (1) Alcohol withdrawal: Status: Acute Plan Pt is a 34-year-old male with a PMH significant for?cirrhosis, pancreatitis, alcohol use disorder with hx of withdrawal seizure, BPH, ADHD, anxiety, and depression who presents to the ED with?concerns for alcohol withdrawal and requesting detox. Pt is admitted to the hospital for treatement and further evaluation of acute alcohol withdrawal. Acute alcohol withdrawal Pt drinking around 5 sleeves daily; hx of withdrawal seizures Continue Phenobarb protocol Daily multivitamin, folic acid, thiamine, famotidine Follow lytes, Mag, BMP CIWA scale Addiction medicine consult Monitor on telemetry BPH Continue tamsulosin Mood disorder Continue bupropion, clonidine, doxepin, oxcarbazepine, prozosin, quetiapine, sertraline Full Code Attending:?Dr Mancia. DVT Prophylaxis: Lovenox Pt will require a hospitalization of at least two nights for treatment of?acute alcohol withdrawal with phenobarb protocol. Quality Stroke Does the patient have a stroke diagnosis?: No VTE Prior VTE?: No VTE Risk Level:: Medical - moderate - high VTE Device Contraindication: Treatment Not Indicated VTE Drug Contraindication: N/A - Med Ordered
[2025-05-15 17:47] LABS: Magnesium 2.0 mg/dL (1.6-2.6)
--- NOTE | 2025-05-15 19:24 | PHA.MEDREC ---
Addendum entered by Yesenia Freeman RPh 05/15/25 20:02: med rec reviewed by [facility] Original Note: Pharmacy Consult ? Medication Reconciliation Pharmacy has completed the medication reconciliation. Spoke to patient to confirm med list. Patient needed a lot of prompting due to him failing asleep after each sentence. Patient states he is no longer taking Amlodipine 5 mg, Buspirone 20 mg, Cetirizine 10 mg, Naltrexone 50 mg, Pantoprazole 40 mg, Pramipexole 0.5 mg, Vitamin B1 100 mg, Topiramate 25 mg and Trazodone 50 mg. Patient confirmed Bupropion 300 mg with Bupropion 150 mg for a total dose =450 mg daily, Quetiapine 200 mg at bedtime and Quetiapine 100 mg bid and Quetiapine 50 mg PRN. Sertraline 150 mg daily.
[2025-05-15] MEDS: 0.9 % Sodium Chloride Flush 3 ML SYRINGE IVFLUSH (21:31)
[2025-05-16] VITALS (10 sets, daily range): BP systolic 99–118; BP diastolic 63–77; PULSE 63–85; RESP 12–20; TEMP 36.1–36.7; O2SAT 95–99
[2025-05-16 08:02] LABS: Hematocrit 35.7 % (42.0-52.0); Hemoglobin 11.9 g/dl (14.0-18.0); Mean Corpuscular HGB Conc 33.3 g/dl (31.0-36.0); Mean Corpuscular Hemoglobin 28.2 pg (27.0-33.0); Mean Corpuscular Volume 84.6 fL (80.0-98.0); NRBC Abs Auto 0.000 X10*3/uL (0.0-0.012); NRBC Pct Auto 0.0 /100WBC (0.0-0.2); Platelet Count 156 X10*3/uL (160-400); Red Blood Count 4.22 X10*6/uL (4.60-5.80); White Blood Count 3.1 X10*3/uL (4.8-10.8)
[2025-05-16 08:18] LABS: Alanine Aminotransferase 42 U/L (0-40); Albumin Level 4.1 g/dL (3.5-5.0); Alkaline Phosphatase 108 U/L (39-117); Anion Gap 18 (12-20); Aspartate Amino Transferase 60 U/L (5-37); Blood Urea Nitrogen 13 mg/dL (9-16); Calcium 8.8 mg/dL (8.4-10.2); Carbon Dioxide 21 mmol/L (22-29); Chloride 101 mmol/L (96-108); Creatinine Clr Calc Pharmacy 103.0; Estimated Glomerular Filt Rate > 60; Magnesium 2.1 mg/dL (1.6-2.6); Potassium 3.8 mmol/L (3.3-5.1); Sodium 136 mmol/L (135-145); Total Protein 6.9 g/dL (6.5-8.0)
[2025-05-16] MEDS: buPROPion HCl XL 300 MG TAB.ER.24H PO (08:58)
[2025-05-16] MEDS: buPROPion HCl XL 150 MG TAB.ER.24H PO (08:59)
--- NOTE | 2025-05-16 13:48 | MHC.CM.PN ---
Pt self-care, pt states he is homeless and has been living in the [facility]. Pt will need assistance with transport at discharge. Pt states he would not want to go to a homeless jail. HCP on file and verified. PCP: Dr. Noe Graham
--- NOTE | 2025-05-16 13:54 | MHC.RECOVRN ---
Attempted to meet Blayne in room 475 for an addiction/recovery eval. Pt somnolent mumbled 1 word the unable to stay awake. Respirations are WNL. Pt not able to meaningfully participate in an assessment at this time. Will attempt to meet w/ pt again at a later time.
--- NOTE | 2025-05-16 16:35 | P.PNIM_ITS ---
Subjective Subjective Date of Service: 05/16/25 Interval History: Somnolent, difficult to arouse, falling back asleep during interview and exam No apparent complaints Review of Systems Review of Systems: Yes Unobtainable due to mental status Physical Exam 2 Exam: Exam: General: Somnolent, arousable, falling immediately back asleep. In no acute distress Resp: CTA bilaterally CVS: S1, S2, RRR GI: Soft, NT, no distention Skin: Warm, dry Neuro: Motor grossly intact bilaterally Extremities: No edema Psych: Somnolent Vital Signs: Vital Signs: Last Vital Signs Temp 97.5 F 05/16/25 15:06 Pulse 70 05/16/25 15:06 Resp 16 05/16/25 15:06 BP 103/64 05/16/25 15:06 Pulse Ox 97 05/16/25 15:06 O2 Del Method Nasal Cannula 05/16/25 15:06 O2 Flow Rate 2 05/16/25 15:06 BMI result Body Mass Index 30.9 Objective Data Active Medications Acetaminophen (Acetaminophen 325 Mg Tablet) 650 mg PO Q6H PRN PRN Reason: Pain, Mild 1-3,fever,headache Last Admin: 05/15/25 18:33 Dose: 650 mg Documented By: MILLICENT Bupropion HCl (Bupropion Hcl Xl 150 Mg Tab.Er.24h) 150 mg PO DAILY [facility] Last Admin: 05/16/25 08:59 Dose: 150 mg Documented By: KELLI Bupropion HCl (Bupropion Hcl Xl 300 Mg Tab.Er.24h) 300 mg PO DAILY [facility] Last Admin: 05/16/25 08:58 Dose: 300 mg Documented By: KELLI Calcium Carbonate (Calcium Carbonate 750 Mg Tab.Chew) 750 mg PO Q4H PRN PRN Reason: Heartburn Clonidine HCl (Clonidine Hcl 0.2 Mg Tablet) 0.2 mg PO BID [facility]; Protocol Last Admin: 05/16/25 09:09 Dose: 0.2 mg Documented By: KELLI Comments: bp 116/75 Doxepin HCl (Doxepin Hcl 10 Mg Capsule) 50 mg PO BEDTIME [facility] Enoxaparin Sodium (Enoxaparin Sodium 40 Mg/0.4 Ml Syringe) 40 mg SUBCUT Q24H [facility] Last Admin: 05/15/25 18:33 Dose: 40 mg Documented By: MILLICENT Famotidine (Famotidine 20 Mg Tablet) 20 mg PO BID [facility] Last Admin: 05/16/25 08:59 Dose: 20 mg Documented By: KELLI Folic Acid (Folic Acid 1 Mg Tablet) 1 mg PO DAILY [facility] Stop: 05/19/25 08:59 Last Admin: 05/16/25 08:58 Dose: 1 mg Documented By: KELLI Gabapentin (Gabapentin 400 Mg Capsule) 800 mg PO QID [facility] Last Admin: 05/16/25 16:32 Dose: Not Given Documented By: KELLI Non-Admin Reason: Physician Held Med Hydroxyzine HCl (Hydroxyzine Hcl 50 Mg Tablet) 50 mg PO TID PRN PRN Reason: itchiness and/or anxiety Last Admin: 05/16/25 08:58 Dose: 50 mg Documented By: KELLI Lorazepam (Lorazepam 1 Mg Tablet) 1 mg PO Q4H PRN PRN Reason: anxiety/restlessness Last Admin: 05/16/25 04:33 Dose: 1 mg Documented By: POLY Magnesium Hydroxide (Milk Of Magnesia 30 Ml Oral.Susp) 30 ml PO DAILY PRN PRN Reason: Constipation Multivitamins/Vitamin C (Multivitamin Tablet) 1 tab PO DAILY [facility] Stop: 05/19/25 08:59 Last Admin: 05/16/25 08:58 Dose: 1 tab Documented By: KELLI Nicotine (Nicotine 21 Mg Patch.Td24) 21 mg TRANSDERMA DAILY PRN PRN Reason: Smoking Cessation Ondansetron HCl (Ondansetron Hcl 4 Mg/2 Ml Vial) 4 mg IVPUSH Q8H PRN PRN Reason: Nausea and Vomiting Last Admin: 05/16/25 04:33 Dose: 4 mg Documented By: POLY Oxcarbazepine (Oxcarbazepine 300 Mg Tablet) 600 mg PO TID [facility] Last Admin: 05/16/25 16:32 Dose: Not Given Documented By: KELLI Non-Admin Reason: Physician Approved Pharmacy Consult (Consult Rx Etoh Phenob Im/Po) 1 each MISCELLANE ONCE PRN; Protocol PRN Reason: Consult order Phenobarbital (Phenobarbital 15 Mg Tablet) 45 mg PO BID [facility]; Protocol Stop: 05/17/25 21:01 Last Admin: 05/16/25 08:59 Dose: 45 mg Documented By: KELLI Phenobarbital (Phenobarbital 15 Mg Tablet) 15 mg PO BID [facility]; Protocol Stop: 05/19/25 21:01 Phenobarbital (Phenobarbital 15 Mg Tablet) 15 mg PO DAILY [facility]; Protocol Stop: 05/21/25 09:01 Prazosin HCl (Prazosin Hcl 5 Mg Capsule) 5 mg PO BEDTIME [facility]; Protocol Quetiapine Fumarate (Quetiapine Fumarate 50 Mg Tablet) 50 mg PO DAILY PRN PRN Reason: Agitation Quetiapine Fumarate (Quetiapine Fumarate 100 Mg Tablet) 100 mg PO BID@0800,1500 [facility] Last Admin: 05/16/25 16:32 Dose: Not Given Documented By: KELLI Non-Admin Reason: Physician Held Med Quetiapine Fumarate (Quetiapine Fumarate 200 Mg Tablet) 200 mg PO BEDTIME [facility] Last Admin: 05/16/25 00:57 Dose: Not Given Documented By: HUNTER Non-Admin Reason: pt drowsy. Med held and MD notified Sertraline HCl (Sertraline Hcl 50 Mg Tablet) 50 mg PO DAILY [facility] Last Admin: 05/16/25 08:59 Dose: 50 mg Documented By: KELLI Sertraline HCl (Sertraline Hcl 100 Mg Tablet) 100 mg PO DAILY [facility] Last Admin: 05/16/25 08:58 Dose: 100 mg Documented By: KELLI Sodium Chloride (0.9 % Sodium Chloride Flush 3 Ml Syringe) 3 ml IVFLUSH QSHIFT [facility] Last Admin: 05/16/25 16:32 Dose: Not Given Documented By: KELLI Non-Admin Reason: Previously Administered Tamsulosin HCl (Tamsulosin Hcl 0.4 Mg Capsule) 0.4 mg PO DAILY [facility] Last Admin: 05/16/25 08:59 Dose: 0.4 mg Documented By: KELLI Thiamine HCl (Thiamine Hcl 100 Mg Tablet) 100 mg PO DAILY [facility] Stop: 05/19/25 08:59 Last Admin: 05/16/25 08:58 Dose: 100 mg Documented By: KELLI Labs 05/16/25 07:02 05/16/25 07:02 Labs: Laboratory Results - last 24 hr 05/15/25 05/16/25 10:48 07:02 MCV 84.6 MCH 28.2 MCHC 33.3 RDW 16.4 H Plt Count 156 L MPV 10.8 Absolute Nucleated RBC 0.000 Nucleated RBC % (auto) 0.0 Anion Gap 18 Estim Creat Clear Calc 103.0 Estimated GFR > 60 Random Glucose 109 Calcium 8.8 Magnesium 2.0 2.1 Total Bilirubin 0.2 AST 60 H ALT 42 H Alkaline Phosphatase 108 Total Protein 6.9 Albumin 4.1 Assessment and Plan (1) Alcohol withdrawal: Status: Acute Plan Pt is a 34-year-old male with a PMH significant for?cirrhosis, pancreatitis, alcohol use disorder with hx of withdrawal seizure, BPH, ADHD, anxiety, and depression who presents to the ED with?concerns for alcohol withdrawal and requesting detox. Pt is admitted to the hospital for treatement and further evaluation of acute alcohol withdrawal. Acute alcohol withdrawal Pt drinking around 5 sleeves daily; hx of withdrawal seizures Continue Phenobarb protocol Daily multivitamin, folic acid, thiamine, famotidine Follow lytes, Mag, BMP CIWA scale Addiction medicine consult Monitor on telemetry BPH Continue tamsulosin Mood disorder Continue bupropion, clonidine, doxepin, oxcarbazepine, prozosin, quetiapine, sertraline Full Code Attending:?Dr Mancia. DVT Prophylaxis: Lovenox Pt requires continued hospitalization for continued treatment of acute alcohol withdrawal with phenobarb protocol. Quality Stroke Does the patient have a stroke diagnosis?: No VTE Prior VTE?: No VTE Risk Level:: Medical - moderate - high VTE Device Contraindication: Treatment Not Indicated VTE Drug Contraindication: N/A - Med Ordered
[2025-05-16] MEDS: 0.9 % Sodium Chloride Flush 3 ML SYRINGE IVFLUSH (21:07)
[2025-05-17 04:00] VITALS: BP 90/60; PULSE 68; RESP 20; TEMP 36.2; O2SAT 97
[2025-05-17 06:49] VITALS: BP 110/66; PULSE 79; RESP 18; TEMP 36.1; O2SAT 98
[2025-05-17] MEDS: buPROPion HCl XL 150 MG TAB.ER.24H PO (08:02)
[2025-05-17] MEDS: buPROPion HCl XL 300 MG TAB.ER.24H PO (08:02)
[2025-05-17] MEDS: 0.9 % Sodium Chloride Flush 3 ML SYRINGE IVFLUSH ×3 (08:06→19:59)
[2025-05-17 08:09] LABS: Alanine Aminotransferase 36 U/L (0-40); Albumin Level 4.1 g/dL (3.5-5.0); Alkaline Phosphatase 102 U/L (39-117); Anion Gap 13 (12-20); Aspartate Amino Transferase 44 U/L (5-37); Blood Urea Nitrogen 12 mg/dL (9-16); Calcium 8.8 mg/dL (8.4-10.2); Carbon Dioxide 23 mmol/L (22-29); Chloride 106 mmol/L (96-108); Creatinine Clr Calc Pharmacy 108.8; Estimated Glomerular Filt Rate > 60; Magnesium 1.8 mg/dL (1.6-2.6); Potassium 3.6 mmol/L (3.3-5.1); Sodium 138 mmol/L (135-145); Total Protein 6.9 g/dL (6.5-8.0)
[2025-05-17 11:16] VITALS: BP 110/70; PULSE 84; RESP 16; TEMP 36.4; O2SAT 95
--- NOTE | 2025-05-17 14:31 | HO.ADDICT_ITS ---
History of Present Illness Date of Service: 05/17/2025 Chief Complaint: Acute alcohol withdrawal Reason for Consult: AUD HPI Narrative: Patient is a 34 year old male with history of AUD, medically admitted with acute alcohol withdrawal. Patient seen in room 475. He is awake, mostly alert, engaged in interview. He reports long history of AUD with various admissions to treatment Most recently admitted to [facility], per his report, about 2 weeks ago. Since then, he reports he has been unhoused staying in the [facility], drinking btwn 3-5 sleeves daily. Denies any other substance--reports last cocaine use 2023. He reports multiple withdrawal sx, chills, nausea, sweating, restless. However, on exam, patient appears very comfortable with a mild tremor. No diaphoresis or restlessness noted. He also reports 10/10 abdominal pain and nausea--yet ate most of his breakfast. Past Psychiatric History: Denies inpatient psychiatric admissions. Reports detox 5-6 times. [address] wants. Denies current outpatient psychiatric providers. Review of Systems Constitutional: Reports as per HPI Diagnostics Vital Signs (24Hr): Vital Signs - 24 hr 05/16/25 15:06 05/16/25 20:00 05/16/25 22:07 Temperature 97.5 F 98.0 F Pulse Rate 70 85 Respiratory Rate 16 12 16 Blood Pressure 103/64 118/77 Pulse Oximetry 97 95 Oxygen Delivery Method Nasal Cannula Nasal Cannula Oxygen Flow Rate 2 1 05/16/25 22:07 05/16/25 22:07 05/16/25 23:55 Temperature 97.1 F Pulse Rate 72 Respiratory Rate 16 16 12 Blood Pressure 101/65 Pulse Oximetry 95 Oxygen Delivery Method Room Air Oxygen Flow Rate 05/17/25 04:00 05/17/25 06:49 05/17/25 11:16 Temperature 97.1 F 97.0 F 97.6 F Pulse Rate 68 79 84 Respiratory Rate 20 18 16 Blood Pressure 90/60 110/66 110/70 Pulse Oximetry 97 98 95 Oxygen Delivery Method Room Air Room Air Room Air Oxygen Flow Rate BMI result Body Mass Index 30.9 Labs 05/16/25 07:02 05/17/25 06:46 Labs: Laboratory Results - last 48 hr 05/15/25 05/16/25 05/17/25 10:48 07:02 06:46 WBC 3.1 L RBC 4.22 L Hgb 11.9 L Hct 35.7 L MCV 84.6 MCH 28.2 MCHC 33.3 RDW 16.4 H Plt Count 156 L MPV 10.8 Absolute Nucleated RBC 0.000 Nucleated RBC % (auto) 0.0 Sodium 136 138 Potassium 3.8 3.6 Chloride 101 106 Carbon Dioxide 21 L 23 Anion Gap 18 13 BUN 13 12 Creatinine 0.94 0.89 Estim Creat Clear Calc 103.0 108.8 Estimated GFR > 60 > 60 Random Glucose 109 94 Calcium 8.8 8.8 Magnesium 2.0 2.1 1.8 Total Bilirubin 0.2 0.2 AST 60 H 44 H ALT 42 H 36 Alkaline Phosphatase 108 102 Total Protein 6.9 6.9 Albumin 4.1 4.1 Mental Status Exam Mental Status Exam Level of Consciousness: Awake and Alert (mostly, but medicated) Patient Behavior: Talkative Mood Description: Anxious Affect Description: Blunted Speech Pattern: Clear Thought Process: Intact Thought Content: positive for Circumstantial and positive for Tangential Judgement: Fair Medications Medications Current Medications Acetaminophen (Acetaminophen 325 Mg Tablet) 650 mg PO Q6H PRN PRN Reason: Pain, Mild 1-3,fever,headache Last Admin: 05/15/25 18:33 Dose: 650 mg Bupropion HCl (Bupropion Hcl Xl 150 Mg Tab.Er.24h) 150 mg PO DAILY [facility] Last Admin: 05/17/25 08:02 Dose: 150 mg Bupropion HCl (Bupropion Hcl Xl 300 Mg Tab.Er.24h) 300 mg PO DAILY [facility] Last Admin: 05/17/25 08:02 Dose: 300 mg Calcium Carbonate (Calcium Carbonate 750 Mg Tab.Chew) 750 mg PO Q4H PRN PRN Reason: Heartburn Clonidine HCl (Clonidine Hcl 0.2 Mg Tablet) 0.2 mg PO BID [facility]; Protocol Last Admin: 05/17/25 08:02 Dose: 0.2 mg Diazepam (Diazepam 10 Mg/2 Ml Cartridge) 5 mg IVPUSH ONCE PRN PRN Reason: Agitation/anxiety Doxepin HCl (Doxepin Hcl 10 Mg Capsule) 50 mg PO BEDTIME [facility] Last Admin: 05/16/25 21:06 Dose: 50 mg Enoxaparin Sodium (Enoxaparin Sodium 40 Mg/0.4 Ml Syringe) 40 mg SUBCUT Q24H [facility] Last Admin: 05/16/25 18:31 Dose: 40 mg Famotidine (Famotidine 20 Mg Tablet) 20 mg PO BID [facility] On Hold: 05/17/25 13:25 Last Admin: 05/17/25 08:02 Dose: 20 mg Folic Acid (Folic Acid 1 Mg Tablet) 1 mg PO DAILY [facility] Stop: 05/19/25 08:59 Last Admin: 05/17/25 08:02 Dose: 1 mg Gabapentin (Gabapentin 400 Mg Capsule) 800 mg PO QID [facility] Last Admin: 05/17/25 13:36 Dose: 800 mg Hydroxyzine HCl (Hydroxyzine Hcl 50 Mg Tablet) 50 mg PO TID PRN PRN Reason: itchiness and/or anxiety Last Admin: 05/17/25 13:36 Dose: 50 mg Ketorolac Tromethamine (Ketorolac Tromethamine 30 Mg/Ml Vial) 30 mg IVPUSH Q6H PRN PRN Reason: Pain, Moderate(Pain Scale 4-6) Last Admin: 05/17/25 13:41 Dose: 30 mg Lorazepam (Lorazepam 1 Mg Tablet) 1 mg PO Q4H PRN PRN Reason: anxiety/restlessness Last Admin: 05/16/25 21:07 Dose: 1 mg Magnesium Hydroxide (Milk Of Magnesia 30 Ml Oral.Susp) 30 ml PO DAILY PRN PRN Reason: Constipation Multivitamins/Vitamin C (Multivitamin Tablet) 1 tab PO DAILY [facility] Stop: 05/19/25 08:59 Last Admin: 05/17/25 08:02 Dose: 1 tab Nicotine (Nicotine 21 Mg Patch.Td24) 21 mg TRANSDERMA DAILY PRN PRN Reason: Smoking Cessation Ondansetron HCl (Ondansetron Hcl 4 Mg/2 Ml Vial) 4 mg IVPUSH Q8H PRN PRN Reason: Nausea and Vomiting Last Admin: 05/17/25 08:06 Dose: 4 mg Oxcarbazepine (Oxcarbazepine 300 Mg Tablet) 600 mg PO TID [facility] Last Admin: 05/17/25 08:02 Dose: 600 mg Pantoprazole Sodium (Pantoprazole Sodium 40 Mg/10 Ml Vial) 40 mg IVPUSH BID@0630,1630 [facility] Stop: 05/19/25 16:29 Pharmacy Consult (Consult Rx Etoh Phenob Im/Po) 1 each MISCELLANE ONCE PRN; Protocol PRN Reason: Consult order Phenobarbital (Phenobarbital 15 Mg Tablet) 45 mg PO BID [facility]; Protocol Stop: 05/17/25 21:01 Last Admin: 05/17/25 08:02 Dose: 45 mg Phenobarbital (Phenobarbital 15 Mg Tablet) 15 mg PO BID [facility]; Protocol Stop: 05/19/25 21:01 Phenobarbital (Phenobarbital 15 Mg Tablet) 15 mg PO DAILY [facility]; Protocol Stop: 05/21/25 09:01 Prazosin HCl (Prazosin Hcl 5 Mg Capsule) 5 mg PO BEDTIME [facility]; Protocol Last Admin: 05/16/25 21:07 Dose: 5 mg Quetiapine Fumarate (Quetiapine Fumarate 50 Mg Tablet) 50 mg PO DAILY PRN PRN Reason: Agitation Quetiapine Fumarate (Quetiapine Fumarate 100 Mg Tablet) 100 mg PO BID@0800,1500 [facility] Last Admin: 05/17/25 08:02 Dose: 100 mg Quetiapine Fumarate (Quetiapine Fumarate 200 Mg Tablet) 200 mg PO BEDTIME [facility] Last Admin: 05/16/25 21:07 Dose: 200 mg Sertraline HCl (Sertraline Hcl 50 Mg Tablet) 50 mg PO DAILY [facility] Last Admin: 05/17/25 08:02 Dose: 50 mg Sertraline HCl (Sertraline Hcl 100 Mg Tablet) 100 mg PO DAILY [facility] Last Admin: 05/17/25 08:02 Dose: 100 mg Sodium Chloride (0.9 % Sodium Chloride Flush 3 Ml Syringe) 3 ml IVFLUSH QSHIFT [facility] Last Admin: 05/17/25 08:06 Dose: 3 ml Tamsulosin HCl (Tamsulosin Hcl 0.4 Mg Capsule) 0.4 mg PO DAILY [facility] Last Admin: 05/17/25 08:02 Dose: 0.4 mg Thiamine HCl (Thiamine Hcl 100 Mg Tablet) 100 mg PO DAILY [facility] Stop: 05/19/25 08:59 Last Admin: 05/17/25 08:02 Dose: 100 mg Allergies Allergies Allergy/AdvReac Type Severity Reaction Status Date / Time Penicillins Allergy Unknown CHILDHOOD Verified 05/15/25 10:41 ALLERGY Assessment & Plan Assessment & Plan (1) Alcohol use disorder: Status: Acute Code(s): F10.90 - Alcohol use, unspecified, uncomplicated Assessment and Plan: * pheno taper in place--adequately managing withdrawals at this time * continue thiamine and folic acid * patient verbalzing desire to re-enter treatment following hospitalization * avoid PRN benzos with phenobarbital. for increasing anxiety, consider PRN gabapentin * reporting severe abdominal pain and requesting IV dilaudid with PO taper. At this time, objective evaluation does not align with subjective report. 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 [facility] Past Medical History Medical History (Updated 05/17/25 @ 15:02 by Lacie Lindsay CNP) Alcohol use disorder Meningitis spinal Alcoholic cirrhosis Seizure Mood disorder Surgical History Surgical History Orange teeth extracted H/O colonoscopy No pertinent past surgical history Social History Social History Household Members: None Household Members Other:: freind Housing: Homeless Housing Other:: Roommate Do you presently have visiting nurse or other home services: No Alcohol intake: current Alcohol intake frequency: 0-2 drinks per day Alcohol type: hard liquor Comment: pt refusing high falls measures except above Patient Tobacco Use Status: Current everyday Tobacco user Tobacco use type: Cigarette Cigarette Packs Per Day: 1 Cigarettes Per Day: 20.0 Years Smoked: 15 Smoked in Last 30 Days: Yes e-Cigarette/Vaping Use: Currently Using Frequency of e-Cigarette/Vaping Use: sometimes Patient Interested in Nicotine Replacement: Yes Patient Given Instructions on How to Stop Smoking: Yes Date Education Initiated: 05/15/25 Second Hand Smoke Exposure: No Use of substances other than those prescribed or required for medical reasons: No Substance Use Type: Crack/Cocaine and Marijuana Currently Displaying Signs/Symptoms of Drug Intoxication Withdrawal: No Have you been hit, kicked, punched, or otherwise hurt by someone within the past year? If so, by whom?: No Do you feel safe in your current relationship?: No Current Relationship Is there a partner from a previous relationship who is making you feel unsafe now?: No Are you made to feel afraid or neglected: No Spiritual Healthcare Practices: I believe in a higher power Voodoo Healthcare Practices: declined Advance Directives: Yes Advance Directives on File: Yes Advance Directives Date on File: 06/23/24 Do you have a plan to hurt others: No Plan Recently lost weight without trying: Yes How much weight loss: 2-13 pounds Eating poorly because of decreased appetite: No Nutrition screen score: 3 Nutrition Risks: On aspiration precautions Poor oral hygiene: No service: No
[2025-05-17 15:11] VITALS: BP 100/60; PULSE 82; RESP 16; TEMP 36.7; O2SAT 97
--- NOTE | 2025-05-17 16:13 | HO.PM.IMPN ---
Subjective Subjective Date of Service: 05/17/25 Interval History: More awake and alert Has been able to tolerate full diet Complains of RUQ 10/10 pain that feels like ?razor blades?; has been ongoing for years Review of Systems Review of Systems: Yes all other systems are reviewed and are negative Physical Exam Exam: Exam: General: AOx3, no acute distress Resp: CTA bilaterally CVS: S1, S2, RRR GI: Soft, no distention, no significant tenderness. Overall abd exam benign Skin: Warm, dry Neuro: Cranial nerves II-XII grossly intact bilaterally. Motor grossly intact bilaterally. No significant upper extremity tremors Extremities: No edema Psych: Appropriate affect Vital Signs: Vital Signs: Last Vital Signs Temp 98.0 F 05/17/25 15:11 Pulse 82 05/17/25 15:11 Resp 16 05/17/25 15:11 BP 100/60 05/17/25 15:11 Pulse Ox 97 05/17/25 15:11 O2 Del Method Nasal Cannula 05/17/25 15:11 O2 Flow Rate 2 05/17/25 15:11 BMI result Body Mass Index 30.9 Objective Data Active Medications Acetaminophen (Acetaminophen 325 Mg Tablet) 650 mg PO Q6H PRN PRN Reason: Pain, Mild 1-3,fever,headache Last Admin: 05/15/25 18:33 Dose: 650 mg Documented By: MILLICENT Bupropion HCl (Bupropion Hcl Xl 150 Mg Tab.Er.24h) 150 mg PO DAILY [facility] Last Admin: 05/17/25 08:02 Dose: 150 mg Documented By: KELLI Bupropion HCl (Bupropion Hcl Xl 300 Mg Tab.Er.24h) 300 mg PO DAILY [facility] Last Admin: 05/17/25 08:02 Dose: 300 mg Documented By: KELLI Calcium Carbonate (Calcium Carbonate 750 Mg Tab.Chew) 750 mg PO Q4H PRN PRN Reason: Heartburn Clonidine HCl (Clonidine Hcl 0.2 Mg Tablet) 0.2 mg PO BID [facility]; Protocol Last Admin: 05/17/25 08:02 Dose: 0.2 mg Documented By: KELLI Diazepam (Diazepam 10 Mg/2 Ml Cartridge) 5 mg IVPUSH ONCE PRN PRN Reason: Agitation/anxiety Doxepin HCl (Doxepin Hcl 10 Mg Capsule) 50 mg PO BEDTIME [facility] Last Admin: 05/16/25 21:06 Dose: 50 mg Documented By: MARY Enoxaparin Sodium (Enoxaparin Sodium 40 Mg/0.4 Ml Syringe) 40 mg SUBCUT Q24H [facility] Last Admin: 05/16/25 18:31 Dose: 40 mg Documented By: MATIASPAArgelia Famotidine (Famotidine 20 Mg Tablet) 20 mg PO BID [facility] On Hold: 05/17/25 13:25 Last Admin: 05/17/25 08:02 Dose: 20 mg Documented By: KELLI Folic Acid (Folic Acid 1 Mg Tablet) 1 mg PO DAILY [facility] Stop: 05/19/25 08:59 Last Admin: 05/17/25 08:02 Dose: 1 mg Documented By: KELLI Gabapentin (Gabapentin 400 Mg Capsule) 800 mg PO QID [facility] Last Admin: 05/17/25 13:36 Dose: 800 mg Documented By: KELLI Hydromorphone HCl (Hydromorphone Hcl 1 Mg/Ml Syringe) 1 mg IVPUSH ONCE ONE; Protocol Stop: 05/17/25 16:06 Hydroxyzine HCl (Hydroxyzine Hcl 50 Mg Tablet) 50 mg PO TID PRN PRN Reason: itchiness and/or anxiety Last Admin: 05/17/25 13:36 Dose: 50 mg Documented By: KELLI Ketorolac Tromethamine (Ketorolac Tromethamine 30 Mg/Ml Vial) 30 mg IVPUSH Q6H PRN PRN Reason: Pain, Moderate(Pain Scale 4-6) Last Admin: 05/17/25 13:41 Dose: 30 mg Documented By: KELLI Lorazepam (Lorazepam 1 Mg Tablet) 1 mg PO Q4H PRN PRN Reason: anxiety/restlessness Last Admin: 05/16/25 21:07 Dose: 1 mg Documented By: MARY Magnesium Hydroxide (Milk Of Magnesia 30 Ml Oral.Susp) 30 ml PO DAILY PRN PRN Reason: Constipation Multivitamins/Vitamin C (Multivitamin Tablet) 1 tab PO DAILY [facility] Stop: 05/19/25 08:59 Last Admin: 05/17/25 08:02 Dose: 1 tab Documented By: KELLI Nicotine (Nicotine 21 Mg Patch.Td24) 21 mg TRANSDERMA DAILY PRN PRN Reason: Smoking Cessation Ondansetron HCl (Ondansetron Hcl 4 Mg/2 Ml Vial) 4 mg IVPUSH Q8H PRN PRN Reason: Nausea and Vomiting Last Admin: 05/17/25 08:06 Dose: 4 mg Documented By: KELLI Oxcarbazepine (Oxcarbazepine 300 Mg Tablet) 600 mg PO TID [facility] Last Admin: 05/17/25 15:53 Dose: 600 mg Documented By: KELLI Pantoprazole Sodium (Pantoprazole Sodium 40 Mg/10 Ml Vial) 40 mg IVPUSH BID@0630,1630 [facility] Stop: 05/19/25 16:29 Last Admin: 05/17/25 15:53 Dose: 40 mg Documented By: KELLI Pharmacy Consult (Consult Rx Etoh Phenob Im/Po) 1 each MISCELLANE ONCE PRN; Protocol PRN Reason: Consult order Phenobarbital (Phenobarbital 15 Mg Tablet) 45 mg PO BID [facility]; Protocol Stop: 05/17/25 21:01 Last Admin: 05/17/25 08:02 Dose: 45 mg Documented By: KELLI Phenobarbital (Phenobarbital 15 Mg Tablet) 15 mg PO BID [facility]; Protocol Stop: 05/19/25 21:01 Phenobarbital (Phenobarbital 15 Mg Tablet) 15 mg PO DAILY [facility]; Protocol Stop: 05/21/25 09:01 Prazosin HCl (Prazosin Hcl 5 Mg Capsule) 5 mg PO BEDTIME [facility]; Protocol Last Admin: 05/16/25 21:07 Dose: 5 mg Documented By: MARY Quetiapine Fumarate (Quetiapine Fumarate 50 Mg Tablet) 50 mg PO DAILY PRN PRN Reason: Agitation Quetiapine Fumarate (Quetiapine Fumarate 100 Mg Tablet) 100 mg PO BID@0800,1500 [facility] Last Admin: 05/17/25 15:53 Dose: 100 mg Documented By: KELLI Quetiapine Fumarate (Quetiapine Fumarate 200 Mg Tablet) 200 mg PO BEDTIME [facility] Last Admin: 05/16/25 21:07 Dose: 200 mg Documented By: MARY Sertraline HCl (Sertraline Hcl 50 Mg Tablet) 50 mg PO DAILY [facility] Last Admin: 05/17/25 08:02 Dose: 50 mg Documented By: KELLI Sertraline HCl (Sertraline Hcl 100 Mg Tablet) 100 mg PO DAILY [facility] Last Admin: 05/17/25 08:02 Dose: 100 mg Documented By: KELLI Sodium Chloride (0.9 % Sodium Chloride Flush 3 Ml Syringe) 3 ml IVFLUSH QSHIFT [facility] Last Admin: 05/17/25 15:54 Dose: 3 ml Documented By: KELLI Tamsulosin HCl (Tamsulosin Hcl 0.4 Mg Capsule) 0.4 mg PO DAILY [facility] Last Admin: 05/17/25 08:02 Dose: 0.4 mg Documented By: KELLI Thiamine HCl (Thiamine Hcl 100 Mg Tablet) 100 mg PO DAILY [facility] Stop: 05/19/25 08:59 Last Admin: 05/17/25 08:02 Dose: 100 mg Documented By: KELLI Labs 05/16/25 07:02 05/17/25 06:46 Labs: Laboratory Results - last 24 hr 05/17/25 06:46 Anion Gap 13 Estim Creat Clear Calc 108.8 Estimated GFR > 60 Random Glucose 94 Calcium 8.8 Magnesium 1.8 Total Bilirubin 0.2 AST 44 H ALT 36 Alkaline Phosphatase 102 Total Protein 6.9 Albumin 4.1 Assessment and Plan (1) Alcohol withdrawal: Status: Acute Plan Pt is a 34-year-old male with a PMH significant for?cirrhosis, pancreatitis, alcohol use disorder with hx of withdrawal seizure, BPH, ADHD, anxiety, and depression who presents to the ED with?concerns for alcohol withdrawal and requesting detox. Pt is admitted to the hospital for treatement and further evaluation of acute alcohol withdrawal. Acute alcohol withdrawal Pt drinking around 5 sleeves daily; hx of withdrawal seizures Continue Phenobarb protocol Daily multivitamin, folic acid, thiamine, famotidine Follow lytes, Mag, BMP CIWA scale Addiction medicine consult Monitor on telemetry Abdominal pain Chronic, ongoing for years No N/V, eating a full diet; LFTs improving No indication of acute process Avoid opioids for pain management BPH Continue tamsulosin Mood disorder Continue bupropion, clonidine, doxepin, oxcarbazepine, prozosin, quetiapine, sertraline Full Code DVT Prophylaxis: Lovenox Pt requires continued hospitalization for continued treatment of acute alcohol withdrawal with phenobarb protocol. Quality Stroke Does the patient have a stroke diagnosis?: No VTE Prior VTE?: No VTE Risk Level:: Medical - moderate - high VTE Device Contraindication: Treatment Not Indicated VTE Drug Contraindication: N/A - Med Ordered
[2025-05-17 19:34] VITALS: BP 148/104; PULSE 96; RESP 18; TEMP 36.9; O2SAT 97
[2025-05-18] VITALS (8 sets, daily range): BP systolic 104–129; BP diastolic 60–85; PULSE 69–87; RESP 16–18; TEMP 36.1–36.6; O2SAT 94–99
[2025-05-18] MEDS: buPROPion HCl XL 150 MG TAB.ER.24H PO (09:24)
[2025-05-18] MEDS: buPROPion HCl XL 300 MG TAB.ER.24H PO (09:24)
[2025-05-18] MEDS: 0.9 % Sodium Chloride Flush 3 ML SYRINGE IVFLUSH ×3 (09:25→22:01)
--- NOTE | 2025-05-18 10:38 | MHC.CM.PN ---
Addendum entered by Genevieve Quiñones 05/18/25 15:47: CHRISTY SPOKE TO [facility] FROM [facility] REGARDING PTS REFERRAL FOR A CSS BED SHE REPORTS THEY DO NOT HAVE ANY BEDS AT THIS TIME SHE UNDERSTANDS HE WILL LIKELY DC TODAY AND STATES HE SHOULD CALL TOMORROW MORNING FROM THE COMMUNITY SHE ALSO NOTED PEOPLE WHO ARE IN THE COMMUNITY AND NOT IN A HOSPITAL OR OTHER FACILITY, ARE PRIORITIZED PT HAS THE NUMBER AND HAS BEEN IN CONTACT WITH THEM WELL Original Note: CHRISTY MET WITH PT AND UNCLE TO DISCUSS DC PLANNING PTS UNCLE AT BEDSIDE CALLING DETOX/CSS FACILITIES, HOWEVER HE IS BEING TOLD PT HAS TO CHANGE HIS INSURANCE CM EXPLAINED CHANGING HIS INSURANCE IS NOT SOMETHING THAT COULD BE DONE IMMEDIATELY, SO THEY SHOULD EXPLORE OPTIONS COVERED BY HIS CURRENT PLAN [employer] AT BEDSIDE WITH CONTACT INFO FOR CONTRACTED PROGRAMS
--- NOTE | 2025-05-18 11:25 | MHC.RECOVRN ---
T/W met with pt. in to offer support with D/C placement. Pt requesting CSS. Upon meeting with pt. and Uncle, pt resistant to assistance for CSS placement. Pt made up several excuses as to why he could not go certain places and was fixated on places that did not have availability. Pt states I will just go back to a motel . Pt was also offered transport to [place] for [place] and Uncle replied I can take him there . Uncle concerned about pt's current mental status and speaking with floor Nurse about this. T/W again offered assistance with recovery planning and at this time services declined. T/W available as needed. Report to Jack
--- NOTE | 2025-05-18 17:16 | HO.PM.IMPN ---
Subjective Subjective Date of Service: 05/18/25 Interval History: Feeling slightly better CIWA has been low Continues to request additional Ativan and Dilaudid More awake Denies hallucinations Has been tolerating diet without difficulties Review of Systems Review of Systems: Yes all other systems are reviewed and are negative Physical Exam Exam: Exam: General: AOx3, no acute distress. Somnolent though arousable and interactive Resp: CTA bilaterally CVS: S1, S2, RRR GI: +BS, NT, no distention Skin: Warm, dry Neuro: Cranial nerves II-XII grossly intact bilaterally. Motor grossly intact bilaterally. Non-tremulous Extremities: No edema Psych: Appropriate affect Vital Signs: Vital Signs: Last Vital Signs Temp 97.1 F 05/18/25 16:00 Pulse 77 05/18/25 16:00 Resp 18 05/18/25 16:00 BP 118/79 05/18/25 16:00 Pulse Ox 95 05/18/25 16:00 O2 Del Method Room Air 05/18/25 16:00 O2 Flow Rate 2 05/17/25 15:11 BMI result Body Mass Index 30.9 Objective Data Active Medications Acetaminophen (Acetaminophen 325 Mg Tablet) 650 mg PO Q6H PRN PRN Reason: Pain, Mild 1-3,fever,headache Last Admin: 05/15/25 18:33 Dose: 650 mg Documented By: MILLICENT Bupropion HCl (Bupropion Hcl Xl 150 Mg Tab.Er.24h) 150 mg PO DAILY [facility] Last Admin: 05/18/25 09:24 Dose: 150 mg Documented By: JESSI Bupropion HCl (Bupropion Hcl Xl 300 Mg Tab.Er.24h) 300 mg PO DAILY [facility] Last Admin: 05/18/25 09:24 Dose: 300 mg Documented By: JESSI Calcium Carbonate (Calcium Carbonate 750 Mg Tab.Chew) 750 mg PO Q4H PRN PRN Reason: Heartburn Clonidine HCl (Clonidine Hcl 0.2 Mg Tablet) 0.2 mg PO BID [facility]; Protocol Last Admin: 05/18/25 09:24 Dose: 0.2 mg Documented By: JESSI Diazepam (Diazepam 10 Mg/2 Ml Cartridge) 5 mg IVPUSH ONCE PRN PRN Reason: Agitation/anxiety Doxepin HCl (Doxepin Hcl 10 Mg Capsule) 50 mg PO BEDTIME [facility] Last Admin: 05/17/25 19:58 Dose: 50 mg Documented By: JAVIER Enoxaparin Sodium (Enoxaparin Sodium 40 Mg/0.4 Ml Syringe) 40 mg SUBCUT Q24H [facility] Last Admin: 05/17/25 16:30 Dose: 40 mg Documented By: KELLI Famotidine (Famotidine 20 Mg Tablet) 20 mg PO BID [facility] On Hold: 05/17/25 13:25 Last Admin: 05/17/25 08:02 Dose: 20 mg Documented By: KELLI Folic Acid (Folic Acid 1 Mg Tablet) 1 mg PO DAILY [facility] Stop: 05/19/25 08:59 Last Admin: 05/18/25 09:24 Dose: 1 mg Documented By: JESSI Gabapentin (Gabapentin 400 Mg Capsule) 800 mg PO QID [facility] Last Admin: 05/18/25 16:19 Dose: Not Given Documented By: JESSI Non-Admin Reason: Physician Held Med Hydroxyzine HCl (Hydroxyzine Hcl 50 Mg Tablet) 50 mg PO TID PRN PRN Reason: itchiness and/or anxiety Last Admin: 05/17/25 13:36 Dose: 50 mg Documented By: KELLI Ketorolac Tromethamine (Ketorolac Tromethamine 30 Mg/Ml Vial) 30 mg IVPUSH Q6H PRN PRN Reason: Pain, Moderate(Pain Scale 4-6) Last Admin: 05/18/25 04:17 Dose: 30 mg Documented By: JAVIER Magnesium Hydroxide (Milk Of Magnesia 30 Ml Oral.Susp) 30 ml PO DAILY PRN PRN Reason: Constipation Multivitamins/Vitamin C (Multivitamin Tablet) 1 tab PO DAILY [facility] Stop: 05/19/25 08:59 Last Admin: 05/18/25 09:24 Dose: 1 tab Documented By: JESSI Nicotine (Nicotine 21 Mg Patch.Td24) 21 mg TRANSDERMA DAILY PRN PRN Reason: Smoking Cessation Ondansetron HCl (Ondansetron Hcl 4 Mg/2 Ml Vial) 4 mg IVPUSH Q8H PRN PRN Reason: Nausea and Vomiting Last Admin: 05/18/25 05:58 Dose: 4 mg Documented By: JAVIER Oxcarbazepine (Oxcarbazepine 300 Mg Tablet) 600 mg PO TID [facility] Last Admin: 08/18/25 15:58 Dose: 600 mg Documented By: JESSI Pantoprazole Sodium (Pantoprazole Sodium 40 Mg/10 Ml Vial) 40 mg IVPUSH BID@0630,1630 [facility] Stop: 05/19/25 16:29 Last Admin: 05/18/25 15:58 Dose: 40 mg Documented By: JESSI Pharmacy Consult (Consult Rx Etoh Phenob Im/Po) 1 each MISCELLANE ONCE PRN; Protocol PRN Reason: Consult order Phenobarbital (Phenobarbital 15 Mg Tablet) 15 mg PO BID [facility]; Protocol Stop: 05/19/25 21:01 Last Admin: 05/18/25 09:24 Dose: 15 mg Documented By: JESSI Phenobarbital (Phenobarbital 15 Mg Tablet) 15 mg PO DAILY [facility]; Protocol Stop: 05/21/25 09:01 Prazosin HCl (Prazosin Hcl 5 Mg Capsule) 5 mg PO BEDTIME [facility]; Protocol Last Admin: 05/17/25 19:58 Dose: 5 mg Documented By: JAVIER Quetiapine Fumarate (Quetiapine Fumarate 50 Mg Tablet) 50 mg PO DAILY PRN PRN Reason: Agitation Last Admin: 05/18/25 04:17 Dose: 50 mg Documented By: JAVIER Quetiapine Fumarate (Quetiapine Fumarate 100 Mg Tablet) 100 mg PO BID@0800,1500 [facility] Last Admin: 05/18/25 15:58 Dose: 100 mg Documented By: JESSI Quetiapine Fumarate (Quetiapine Fumarate 200 Mg Tablet) 200 mg PO BEDTIME [facility] Last Admin: 05/17/25 19:59 Dose: 200 mg Documented By: JAVIER Sertraline HCl (Sertraline Hcl 50 Mg Tablet) 50 mg PO DAILY [facility] Last Admin: 05/18/25 09:24 Dose: 50 mg Documented By: JESSI Sertraline HCl (Sertraline Hcl 100 Mg Tablet) 100 mg PO DAILY [facility] Last Admin: 05/18/25 09:24 Dose: 100 mg Documented By: JESSI Sodium Chloride (0.9 % Sodium Chloride Flush 3 Ml Syringe) 3 ml IVFLUSH QSHIFT [facility] Last Admin: 05/18/25 15:58 Dose: 3 ml Documented By: JESSI Tamsulosin HCl (Tamsulosin Hcl 0.4 Mg Capsule) 0.4 mg PO DAILY [facility] Last Admin: 05/18/25 09:24 Dose: 0.4 mg Documented By: JESSI Thiamine HCl (Thiamine Hcl 100 Mg Tablet) 100 mg PO DAILY [facility] Stop: 05/19/25 08:59 Last Admin: 05/18/25 09:24 Dose: 100 mg Documented By: JESSI Labs 05/16/25 07:02 05/17/25 06:46 Assessment and Plan (1) Alcohol withdrawal: Status: Acute (2) Alcohol use disorder: Status: Acute Plan Pt is a 34-year-old male with a PMH significant for?cirrhosis, pancreatitis, alcohol use disorder with hx of withdrawal seizure, BPH, ADHD, anxiety, and depression who presents to the ED with?concerns for alcohol withdrawal and requesting detox. Pt is admitted to the hospital for treatement and further evaluation of acute alcohol withdrawal. Acute alcohol withdrawal Pt drinking around 3-5 sleeves daily; reports hx of withdrawal seizures Continue Phenobarb protocol Daily multivitamin, folic acid, thiamine, famotidine Follow lytes, Mag, BMP CIWA scale Addiction medicine consult Patient expresses desire to enter an inpatient substance use program Monitor on telemetry Somnolence Pt has been somnolent during most of the stay Likely secondary to polypharmacy: on multiple sedating medications, including clonidine, doxepin, gabapentin, oxcarbazepine, sertraline, and quetiapine Will recommend d/c doxepin, quetiapine prn, and decreasing gabapentin to 300 mg t.i.d., quetiapine to 100 mg b.i.d., sertraline to 100mg daily, and buproprion 150mg ER daily; also should consider considering decreasing oxacarbenzapine Pt should have full med reconciliation done by Psychiatry once he is in a program Abdominal pain Chronic, ongoing for years No N/V, eating a full diet; LFTs improving No indication of acute process Avoid opioids for pain management BPH Continue tamsulosin Mood disorder Continue bupropion, clonidine, doxepin, oxcarbazepine, prozosin, quetiapine, sertraline Full Code DVT Prophylaxis: Lovenox Pt requires continued hospitalization for continued treatment of acute alcohol withdrawal with phenobarb protocol while awaiting safe disposition home. Quality Stroke Does the patient have a stroke diagnosis?: No VTE Prior VTE?: No VTE Risk Level:: Medical - moderate - high VTE Device Contraindication: Treatment Not Indicated VTE Drug Contraindication: N/A - Med Ordered
--- NOTE | 2025-05-19 00:01 | PM.DS ---
DS: Providers Provider Date of Service: 05/20/25 Date of admission: 05/15/25 14:19 Date of discharge: 05/20/25 Primary care physician: Noe Graham MD Consults: 05/15/25 20:49 Addiction Medicine Provider Routine Consulting Provider: Addiction Covering Reason for consultation: admit ETOH WD, drinks 3-5 sleeves (30-50) shots per day DS: Diagnosis Discharge Diagnosis (1) Alcohol withdrawal: Status: Acute (2) Alcohol use disorder: Status: Acute DS: Summary Hospital Course Hospital Course: From admission HPI: Date of Service: 05/15/25 Attending physician on admission: [facility] Chief Complaint: Alcohol withdrawal Pt is a 34-year-old male with a PMH significant for?cirrhosis, pancreatitis, alcohol use disorder with hx of withdrawal seizure, BPH, ADHD, anxiety, and depression who presents to the ED with?concerns for alcohol withdrawal and requesting detox. Pt previously presented to [facility] in [place] the night prior for a similar request but left AMA as he wanted to be closer to [facility] . Continued to drive vodka after leaving the hospital. Last drink 1:00 last night. Reports has a long hx of alcohol use disorder with withdrawal: has seizures even while drinking . Currently drinking around 5 sleeves daily on average. Had some auditory and perceptual hallucinations prior to presentation to [facility] but none since. Complains of increased anxiety, diaphoresis, tremors, and nausea but no vomiting. Some diffuse abd pain. No CP or pressure. Requests help getting into a detox program. In the ED pt's vitals stable. Labs were significant for mild transaminitis, otherwise unremarkable. Ethyl alcohol level 11. UA negative. EKG demonstrated NSR without evidence of significant ST elevations or depressions. Pt was treated in the ED with diazepam and started on phenobarb protocol. Pt is admitted to the hospital for treatement and further evaluation of acute alcohol withdrawal. Hospital course: Pt was admitted for acute alcohol withdrawal and seeking detox. Was treated with phenobarb protocal and hospital stay was uncomplicated from a medical standpoint. Pt was noted to be quite somnolent throghout much of stay which was likely secondary to polypharmacy: pt was on multiple, overlapping sedating medications. Also was noted to be often asking for additional doses of Ativan and Dilaudid. Was seen by addiction medicine and expressed desire to enter an inpatient substance abuse program. Pt found in available program and will be discharged home to then be able to enter this program. Pt was also seen and evaluated Psychiatry who suggested that pt needs to follow up with his original prescriber for medication adjustments. Pt is strongly encouraged to abstain from alcohol and seek whatever familial, social, and/or community services are available to him to maintain his sobriety. Rest of problem list as indicated below. Somnolence Pt has been somnolent during most of the stay Likely secondary to polypharmacy: on multiple sedating medications, including clonidine, doxepin, gabapentin, oxcarbazepine, sertraline, and quetiapine Pt needs to follow up with original prescriber to see about medication changes Abdominal pain Chronic, ongoing for years No N/V, eating a full diet; LFTs improving No indication of acute process Follow up outpatient with GI if symptoms persist BPH Continue tamsulosin Mood disorder Continue home meds Consider med adjustments as per original prescriber Time Attestation Discharge Coordination Time (in mins): 35 Quality: Safe Use of Opioids Does Pt have an Active Cancer Diagnosis on the Problem List?: No Quality: Stroke Does the patient have a stroke diagnosis?: No Physical Exam Exam: Exam: General: AOx3, no acute distress Resp: CTA bilaterally CVS: S1, S2, RRR GI: +BS, NT, no distention Skin: Warm, dry Neuro: Cranial nerves II-XII grossly intact bilaterally. Motor grossly intact bilaterally Extremities: No edema Psych: Appropriate affect Vital Signs: Vital Signs: Last Vital Signs Temp 97.9 F 05/18/25 21:45 Pulse 84 05/18/25 21:45 Resp 18 05/18/25 21:45 BP 104/60 05/18/25 21:45 Pulse Ox 97 05/18/25 21:45 O2 Del Method Room Air 05/18/25 21:45 O2 Flow Rate 2 05/17/25 15:11 BMI result Body Mass Index 30.9 DS: Data Data Completed and Pending Completed studies during hospitalization [Text1]: Procedures Detoxification Services for Substance Abuse Treatment (07/14/24) Excision of Sigmoid Colon, Via Natural or Artificial Opening Endoscopic, Diagnostic (04/06/24) Excision of Stomach, Pylorus, Via Natural or Artificial Opening Endoscopic, Diagnostic (04/06/24) Discharge Plan Discharge Anticipated Discharge Date/Time: 05/20/25 10:00 Patient Disposition: Home, Self-Care Discharge Diagnosis: Acute alcohol withdrawal Referrals: Noe Graham MD [Primary Care Provider, [facility]] - 1 Week Discharge Medications: Continued sertraline 100 mg tablet 100 mg PO DAILY prazosin 5 mg capsule 5 mg PO BEDTIME clonidine HCl 0.2 mg tablet 0.2 mg PO BID tamsulosin 0.4 mg capsule 0.4 mg PO DAILY nicotine 21 mg/24 hr patch 24 hour 1 patch topical DAILY PRN (Reason: Smoking Cessation) oxcarbazepine 600 mg tablet 600 mg PO TID bupropion HCl 150 mg tablet extended release 24 hr 150 mg PO DAILY quetiapine 50 mg tablet 100 mg PO BID folic acid 1 mg tablet 1 mg PO DAILY Changed gabapentin 800 mg tablet 300 mg PO QID Qty: 30 0RF Discontinued doxepin 50 mg capsule 50 mg PO BEDTIME sertraline 50 mg tablet 50 mg PO DAILY bupropion HCl 300 mg tablet extended release 24 hr 300 mg PO DAILY quetiapine 50 mg tablet 50 mg PO DAILY PRN (Reason: Agitation) quetiapine 100 mg tablet 200 mg PO BEDTIME Discharge Orders: Discharge Order (Routine); Ordered 05/20/25 Ordered By: Wm Colon Activity on Discharge: As tolerated Stand Alone Forms: Patient Portal Discharge page Print Language: Luxembourgish Care Plan Goals: See below Health Concerns: Alcohol use disorder Alcohol withdrawal Polypharmacy Plan of Treatment: You were admitted to hospital for acute alcohol withdrawal and treated with phenobarb protocol to good effect. You requested inpatient substance use treatment facility, and will be discharged home to entry into such a facility. Hospital stay was uncomplicated from a medical standpoint, though your noted to be somnolent throughout much of your hospital stay. This is likely secondary to polypharmacy. You were seen and evaluated by psychiatry who did not suggest any medication changes, though you are noted to be on many different medications which overlap and also cause drowsiness. You should follow up with your original prescriber for possible medication adjustment. Your strongly encouraged to abstain from alcohol and seek whether familial, social, and or community service available to you to maintain so maintain sobriety. You should continue all of your home medications. Assessment: See discharge summary
[2025-05-19 04:00] VITALS: BP 100/62; PULSE 80; RESP 18; TEMP 36.2; O2SAT 94
[2025-05-19 08:00] VITALS: BP 140/77; PULSE 93; RESP 20; TEMP 36.4; O2SAT 100
[2025-05-19] MEDS: 0.9 % Sodium Chloride Flush 3 ML SYRINGE IVFLUSH ×2 (08:45→15:36)
[2025-05-19 08:46] VITALS: BP 140/77
[2025-05-19] MEDS: buPROPion HCl XL 150 MG TAB.ER.24H PO (08:46)
[2025-05-19] MEDS: buPROPion HCl XL 300 MG TAB.ER.24H PO (08:46)
[2025-05-19 11:37] VITALS: BP 139/87; PULSE 95; RESP 20; TEMP 36.7; O2SAT 97
--- NOTE | 2025-05-19 14:28 | MHC.CM.PN ---
Addendum entered by Shira Rene 05/19/25 15:43: Pts uncle present at bedside requested to speak with this CM, he states [facility] is requesting a psych eval for the pt, and are also only open until 4pm today and now wont be able to take him today. Hospitalist updated. Original Note: This CM received a call from pts uncle who was asking for an update on the patients discharge status. Pts uncle stating he is at [facility] right now and they state they can accept the patient now. Hospitalist updated.
[2025-05-19 15:26] VITALS: BP 122/73; PULSE 82; RESP 18; TEMP 36.4; O2SAT 95
--- NOTE | 2025-05-19 16:58 | P.CNPS_ITS ---
History of Present Illness Date of Service: 05/19/25 Chief Complaint: Acute alcohol withdrawal Reason for Consult: Medication management Requesting physician: Rob Mancia Discussed with referring provider: Yes Sources of Information: patient interviewed and crisis/core team assessment reviewed HPI Narrative: Patient is a 34y.o male who came in for alcohol W/D. Medically clear per attending. Patient would like to see psycho provider as he has questions regarding home medications. Patient seen by [id number] in his room. He reports that he is going to the program in [facility] today. He would like to get his home meds reduced (gesture with long list to shrink down to 1-2 medications only). He would like to be on Adderall for ADHD and Avitan only for his anxiety. Renewed current home meds with patients. He said providers just keep adding more and more on his meds list. report clonidine does not work. Patient made aware that medication management needs to be done either with OP providers or with the provider that work for the treatment program that he is going to. We do not have enough time to manage medication here on the floor where he is medically clear and is discharging today. He appear to be anxious regarding meds but pleasant and coperative. No irritability mood. No safety concerns. Report hx of ADHD, anxiety and depression, denies bipolar hx. Educate patient on BZD use in addition to alcohol use which can have negative effect on his [employer] system and respiratory. He is aware. Patient do not want psychiatric hospitalization. Once again, he can have medication titration with either OP prescribers or with provider at treatment for substance use program. Past Psychiatric History: Denies inpatient psychiatric admissions. Reports detox 5-6 times. Section [address] once Denies current outpatient psychiatric providers. Review of Systems Review of Systems No SOB. No breathing issues, no N/V. No pain expressed. [facility] Medical History (Updated 05/17/25 @ 15:02 by Lacie Lindsay CNP) Alcohol use disorder Meningitis spinal Alcoholic cirrhosis Seizure Mood disorder Surgical History [place] teeth extracted H/O colonoscopy No pertinent past surgical history Family History: unknown Social History: Lives with room mate, single, no children, unemployed. Substance History: Alcohol use. Not further discuss other substance use Trauma History: not discuss Diagnostics Vital Signs (24Hr): Vital Signs - 24 hr 05/18/25 20:00 05/18/25 21:45 05/19/25 04:00 Temperature 97.6 F 97.9 F 97.2 F Pulse Rate 76 84 80 Respiratory Rate 18 18 18 Blood Pressure 129/80 104/60 100/62 Pulse Oximetry 96 97 94 Oxygen Delivery Method Room Air Room Air Nasal Cannula Oxygen Flow Rate 2 05/19/25 08:00 05/19/25 08:46 05/19/25 11:37 Temperature 97.6 F 98.0 F Pulse Rate 93 95 Respiratory Rate 20 20 Blood Pressure 140/77 H 140/77 H 139/87 Pulse Oximetry 100 97 Oxygen Delivery Method Room Air Room Air Oxygen Flow Rate 05/19/25 15:26 Temperature 97.5 F Pulse Rate 82 Respiratory Rate 18 Blood Pressure 122/73 Pulse Oximetry 95 Oxygen Delivery Method Room Air Oxygen Flow Rate BMI result Body Mass Index 30.9 Labs 05/16/25 07:02 05/17/25 06:46 Mental Status Exam Mental Status Exam Narrative: A+Ox4, mild anxiety regarding medications but pleasant and cooperative. Speech is WNL. thought process and thought content WNL. No safety concerns. No SI/SIB/HI/AVH. Do not appear to be psychotic. Medications Medications Current Medications Acetaminophen (Acetaminophen 325 Mg Tablet) 650 mg PO Q6H PRN PRN Reason: Pain, Mild 1-3,fever,headache Last Admin: 05/15/25 18:33 Dose: 650 mg Bupropion HCl (Bupropion Hcl Xl 150 Mg Tab.Er.24h) 150 mg PO DAILY [facility] Last Admin: 05/19/25 08:46 Dose: 150 mg Bupropion HCl (Bupropion Hcl Xl 300 Mg Tab.Er.24h) 300 mg PO DAILY [facility] Last Admin: 05/19/25 08:46 Dose: 300 mg Calcium Carbonate (Calcium Carbonate 750 Mg Tab.Chew) 750 mg PO Q4H PRN PRN Reason: Heartburn Clonidine HCl (Clonidine Hcl 0.2 Mg Tablet) 0.2 mg PO BID [facility]; Protocol Last Admin: 05/19/25 08:46 Dose: 0.2 mg Enoxaparin Sodium (Enoxaparin Sodium 40 Mg/0.4 Ml Syringe) 40 mg SUBCUT Q24H [facility] Last Admin: 05/18/25 18:17 Dose: 40 mg Famotidine (Famotidine 20 Mg Tablet) 20 mg PO BID [facility] On Hold: 05/17/25 13:25 Last Admin: 05/17/25 08:02 Dose: 20 mg Gabapentin (Gabapentin 300 Mg Capsule) 300 mg PO QID [facility] Last Admin: 05/19/25 16:22 Dose: 300 mg Ketorolac Tromethamine (Ketorolac Tromethamine 30 Mg/Ml Vial) 30 mg IVPUSH Q6H PRN PRN Reason: Pain, Moderate(Pain Scale 4-6) Last Admin: 05/18/25 22:47 Dose: 30 mg Magnesium Hydroxide (Milk Of Magnesia 30 Ml Oral.Susp) 30 ml PO DAILY PRN PRN Reason: Constipation Nicotine (Nicotine 21 Mg Patch.Td24) 21 mg TRANSDERMA DAILY PRN PRN Reason: Smoking Cessation Ondansetron HCl (Ondansetron Hcl 4 Mg/2 Ml Vial) 4 mg IVPUSH Q8H PRN PRN Reason: Nausea and Vomiting Last Admin: 05/19/25 08:56 Dose: 4 mg Oxcarbazepine (Oxcarbazepine 300 Mg Tablet) 600 mg PO TID [facility] Last Admin: 05/19/25 15:35 Dose: 600 mg Pharmacy Consult (Consult Rx Etoh Phenob Im/Po) 1 each MISCELLANE ONCE PRN; Protocol PRN Reason: Consult order Phenobarbital (Phenobarbital 15 Mg Tablet) 15 mg PO BID [facility]; Protocol Stop: 05/19/25 21:01 Last Admin: 05/19/25 08:45 Dose: 15 mg Phenobarbital (Phenobarbital 15 Mg Tablet) 15 mg PO DAILY [facility]; Protocol Stop: 05/21/25 09:01 Prazosin HCl (Prazosin Hcl 5 Mg Capsule) 5 mg PO BEDTIME [facility]; Protocol Last Admin: 05/18/25 21:57 Dose: 5 mg Sertraline HCl (Sertraline Hcl 50 Mg Tablet) 50 mg PO DAILY [facility] Last Admin: 05/19/25 08:46 Dose: 50 mg Sertraline HCl (Sertraline Hcl 100 Mg Tablet) 100 mg PO DAILY [facility] Last Admin: 05/19/25 08:46 Dose: 100 mg Sodium Chloride (0.9 % Sodium Chloride Flush 3 Ml Syringe) 3 ml IVFLUSH QSHIFT [facility] Last Admin: 05/19/25 15:36 Dose: 3 ml Tamsulosin HCl (Tamsulosin Hcl 0.4 Mg Capsule) 0.4 mg PO DAILY [facility] Last Admin: 05/19/25 08:46 Dose: 0.4 mg Allergies Allergies Allergy/AdvReac Type Severity Reaction Status Date / Time Penicillins Allergy Unknown CHILDHOOD Verified 05/15/25 10:41 ALLERGY Assessment & Plan Assessment & Plan (1) Mood disorder: Status: Acute Code(s): F39 - Unspecified mood [affective] disorder (2) Alcohol withdrawal: Status: Acute Code(s): F10.939 - Alcohol use, unspecified with withdrawal, unspecified Plan Patient is a 34y.o male who came in for alcohol W/D. Medically clear per the attending. He is to be discharged today but Patient would like to see psychiatric provider as he has questions regarding home medications. He would like to be off some of his medications and only wants Adderall and Ativan. Patient is made aware of medications changes wont be reasonable at this discharge time. Need to FLU with OP prescriber or with provider at the substance treatment program he is discharged to. No change in term of medications. Continue with home meds. Need to FLU with OP prescriber/ or provider at substance treatment program. No safety concerns prior to discharge. Denies SI/SIB/HI/AVH. He is medically clear to discharge per the attending. Patient can be discharged as plan per attending. Total time managing care of this patient today ____ minutes. Patient educated on: diagnosis, medication risk/benefits and substance abuse Informed Consent: understands
--- NOTE | 2025-05-19 17:31 | P.PNIM_ITS ---
Subjective Subjective Date of Service: 05/19/25 Interval History: Feels better, minimal tremors Review of Systems Review of Systems: Yes all other systems are reviewed and are negative Physical Exam 2 Exam: Exam: General: AOx3, no acute distress. Somnolent though arousable and interactive Resp: CTA bilaterally CVS: S1, S2, RRR GI: +BS, NT, no distention Skin: Warm, dry Neuro: Cranial nerves II-XII grossly intact bilaterally. Motor grossly intact bilaterally. Non-tremulous Extremities: No edema Psych: Appropriate affect Vital Signs: Vital Signs: Last Vital Signs Temp 97.5 F 05/19/25 15:26 Pulse 82 05/19/25 15:26 Resp 18 05/19/25 15:26 BP 122/73 05/19/25 15:26 Pulse Ox 95 05/19/25 15:26 O2 Del Method Room Air 05/19/25 15:26 O2 Flow Rate 2 05/19/25 04:00 BMI result Body Mass Index 30.9 Const: Other: General: AO X 3, no acute distress Resp: CTA bilateral CVS: S1,S2,RRR GI: +BS, NT, no distention Skin: No rash Neuro: motor grossly intact Psych: appropriate affect Objective Data Active Medications Acetaminophen (Acetaminophen 325 Mg Tablet) 650 mg PO Q6H PRN PRN Reason: Pain, Mild 1-3,fever,headache Last Admin: 05/15/25 18:33 Dose: 650 mg Documented By: MILLICENT Bupropion HCl (Bupropion Hcl Xl 150 Mg Tab.Er.24h) 150 mg PO DAILY [facility] Last Admin: 05/19/25 08:46 Dose: 150 mg Documented By: JESSI Bupropion HCl (Bupropion Hcl Xl 300 Mg Tab.Er.24h) 300 mg PO DAILY [facility] Last Admin: 05/19/25 08:46 Dose: 300 mg Documented By: JESSI Calcium Carbonate (Calcium Carbonate 750 Mg Tab.Chew) 750 mg PO Q4H PRN PRN Reason: Heartburn Clonidine HCl (Clonidine Hcl 0.2 Mg Tablet) 0.2 mg PO BID [facility]; Protocol Last Admin: 05/19/25 08:46 Dose: 0.2 mg Documented By: JESSI Enoxaparin Sodium (Enoxaparin Sodium 40 Mg/0.4 Ml Syringe) 40 mg SUBCUT Q24H [facility] Last Admin: 05/19/25 17:28 Dose: 40 mg Documented By: JESSI Famotidine (Famotidine 20 Mg Tablet) 20 mg PO BID [facility] On Hold: 05/17/25 13:25 Last Admin: 05/17/25 08:02 Dose: 20 mg Documented By: KELLI Gabapentin (Gabapentin 300 Mg Capsule) 300 mg PO QID [facility] Last Admin: 05/19/25 16:22 Dose: 300 mg Documented By: JESSI Ketorolac Tromethamine (Ketorolac Tromethamine 30 Mg/Ml Vial) 30 mg IVPUSH Q6H PRN PRN Reason: Pain, Moderate(Pain Scale 4-6) Last Admin: 05/18/25 22:47 Dose: 30 mg Documented By: SHIV Magnesium Hydroxide (Milk Of Magnesia 30 Ml Oral.Susp) 30 ml PO DAILY PRN PRN Reason: Constipation Nicotine (Nicotine 21 Mg Patch.Td24) 21 mg TRANSDERMA DAILY PRN PRN Reason: Smoking Cessation Ondansetron HCl (Ondansetron Hcl 4 Mg/2 Ml Vial) 4 mg IVPUSH Q8H PRN PRN Reason: Nausea and Vomiting Last Admin: 05/19/25 08:56 Dose: 4 mg Documented By: JESSI Oxcarbazepine (Oxcarbazepine 300 Mg Tablet) 600 mg PO TID [facility] Last Admin: 05/19/25 15:35 Dose: 600 mg Documented By: JESSI Pharmacy Consult (Consult Rx Etoh Phenob Im/Po) 1 each MISCELLANE ONCE PRN; Protocol PRN Reason: Consult order Phenobarbital (Phenobarbital 15 Mg Tablet) 15 mg PO BID [facility]; Protocol Stop: 05/19/25 21:01 Last Admin: 05/19/25 08:45 Dose: 15 mg Documented By: JESSI Phenobarbital (Phenobarbital 15 Mg Tablet) 15 mg PO DAILY [facility]; Protocol Stop: 05/21/25 09:01 Prazosin HCl (Prazosin Hcl 5 Mg Capsule) 5 mg PO BEDTIME [facility]; Protocol Last Admin: 05/18/25 21:57 Dose: 5 mg Documented By: SHIV Sertraline HCl (Sertraline Hcl 50 Mg Tablet) 50 mg PO DAILY [facility] Last Admin: 05/19/25 08:46 Dose: 50 mg Documented By: JESSI Sertraline HCl (Sertraline Hcl 100 Mg Tablet) 100 mg PO DAILY [facility] Last Admin: 05/19/25 08:46 Dose: 100 mg Documented By: JESSI Sodium Chloride (0.9 % Sodium Chloride Flush 3 Ml Syringe) 3 ml IVFLUSH QSHIFT [facility] Last Admin: 05/19/25 15:36 Dose: 3 ml Documented By: JESSI Tamsulosin HCl (Tamsulosin Hcl 0.4 Mg Capsule) 0.4 mg PO DAILY [facility] Last Admin: 05/19/25 08:46 Dose: 0.4 mg Documented By: JESSI Labs 05/16/25 07:02 05/17/25 06:46 Assessment and Plan (1) Alcohol withdrawal: Status: Acute (2) Alcohol use disorder: Status: Acute Plan Pt is a 34-year-old male with a PMH significant for?cirrhosis, pancreatitis, alcohol use disorder with hx of withdrawal seizure, BPH, ADHD, anxiety, and depression who presents to the ED with?concerns for alcohol withdrawal and requesting detox. Pt is admitted to the hospital for treatement and further evaluation of acute alcohol withdrawal. Acute alcohol withdrawal Pt drinking around 3-5 sleeves daily; reports hx of withdrawal seizures Continue Phenobarb protocol Daily multivitamin, folic acid, thiamine, famotidine Follow lytes, Mag, BMP CIWA scale Addiction medicine consult Patient expresses desire to enter an inpatient substance use program Somnolence Pt has been somnolent during most of the stay Likely secondary to polypharmacy: on multiple sedating medications, including clonidine, doxepin, gabapentin, oxcarbazepine, sertraline, and quetiapine Will recommend d/c doxepin, quetiapine prn, and decreasing gabapentin to 300 mg t.i.d., quetiapine to 100 mg b.i.d., sertraline to 100mg daily, and buproprion 150mg ER daily; also should consider considering decreasing oxacarbenzapine Pt should have full med reconciliation done by Psychiatry once he is in a program More awake and can probably resume usuam meds upon discharge Abdominal pain Chronic, ongoing for years No N/V, eating a full diet; LFTs improving No indication of acute process Avoid opioids for pain management BPH Continue tamsulosin Mood disorder Continue bupropion, clonidine, doxepin, oxcarbazepine, prozosin, quetiapine, sertraline Full Code DVT Prophylaxis: Lovenox Pt requires continued hospitalization for continued treatment of acute alcohol withdrawal with phenobarb protocol while awaiting safe disposition home. Quality Stroke Does the patient have a stroke diagnosis?: No VTE Prior VTE?: No VTE Risk Level:: Medical - moderate - high VTE Device Contraindication: Treatment Not Indicated VTE Drug Contraindication: N/A - Med Ordered
[2025-05-19 19:28] VITALS: BP 130/77; PULSE 89; RESP 18; TEMP 36.4; O2SAT 98
[2025-05-20] VITALS: BP 111/64; PULSE 84; RESP 18; TEMP 36.2; O2SAT 92
[2025-05-20 03:11] VITALS: BP 142/80; PULSE 89; RESP 18; TEMP 36.4; O2SAT 97
--- NOTE | 2025-05-20 07:24 | MHC.CM.PN ---
[facility] PT WILL BE MEDICALLY CLEARED FOR DC TO [facility] VIA [facility]
[2025-05-20 07:33] VITALS: BP 149/60; PULSE 75; RESP 20; TEMP 36.7; O2SAT 97
== END 2025-05-20 10:37 | disposition home or self-care (01) | DRG 775 ==
LOC: HO.ED 13:39 → HO.EDOVER 14:19 → HO.IMC 19:17
PROVIDERS: Physician Assistant; Admitting Provider Student in an Organized Health Care Education/Training Program; Emergency Provider Emergency Medicine; PCP Internal Medicine; Visit Provider Student in an Organized Health Care Education/Training Program
DX: F10.139 Alcohol abuse with withdrawal, unspecified (principal); F17.210 Nicotine dependence, cigarettes, uncomplicated; N40.0 Benign prostatic hyperplasia without lower urinary tract symptoms; F90.9 Attention-deficit hyperactivity disorder, unspecified type; F41.1 Generalized anxiety disorder; Z71.6 Tobacco abuse counseling; Z79.899 Other long term (current) drug therapy
CPT/HCPCS: 36415; 80048; 80053; 80076; 80307; 81003; 83690; 83735; 85025; 85027; 93005; 99285; J1171; J1650; J1885; J2405; J2470; J2560; J3360; S9485

== ENCOUNTER → 2025-05-15 12:46 | Outpatient (BNV) | payer OTHER, SELFPAY | PROVIDERS: Admitting Provider Student in an Organized Health Care Education/Training Program; Emergency Provider Emergency Medicine; PCP Internal Medicine; Visit Provider Internal Medicine Cardiovascular Disease | DX: F10.939 Alcohol use, unspecified with withdrawal, unspecified (principal) | CPT/HCPCS: 93010 ==

== ENCOUNTER → 2025-05-15 14:19 | Outpatient (BNV) | payer OTHER, SELFPAY | PROVIDERS: Admitting Provider Student in an Organized Health Care Education/Training Program; Emergency Provider Emergency Medicine; PCP Internal Medicine; Visit Provider Nurse Practitioner Psychiatric/Mental Health | DX: F10.90 Alcohol use, unspecified, uncomplicated (principal) | CPT/HCPCS: 99222; 99232 ==

== ENCOUNTER → 2025-05-15 14:19 | Outpatient (BNV) | payer OTHER, SELFPAY | PROVIDERS: Admitting Provider Student in an Organized Health Care Education/Training Program; Emergency Provider Emergency Medicine; PCP Internal Medicine; Visit Provider Student in an Organized Health Care Education/Training Program | DX: F10.939 Alcohol use, unspecified with withdrawal, unspecified (principal) | CPT/HCPCS: 99222; 99232; 99233; 99239; 99499 ==